=== PATIENT | female | born 1980 | race Caucasian/White ===

== ENCOUNTER 2019-12-23 09:35 | Emergency (ER) | payer OTHER, SELFPAY ==
[2019-12-23 09:49] VITALS: BP 165/101; PULSE 77; RESP 20; TEMP 36.8; O2SAT 100
--- NOTE | 2019-12-23 09:49 | ED.GENADULT ---
HPI - General Adult General Chief complaint: Neck Pain/Injury Stated complaint: neck pain Time Seen by Provider: 12/23/19 09:49 Source: patient Mode of arrival: ambulatory Limitations: no limitations History of Present Illness HPI narrative: 39-year-old female patient presents to the [facility] with complaints of lateral neck pain that started yesterday. Patient states that she was cooking dinner last night and was trying to talk to her mother on the phone and states that she went to go turn her neck and all of a sudden felt pulled to the left lateral neck. Patient states she has been taking 600 mg ibuprofen for pain and using icy hot. Patient states she feels like it is very stiff today and has limited range of motion to her neck. Denies any numbness or tingling to the legs or arms. Denies any back pain. Related Data Home Medications Medication Instructions Recorded Confirmed albuterol sulfate 04/03/19 amlodipine 04/03/19 fluticasone propion-salmeterol INHALATION 04/03/19 fluticasone propion-salmeterol INHALATION 04/03/19 [Wixela Inhub] labetalol 04/03/19 ranitidine HCl 04/03/19 sertraline mg 04/03/19 Allergies Allergy/AdvReac Type Severity Reaction Status Date / Time levofloxacin Allergy Severe hives Verified 12/23/19 09:59 latex Allergy Intermediate Rash Verified 12/23/19 09:59 THEOPHYLLINE ANHYDROUS Allergy Mild Rash Uncoded 04/03/19 17:20 Review of Systems Review of Systems: Narrative: CONSTITUTIONAL: Denies fever, chills, or sweats. EYES: Denies visual changes, redness, or discharge. ENT: Denies rhinorrhea, congestion, sore throat, or otalgia. CARDIOVASCULAR: Denies chest pain, palpitations, or edema. RESPIRATORY: Denies cough or dyspnea. GASTROINTESTINAL: Denies abdominal pain, nausea, vomiting, or diarrhea. GENITOURINARY: Denies dysuria or hematuria. SKIN: Denies rash or itching. MUSCULOSKELETAL: Denies back pain, joint pain, or myalgia. Positive left lateral neck pain NEUROLOGIC: Denies headache, numbness, or weakness. PSYCHIATRIC: Denies anxiety or depression. [facility] Past Medical History Medical History (Updated 12/23/19 @ 10:06 by SIMONE Cruz) Asthma Depression Gastrointestinal disorder Gastric bypass surgery, lap band Gestational hypertension Social History Social History Social History: Smoking status: Current every day smoker Comments At the time of my signature I agree with nursing past medical history, surgical, social, and family history. There is no relevant family history pertinent to the presenting complaint. Exam Narrative: Exam Narrative: GENERAL: Well-appearing, well-nourished, and in no acute distress. HEAD: Normocephalic, atraumatic. EYES: PERRLA and EOMI. ENT: Nares clear, no rhinorrhea or epistaxis. Mucous membranes moist. NECK: Supple, no lymphadenopathy. No surface trauma, no soft tissue, muscle tenderness spasm noted to L lateral neck. Trachea midline. No subq emphysema or crepitus. No lila tenderness, step-offs or deformity to firm Palpation at posterior midline. FROM with limitation and pain, decrease flexion, extension,Lateral bending, rotation, and axial load. CHEST: Clear to auscultation. No respiratory distress. HEART: Regular rate and rhythm. No murmur heard. Normal peripheral pulses. ABDOMEN: Soft, nontender, nondistended, normal active bowel sounds. EXTREMITIES: Normal range of motion. No edema. SKIN: Warm, dry, no rash. NEURO: No focal deficits. Alert and oriented x3. Course Vital Signs Vital signs: Vital Signs Temperature 36.8 C 12/23/19 09:49 Pulse Rate 77 12/23/19 09:49 Respiratory Rate 12/23/19 09:49 Blood Pressure 165/101 H 12/23/19 09:49 Pulse Oximetry 100 12/23/19 09:49 Temperature 36.8 C 12/23/19 09:49 Pulse Rate 77 12/23/19 09:49 Respiratory Rate 12/23/19 09:49 Blood Pressure 165/101 H 12/23/19 09:49 Pulse Oximetry
== END 2019-12-23 10:16 | disposition home or self-care (01) ==
PROVIDERS: Emergency Provider Nurse Practitioner Family; PCP Nurse Practitioner Family
DX: S16.1XXA Strain of muscle, fascia and tendon at neck level, initial encounter (principal); X50.9XXA Other and unspecified overexertion or strenuous movements or postures, initial encounter; F17.200 Nicotine dependence, unspecified, uncomplicated; J45.909 Unspecified asthma, uncomplicated; F32.9 Major depressive disorder, single episode, unspecified; Z98.84 Bariatric surgery status
CPT/HCPCS: 99213; G0463

== ENCOUNTER 2021-04-11 09:57 | Emergency (ER) | payer OTHER, SELFPAY ==
--- NOTE | 2021-04-11 10:00 | ED.URI ---
HPI - URI/Sore Throat General Chief Complaint: Upper Respiratory Infection Stated Complaint: congestion cough sinus pressure Time Seen by Provider: 04/11/21 10:01 Source: patient and RN notes reviewed History of Present Illness HPI Narrative: Patient is a 40-year-old female who presents the urgent care with complaints of sinus congestion, cough and chest congestion. Patient states that she has a history of asthma and tends to get this every year . Patient states her symptoms started yesterday. Denies of any other illness in the home. Patient has not had a Covid vaccine. Denies of fever, chills, nausea, vomiting. Patient has been using her inhalers appropriately without any other use of [id number] medications. No other complaints. No acute distress noted. Patient aware of the plan of care. Some parts of this dictation were generated by voice recognition software and may contain typographical and/or grammatical inaccuracies. Related Data Home Medications Medication Instructions Recorded Confirmed albuterol sulfate 2.5 mg INHALATION PRN PRN 04/03/19 amlodipine 10 mg PO DAILY 04/03/19 04/11/21 labetalol 04/03/19 ranitidine HCl 04/03/19 famotidine 20 mg PO DAILY 04/11/21 04/11/21 hydroxyzine HCl 25 mg PO DAILY 04/11/21 04/11/21 Allergies Allergy/AdvReac Type Severity Reaction Status Date / Time levofloxacin Allergy Severe hives Verified 04/11/21 10:13 latex Allergy Intermediate Rash Verified 04/11/21 10:13 THEOPHYLLINE ANHYDROUS Allergy Mild Rash Uncoded 04/11/21 10:13 Review of Systems Review of Systems: CONSTITUTIONAL: Denies fever, chills, or sweats. EYES: Denies visual changes, redness, or discharge. ENT: Reports of sinus congestion and rhinorrhea CARDIOVASCULAR: Denies chest pain, palpitations, or edema. RESPIRATORY: Reports of cough and intermittent dyspnea GASTROINTESTINAL: Denies abdominal pain, nausea, vomiting, or diarrhea. GENITOURINARY: Denies dysuria or hematuria. SKIN: Denies rash or itching. MUSCULOSKELETAL: Denies back pain, joint pain, or myalgia. NEUROLOGIC: Denies headache, numbness, or weakness. All other systems reviewed are negative, except as documented in HPI. [facility] Past Medical History Medical History (Updated 04/11/21 @ 10:27 by SIMONE Hallman) Asthma Depression Gastrointestinal disorder Gastric bypass surgery, lap band Gestational hypertension Social History Social History Social History: Smoking status: Current every day smoker Comments At the time of my signature, I reviewed and agree with the nursing past medical, surgical, social, and family history. There is no relevant family history pertinent to the patient complaint. Exam Narrative: GENERAL: This is a well-nourished, well-developed patient, in no apparent distress. HEAD: normocephalic, atraumatic. EYES: PERRL. Sclera clear/white. Vision is grossly intact. EARS: External ears normal, auditory canals clear and without drainage, TMs normal without perforation. Hearing grossly intact. NOSE: External nose normal with no obvious nasal discharge, nares without redness, no rhinorrhea. THROAT: Mucous membranes moist, posterior pharynx clear. NECK: Neck supple, non-tender without lymphadenopathy, masses or thyromegaly. CARDIOVASCULAR: Regular rate and rhythm without murmurs, gallops, or rubs. RESPIRATORY: Clear to auscultation. Breath sounds equal bilaterally. No wheezes, rales, or rhonchi. SKIN: warm, intact with no suspicious lesions or rash, good texture and turgor. NEURO: awake, alert, and oriented to person, place and time. There were no obvious focal neurologic abnormalities. EXTREMITIES: No clubbing, cyanosis, or edema. Course Course Level of Care: Express Care Visit Vital Signs Vital signs: Vital Signs Temperature 98.9 F 04/11/21 10:02 Pulse Rate 100 04/11/21 10:02 Respiratory Rate 18 04/11/21 10:02 Blood Pressure 17
[2021-04-11 10:02] VITALS: BP 176/112; PULSE 100; RESP 18; TEMP 37.2; O2SAT 98
[2021-04-11 10:17] VITALS: BP 176/112; PULSE 100; RESP 18; TEMP 37.2; O2SAT 98
[2021-04-11 10:30] VITALS: BP 170/98
== END 2021-04-11 10:33 | disposition home or self-care (01) ==
PROVIDERS: Emergency Provider Nurse Practitioner Family; PCP Nurse Practitioner Family
DX: J45.909 Unspecified asthma, uncomplicated (principal); Z98.84 Bariatric surgery status
CPT/HCPCS: 99213; G0463

== ENCOUNTER 2022-05-07 18:51 | Emergency (ER) | payer OTHER, SELFPAY ==
[2022-05-07 18:56] VITALS: BP 151/78; PULSE 87; RESP 20; TEMP 36.9; O2SAT 98
--- NOTE | 2022-05-07 18:57 | ED.BACK ---
HPI - Back Pain/Injury General Chief Complaint: Back Pain/Injury Stated Complaint: Middle back pain from fall Time Seen by Provider: 05/07/22 18:57 Source: patient and RN notes reviewed History of Present Illness HPI Narrative: Patient is a 41-year-old female who presents to urgent care with complaints of acute on chronic back pain. Patient states her chronic back pain is typically in the lumbar region affecting the SI joints. States that she does see pain management and takes several medications for her chronic back pain. Patient states that she has tried to get a hold for pain management regarding her new thoracic pain after falling over a dog gate a few days ago. Patient states that she has not had any relief. No other acute complaints. No acute distress noted. Patient aware of the plan of care. Some parts of this dictation were generated by voice recognition software and may contain typographical and/or grammatical inaccuracies. Related Data Home Medications Medication Instructions Recorded Confirmed albuterol sulfate 2.5 mg/3 mL 2.5 mg inhalation PRN PRN Wheezing 04/03/19 (0.083 %) solution for nebulization amlodipine 10 mg tablet 10 mg PO DAILY 04/03/19 04/11/21 labetalol 200 mg tablet 04/03/19 ranitidine HCl 150 mg tablet 04/03/19 famotidine 20 mg tablet 20 mg PO DAILY 04/11/21 04/11/21 hydroxyzine HCl 25 mg tablet 25 mg PO DAILY 04/11/21 04/11/21 budesonide-formoterol HFA 160 inhalation 05/07/22 mcg-4.5 mcg/actuation aerosol inhaler (Symbicort) cyclobenzaprine 10 mg tablet mg 05/07/22 methocarbamol 750 mg tablet mg 05/07/22 omeprazole 40 mg capsule,delayed mg 05/07/22 release pregabalin 75 mg capsule mg 05/07/22 tramadol 50 mg tablet mg 05/07/22 venlafaxine 150 mg mg PO 05/07/22 capsule,extended release 24 hr Allergies Allergy/AdvReac Type Severity Reaction Status Date / Time levofloxacin Allergy Severe hives Verified 04/11/21 10:13 latex Allergy Intermediate Rash Verified 04/11/21 10:13 THEOPHYLLINE ANHYDROUS Allergy Mild Rash Uncoded 04/11/21 10:13 Review of Systems Review of Systems: CONSTITUTIONAL: Denies fever, chills, or sweats. EYES: Denies visual changes, redness, or discharge. ENT: Denies rhinorrhea, congestion, sore throat, or otalgia. CARDIOVASCULAR: Denies chest pain, palpitations, or edema. RESPIRATORY: Denies cough or dyspnea. GASTROINTESTINAL: Denies abdominal pain, nausea, vomiting, or diarrhea. GENITOURINARY: Denies dysuria or hematuria. SKIN: Denies rash or itching. MUSCULOSKELETAL: Reports acute on chronic back pain NEUROLOGIC: Denies headache, numbness, or weakness. All other systems reviewed are negative, except as documented in HPI. [facility] Past Medical History Medical History (Updated 05/07/22 @ 19:14 by SIMONE Hallman) Asthma Depression Gastrointestinal disorder Gastric bypass surgery, lap band Gestational hypertension Social History Social History Social History: Smoking status: Current every day smoker Comments At the time of my signature, I reviewed and agree with the nursing past medical, surgical, social, and family history. There is no relevant family history pertinent to the patient complaint. Exam Narrative: GENERAL: This is a well-nourished, well-developed patient, in no apparent distress. HEAD: normocephalic, atraumatic. EYES: PERRL. Sclera clear/white. Vision is grossly intact. EARS: External ears normal NOSE: External nose normal with no obvious nasal discharge, nares without redness, no rhinorrhea. THROAT: Mucous membranes moist NECK: Neck supple SKIN: warm, intact with no suspicious lesions or rash, good texture and turgor. NEURO: awake, alert, and oriented to person, place and time. There were no obvious focal neurologic abnormalities. EXTREMITIES: No clubbing, cyanosis, or edema. BACK: Moderate tenderness to midline thoracic and lumbar diffuse tenderne
== END 2022-05-07 19:22 | disposition home or self-care (01) ==
PROVIDERS: Emergency Provider Nurse Practitioner Family; PCP Nurse Practitioner Family
DX: M54.6 Pain in thoracic spine (principal); F17.200 Nicotine dependence, unspecified, uncomplicated; J45.909 Unspecified asthma, uncomplicated; Z98.84 Bariatric surgery status; F32.A Depression, unspecified
CPT/HCPCS: 99213; G0463

== ENCOUNTER 2022-07-06 15:20 | Emergency (ER) | payer OTHER, SELFPAY ==
[2022-07-06 15:28] VITALS: BP 143/79; PULSE 87; RESP 16; TEMP 37; O2SAT 100
--- NOTE | 2022-07-06 15:44 | ED.URI ---
HPI - URI/Sore Throat General Chief Complaint: Upper Respiratory Infection Stated Complaint: throat Source: patient and RN notes reviewed History of Present Illness HPI Narrative: 41 yo F presents to urgent care with complaints of a sore throat starting today. Pt reports painful swallowing. Pt denies any fevers, chills, chest pain, SOB, N/V/D, ear pain, or vomiting. Related Data Home Medications Medication Instructions Recorded Confirmed albuterol sulfate 2.5 mg/3 mL 2.5 mg inhalation PRN PRN Wheezing 04/03/19 (0.083 %) solution for nebulization amlodipine 10 mg tablet 10 mg PO DAILY 04/03/19 04/11/21 labetalol 200 mg tablet 04/03/19 famotidine 20 mg tablet 20 mg PO DAILY 04/11/21 04/11/21 hydroxyzine HCl 25 mg tablet 25 mg PO DAILY 04/11/21 04/11/21 budesonide-formoterol HFA 160 inhalation 05/07/22 mcg-4.5 mcg/actuation aerosol inhaler (Symbicort) cyclobenzaprine 10 mg tablet mg 05/07/22 methocarbamol 750 mg tablet mg 05/07/22 omeprazole 40 mg capsule,delayed mg 05/07/22 release pregabalin 75 mg capsule mg 05/07/22 tramadol 50 mg tablet mg 05/07/22 venlafaxine 150 mg mg PO 05/07/22 capsule,extended release 24 hr Allergies Allergy/AdvReac Type Severity Reaction Status Date / Time levofloxacin Allergy Severe hives Verified 07/06/22 15:42 latex Allergy Intermediate Rash Verified 07/06/22 15:42 THEOPHYLLINE ANHYDROUS Allergy Mild Rash Uncoded 07/06/22 15:42 Review of Systems Review of Systems: Pertinent positives and pertinent negatives per HPI. [facility] Past Medical History Medical History (Updated 07/06/22 @ 16:07 by Bailey Ledesma APRN) Asthma Depression Gastrointestinal disorder Gastric bypass surgery, lap band Gestational hypertension Social History Social History Social History: 06/09pa Smoking status: Current every day smoker Comments At the time of my signature, I reviewed and agree with the nursing past medical, surgical, social, and family history. There is no relevant family history pertinent to the patient complaint. Exam Narrative: GENERAL: This is a well-nourished, well-developed patient, in no apparent distress. HEAD: normocephalic, atraumatic. EYES: PERRL. Sclera clear/white. Vision is grossly intact. EARS: External ears normal, auditory canals clear and without drainage, TMs normal without perforation. Hearing grossly intact. NOSE: External nose normal with no obvious nasal discharge, nares without redness, no rhinorrhea. THROAT: Mucous membranes moist, posterior pharynx erythremic with right tonsil 1+ with exudate. Left tonsil 1+. NECK: Neck supple, non-tender without lymphadenopathy, masses or thyromegaly. CARDIOVASCULAR: Regular rate and rhythm without murmurs, gallops, or rubs. RESPIRATORY: Clear to auscultation. Breath sounds equal bilaterally. No wheezes, rales, or rhonchi. GASTROINTESTINAL: Abdomen soft, non-tender, nondistended. Bowel sounds are active. No hepato-splenomegaly, or palpable masses. No guarding. SKIN: warm, intact with no suspicious lesions or rash, good texture and turgor. NEURO: awake, alert, and oriented to person, place and time. There were no obvious focal neurologic abnormalities. Course Course Level of Care: Express Care Visit Vital Signs Vital signs: Vital Signs Temperature 98.6 F 07/06/22 15:28 Pulse Rate 87 07/06/22 15:28 Respiratory Rate 16 07/06/22 15:28 Blood Pressure 143/79 H 07/06/22 15:28 Pulse Oximetry 100 07/06/22 15:28 Oxygen Delivery Room Air 07/06/22 15:28 Temperature 98.6 F 07/06/22 15:28 Pulse Rate 87 07/06/22 15:28 Respiratory Rate 16 07/06/22 15:28 Blood Pressure 143/79 H 07/06/22 15:28 Pulse Oximetry 100 07/06/22 15:28 Oxygen Delivery Room Air 07/06/22 15:28 reviewed. MDM - URI/Sore Throat MDM Narrative Medical decision making narrative: Rapid strep is negative in the office; however we will send to the
== END 2022-07-06 16:10 | disposition home or self-care (01) ==
PROVIDERS: Emergency Provider Nurse Practitioner Family; PCP Nurse Practitioner Family
DX: J02.9 Acute pharyngitis, unspecified (principal); J45.909 Unspecified asthma, uncomplicated; F32.A Depression, unspecified; F17.200 Nicotine dependence, unspecified, uncomplicated
CPT/HCPCS: 87081; 87880; 99213; G0463

== ENCOUNTER 2022-08-12 12:41 | Emergency (ER) | payer OTHER, SELFPAY ==
[2022-08-12 12:44] VITALS: BP 129/84; PULSE 93; RESP 20; TEMP 36.8; O2SAT 100
--- NOTE | 2022-08-12 13:22 | ED.GENADULT ---
HPI - General Adult General Chief complaint: Upper Respiratory Infection Stated complaint: sinus infection/ chest congestion Source: patient Mode of arrival: ambulatory Limitations: no limitations History of Present Illness HPI narrative: Patient presents for evaluation of sinus symptoms. She states she initially had some allergic symptoms include sinus congestion pruritis over one week ago. Since that time her symptoms have progressed into green nasal drainage and cough. She has a hx of bacterial sinusitis and this feels similar. She has an underlying history of asthma. She has been using her albuterol and Symbicort. She denies any shortness of breath that is not relieved by inhaler use. She reports a nonproductive cough. No fever, chills, nausea, vomiting. She is a former smoker, with quit date about 1.5 weeks ago. Related Data Home Medications Medication Instructions Recorded Confirmed albuterol sulfate 2.5 mg/3 mL 2.5 mg inhalation PRN PRN Wheezing 04/03/19 07/06/22 (0.083 %) solution for nebulization amlodipine 10 mg tablet 10 mg PO DAILY 04/03/19 07/06/22 labetalol 200 mg tablet 200 mg PO BID 04/03/19 07/06/22 famotidine 20 mg tablet 20 mg PO DAILY 04/11/21 07/06/22 hydroxyzine HCl 25 mg tablet 25 mg PO DAILY 04/11/21 07/06/22 budesonide-formoterol HFA 160 See Rx Instructions .Route .COMPLEX 05/07/22 07/06/22 mcg-4.5 mcg/actuation aerosol inhaler (Symbicort) cyclobenzaprine 10 mg tablet See Rx Instructions .Route .COMPLEX 05/07/22 07/06/22 methocarbamol 750 mg tablet 750 mg PO TID 05/07/22 07/06/22 omeprazole 40 mg capsule,delayed 40 mg PO DAILY 05/07/22 07/06/22 release pregabalin 75 mg capsule 75 mg PO BID 05/07/22 07/06/22 tramadol 50 mg tablet 50 mg PO BID 05/07/22 07/06/22 venlafaxine 150 mg 150 mg PO DAILY 05/07/22 07/06/22 capsule,extended release 24 hr Allergies Allergy/AdvReac Type Severity Reaction Status Date / Time levofloxacin Allergy Severe hives Verified 07/06/22 15:42 latex Allergy Intermediate Rash Verified 07/06/22 15:42 THEOPHYLLINE ANHYDROUS Allergy Mild Rash Uncoded 07/06/22 15:42 Review of Systems Review of Systems: CONSTITUTIONAL: Denies fever, chills, or sweats. EYES: Denies visual changes, redness, or discharge. ENT: Reports sinus congestion thick green drainage from her nares CARDIOVASCULAR: Denies chest pain, palpitations, or edema. RESPIRATORY: Reports nonproductive cough, mild shortness of breath and wheezing. GASTROINTESTINAL: Denies abdominal pain, nausea, vomiting, or diarrhea. GENITOURINARY: Denies dysuria or hematuria. SKIN: Denies rash or itching. MUSCULOSKELETAL: Denies back pain, joint pain, or myalgia. NEUROLOGIC: Denies headache, numbness, dizziness, or weakness. PSYCHIATRIC: Denies anxiety or depression. [facility] Past Medical History Medical History Asthma Depression Gastrointestinal disorder Gastric bypass surgery, lap band Gestational hypertension Surgical History Surgical History No pertinent past surgical history Family History Family History Mother Family history non-contributory Social History Social History Social History: 06/09pack Smoking status: Current every day smoker Substance use: never Living arrangements: with family Gender identity (if verbalized by the patient): Female Spiritual care concerns: No Exam Narrative: GENERAL: Well-appearing, well-nourished, and in no acute distress. HEAD: Normocephalic, atraumatic. EYES: PERRLA and EOMI. ENT: Bilateral nasal turbinates erythema and edema with thick mucopurulent discharge present. Mucous membranes moist. Oropharynx without tonsillar hypertrophy exudate or other lesions. Bilateral TMs pearly myles nonbulging NECK: Supple. N
== END 2022-08-12 13:03 | disposition home or self-care (01) ==
PROVIDERS: Emergency Provider Nurse Practitioner; PCP Nurse Practitioner Family
DX: J45.909 Unspecified asthma, uncomplicated (principal); J01.81 Other acute recurrent sinusitis; F32.A Depression, unspecified; Z87.891 Personal history of nicotine dependence; Z98.84 Bariatric surgery status
CPT/HCPCS: 99213; G0463

== ENCOUNTER 2022-11-03 16:10 | Emergency (ER) | payer OTHER, SELFPAY ==
--- NOTE | ~2022-11-03 | XR_ITS ---
EXAM: XR wrist RT min 3V DATE: 11/03/2022 16:49 HISTORY: DRILLING A HOLE TWISTED WRIST 11/03/22. HEARD DARYL. . COMPARISON: None available. FINDINGS: Normal mineralization. No fracture or dislocation. No lytic or blastic lesion. Joint space s are maintained. No erosion or periosteal change. Soft tissues within normal limits. IMPRESSION: No acute osseous finding in the right wrist. Reviewed, dictated and finalized at location K.
[2022-11-03 16:24] VITALS: BP 149/72; PULSE 92; RESP 20; TEMP 36.8; O2SAT 100
--- NOTE | 2022-11-03 16:35 | ED.EXTPRO ---
HPI - Extremity Problem General Chief complaint: Extremity Injury, Upper Stated complaint: Right wrist twisted drilling Time Seen by Provider: 11/03/22 16:35 History of Present Illness HPI Narrative: patient presents with right wrist pain.Patient was using a drill at home and twisted her wrist causing pain to the medial side of wrist. no deformity no swelling pain with movemnt Related Data Home Medications Medication Instructions Recorded Confirmed albuterol sulfate 2.5 mg/3 mL 2.5 mg inhalation PRN PRN Wheezing 04/03/19 11/03/22 (0.083 %) solution for nebulization amlodipine 10 mg tablet 10 mg PO DAILY 04/03/19 11/03/22 labetalol 200 mg tablet 200 mg PO BID 04/03/19 11/03/22 famotidine 20 mg tablet 20 mg PO DAILY 04/11/21 11/03/22 hydroxyzine HCl 25 mg tablet 25 mg PO DAILY 04/11/21 11/03/22 budesonide-formoterol HFA 160 See Rx Instructions .Route .COMPLEX 05/07/22 11/03/22 mcg-4.5 mcg/actuation aerosol inhaler (Symbicort) cyclobenzaprine 10 mg tablet See Rx Instructions .Route .COMPLEX 05/07/22 11/03/22 methocarbamol 750 mg tablet 750 mg PO TID 05/07/22 11/03/22 omeprazole 40 mg capsule,delayed 40 mg PO DAILY 05/07/22 11/03/22 release pregabalin 75 mg capsule 75 mg PO BID 05/07/22 11/03/22 venlafaxine 150 mg 150 mg PO DAILY 05/07/22 11/03/22 capsule,extended release 24 hr Allergies Allergy/AdvReac Type Severity Reaction Status Date / Time levofloxacin Allergy Severe hives Verified 11/03/22 16:40 latex Allergy Intermediate Rash Verified 11/03/22 16:40 THEOPHYLLINE ANHYDROUS Allergy Mild Rash Uncoded 11/03/22 16:40 Review of Systems Review of Systems: CONSTITUTIONAL: Denies fever, chills, or sweats. EYES: Denies visual changes, redness, or discharge. ENT: Denies rhinorrhea, congestion, sore throat, or otalgia. CARDIOVASCULAR: Denies chest pain, palpitations, or edema. RESPIRATORY: Denies cough or dyspnea. GASTROINTESTINAL: Denies abdominal pain, nausea, vomiting, or diarrhea. GENITOURINARY: Denies dysuria or hematuria. SKIN: Denies rash or itching. MUSCULOSKELETAL: Denies back pain, joint pain, or myalgia. NEUROLOGIC: Denies headache, numbness, or weakness. PSYCHIATRIC: Denies anxiety or depression. [facility] Past Medical History Medical History Asthma Depression Gastrointestinal disorder Gastric bypass surgery, lap band Gestational hypertension Surgical History Surgical History No pertinent past surgical history Family History Family History Mother Family history non-contributory Social History Social History Social History: 06/09pack Smoking status: Current every day smoker Substance use: never Living arrangements: with family Gender identity (if verbalized by the patient): Female Spiritual care concerns: No Comments At time of signature, agree with nursing past medical, surgical, social and family history. There is no relevant family history pertinent to the presenting complaint Exam Narrative: GENERAL: Well-appearing, well-nourished, and in no acute distress. HEAD: Normocephalic, atraumatic. EYES: PERRLA and EOMI. ENT: Nares clear, no rhinorrhea or epistaxis. Mucous membranes moist. NECK: Supple. CHEST: Clear to auscultation. No respiratory distress. HEART: Regular rate and rhythm. No murmur heard. Normal peripheral pulses. ABDOMEN: Soft, nontender, nondistended, normal active bowel sounds. EXTREMITIES: Normal range of motion. No edema. HAND EXAM - Skin intact, no laceration, no swelling, no erythema, normal digit cascade with flexion of fingers, median nerve, ulnar nerve, radial nerve is intact. Normal sensation of each side of each finger, can perform `ok? sign, `cross over finger test of index and middle fingers? and `thumbs up
== END 2022-11-03 17:00 | disposition home or self-care (01) ==
PROVIDERS: Emergency Provider Nurse Practitioner Family
DX: S63.501A Unspecified sprain of right wrist, initial encounter (principal); X50.9XXA Other and unspecified overexertion or strenuous movements or postures, initial encounter; J45.909 Unspecified asthma, uncomplicated; F32.A Depression, unspecified; F17.200 Nicotine dependence, unspecified, uncomplicated
CPT/HCPCS: 73110; 99213; G0463

== ENCOUNTER 2023-01-18 09:51 | Emergency (ER) | payer OTHER, SELFPAY ==
[2023-01-18 10:07] VITALS: BP 142/84; PULSE 95; RESP 14; TEMP 36.6; O2SAT 99
--- NOTE | 2023-01-18 10:15 | ED.URI ---
HPI - URI/Sore Throat General Chief Complaint: Upper Respiratory Infection Stated Complaint: scratchy throat History of Present Illness HPI Narrative: Patient presents with concerns for strep throat. Patient states she woke up with a sore throat this morning and several of her children tested positive for strep yesterday. No trouble swallowing no drooling no fever. Related Data Home Medications Medication Instructions Recorded Confirmed albuterol sulfate 2.5 mg/3 mL 2.5 mg inhalation PRN PRN Wheezing 04/03/19 01/18/23 (0.083 %) solution for nebulization amlodipine 10 mg tablet 10 mg PO DAILY 04/03/19 01/18/23 labetalol 200 mg tablet 200 mg PO BID 04/03/19 01/18/23 famotidine 20 mg tablet 20 mg PO DAILY 04/11/21 01/18/23 hydroxyzine HCl 25 mg tablet 25 mg PO DAILY 04/11/21 01/18/23 budesonide-formoterol HFA 160 See Rx Instructions .Route .COMPLEX 05/07/22 01/18/23 mcg-4.5 mcg/actuation aerosol inhaler (Symbicort) cyclobenzaprine 10 mg tablet See Rx Instructions .Route .COMPLEX 05/07/22 01/18/23 methocarbamol 750 mg tablet 750 mg PO TID 05/07/22 01/18/23 omeprazole 40 mg capsule,delayed 40 mg PO DAILY 05/07/22 01/18/23 release pregabalin 75 mg capsule 75 mg PO BID 05/07/22 01/18/23 venlafaxine 150 mg 150 mg PO DAILY 05/07/22 01/18/23 capsule,extended release 24 hr tramadol 50 mg tablet See Rx Instructions .Route 11/03/22 01/18/23 .COMPLEX PRN Pain Allergies Allergy/AdvReac Type Severity Reaction Status Date / Time levofloxacin Allergy Severe hives Verified 01/18/23 10:28 latex Allergy Intermediate Rash Verified 01/18/23 10:28 THEOPHYLLINE ANHYDROUS Allergy Mild Rash Uncoded 01/18/23 10:28 Review of Systems Review of Systems: CONSTITUTIONAL: Denies chills, or sweats. Reports fever and generalized body aches EYES: Denies visual changes, redness, or discharge. ENT: Denies otalgia. Reports nasal congestion runny nose and sore throat CARDIOVASCULAR: Denies chest pain, palpitations, or edema. RESPIRATORY: Denies dyspnea. Reports occasional cough GASTROINTESTINAL: Denies abdominal pain, nausea, vomiting, or diarrhea. GENITOURINARY: Denies dysuria or hematuria. SKIN: Denies rash or itching. MUSCULOSKELETAL: Denies back pain, joint pain, or myalgia. Reports generalized body aches NEUROLOGIC: Denies headache, numbness, or weakness. PSYCHIATRIC: Denies anxiety or depression. [facility] Past Medical History Medical History Asthma Depression Gastrointestinal disorder Gastric bypass surgery, lap band Gestational hypertension Surgical History Surgical History No pertinent past surgical history Family History Family History Mother Family history non-contributory Social History Social History Social History: 3pack Smoking status: Current every day smoker Substance use: never Living arrangements: with family Gender identity (if verbalized by the patient): Female Spiritual care concerns: No Comments At time of signature, agree with nursing past medical, surgical, social and family history. There is no relevant family history pertinent to the presenting complaint Exam Narrative: The patient is a well-developed, well-nourished in no acute distress. SKIN: Skin is warm and dry without erythema, swelling or exudate. There is good turgor. No tenting. HEAD: Atraumatic. Normocephalic. No temporal or scalp tenderness. EYES: Moist and bright. Sclera and conjunctivae normal. No discharge. PERRLA. Extraocular motions intact. Gross visual acuity intact. EARS: Pinna is normal shape and contour. Clear external auditory canals. TM pearly benton with good cone of light, no erythema or suppuration. Bilateral cerumen noted no gross hearing deficit. NOSE: pink, moist m
== END 2023-01-18 10:35 | disposition home or self-care (01) ==
PROVIDERS: Emergency Provider Nurse Practitioner Family; PCP Nurse Practitioner Family
DX: J02.9 Acute pharyngitis, unspecified (principal); J06.9 Acute upper respiratory infection, unspecified; F17.200 Nicotine dependence, unspecified, uncomplicated; Z79.899 Other long term (current) drug therapy
CPT/HCPCS: 87081; 87880; 99213; G0463

== ENCOUNTER 2023-02-06 10:54 | Emergency (ER) | payer OTHER, SELFPAY ==
[2023-02-06 10:59] VITALS: BP 153/93; PULSE 84; RESP 16; TEMP 36.8; O2SAT 98
--- NOTE | 2023-02-06 11:37 | ED.WOUNDLAC ---
HPI - Wound/Laceration General Chief Complaint: Wound/Laceration Stated Complaint: Laceration to Left Hand Time Seen by Provider: 02/06/23 11:17 Source: patient and RN notes reviewed Mode of arrival: ambulatory Limitations: no limitations History of Present Illness HPI narrative: Patient presents today with a left hand laceration. She cut her hand just prior to arrival while she was cutting chicken at home. Denies numbness or tingling. She is up-to-date on her tetanus vaccine. Currently rates her pain 04/17. Related Data Home Medications Medication Instructions Recorded Confirmed albuterol sulfate 2.5 mg/3 mL 2.5 mg inhalation PRN PRN Wheezing 04/03/19 02/06/23 (0.083 %) solution for nebulization amlodipine 10 mg tablet 10 mg PO DAILY 04/03/19 02/06/23 labetalol 200 mg tablet 200 mg PO BID 04/03/19 02/06/23 famotidine 20 mg tablet 20 mg PO DAILY 04/11/21 02/06/23 hydroxyzine HCl 25 mg tablet 25 mg PO DAILY 04/11/21 02/06/23 budesonide-formoterol HFA 160 See Rx Instructions .Route .COMPLEX 05/07/22 02/06/23 mcg-4.5 mcg/actuation aerosol inhaler (Symbicort) cyclobenzaprine 10 mg tablet See Rx Instructions .Route .COMPLEX 05/07/22 02/06/23 methocarbamol 750 mg tablet 750 mg PO TID 05/07/22 02/06/23 omeprazole 40 mg capsule,delayed 40 mg PO DAILY 05/07/22 02/06/23 release pregabalin 75 mg capsule 75 mg PO BID 05/07/22 02/06/23 venlafaxine 150 mg 150 mg PO DAILY 05/07/22 02/06/23 capsule,extended release 24 hr tramadol 50 mg tablet See Rx Instructions .Route 11/03/22 02/06/23 .COMPLEX PRN Pain Allergies Allergy/AdvReac Type Severity Reaction Status Date / Time levofloxacin Allergy Severe hives Verified 02/06/23 11:11 latex Allergy Intermediate Rash Verified 02/06/23 11:11 theophylline Allergy Unknown Verified 02/06/23 11:12 Review of Systems Review of Systems: CONSTITUTIONAL: Denies body aches, fever, chills, or sweats. EYES: Denies visual changes, redness, or discharge. ENT: Denies rhinorrhea, congestion, sore throat, or otalgia. CARDIOVASCULAR: Denies chest pain, palpitations, or edema. RESPIRATORY: Denies cough or dyspnea. GASTROINTESTINAL: Denies abdominal pain, nausea, vomiting, or diarrhea. GENITOURINARY: Denies dysuria or hematuria. SKIN: + left hand laceration. MUSCULOSKELETAL: Denies back pain, joint pain, or myalgia. NEUROLOGIC: Denies headache, numbness, tingling, or weakness. PSYCH: Denies depression or anxiety. [facility] Past Medical History Medical History Asthma Depression Gastrointestinal disorder Gastric bypass surgery, lap band Gestational hypertension Surgical History Surgical History No pertinent past surgical history Family History Family History Mother Family history non-contributory Social History Social History Social History: 06/09pack Smoking status: Current every day smoker Substance use: never Living arrangements: with family Gender identity (if verbalized by the patient): Female Spiritual care concerns: No Comments At time of signature, I have reviewed and agree with nursing past medical, surgical, social and family history unless otherwise noted. Please see nursing chart for further information. There is no relevant family history pertinent to the presenting complaint Exam Narrative: GENERAL: Well-appearing, well-nourished, and in no acute distress. HEAD: Normocephalic, atraumatic. EYES: EOMI. No redness or drainage. Conjunctivae normal. ENT: Mucous membranes pink and moist. NECK: Normal AROM. CHEST: No respiratory distress. EXTREMITIES: Normal range of motion. No edema. SKIN: Warm, dry, no rash. Capillary refill normal. Normal skin turgor. 0.5 cm superficial linear laceration to the dorsal as
== END 2023-02-06 11:48 | disposition home or self-care (01) ==
PROVIDERS: Emergency Provider Nurse Practitioner; PCP Nurse Practitioner Family
DX: S61.412A Laceration without foreign body of left hand, initial encounter (principal); W45.8XXA Other foreign body or object entering through skin, initial encounter; Y93.G9 Activity, other involving cooking and grilling; F17.200 Nicotine dependence, unspecified, uncomplicated; J45.909 Unspecified asthma, uncomplicated; F32.A Depression, unspecified
CPT/HCPCS: 12001; 99212; G0463

== ENCOUNTER 2023-03-09 18:22 | Emergency (ER) | payer OTHER, SELFPAY ==
--- NOTE | ~2023-03-09 | XR_ITS ---
XR foot LT min 3V 03/09/2023 18:47 INDICATION: Left foot pain PROCEDURE: 4 views left foot COMPARISON: No prior studies for comparison. FINDINGS: Fracture, dislocation or subluxation is not identified. The soft tissues appear within norm al limits. No foreign bodies are identified. IMPRESSION: 1: NO ACUTE BONE OR JOINT ABNORMALITY IDENTIFIED. Reviewed, dictated and finalized at location A. 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
[2023-03-09 18:26] VITALS: BP 156/90; PULSE 102; RESP 20; TEMP 36.7; O2SAT 100
--- NOTE | 2023-03-09 18:57 | ED.GENADULT ---
HPI - General Adult General Chief complaint: Extremity Injury, Lower Stated complaint: Left Heel Pain Source: patient Mode of arrival: ambulatory Limitations: no limitations History of Present Illness HPI narrative: Patient presents for evaluation of left foot pain since . Pain started after stepping down off a stepstool. The majority of pain starts in her left heel and radiates through the plantar aspect of the arch of her foot. She describes the pain as sharp and shooting, rated 8/10 in severity. She has a number of medications at home that she takes for pain including to exam today, Flexeril, Lyrica, tramadol, meloxicam. No loss of ROM but movement and weightbearing make her pain worse. Related Data Home Medications Medication Instructions Recorded Confirmed albuterol sulfate 2.5 mg/3 mL 2.5 mg inhalation PRN PRN Wheezing 04/03/19 02/06/23 (0.083 %) solution for nebulization amlodipine 10 mg tablet 10 mg PO DAILY 04/03/19 02/06/23 labetalol 200 mg tablet 200 mg PO BID 04/03/19 02/06/23 famotidine 20 mg tablet 20 mg PO DAILY 04/11/21 02/06/23 hydroxyzine HCl 25 mg tablet 25 mg PO DAILY 04/11/21 02/06/23 budesonide-formoterol HFA 160 See Rx Instructions .Route .COMPLEX 05/07/22 02/06/23 mcg-4.5 mcg/actuation aerosol inhaler (Symbicort) cyclobenzaprine 10 mg tablet See Rx Instructions .Route .COMPLEX 05/07/22 02/06/23 methocarbamol 750 mg tablet 750 mg PO TID 05/07/22 02/06/23 omeprazole 40 mg capsule,delayed 40 mg PO DAILY 05/07/22 02/06/23 release pregabalin 75 mg capsule 75 mg PO BID 05/07/22 02/06/23 venlafaxine 150 mg 150 mg PO DAILY 05/07/22 02/06/23 capsule,extended release 24 hr tramadol 50 mg tablet See Rx Instructions .Route 11/03/22 02/06/23 .COMPLEX PRN Pain Allergies Allergy/AdvReac Type Severity Reaction Status Date / Time levofloxacin Allergy Severe hives Verified 02/06/23 11:11 latex Allergy Intermediate Rash Verified 02/06/23 11:11 theophylline Allergy Unknown Verified 02/06/23 11:12 [facility] Past Medical History Medical History Asthma Depression Gastrointestinal disorder Gastric bypass surgery, lap band Gestational hypertension Surgical History Surgical History No pertinent past surgical history Family History Family History Mother Family history non-contributory Social History Social History Social History: 06/09pa Smoking status: Current every day smoker Substance use: never Living arrangements: with family Gender identity (if verbalized by the patient): Female Spiritual care concerns: No Course Course Emergency Course: This is a 42-year-old female who presented for evaluation of pain in left foot. X-ray negative for fracture. Exam consistent with strain. She has several agents to control her pain at home. Recommended RICE therapy. Provided with rakel wrap. Follow up with primary and podiatry. Go to the ER for intractable pain. Pt in agreement with plan of care. Level of Care: Express Care Visit Vital Signs Vital signs: Vital Signs Temperature 36.7 C 03/09/23 18:26 Pulse Rate 102 H 03/09/23 18:26 Respiratory Rate 20 03/09/23 18:26 Blood Pressure 156/90 H 03/09/23 18:26 Pulse Oximetry 100 03/09/23 18:26 Oxygen Delivery Room Air 03/09/23 18:26 Temperature 36.7 C 03/09/23 18:26 Pulse Rate 102 H 03/09/23 18:26 Respiratory Rate 20 03/09/23 18:26 Blood Pressure 156/90 H 03/09/23 18:26 Pulse Oximetry 100 03/09/23 18:26 Oxygen Delivery Room Air 03/09/23 18:26 Medical Decision Making Vital Signs Vital Signs: Vital Signs Temperature 36.7 C 03/09/23 18:26 Pulse Rate 102 H 03/09/23 18:26 Respiratory Rate 20 03/09/23 18:26 Blood Pressure 156/
== END 2023-03-09 19:10 | disposition home or self-care (01) ==
PROVIDERS: Emergency Provider Nurse Practitioner; PCP Nurse Practitioner Family
DX: S96.912A Strain of unspecified muscle and tendon at ankle and foot level, left foot, initial encounter (principal); X58.XXXA Exposure to other specified factors, initial encounter; J45.909 Unspecified asthma, uncomplicated; F32.A Depression, unspecified
CPT/HCPCS: 73630; 99213; G0463

== ENCOUNTER 2023-05-12 15:15 | Emergency (ER) | payer OTHER, SELFPAY ==
[2023-05-12 15:22] VITALS: BP 151/85; PULSE 116; RESP 20; TEMP 37.9; O2SAT 97
--- NOTE | 2023-05-12 17:03 | ED.URI ---
HPI - URI/Sore Throat General Chief Complaint: Upper Respiratory Infection Stated Complaint: Headache/Cough/Body Aches Time Seen by Provider: 05/12/23 16:50 Source: patient, RN notes reviewed and old records reviewed Mode of arrival: ambulatory Limitations: no limitations History of Present Illness HPI Narrative: 42 year old female who presents to [facility] care with complaints of headache, cough, body aches and shortness of breath which started last night. Patient reports that she has a history of asthma and anytime she gets cold symptoms she has increased respiratory problems.Patient reports that she is out of her nebulizer solution and is requesting refill. Patient reports that she is taking her tramadol for her discomfort MD elicited complaint: cough (shortness of breath) and other (body aches) Pertinent past history: asthma Onset (ago): day(s) (day 2 of symptoms) Consistency: constant Pain scale (0-10): 10 Able to tolerate fluids by mouth: Yes Treatments prior to arrival: other (nebs and uses inhalers daily and taking tramadol) Related Data Home Medications Medication Instructions Recorded Confirmed albuterol sulfate 2.5 mg/3 mL 2.5 mg inhalation PRN PRN Wheezing 04/03/19 05/12/23 (0.083 %) solution for nebulization amlodipine 10 mg tablet 10 mg PO DAILY 04/03/19 05/12/23 budesonide-formoterol HFA 160 2 puff inhalation BID 05/07/22 05/12/23 mcg-4.5 mcg/actuation aerosol inhaler (Symbicort) cyclobenzaprine 10 mg tablet See Rx Instructions .Route .COMPLEX 05/07/22 05/12/23 venlafaxine 150 mg 150 mg PO DAILY 05/07/22 05/12/23 capsule,extended release 24 hr tramadol 50 mg tablet See Rx Instructions .Route 11/03/22 05/12/23 .COMPLEX PRN Pain atomoxetine 80 mg capsule 80 mg PO DAILY 05/12/23 05/12/23 (Strattera) dulaglutide 1.5 mg/0.5 mL 1.5 mg subcut WEEKLY 05/12/23 05/12/23 subcutaneous pen injector (Trulicity) ergocalciferol (vitamin D2) 1,250 1,250 mcg PO WEEKLY 05/12/23 05/12/23 mcg (50,000 unit) capsule labetalol 100 mg tablet 100 mg PO BID 05/12/23 05/12/23 montelukast 10 mg tablet 10 mg PO DAILY 05/12/23 05/12/23 nicotine (polacrilex) 2 mg gum 2 mg PO Q2H 05/12/23 05/12/23 pregabalin 150 mg capsule 150 mg PO BID 05/12/23 05/12/23 tizanidine 2 mg tablet 2 mg PO TID PRN MUSCLE SPASMS 05/12/23 05/12/23 Allergies Allergy/AdvReac Type Severity Reaction Status Date / Time levofloxacin Allergy Severe hives Verified 02/06/23 11:11 latex Allergy Intermediate Rash Verified 02/06/23 11:11 theophylline Allergy Unknown Unknown Verified 05/12/23 15:43 Review of Systems Review of Systems: CONSTITUTIONAL: Reports malaise, chills, sweats, or fever. EYES: Denies visual changes, redness, or discharge. ENT: Reports rhinorrhea, congestion, sinus pain, no otalgia and no sore throat. CARDIOVASCULAR: Denies chest pain, palpitations, or edema. RESPIRATORY: Reports cough.? Reports increased dyspnea. GASTROINTESTINAL: Denies abdominal pain, nausea, vomiting, diarrhea SKIN: Denies rash or itching. MUSCULOSKELETAL: Reports myalgia. NEUROLOGIC: Reports headache. All systems reviewed & are unremarkable except as noted in HPI and below PMFSH Past Medical History Medical History (Updated 05/14/23 @ 20:46 by Sheri Roach NP) Asthma Depression Gastrointestinal disorder Gastric bypass surgery, lap band Gestational hypertension Hypertension Surgical History Surgical History No pertinent past surgical history Family History Family History Mother Family history non-contributory Social History Social History Social History: 3/4pack Smoking status: Current every day smoker Substance use: never Living arrangements: with family Gender identity (if verbalized by the patient): Female Spiritual care concerns: No
== END 2023-05-12 17:15 | disposition home or self-care (01) ==
PROVIDERS: Emergency Provider Registered Nurse; PCP Nurse Practitioner Family
DX: J40 Bronchitis, not specified as acute or chronic (principal); Z20.822 Contact with and (suspected) exposure to COVID-19; F17.200 Nicotine dependence, unspecified, uncomplicated; J45.909 Unspecified asthma, uncomplicated; I10 Essential (primary) hypertension; F32.A Depression, unspecified
CPT/HCPCS: 87426; 87804; 99213; G0463

== ENCOUNTER 2023-07-28 16:55 | Emergency (ER) | payer OTHER, SELFPAY ==
--- NOTE | ~2023-07-28 | XR_ITS ---
EXAMINATION: XR foot LT min 3V DATE: 07/28/2023 17:19 INDICATION: Left foot pain. TECHNIQUE: 4 views of left foot were obtained. COMPARISON: Left foot radiographs 03/09/2023 FINDINGS: Bone alignment is normal. No fracture. There is mild osteoarthritis of first metatarsophala ngeal joint. There are enthesophytes at the posterior and plantar aspects of calcaneal tuberosity. IMPRESSION: 1. Mild osteoarthritis of first metatarsophalangeal joint. Reviewed, dictated and finalized at location E.
[2023-07-28 17:00] VITALS: BP 142/83; PULSE 106; RESP 20; TEMP 36.7; O2SAT 100
--- NOTE | 2023-07-28 17:52 | ED.GENADULT ---
HPI - General Adult General Chief complaint: Extremity Injury, Lower Stated complaint: Left Foot Pain Source: patient Mode of arrival: ambulatory Limitations: no limitations History of Present Illness HPI narrative: Patient presents for evaluation of left foot pain. She indicates she has chronic left foot pain but noticed worsening symptoms yesterday. [place] This seemed to exacerbate her pain. She has variable severity of her symptoms ranging between the 3 and 9/10 in severity. Pain is primarily in the 4th and 5th metatarsals of the left foot. She reports numbness in the 5th digit of the left foot. She takes several medications for chronic pain including Flexeril, tramadol, Lyrica and tizanidine. Movement and weight-bearing make her pain worse. No loss of range of motion or swelling. Related Data Home Medications Medication Instructions Recorded Confirmed albuterol sulfate 2.5 mg/3 mL 2.5 mg inhalation PRN PRN Wheezing 04/03/19 07/28/23 (0.083 %) solution for nebulization amlodipine 10 mg tablet 10 mg PO DAILY 04/03/19 07/28/23 budesonide-formoterol HFA 160 2 puff inhalation BID 05/07/22 07/28/23 mcg-4.5 mcg/actuation aerosol inhaler (Symbicort) cyclobenzaprine 10 mg tablet See Rx Instructions .Route .COMPLEX 05/07/22 07/28/23 venlafaxine 150 mg 150 mg PO DAILY 05/07/22 07/28/23 capsule,extended release 24 hr tramadol 50 mg tablet See Rx Instructions .Route 11/03/22 07/28/23 .COMPLEX PRN Pain atomoxetine 80 mg capsule 80 mg PO DAILY 05/12/23 07/28/23 (Strattera) dulaglutide 1.5 mg/0.5 mL 1.5 mg subcut WEEKLY 05/12/23 07/28/23 subcutaneous pen injector (Trulicity) ergocalciferol (vitamin D2) 1,250 1,250 mcg PO WEEKLY 05/12/23 07/28/23 mcg (50,000 unit) capsule labetalol 100 mg tablet 100 mg PO BID 05/12/23 07/28/23 montelukast 10 mg tablet 10 mg PO DAILY 05/12/23 07/28/23 nicotine (polacrilex) 2 mg gum 2 mg PO Q2H 05/12/23 07/28/23 pregabalin 150 mg capsule 150 mg PO BID 05/12/23 07/28/23 tizanidine 2 mg tablet 2 mg PO TID PRN MUSCLE SPASMS 05/12/23 07/28/23 Allergies Allergy/AdvReac Type Severity Reaction Status Date / Time levofloxacin Allergy Severe hives Verified 07/28/23 17:11 latex Allergy Intermediate Rash Verified 07/28/23 17:11 theophylline Allergy Unknown Unknown Verified 07/28/23 17:11 Review of Systems Review of Systems: CONSTITUTIONAL: Denies fever, chills, or sweats. EYES: Denies visual changes, redness, or discharge. ENT: Denies rhinorrhea, congestion, sore throat, or otalgia. CARDIOVASCULAR: Denies chest pain, palpitations, or edema. RESPIRATORY: Denies cough or dyspnea. GASTROINTESTINAL: Denies abdominal pain, nausea, vomiting, or diarrhea. GENITOURINARY: Denies dysuria or hematuria. SKIN: Denies rash or itching. MUSCULOSKELETAL: Reports pain in the left foot. NEUROLOGIC: Reports numbness in the 5th digit of the left foot. Denies headache, dizziness, or weakness. PSYCHIATRIC: Denies anxiety or depression. [facility] Past Medical History Medical History Asthma Chronic back pain Depression Gastrointestinal disorder Gastric bypass surgery, lap band Gestational hypertension Hypertension Surgical History Surgical History No pertinent past surgical history Family History Family History Mother Family history non-contributory Social History Social History Social History: 3pack Smoking status: Current every day smoker Substance use: never Living arrangements: with family Gender identity (if verbalized by the patient): Female Spiritual care concerns: No Exam Narrative: GENERAL: Well-appearing, well-nourished, and in no acute distress. HEAD: Normocephalic, atraumatic
== END 2023-07-28 17:55 | disposition home or self-care (01) ==
PROVIDERS: Emergency Provider Nurse Practitioner; PCP Nurse Practitioner Family
DX: M25.572 Pain in left ankle and joints of left foot (principal); F17.200 Nicotine dependence, unspecified, uncomplicated; J45.909 Unspecified asthma, uncomplicated; I10 Essential (primary) hypertension; Z98.84 Bariatric surgery status
CPT/HCPCS: 73630; 99213; G0463

== ENCOUNTER 2023-11-05 17:39 | Emergency (ER) | payer OTHER, SELFPAY ==
[2023-11-05 17:43] VITALS: BP 135/81; PULSE 93; RESP 16; TEMP 37.1; O2SAT 100
[2023-11-05 17:47] VITALS: BP 135/81; PULSE 93; RESP 16; TEMP 37.1; O2SAT 100
--- NOTE | 2023-11-05 18:11 | ED.EAR ---
HPI - Ear Problem General Chief complaint: Ear Stated complaint: ear Time Seen by Provider: 11/05/23 18:00 Source: patient, RN notes reviewed and old records reviewed Mode of arrival: ambulatory Limitations: no limitations History of Present Illness HPI Narrative: 42 year old female ho presents to [facility] care with complaints of right ear pain, drainage for the past 2 days. Patient reports history of frequent ear infections over the years, reports that she has never had ear tubes. Patient reports that her right ear feels clogged and she can't hear out of her ear., denies any sore throat or any nasal congestion or drainage. MD Complaint: ear pain Location: right ear Duration: constant Severity: moderate Discharge from ear: Reports yes - clear Associated symptoms ear: decreased hearing and other (ear pain) Treatment prior to arrival: none Related Data Home Medications Medication Instructions Recorded Confirmed albuterol sulfate 2.5 mg/3 mL 2.5 mg inhalation PRN PRN Wheezing 04/03/19 07/28/23 (0.083 %) solution for nebulization amlodipine 10 mg tablet 10 mg PO DAILY 04/03/19 07/28/23 budesonide-formoterol HFA 160 2 puff inhalation BID 05/07/22 07/28/23 mcg-4.5 mcg/actuation aerosol inhaler (Symbicort) cyclobenzaprine 10 mg tablet See Rx Instructions .Route .COMPLEX 05/07/22 07/28/23 venlafaxine 150 mg 150 mg PO DAILY 05/07/22 07/28/23 capsule,extended release 24 hr tramadol 50 mg tablet See Rx Instructions .Route 11/03/22 07/28/23 .COMPLEX PRN Pain atomoxetine 80 mg capsule 80 mg PO DAILY 05/12/23 07/28/23 (Strattera) dulaglutide 1.5 mg/0.5 mL 1.5 mg subcut WEEKLY 05/12/23 07/28/23 subcutaneous pen injector (Trulicity) ergocalciferol (vitamin D2) 1,250 1,250 mcg PO WEEKLY 05/12/23 07/28/23 mcg (50,000 unit) capsule labetalol 100 mg tablet 100 mg PO BID 05/12/23 07/28/23 montelukast 10 mg tablet 10 mg PO DAILY 05/12/23 07/28/23 nicotine (polacrilex) 2 mg gum 2 mg PO Q2H 05/12/23 07/28/23 pregabalin 150 mg capsule 150 mg PO BID 05/12/23 07/28/23 tizanidine 2 mg tablet 2 mg PO TID PRN MUSCLE SPASMS 05/12/23 07/28/23 Allergies Allergy/AdvReac Type Severity Reaction Status Date / Time levofloxacin Allergy Severe hives Verified 07/28/23 17:11 latex Allergy Intermediate Rash Verified 07/28/23 17:11 theophylline Allergy Unknown Unknown Verified 07/28/23 17:11 Review of Systems Review of Systems: CONSTITUTIONAL: Denies malaise, chills, sweats, or fever. EYES: Denies visual changes, redness, or discharge. ENT: Reports no rhinorrhea, congestion, sinus pain,positive for right otalgia and no sore throat. CARDIOVASCULAR: Denies chest pain, palpitations, or edema. RESPIRATORY: Reports no cough.? Denies dyspnea. GASTROINTESTINAL: Denies abdominal pain, nausea, vomiting, diarrhea SKIN: Denies rash or itching. MUSCULOSKELETAL: Denies myalgia. NEUROLOGIC: Denies headache. All systems reviewed & are unremarkable except as noted in HPI and below PMFSH Past Medical History Medical History (Updated 11/05/23 @ 18:38 by Sheri Roach NP) Asthma Chronic back pain Depression Diabetes Gastrointestinal disorder Gastric bypass surgery, lap band Gestational hypertension Hypertension Surgical History Surgical History No pertinent past surgical history Family History Family History Mother Family history non-contributory Social History Social History Social History: 3/pack Smoking status: Current every day smoker Substance use: never Living arrangements: with family Gender identity (if verbalized by the patient): Female Spiritual care concerns: No Comments At time of signature, agree with nursing past medical, surgical, social and family history. There is no relevant family history pertinent
== END 2023-11-05 18:30 | disposition home or self-care (01) ==
PROVIDERS: Emergency Provider Registered Nurse; PCP Nurse Practitioner Family
DX: H66.001 Acute suppurative otitis media without spontaneous rupture of ear drum, right ear (principal); H60.311 Diffuse otitis externa, right ear; F17.200 Nicotine dependence, unspecified, uncomplicated; J45.909 Unspecified asthma, uncomplicated; E11.9 Type 2 diabetes mellitus without complications; I10 Essential (primary) hypertension; F32.A Depression, unspecified
CPT/HCPCS: 99213; G0463

== ENCOUNTER 2024-01-19 16:02 | Emergency (ER) | payer OTHER, SELFPAY ==
[2024-01-19 16:06] VITALS: BP 145/87; PULSE 84; RESP 18; TEMP 37.1; O2SAT 99
--- NOTE | 2024-01-19 16:25 | ED_ITS ---
HPI - General Adult General Chief complaint: Extremity Injury, Upper Stated complaint: stabbing sharp pain on rt elbow Time Seen by Provider: 01/19/24 16:12 Source: patient, RN notes reviewed and old records reviewed Mode of arrival: ambulatory Limitations: no limitations History of Present Illness HPI narrative: 43-year-old female to Express Care with complaint of right lateral elbow pain for approximately 6 days without known injury. Acutely tender with palpation. Patient history hypertension chronic back pain cubital tunnel and carpal tunnel surgery on the right arm 2 years ago, diabetes. Patient reports the pain is worse with active range of motion of elbow. Patient has not treated at home. Patient resting comfortably in exam room in no acute distress. Related Data Home Medications Medication Instructions Recorded Confirmed amlodipine 10 mg tablet 10 mg PO DAILY 04/03/19 01/19/24 budesonide-formoterol HFA 160 2 puff inhalation BID 05/07/22 01/19/24 mcg-4.5 mcg/actuation aerosol inhaler (Symbicort) atomoxetine 80 mg capsule 80 mg PO DAILY 05/12/23 01/19/24 (Strattera) dulaglutide 1.5 mg/0.5 mL 1.5 mg subcut WEEKLY 05/12/23 01/19/24 subcutaneous pen injector (Trulicity) ergocalciferol (vitamin D2) 1,250 1,250 mcg PO WEEKLY 05/12/23 01/19/24 mcg (50,000 unit) capsule labetalol 100 mg tablet 100 mg PO BID 05/12/23 01/19/24 montelukast 10 mg tablet 10 mg PO DAILY 05/12/23 01/19/24 pregabalin 150 mg capsule 150 mg PO BID 05/12/23 01/19/24 tizanidine 2 mg tablet 2 mg PO TID PRN MUSCLE SPASMS 05/12/23 01/19/24 duloxetine 30 mg capsule,delayed 30 mg PO BID 01/19/24 01/19/24 release omeprazole 40 mg capsule,delayed 40 mg PO DAILY 01/19/24 01/19/24 release tramadol 200 mg tablet,extended 200 mg PO DAILY 01/19/24 01/19/24 release 24 hr Allergies Allergy/AdvReac Type Severity Reaction Status Date / Time levofloxacin Allergy Severe hives Verified 01/19/24 16:26 latex Allergy Intermediate Rash Verified 01/19/24 16:26 theophylline Allergy Unknown Unknown Verified 01/19/24 16:26 Review of Systems Review of Systems: All systems reviewed & are unremarkable except as noted in HPI and below Constitutional: Constitutional: Reports no additional constitutional complaints Eyes: Eyes: Reports no additional eye complaints ENT: Reports system reviewed and no additional complaints, except as documented Cardiovascular: Cardiovascular: Reports no additional cardiovascular complaints, Denies chest pain and Denies dyspnea Respiratory: Respiratory: Reports no additional respiratory complaints, Denies cough and Denies dyspnea Musculoskeletal: Musculoskeletal: Reports no additional musculoskeletal complaints Neurologic: Reports system reviewed and no additional complaints, except as documented Psychiatric: Psychiatric: Reports no additional psychiatric complaints [facility] Past Medical History Medical History (Updated 01/19/24 @ 20:34 by Ayaka Morgan APRN) Asthma Chronic back pain Depression Diabetes Gastrointestinal disorder Gastric bypass surgery, lap band Gestational hypertension Hypertension Surgical History Surgical History No pertinent past surgical history Family History Family History Mother Family history non-contributory Social History Social History Social History: 06/09pack Smoking status: Current every day smoker Substance use: never Living arrangements: with family Gender identity (if verbalized by the patient): Female Spiritual care concerns: No Comments At the time of my signature, I reviewed and agree with the nursing past medical, surgical, social, and family history. There is no relevant family history pertinent to the patient complaint. Exam Const: General: cooperative, healthy appearing, comfortable, no acute distress, alert and well nourished Nutritional Appearance: well nourished Orientation/consciousness: patient oriented x3 Limitations: no limitations HENMT: Head: normal to inspection Ears: external ears normal Face/Nose/Sinus: Normal external nose present, Normal nares present, normal facial exam, No erythema and No edema Face and sinus: normal facial exam, no erythema and no edema Mouth: Yes Normal oral and palatal mucosa present Eyes: General: appearance normal, both eyes and all related structures Neck: Neck: normal visual inspection, full ROM and no meningeal signs Lymphatic: no lymphadenopathy noted and no lymphedema noted Chest: Chest palpation & inspection: normal inspection of the chest Resp: Effort & Inspection: normal respiratory effort and able to speak in complete sentences Auscultation: clear to auscultation bilaterally Cardio: Jugular venous distension: no JVD Rate: regular rate Rhythm: regular rhythm Back/Spine/Pelvis: Cervical Spine: cervical ROM normal Skin: General skin exam: normal color, no rashes or lesions noted and turgor normal Neuro: General: patient oriented x3, gait normal, moves all extremities and no meningeal signs Speech: normal speech Gait exam (Neuro): Normal gait present Extrem: General: normal to inspection, full ROM and capillary refill normal Psych: Appearance: grossly normal and well kempt Course Course Emergency Course: Some parts of this dictation were generated by voice recognition software and may contain typographical and/or grammatical inaccuracies. Level of Care: Express Care Visit Vital Signs Vital signs: Vital Signs Temperature 37.1 C 01/19/24 16:06 Pulse Rate 84 01/19/24 16:06 Respiratory Rate 18 01/19/24 16:06 Blood Pressure 145/87 H 01/19/24 16:06 Pulse Oximetry 99 01/19/24 16:06 Oxygen Delivery Room Air 01/19/24 16:06 Temperature 37.1 C 01/19/24 16:06 Pulse Rate 84 01/19/24 16:06 Respiratory Rate 18 01/19/24 16:06 Blood Pressure 145/87 H 01/19/24 16:06 Pulse Oximetry 99 01/19/24 16:06 Oxygen Delivery Room Air 01/19/24 16:06 reviewed Transfer Transfered to: [facility] Transportation: Other ( private vehicle) Transfer rationale: higher level of care, DVT rule out Accepting physician: Dr. Govea. Report called to Alysia. Transfer comments: Patient advised that US was not currently available at [facility]. Patient offered transfer to a facility witi US available. Pt declined and requested transfer to [facility]. Medical Decision Making MDM Narrative Medical decision making narrative: 43-year-old female to Express Care with complaint of right lateral elbow pain for approximately 6 days without known injury. Acutely tender with palpation. Patient history hypertension chronic back pain cubital tunnel and carpal tunnel surgery on the right arm 2 years ago, diabetes. Patient reports the pain is worse with active range of motion of elbow. Patient has not treated at home. Patient resting comfortably in exam room in no acute distress. Patient is sitting comfortably in exam room nontoxic in appearance. On exam, patient acutely tender with light palpation of lateral right elbow. Superficial vasculature right arm more pronounced than left arm. Patient appropriate for transfer to [facility] ED. Transfer instructions reviewed with patient, including strict orders to report directly to the emergency department. Patient offered EMS transport. Patient declined and prefers private vehicle. Patient verbalized understanding. Some parts of this dictation were generated by voice recognition software and may contain typographical and/or grammatical inaccuracies. Differential Diagnosis Differential Diagnosis: DVT, contusion of elbow, tendinitis Vital Signs Vital Signs: Vital Signs Temperature 37.1 C 01/19/24 16:06 Pulse Rate 84 01/19/24 16:06 Respiratory Rate 18 01/19/24 16:06 Blood Pressure 145/87 H 01/19/24 16:06 Pulse Oximetry 99 01/19/24 16:06 Oxygen Delivery Room Air 01/19/24 16:06 Temperature 37.1 C 01/19/24 16:06 Pulse Rate 84 01/19/24 16:06 Respiratory Rate 18 01/19/24 16:06 Blood Pressure 145/87 H 01/19/24 16:06 Pulse Oximetry 99 01/19/24 16:06 Oxygen Delivery Room Air 01/19/24 16:06 Discharge Plan Discharge Clinical Impression: Pain in right elbow Patient Disposition: Acute Care Hospital Condition: Stable Prescriptions: No Action tramadol 200 mg tablet extended release 24 hr 200 mg PO DAILY duloxetine 30 mg capsule,delayed release(DR/EC) 30 mg PO BID omeprazole 40 mg capsule,delayed release(DR/EC) 40 mg PO DAILY amlodipine 10 mg tablet 10 mg PO DAILY budesonide-formoterol [Symbicort] 160-4.5 mcg/actuation HFA aerosol inhaler 2 puff inhalation BID atomoxetine [Strattera] 80 mg capsule 80 mg PO DAILY Trulicity 1.5 mg/0.5 mL pen injector 1.5 mg SUBCUT WEEKLY labetalol 100 mg tablet 100 mg PO BID montelukast 10 mg tablet 10 mg PO DAILY ergocalciferol (vitamin D2) 1,250 mcg (50,000 unit) capsule 1,250 mcg PO WEEKLY pregabalin 150 mg capsule 150 mg PO BID tizanidine 2 mg tablet 2 mg PO TID PRN (Reason: MUSCLE SPASMS) albuterol sulfate 2.5 mg /3 mL (0.083 %) solution for nebulization 2.5 mg inhalation Q4H PRN (Reason: shortness of breath or wheezing) Qty: 90 0RF Follow-up/Referrals: Mcghee,Jayla Shanks APN [Primary Care Provider] -
== END 2024-01-19 16:42 | disposition short-term general hospital (02) ==
LOC: EXPBETH 16:04
PROVIDERS: Emergency Provider Nurse Practitioner Family; PCP Nurse Practitioner Family
DX: M25.521 Pain in right elbow (principal); J45.909 Unspecified asthma, uncomplicated; E11.9 Type 2 diabetes mellitus without complications; I10 Essential (primary) hypertension
CPT/HCPCS: 99212; G0463

== ENCOUNTER 2024-07-31 17:28 | Emergency (ER) | payer OTHER, SELFPAY ==
--- OUTSIDE RECORDS SUMMARY | 2024-07-31 17:31 | XMS_ITS ---
Care Plan - [facility] Created on: July 31, 2024 KIM COBURN Angelita : 1980 Sex: Female Author Organization [facility] Address [address] [place] [address] Phone Care Team Providers Care Lead Material Handler Name Role Phone ARAUJO AMANDEEP AGGARWAL, LEEANNE Primary Care Provider [phone] ANUP HARRELL, EDWARDO Loza Unavailable [phone]
--- OUTSIDE RECORDS SUMMARY | 2024-07-31 17:31 | XMS_ITS | Clinical Summary ---
Author Organization [facility] Address [address] [place] [address] Phone Care Team Providers Care Beauty Culture Teacher Name Role Phone ARAUJO AMANDEEP AGGARWAL, LEEANNE Primary Care Provider [phone] ANUP HARRELL, EDWARDO Loza Unavailable [phone] Reason for Visit and Chief Complaint [Patient Encounter] Problems Includes: Problems addressed during this encounter and other active Problems All Visits Onset Date Resolved Date Provider Condition S tatus Chronic Pain Syndrome 05/27/2023 MIRIAM DARDEN PMHNP Active Last Documented On 4 2:07PM ; [facility] Depression Unknown KATARINA G CHERRI CHUTE MAN-FPA, INJECTION MOLDING MACHINE TENDER-BC Active Last Documented On 2 8:50AM ; [facility] Anxiety Disorder Nos Unknown KATARINA G CHERRI CHUTE MAN-FPA, INJECTION MOLDING MACHINE TENDER-BC Active Last Documented On 2 8:50AM ; [facility] Asthma Unknown KATARINA G CHERRI CHUTE MAN-FPA, INJECTION MOLDING MACHINE TENDER-BC Active Last Documented On 2 8:49AM ; [facility] Gerd Unknown KATARINA G CHERRI CHUTE MAN-FPA, INJECTION MOLDING MACHINE TENDER-BC Active Last Documented On 2 8:50AM ; [facility] Essential Hypertension Unknown KATARINA G KUL P CHUTE MAN-FPA, INJECTION MOLDING MACHINE TENDER-BC Active Last Documented On 2 8:49AM ; [facility] Obesity Unknown KATARINA G CHERRI CHUTE MAN-FPA, INJECTION MOLDING MACHINE TENDER-BC Active Last Documented On 2 8:49AM ; [facility] Plan of Treatment No Plan of Treatment Recorded Assessments Includes: Assessments from this encounter No Assessments Recorded Medical Equipment - Implanted Devices Includes: Current Devices No Medical Equipment Recorded Medications Includes: Medications discussed during this encounter and other current Medications Current Medications (continue as prescribed) Meloxicam 15 MG Oral Tablet 09/09/2023 Provider: ALAN BREWSTER Diagnosis: Other spondylosi s, lumbar region TAKE 1 TABLET BY MOUTH DAILY WITH FOOD Last Documented On 4 10:37AM By KATARINA PHILLIPS ; [facility] traMADol HCl ER 200 MG Oral Tablet Extended Release 24 Hour 09/04/2023 Provider: ALAN BREWSTER Diagnosis: Other spondylosi s, lumbar region One tablet daily Last Documented On 4 11:08AM By KATARINA PHILLIPS ; [facility] Cyclobenzaprine HCl 10 MG Oral Tablet 07/22/2023 Provider: ALAN GARCIA Diagnosis: Low back pain, unspecified TAKE 1 TABLET BY MOUTH AT BEDTIME Last Documented On 4 9:43AM By KATARINA PHILLIPS ; [facility] Pregabalin 150 MG Oral Capsule 07/22/2023 Provider: ALAN BREWSTER Diagnosis: Radiculopathy, l umbar region TAKE 1 CAPSULE BY MOUTH TWICE DAILY Last Documented On 4 9:43AM By KATARINA PHILLIPS ; [facility] tiZANidine HCl 2 MG Oral Tablet 07/22/2023 Provider: ALAN GARCIA Diagnosis: Low back pain, u nspecified TAKE 1 TABLET BY MOUTH THREE TIMES DAILY NEEDED FOR LOWER BACK PAIN Last Documented On 4 9:43AM By KATARINA PHILLIPS ; [facility] traMADol HCl 50 MG Oral Tablet 06/25/2023 Provider: ALAN BREWSTER Diagnosis: Low back pain, u nspecified take 2 tablets as needed one to two times daily for severe pain Last Documented On 4 9:16AM By KATARINA PHILLIPS ; [facility] Trulicity 0.75 MG/0.5ML Subc utaneous Solution Pen-injector 04/04/2023 Provider: AMANDEEP JENKINS APN Diagnosis: 1 injection weekly. Last Documented On 4 9:00AM By KATARINA HARLEY [facility] ; [facility] Strattera 40 MG Oral Capsule 01/02/2023 Provider: ISMA ROMERO NP Diagnosis: Last Documented On 3 12:04PM By KATARINA HARLEY [facility] ; [facility] Labetalol HCl 100 MG Oral Tablet 12/08/2022 Provider : AMANDEEP JENKINS APN Diagnosis: Last Documented On 3 12:04PM [facility] Varenicline Tartrate 1 MG Oral Tablet 07/20/2022 Pro vider: Diagnosis: Last Documented On 3 10:43AM By KATARINA HARLEY [facility] ; [facility] Pepcid 20 MG Oral Tablet 10/25/2021 Provider: Diagnosis: Last Documented On 2 9:50AM By KATARINA PHILLIPS ; [facility] Symbicort 160-4.5 MCG/ACT In halation Aerosol 10/17/2021 Provider: RIA JENKINS APN Diagnosis: 2 puffs twice a day. Last Documented On 2 9:50AM [facility] ; [facility] Albuterol Sulfate HFA 108 (9 0 Base) MCG/ACT Inhalation Aerosol Solution 10/17/2021 Provider: AMANDEEP DE LEON APN Diagnosis: as needed. Last Documented On 2 9:50AM By KATARINA HARLEY INJECTION MOLDING MACHINE TENDERANI ; [facility] Omeprazole 40 MG Oral Capsul e Delayed Release 10/17/2021 Provider: RIA JENKINS APN Diagnosis: Last Documented On 2 9:50AM By KATARINA PHILLIPS ; [facility] Montelukast Sodium 10 MG Oral Tablet 10/17/2021 Prov ider: LEEANNE ARAUJO SUEDING MACHINE OPERATOR, INJECTION MOLDING MACHINE TENDER-C Diagnosis: Last Documented On 2 9:50AM By KATARINA HARLEY [facility] ; [facility] amLODIPine Besylate 5 MG Oral Tablet 10/17/2021 Prov ider: LEEANNE ARAUJO SUEDING MACHINE OPERATOR, INJECTION MOLDING MACHINE TENDER-C Diagnosis: Last Documented On 2 9:50AM [facility] Medications Administered Includes: Administered Medications from this encounter No Administered Medications Recorded Results Includes: Results discussed during this encounter No Results Recorded For Specified Dates History of Present Illness Includes: History of Present Illness from this encounter No History of Present Illness Recorded Social History No Social History Recorded - Smoking Status Unknown Medical History Includes: Medical History addressed during this encounter No Medical History Recorded Family History Includes: Family History addressed during this encounter No Family History Recorded Review of Systems Includes: Review of Systems from this encounter No Review of Systems Recorded Mental Status Includes: Mental Status from this encounter No Mental Status Recorded Functional Status Includes: Functional Status from this encounter No Functional Status Recorded Physical Exam Includes: Physical Exam from this encounter No Physical Exam Recorded Allergies Includes: Active Allergies Substance Type Reaction Onset Date Resolved Date Statu s Theophylline ER Allergy 10/25/2021 Act latonia Last Documented On 4 8:46AM ; [facility] Levaquin Allergy 10/25/2021 Active Last Documented On 4 8:46AM ; [facility] Latex Allergy 10/25/2021 Active Last Documented On 4 8:46AM ; [facility] Encounters Encounter Provider Location Date Check-In Time Check-Out Time Diagnosis [Patient Encounter] CAMRYN BOONE MD 05/29/2023 4:47PM 11:59PM Insurance Includes: Active Insurance Policies Plan Name Member ID Group # Subscriber Relationship Effect latonia Dates 1 - [facility] [id number] IKM COBURN Self Clinical Notes Includes: Clinical Notes from this encounter No Clinical Notes Recorded
--- OUTSIDE RECORDS SUMMARY | 2024-07-31 17:31 | XMS_ITS | Clinical Summary ---
Author Organization [facility] Address [address] [place] [address] Care Team Providers Care Superintendent Electric [employer] Name Role Phone Mcghee, Jayla LEUNGN-PROGRAM PROPOSALS COORDINATOR Primary Care Provider [phone] Source Comments [facility],non-owned Affiliates and Associated Physician Practices is amultiple site organization consisting of ambulatory clinics and hospital sitesin [place], [place], [place] and [place]. This disclosure is being madepursuant to the Care Everywhere program and may not contain all information available regarding this patient. Last updated 17.[facility] Allergies Active Allergy Reactions Criticality Noted Date Comments Adhesive Sensitivity Rash Medium 12/17/2019 Latex Rash Medium 11/20/2011 Levofloxacin Unknown 05/31/2014 Levofloxacin Urticaria Medium 02/03/2016 Nicotine Urticaria Medium 07/29/2018 From nicotine patch--pt believes due to adhesive Theophylline Urticaria,GI Discomfort Medium 02/03/2016 Theophyllines Nausea and/or Vomiting 2009 Medications * This document contains information received from the source organization and may not represent a complete record from that organization. * Be aware that medications may not be up to date on this document. Alwaysverify current medications with the patient. albuterol HFA (PROVENTIL;VENT MILAGRO;PROAIR) 108 (90 Base) MCG/ACT inhaler Inhale 2 puffs by mouth every 4 hours as needed for Shortness of Breath or Wheezing 1 Inhaler 1 9 Active montelukast (SINGULAIR) 10 MG tablet Take 1 tablet by mouth once daily 30 tablet 3 0 Active vitamin D3-cholecalcife rol (CHOLECALCIFERO L) 25 MCG (1000 UNITS) tablet Take 1 tablet by mouth once daily 30 tablet 1 0 Active cetirizine (ZYRTEC) 10 MG tablet Take 1 tablet by mouth once daily 30 tablet 1 0 Active albuterol (PROVENTIL;VENT MILAGRO) (2.5 MG/3ML) 0.083% nebulizer solution Inhale 2.5 (two and one-half) mg by mouth every 4 hours as needed for Shortness of Breath or Wheezing Active ferrous sulfate 325 (65 FE) MG tablet Take 1 tablet by mouth once daily 100 tablet 0 Active amLODIPine (NORVASC) 5 MG tablet Take 1 (one) tablet by mouth once daily Active labetalol (Normodyne; Trandate) 100 MG tablet Take 1 (one) tablet by mouth 2 times daily 3 Active venlafaxine XR 24hr (Effexor XR) 150 MG capsule Take 1 (one) capsule by mouth once daily 3 Active pregabalin (Lyrica) 150 MG capsule Take 1 (one) capsule by mouth 2 times daily 3 Active traMADol ER 24hr (Ultram ER) 200 MG tablet once daily 4 Active cyclobenzaprine (Flexeril) 10 MG tablet Take 1 (one) tablet by mouth once daily 3 Active tiZANidine (Zanaflex) 2 MG tablet 3 times daily 4 Active meloxicam (Mobic) 15 MG tablet once daily 3 Active Symbicort 160-4.5 MCG/ACT inhaler INHALE 2 PUFFS BY MOUTH TWICE DAILY. RINSE MOUTH WITH WATER AFTER USE. DO NOT SWALLOW 4 Active omeprazole (PriLOSEC) 40 MG capsule Take 1 (one) capsule by mouth once daily 2 Active famotidine (Pepcid) 20 MG tablet Take 1 (one) tablet by mouth 2 times daily 2 Active varenicline (Chantix) 1 MG tablet 2 times daily 3 Active Trulicity 0.75 MG/0.5ML injection every 7 days 4 Active Strattera 80 MG capsule Take 1 (one) capsule by mouth once daily As Directed. 4 Active clobetasol (Temovate) 0.05 % ointmentIndicat ions:Dyshidroti c eczema Apply to affected area on hands BID. 30 day supply. 60 g 5 4 Active Active Problems Patient Care Coordination No te Formatting of this note migh t be different from the original. Nopp/mfcc 05/2018 Ethics consult for possible BTL at time of CS if indicated for medical reasons. [employer] form completed. Diapers given 10/22/19 Problem Noted Date Diagnosed Date Onycholysis 07/30/2023 Multiple benign melanocytic nevi of upper and lower extremities and trunk 07/30/2023 Lentigo 07/30/2023 Actinic skin damage 07/30/2023 History of classical section 11/19/2019 Overview (11/19/2019): G10: Mid-transverse, G11 repeat LTCS Declined BTL High Risk NIPT, Low Fraction -- T13/T18/tr iploidy 06/17/2019 Overview (09/17/2019): Anatomy survey unremarkable Declined amniocentesis HSV (herpes simplex virus) anogenital infection 10/02/2018 Assessment & Plan (09/17/2019 7:10 PM CDT): Plan 1. Warrants HSV prophylaxis starting 4 wks prior to expected delivery Low vitamin D level 10/02/2018 Pilonidal cyst 11/06/2017 Overview (01/06/2020): Overview: Added automatically from request for surgery [id number] Last Assessment & Plan: The patient was offered ct with subsequent aspiration and drainage for culture and improvement in pain from swelling. However after a long discussion the patient wishes to instead have the area surgically opened and evaluated by the surgeon. The risks of this were discussed with the patient to which she agrees. Will schedule accordingly with for the soonest available appointment. Will continue oral antibiotics and otc pain medications until then. Last Assessment & Plan: The surgical procedure as well as post operative period were discussed with the patient in detail including the wound complications that may occur with this procedure. She was addiment about having the surgery despite the pain and wound issues. This was discussed with the doctor. Patient would like to proceed with surgical intervention. Will schedule for pilonidal cyst excision. History of stillbirth in cur rently patient, third trimester 09/07/2013 Overview (06/22/2015): Records received from [facility] Date 07/08/2011, does not indicate gestational age. Patient induced and delivered vaginally. Possibly due to abruption per notes. Received Methergine x 1 APLAS negative Assessment & Plan (10/16/2018 9:38 AM CDT): Offered patient induction of labor at 38 weeks due to comorbid history of chronic hypertension and history of prior placental abruption with demise. The patient was adamant about having a 37 week induction as she lives an hour away from the hospital and she is has had a history of 37 week deliveries in the past. We discussed the potential for respiratory morbidity from delivery prior to 39 weeks. The patient verbally accepted this potential risk. Induction was scheduled for 37 weeks. Rh negative, maternal 12/17/2011 Assessment & Plan (09/17/2019 7:09 PM CDT): Received Rhogam 08/26/19 [@ 24 wks] 1. Repeat Rhogam 1. IF significant antepartum bleed 2. OR in 1st week of November, 3. OR if delivery before November 2019 Prior with placenta abruption, antepar macey 12/11/2011 Overview (05/25/2015): Placental abruption with loss at 32w. Previous APLAS Labs: WNL Bipolar 2 disorder 12/13/2009 Assessment & Plan (10/16/2018 9:39 AM CDT): No concerns for a current episode of major depression Cigarette smoker 12/13/2009 Overview (06/22/2015): Assessment: 10 cigs/day Assessment & Plan (09/17/2019 7:02 PM CDT): Declined offer for nicotine replacement. Plan Would benefit from complete smoking cessation Assessment & Plan (10/16/2018 9:39 AM CDT): Emphasize the maternal and benefits from --resources given Chronic hypertension in obstetric context, antep artum Overview (09/17/2019): 24 hr urine 600 mg prot/24 hr Assessment & Plan (09/17/2019 7:13 PM CDT): Blood pressure less than goal. Remains at risk for preeclampsia. Plan 1. Decrease labetalol to 100 mg BID 2. Continue Norvasc 10 mg 3. Goal BP < 155/95 4. Reassess home BP logs at visits Resolved Problems Problem Noted Date Diagnosed Date Resolved Date Encounter for supervision of high risk AMA with grand multiparity 09/17/2019 020 Overview (09/17/2019): 3TM labs performed in hospital Never did GCT--reported that she could not tolerate it. Random BG checks during hospitalization wnl Assessment & Plan (09/17/2019 7:18 PM CDT): At risk for immediate hemorrhage. Plan 1. Tdap today Vaginal bleeding during 08/25/2019 09/17/2019 Vaginal bleeding during , antepartum 07/21/19 20 11/19/2019 Assessment & Plan (09/17/2019 7:01 PM CDT): Concern for partial placental abruption. Now stable. Plan 1. Start weekly BPP 2. Add weekly NST at 30 weeks GBS (group B Streptococcus c arrier), +RV culture, currently 10/18/2018 07/21/2019 screening for malf ormation using ultrasonics 10/10/2018 09/17/2019 Antepartum multigravida of a dvanced maternal age 0205/14/2018 09/17/2019 LGA (large for gestational a ge) fetus affecting management of mother 2015 9 Maternal morbid obesity, antepartum 2015 01/06/2020 Assessment & Plan (10/16/2018 9:39 AM CDT): Would benefit from and weight reduction Assessment & Plan (08/07/2018 10:40 AM CDT): Would benefit from on weight reduction Essential hypertension affec ting in third trimester 2015 05/15/2018 Asthma complicating , antepartum 2015 12/17/2015 Uncertain dates, antepartum 06/22/2015 06/22/2015 GBS (group B Streptococcus c shanna), +RV culture, currently 06/22/2015 05/15/2018 Overview (06/22/2015): GBSuria Group beta Strep positive 11/24/2014 Vaginal yeast infection 11/22/201405/09 Overview (11/22/2014): Patient notes thick white discharge with itching Will give patient Rx for diflucan empirically Morbid obesity 11/08/2014 08/07/2018 Overview (11/23/2015): Body mass index is 47.73 kg/(m^2). Hgb A1c (07/19) 5.3 repeat 11/22 was 5.3 Grand multiparity with anten atal problem in third trimester 11/01/2014 05/15/2018 Gestational diabetes mellitus, class A2 10/25/2014 05/25/2015 Overview (11/22/2014): Assessment: Abnormal GCT- 165, patient unable to complete 3-GTT Patient states that despite having risk factors for GDM, she is emphatic that she is not diabetic, and in fact has episodes of hypoglycemia w/out insulin Discussed risks of GDM, including macrosomia, shoulder dystocia and IUFD again today and has previously been extensively counseled Previously recommended to start NPH, but declined due to episodes of reported, but undocumented hypoglycemia EFW today 11/22 2482 gm- 23% A1c 5.4 Plan: Continue home glucose checks including fasting, 1 hour PP, and QHS S/p DM education/nutrition Continue twice weekly NST and weekly BPP- today 01/15 Screening for condition 08/04/201405/09 Overview (01/06/2015): NIPT done 07/26/14. The risk for trioploidy, Carvalho syndrome, or trisomies 21, 18 and 13 are extremely low. The results are consistent with a male fetus, as noted on ultrasound. Results phoned to patient. Lab report scanned into Media. Hx of laparoscopic gastric banding 06/28/2014 09/17/2019 Overview (05/15/2018): Opened under ultrasound guidance through port in 2011, never followed up to get refilled Screening for condition 06/20/201405/09 Overview (01/06/2015): 1st look on 06/14/14 Result: 1:3200 for DS and 1:10,000 for Trisomy 18 2nd blood draw ideal dates: 07/08/14-07/22/14 Letter sent 06/21/14 Final result: 1:1400 DS, 1:10,000 T18, 1:6000 ONTD Letter sent 07/26/14 Low estriol 0.70 MoM, cont q4 week growth scans Short interval between pregn ancies complicating , antepartum 05/24/201405/15 Gastric bypass for obesity c omplicating , , puerperium 12/11/2011 06/28/2014 Supervision of high-risk pre gnancy of elderly multigravida 12/11/2011 09/17/2019 Assessment & Plan (10/16/2018 9:42 AM CDT): At risk for immediate hemorrhage due to grand multiparity and previous history of hemorrhage GBS collected today History of Chronic hypertens ion with superimposed preeclampsia 12/13/2009 09/17/2019 Overview (05/15/2018): Daily ASA Baseline 24 hour urine pending Assessment & Plan (08/07/2018 10:44 AM CDT): Blood pressure acceptable today. No signs of preeclampsia at this time. Would add additional antihypertensive agent if consistently greater than 155/95 Asthma affecting , antepartum 12/13/2009 01/06/2020 Overview (06/22/2015): controlled with Advair and singulair GERD (gastroesophageal reflux disease) 12/13/2009 12/11/2011 Back pain 12/13/2009 12/11/2011 Arthropathy, multiple sites 12/13/2009 12/11/2011 Supervision of other high ri sk pregnancies, second trimester 10/12/2015 High-risk supervision 10/12/2015 History of demise, not currently 05/15/2018 History of intrauterine feta l , currently 08/07/2018 History of placenta abruption 08/07/2018 Steroid-induced hyperglycemia 05/15/2018 Vaginal delivery 05/15/2018 state 05/15/2018 Encounter for scre ening for cervical length 08/07/2018 Evaluate anatomy not seen on prior sonogram 08/07/2018 Hx of preeclampsia, prior pr egnancy, currently 01/06/2020 Placental abruption in third trimester 01/06/2020 Suspected anomaly, antepartum 01/06/2020 Immunizations Immunization Administration Dates Next Due HEP A VACCINE, ADULT 02/14/2009 HEP B VACCINE ADOL/ADULT 2 DOSE 02/14/2009 INFLUENZA VACCINE 01/07/2012 INFLUENZA VACCINE, QUADR. (F LUZONE; FLULAVAL; FLUARIX; AFLURIA QUADRIVALENT; 6MO+), 0.5 ML (IIV4) 06/26/2018,12/20/2015 MMR 11/13/2019(Deferred: See Comments - pt is rubella immune) PNEUMOCOCCAL PPSV23 06/10/2012 Rho D Immune Globulin 11/13/2019, 020,08/26/2019,2019,10/23/2018,08/21/2018,12/19/2015,0 10/12/2015,12/02/2014,09/20/2014, 014,11/05/2013,09/03/2013,06/10/2012,,04/10/2012 TDAP (7yrs+) 11/13/2019(Deferred: See Comments - pt recieved tdap this ),10/08/2019(Deferred: Patient Refused - Pt stated she just recently had this. RN verified in chart. Not administered today.),09/17/2019,08/21/2018, 6,11/01/2014,09/03/2013,04/24/2012 Family History Medical History Relation Name Comments CAD (Coronary Artery Disease) Father Diabetes Father Heart Disease Father Heart Failure Father Hypertension Father Stroke Father Arthritis Maternal Grandmother Crohn's Disease Mother Hypertension Mother Relation Name Status Comments Father Maternal Grandmother Mother Social History Tobacco Use Types Packs/Day Years Used Date Smoking Tobacco: Former Cigarettes 1 13 0 07/27/2010 - 07/28/2023 Smokeless Tobacco: Never Comments:quit smoked 0.5 pk/ day x 13 yrs Alcohol Use Standard Drinks/Week Comments No 0 (1 standard drink = 0.6 oz pur e alcohol) Comments No Sex and Gender Information Value Date Recorded Sex Assigned at Not on file Legal Sex Female 2:00 PM [employer] Gender Identity Not on file Sexual Orientation Not on file Last Filed Vital Signs Vital Sign Reading Time Taken Comments Blood Pressure 143/95 02/18/2023 3:14 PM [employer] Pulse 102 02/18/2023 3:14 PM [employer] Temperature 36.7 C (98.1 F) 02/18/2023 3:14 PM [employer] Respiratory Rate 20 11/19/2019 1:03 PM CDT Oxygen Saturation 98% 02/18/2023 3:14 PM [employer] Inhaled Oxygen Concentration 21% 11/13/2019 9 :10 AM CDT Weight 118.8 kg (262 lb) 12/29/2019 8:25 AM CDT Height 170.2 cm (5' 7 ) 12/17/2019 12:45 PM CDT Body Mass Index 41.04 12/17/2019 12:45 PM CDT Plan of Treatment Health Maintenance Due Date Last Done Comments HEPATITIS C SCREENING 11/07/1999 HEPATITIS B VACCINE (2 of 3 - 19+ 3-dose series) 03/14/2009 02/14/2009 PAP with HPV 11/12/2011 LIPID TESTING 12/14/2014 12/14/2009 COVID-19 VACCINE ( season) 2023 MAMMOGRAM 12/05/2024 12/05/2022, 12/05/2022 INFLUENZA VACCINE (Season Ended) 2024 07/06/2018, 06/26/2018, 01/10/2017, Additional history exists DTAP/TDAP/TD VACCINES (7 - Td or Tdap) 09/16/2029 09/17/2019, 08/21/2018, 11/23/2015, Additional history exists ZOSTER VACCINE (1 of 2) 11/12/2031 PNEUMOCOCCAL VACCINE Aged Out 06/10/2012 No long er eligible based on patient's age to complete this topic HIV SCREENING Completed 10/08/2019, 05/09, 08/21/2018, Additional history exists HIB VACCINE Aged Out No longer eligi ble based on patient's age to complete this topic HPV VACCINE Aged Out No longer eligi ble based on patient's age to complete this topic MENINGOCOCCAL (Group B) VACCINE SHARED DECISION-MAKING Aged Out No longer eligible based on patient's age to complete this topic MENINGOCOCCAL GROUPS A/C/Y/W VACCINE Aged Out No longer eligible based on patient's age to complete this topic Procedures Procedure Name Priority Date/Time Associated Diagnosis Comments HIV-1 HIV-2 ANTIBODY + HIV P24 AG PANEL Routine 10/08/2019 9:58 AM CDT Encounter for supervision of high risk with grand multiparity, antepartum LIPID PROFILE Routine 12/14/2009 1:35 PM CDT Morbid Obesity Hypertension Asthma GERD (Gastroesophageal Reflux Disease) Back Pain Arthropathy, Multiple Sites Bipolar 2 Disorder Cigarette Smoker from Last 3 Months or Most Recently Relevant to Health Maintenance Results * HIV-1 HIV-2 ANTIBODY + HIV P24 AG PANEL (10/08/2019 9:58 AM CDT) HIV1/2 Ab + P24 Ag Non Reactive Non Reactive 10/08/2019 10:58 AM CDT [facility] Blood BLOOD SPECIMEN / Unknown Venipuncture / Unknown 10/08/2019 9:58 AM CDT 10/08/2019 10:09 AM CDT Narrative [facility] - 10/08/2019 10:58 AM CDT No Laboratory evidence of HIV infection. Tosin España MD LAB - CHEMISTRY ORDERABLES F inal Result [facility] [address] [place] [address] * (ABNORMAL) LIPID PROFILE (12/14/2009 1:35 PM CDT) [facility] Signature Cholesterol 170 120.0 - 200.0 mg/dl [facility] Triglycerides 113 0.0 - 250.0 mg/dl [facility] HDL Cholesterol 30(L) >40 mg/dl [facility] LDL Calculated 117.4 mg/dl [facility] Chol HDL Ratio 5.7 [facility] Comment Lipid [facility] Comment: Risk Classification HDL CHOL LDL CHOL TOTAL CHOL According to NCEP (mg/dl) (mg/dL) (mg/dl) Desirable >40 <130 < 200 Borderline/High - 130-159 200-239 High - >159 > 239 The total cholesterol to HDL cholesterol ratio may be used to predict risk for coronary heart disease in untreated patients according to data reported from the [place] Study by Elian Avalos M.D. The predictive value in patients over 60 years of age is uncertain. Risk TOTAL CHOL/HDL RATIO MEN WOMEN 1/2 Average 3.43 3.27 Average 4.97 4.44 2X Average 9.55 7.05 3X Average 23.39 11.04 In Coronary Artery Disease patients, in whom nonpharmacological therapy has failed, the AHA recommends that drug therapy should be prescribed to lower LDL cholesterol to <100mg/dL. Drug therapy may be instituted in patients with HDL <35mg/dL. The reported LDL is a calculated result. For a more precise measurement, a direct LDL test is available, as necessary. BLOOD SPECIMEN / Unknown 12/14/2009 1:35 PM CDT 12/14/2009 1:59 PM CDT us Rafiq Eldridge MD LAB - CHEMISTRY ORDERABLES Fi nal Result [facility] [address] [place] [address] from Last 3 Months or Most Recently Relevant to Health Maintenance Insurance MEDICAID - [facility] Advance Directives * Full Code (Latest Code Status on File) Date Activated Date Inactivated Comments 11/12/2019 1:17 PM 11/15/2019 2:23 PM * Full Code Date Activated Date Inactivated Comments 11/06/2019 6:48 PM 11/06/2019 10:08 PM * Full Code Date Activated Date Inactivated Comments 08/25/2019 5:33 PM 09/12/2019 3:33 PM * Full Code Date Activated Date Inactivated Comments 07/21/2019 9:09 AM 07/21/2019 1:12 PM * Full Code Date Activated Date Inactivated Comments 10/22/2018 7:40 AM 10/24/2018 6:45 PM Care Teams Superintendent Electric Power Relationship Specialty Start Date End Date Jayla Mcghee APRN-SELENA [address] [place] [address] [place] [phone] PCP - General Nurse Practitioner Family 07/21/19
--- OUTSIDE RECORDS SUMMARY | 2024-07-31 17:32 | XMS_ITS | Clinical Summary ---
Author Organization [facility] Address [address] [place] [address] Phone Care Team Providers Care Chemistry Tutor Name Role Phone McgheeSebastiánJaylaleslie NARANJO CNP Primary Care Provider [phone] Allergies Active Allergy Reactions Criticality Noted Date Comments Latex Rash 06/02/2015 Levofloxacin Hives 06/02/2015 Theophyllines Vomiting 06/02/2015 Medications ALBUTEROL SULFATE HFA IN take 2 Puffs by inhalation as needed. Active montelukast (SINGULAIR) 10 MG Tablet Take 10 mg by mouth every evening. Active Aspirin 81 MG Tablet Take 81 mg by mouth daily. Active fluticasone-kierra meterol (ADVAIR) 500-50 MCG/DOSE AEROSOL POWDER, BREATH ACTIVATED take 1 Puff by inhalation 2 times daily. Active Vit-Fe Fumarate-FA ( VITAMIN PO) Take 1 Tab by mouth nightly. Active ketorolac (TORADOL) 10 MG Tablet Take 1 Tab by mouth every 6 hours as needed for Pain. 20 Tab 0 7 Active traMADol (ULTRAM) 50 MG Tablet Take 1-2 Tabs by mouth every 6 hours as needed for Pain. 20 Tab 0 7 Active flintstones complete (FLINTSTONES) 60 MG Chewable Tablet Take 1 Tab by mouth daily. Active mupirocin (BACTROBAN) 2 % Ointment Apply thin film to affected areas 3 times daily until healed. 15 g 0 7 Active NIFEdipine (PROCARDIA XL) 60 MG TABLET SR 24 HR Take 60 mg by mouth daily. Active labetalol (NORMODYNE) 100 MG Tablet Take 100 mg by mouth 2 times daily. Active naproxen (NAPROSYN) 500 MG Tablet Take 1 Tab by mouth 2 times daily (with meals). 20 Tab 7 Active HYDROcodone-rakel taminophen (NORCO) 5-325 MG Tablet Take 1 Tab by mouth every 6 hours as needed for Pain. 10 Tab 7 Active budesonide-form oterol fumarate (SYMBICORT) 80-4.5 MCG/ACT Aerosol take 2 Puffs by inhalation 2 times daily. Active HYDROcodone-rakel taminophen (NORCO) 5-325 MG Tablet Take 1-2 Tabs by mouth every 4 hours as needed for Moderate or more severe pain. 20 Tab 8 Active ketorolac (TORADOL) 10 MG Tablet Take 1 Tab by mouth every 6 hours as needed for Moderate or more severe pain. 20 Tab 8 Active ibuprofen (MOTRIN) 800 MG Tablet Take 1 Tablet by mouth every 8 hours as needed for Moderate or more severe pain. 60 Tablet 1 Active methylPREDNISol one (MEDROL DOSPACK) 4 MG Tablet Therapy Pack See product package insert for dosing schedule 21 Tablet 3 Active Encounters Date Type Department Care Team Description 07/30/2024 Transcribe Orders [facility] [address] [place] [address] Edelmira Henderson, BROMINATION EQUIPMENT OPERATOR, ASSESSMENT NURSE PRACTITIONER Right shoulder pain, unspecified chronicity (Primary Dx); Cervicalgia; Right hand weakness from Last 3 Months Immunizations Immunization Administration Dates Next Due RHO D IG FULL DOSE 300 MCG IM 06/16/2016 Family History Medical History Relation Name Comments Hypertension Brother Heart Disease Father Diabetes Maternal Grandfather Diabetes Maternal Grandmother Heart Disease Maternal Grandmother Hypertension Mother Diabetes Paternal Grandfather Diabetes Paternal Grandmother Heart Disease Paternal Grandmother No Known Problems Sister Relation Name Status Comments Brother Father Maternal Grandfather Maternal Grandmother Mother Paternal Grandfather Paternal Grandmother Sister Social History Tobacco Use Types Packs/Day Years Used Date Smoking Tobacco: Former Cigarettes Smokeless Tobacco: Never Alcohol Use Standard Drinks/Week Comments Yes 1 (1 standard drink = 0.6 oz pur e alcohol) once a month Comments No Sex and Gender Information Value Date Recorded Sex Assigned at Not on file Legal Sex Female 11:18 PM CDT Gender Identity Not on file Sexual Orientation Not on file Last Filed Vital Signs Vital Sign Reading Time Taken Comments Blood Pressure 150/84 03/20/2023 1:40 PM STRATEGIC DEBRIEFING SPECIALIST Pulse 99 03/20/2023 1:40 PM STRATEGIC DEBRIEFING SPECIALIST Temperature 37.1 C (98.8 F) 03/20/2023 1:03 PM STRATEGIC DEBRIEFING SPECIALIST Respiratory Rate 17 03/20/2023 1:40 PM STRATEGIC DEBRIEFING SPECIALIST Oxygen Saturation 100% 03/20/2023 1:40 PM STRATEGIC DEBRIEFING SPECIALIST Inhaled Oxygen Concentration - - Weight 122.5 kg (270 lb) 03/20/2023 1:03 PM STRATEGIC DEBRIEFING SPECIALIST Height 170.2 cm (5' 7 ) 03/20/2023 1:03 PM STRATEGIC DEBRIEFING SPECIALIST Body Mass Index 42.29 03/20/2023 1:03 PM STRATEGIC DEBRIEFING SPECIALIST Plan of Treatment Health Maintenance Due Date Last Done Comments Hepatitis C Virus (HCV) Screening 1981 Pap Smear 2002 Hepatitis B Immunization (2 of 3 - 19+ 3-dose series) 03/14/2009 02/14/2009 Cervical Cancer Screening (CCS) 11/12/2011 HPV/Cotest 11/12/2011 Mammogram 12/06/2023 12/05/2022 Influenza Immunization (#1) 12/08/202306/08, 06/26/2018, 01/10/2017, Additional history exists SARS-COV-2 Immunization ( season) 2023 Respiratory Syncytial Virus (RSV) Immunization (Adult) (1 - 1-dose 75+ series) 2056 Pneumococcal Immunization Combined Aged Out 06/10/2012 No longer eligible based on patient's age to complete this topic DTaP/Tdap/Td Immunization Discontinued 2020, 10/08/2019, 09/17/2019, Additional history exists TdaP Immunization Completed 10/14/2020, , 09/17/2019, Additional history exists Discussion re Starting/Frequency of Mammograms Completed 12/05/2022 Meningococcal Immunization (ACWY) Aged Out No longer eligible based on patient's age to complete this topic Rotavirus Immunization Aged Out No lo nger eligible based on patient's age to complete this topic Additional Health Concerns Infection Onset Date Last Indicated 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 PRE-ARREST: Use entire range of life support measures to stabilize the patient. Care Teams Chemistry Tutor Relationship Specialty Start Date End Date Jayla Mcghee APRN, [place] [address] [place] [address] PCP - General Family Medicine 04/03/17
--- OUTSIDE RECORDS SUMMARY | 2024-07-31 17:32 | XMS_ITS | Clinical Summary ---
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 Theophylline Nausea & Vomiting Medium Tissue Adhesive Other (See comments),Blisters High 03/30/2024 Chemical rush Medications montelukast (SINGULAIR) 10 mg tabletIndication s:Maintenance Therapy for Asthma Take 1 tablet (10 mg total) by mouth nightly 017 Active albuterol HFA (PROVENTIL HFA,VENTOLIN HFA,PROAIR HFA) 90 mcg/actuation inhalerIndicatio ns:Acute Asthma Attack Inhale 2 puffs every 6 (six) hours as needed for wheezing or shortness of breath 1 Inhaler 11 021 Active budesonide-formo teroL (SYMBICORT) 160-4.5 mcg/actuation inhaler Inhale 2 puffs 3 (three) times a day Rinse mouth with water after use. Do not swallow. 2 Inhaler 2 021 Active pregabalin (LYRICA) 150 mg capsuleIndicatio ns:pain Take 1 capsule (150 mg total) by mouth 2 (two) times a day 023 Active tiZANidine (ZANAFLEX) 2 mg tabletIndication s:Muscle Spasm Take 1 tablet (2 mg total) by mouth every 8 (eight) hours as needed for muscle spasms 023 Active clobetasoL (TEMOVATE) 0.05 % ointmentIndicati ons:eczema Apply 1 Application topically nightly as needed (eczema) Active cyanocobalamin (Vitamin B-12) 500 mcg tabletIndication s:Prevention of Vitamin B12 Deficiency Take 1 tablet (500 mcg total) by mouth daily Start post Surgery 90 tablet 3 024 2024 Active ferrous sulfate 325 mg (65 mg of elemental iron) tabletIndication s:Iron Deficiency Anemia Take 1 tablet (325 mg total) by mouth daily Start post-surgery. Take with food and avoid taking within 2 hours of calcium 90 tablet 3 024 2024 Active calcium citrate-vitamin D3 200 mg-6.25 mcg (250 unit) tabletIndication s:Hypocalcemia Prevention Take 2 tablets by mouth 3 (three) times a day Start post-surgery 540 tablet 3 024 2024 Active Additional Information Patient taking differently:2 tablet oral 3 times daily, Start post-surgery,Indications: Hypocalcemia Prevention, Prevention of Vitamin D Deficiency, Informant: Self, Reported on 04/15/2024 ondansetron (ZOFRAN) 4 mg tabletIndication s:Prevention of Post-Operative Nausea and Vomiting Take 1 tablet (4 mg total) by mouth every 8 (eight) hours as needed for nausea or vomiting Start post-surgery 20 tablet 2 Active ursodioL (ACTIGALL) 300 mg capsuleIndicatio ns:Cholelithiasi s Prevention Take 1 capsule (300 mg total) by mouth 2 (two) times a day Start post-surgery 180 capsule 1 024 2024 Active polyethylene glycol (MIRALAX) 17 gram/dose bulk powderIndication s:constipation Take 17 g by mouth 2 (two) times a day Start post-surgery 1020 g Active omeprazole (PriLOSEC) 20 mg capsule Take 1 capsule (20 mg total) by mouth 2 (two) times a day START POST SURGERY 60 capsule Active Additional Information Patient taking differently:20 mg oral 2 times daily, START POST SURGERY,Indications: Treatment of Non-Bleeding Gastric Disorder, Informant: Self, Reported on 04/15/2024 multivitamin with minerals tablet Take 2 tablets by mouth daily Start taking post surgery 60 tablet 11 024 2024 Active Additional Information Patient taking differently:2 tablet oral Daily, Start taking post surgery,Indications: Mineral Deficiency Prevention, Vitamin Deficiency Prevention, Informant: Self, Reported on 04/15/[address] (CYMBALTA) 60 mg capsuleIndicatio ns:Generalized Anxiety Disorder Take 1 capsule (60 mg total) by mouth daily with dinner TAKE 1 CAPSULE BY MOUTH EVERY DAY IN THE EVENING Active atomoxetine (STRATTERA) 40 mg capsuleIndicatio ns:Attention-Def icit Hyperactivity Disorder Take 1 capsule (40 mg total) by mouth every morning Active atomoxetine (STRATTERA) 25 mg capsuleIndicatio ns:Attention-Def icit Hyperactivity Disorder Take 1 capsule (25 mg total) by mouth daily with dinner Active pediatric multivitamin no.76 (FLINTSTONES COMPLETE ORAL)Indications :supplement Take 2 tablet/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 tab 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 Active acetaminophen 500 mg capsuleIndicatio ns:Pain Take 2 capsules (1,000 mg total) by mouth every 6 (six) hours 025 Active hydrOXYzine (ATARAX) 25 mg tablet Take 1 tablet (25 mg total) by mouth 3 (three) times a day as needed for anxiety Active Klayesta powder 025 Active cyclobenzaprine (FLEXERIL) 5 mg tablet 025 Active traMADoL (ULTRAM) 50 mg tablet TAKE 1 TABLET BY MOUTH EVERY 6 HOURS NEEDED FOR SEVERE PAIN 025 Active amLODIPine (NORVASC) 5 mg tablet Take 1 tablet (5 mg total) by mouth daily 025 Active atomoxetine (STRATTERA) 60 mg capsule Take 1 capsule (60 mg total) by mouth every morning 025 Active amLODIPine (NORVASC) 10 mg tabletIndication s:hypertension Take 1 tablet (10 mg total) 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 021 2024 Discontinued famotidine (PEPCID) 20 mg tabletIndication s:gastroesophage al reflux disease Take 1 tablet (20 mg total) by mouth 2 (two) times a day 2024 Discontinued(P atient Reported) Active Problems Problem Noted Date Diagnosed Date Abdominal pain 04/14/2024 Hiatal hernia with GERD 02/04/2024 Osteoarthritis of multiple joints 10/16/2023 Left ventricular hypertrophy 11/28/2022 Anxiety disorder 07/31/2022 07/31/2022 Depression 07/31/2022 07/31/2022 Essential hypertension 07/31/2022 Guyon syndrome, 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 Left carpal tunnel syndrome 07/30/2022 Carpal tunnel syndrome of right wrist 06/26/2022 Overview (06/26/2022): Added automatically from request for surgery [id number] Guyon syndrome, 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 Overview (06/26/2022): Added automatically from request for surgery [id number] Cubital tunnel syndrome on 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 Overview (06/26/2022): Added automatically from request for surgery [id number] GERD (gastroesophageal reflux disease) Overview (07/31/2022): Added automatically from request for surgery [id number] Kidney stone 10/31/2021 Overview (10/31/2021): Added automatically from request for surgery [id number] Cardiac risk counseling 12/27/2020 delivery delivered 12/19/2020 Overview (12/19/2020): 1. Scheduled repeat : Admit to L&D. Consents signed and placed in chart. Send CBC/T&S. Consents signed on arrival . 2. cHTN: Current regimen amlodipine 10mg daily (same pre-). Took prior to arrival. To be continued . CBC/CMP and UPC sent. Asymptomatic. 3. MP asthma: Current regimen Symbicort 2 puffs TID, singulair qD, albuterol PRN, claritin qD to be continued in labor 4. 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 H/o PreE: Reports in prior pregnancies 6. H/o placental abruption: G3 and G11 7. Gastric band: Placed in 2014, Continue vitamin supplementation 8. HSV: Diagnosed on serologies, declines suppression, BLE negative on admission 9. Tobacco use: For nicotine patches 10. Bipolar Disorder: No on meds 11. Proteinuria - Baseline UPC 0.48 on 06/07, 24 hours urine protein ?? 12. UFF: For BTL, consents signed and scanner 11/11 13. Rh negative: S/p Rhogam 10/14 14. AMA: LR NIPT 15. FWB: Continuous monitoring. tracing category I 16. ID: HIV negative. GBS negative. Membrane Status: intact. 17. Indications for UDS: none. Verbal consent obtained for UDS: Not indicated 18. MOF: Plans to formula feed. 19. MOC: Desires permanent sterilization, consents mature and signed on 11/11 (visualized in medical record) 20. Pain management: Per anesthesia. 21. Post DVT prophylaxis: The patient has the following MAJOR risk factors BMI >/= 40 and the following MINOR risk factors delivery, age >/= 35 and parity >/=3. enoxaparin 40 mg BID will be ordered for VTE prophylaxis . 22. COVID Vaccine Status: Not assessed 23. COVID Test Status: Preadmission testing negative care following delivery 12/07 Overview (12/21/2020): # ID: Afebrile. No signs/symptoms of infection. #COVID-19: Preadmission testing negative #Rash: likely reaction to adhesive postoperatively. Topical benadryl and inter-dry helps per pt. Will add hydrocortisone ointment this AM and continue to monitor. # Heme: EBL 500 mL. Hg 9.8 > 8.6 POD1. No symptoms acute blood loss anemia. #Rh negative: PP rhogam given. # CV/Pulm: Chronic hypertension - 1 mild range BP on admission. Blood pressures initially well controlled on home amlodipine 10 mg, but recently with mild range blood pressures in past 24h. Asymptomatic, denies LUNA/RUQ pain/vision changes. CBC/CMP pending, UPC 0.48 (stable compared to baseline - see below). Will add enalapril 5 mg daily 12/21. To be consented for home blood pressure monitoring. Recheck CMP in 1 week s/p addition of enalapril. #MP asthma: Current regimen Symbicort 2 puffs TID, singulair qD, albuterol PRN, claritin qD to be continued in period #Tobacco use: For nicotine patches # GI/: Tolerating PO. Adequate urine output, void trial now. #Gastric band: Placed in 2014, Continue vitamin supplementation # Proteinuria - Baseline UPC 0.48 on 06/07, 24 hours urine protein not completed. Repeat UPC stable at 0.48 on 12/19. # Pain: Controlled with above regimen. # Bipolar Disorder: Not on meds # Post DVT prophylaxis: The patient has the following MAJOR risk factors BMI >/= 40 and the following MINOR risk factors delivery, age >/= 35, tobacco use and parity >/=3. enoxaparin 40 mg BID ordered for VTE prophylaxis. # MOC: s/p BTL # MOF: Formula feeding # COVID Vaccination Status: Not vaccinated. Declines s/p counseling. # Disposition: Follow up task not sent. Continue routine care. Pt would like to discharge today if possible. Low vitamin D level 06/28/2020 Overview (06/28/2020): Supplementation started 06/28/20. Proteinuria affecting in first trimest er 06/08/2020 Overview (06/08/2020): 06/07 UPC 0.489, 24 hour protein pending Discussion re: anticoagulation 06/07/2020 Overview (12/09/2020): First Trimester: [x] Dating Criteria: L=1 [x] Labs: Rh-, antibody negative, Rub-I, HepB-, RPR-, HIV-. [x] Genetic Screening: NIPT low risk [] Hgb electrophoresis: N/a [x] GC/CT, / negative UCx: 06/07 - Insignificant growth [x] Pap: 2020 normal per patinet [x] PNBHS referral: Offered due to social stressors, declines. Mom in hospital critically ill. Declined. [x] ASA at 12 weeks: initiated 06/28/20 [x] Early GTT: 5.5% A1C 06/07. 2nd Trimester: [x] Anatomy ultrasound: 08/23/20 [x] Placenta Location: Posterior [x] CBC/RPR: H/H 11.5/34.1, RPR neg [x] 1hr gtt at 24-28wks: BG log scanned, wnl [] Flu Shot (Dec-Mar) [x] Tdap (27-36wks): given on 10/14 [x] Rhogam (if Rh neg): given on 10/14 3rd Trimester: [x] CBC/HIV/RPR- Hgb 10.5, NRx2 [x] GBS- negative [x] GC/CT (if indicated)- neg x2 Counseling [x] Method of delivery: readdress timing of delivery. Per op note, mid transverse hysterotomy with abruption in prior . rCS scheduled at 37w1d for Tuesday 12/19 at 1130A (see separate problem for further documentation re: delivery timing) [x] Method of contraception: UFF, papers signed 07/26, copy provided to patient. Resigned 2020. 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 Prior auth sent. Early A1C ordered as unable to do GTT. Lots of stress related to mom who is critically ill. Declines PNBHS/medications. History of PTSD related to cord prolapse. History of gestational diabetes 06/07/2020 Overview (2020): -Required insulin in setting of steroids per patient. No T2DM. Upon chart review, GDMA2. -Patient declines 50g GTT given history of gastric band procedure, would prefer to do 1wk POCT BGs -Early A1C 06/07 5.5%, for 1 week of BG 10/27: Patient brought BG log into clinic. Fasting and post-prandial BG all below goal, passed GDM screen Plan: [x] 1wk BG log, complete Chronic hypertension 06/07/2020 Overview (12/15/2020): - S/p counseling - Pre- regimen: Amlodipine 10 mg daily CURRENT REGIMEN: Amlodipine 10 mg daily PLAN [x] Baseline labs (06/07): CMP/CBC wnl UPC 0.489 at 9w2d [x] ASA prophylaxis 12-36wk GA: compliant [x] Baseline EKG: patient states she had baseline EKG at [facility] in 2019, declines repeat this [x] Titrate medications to BP in high normal range [x] Growth ultrasounds q4 weeks, last 12/09 [x] testing with NST/TERESA 1-2x/week at 32 weeks if requiring medical treatment of cHTN --> scheduled Asthma 06/07/2020 Overview (2020): - S/p counseling Summary of recent visits: - 08/23: Symbicort refilled given frequent albuterol use - 11/11: Well controlled, no changes Current meds: Symbicort 2 puffs TID (increased 09/23), singulair qDay, Albuterol PRN, claritin qday Plan: - Serial growth US - PF qvisit PRN, encouraged patient to check with symptoms History of placenta abruption 06/07/2020 Overview (08/23/2020): -Multiple placental abruptions in G3, G11 Bariatric surgery status 06/07/2020 Overview (2020): History of laparoscopic gastric banding 06/28/2014 Umbilicus with port connecting to band 06/07: Vitamin B12, ferritin, iron panel, CBC wnl. Vitamin D3 low. Continues supplementation. Assessment & Plan (11/21/2021 2:59 PM CDT): Needs UGI and egd Sleep apnea 06/07/2020 Overview (09/23/2020): Discuss with patient, s/p sleep apnea study at [facility] in 2009. Pt reports this was borderline and she doesn't have ALAINA, was never prescribed a CPAP Will follow up . HSV infection 06/07/2020 Overview (11/28/2020): Per chart review, to discuss with patient HSV at 36 weeks for suppression. BLE on admission. Consider initiating earlier given that patient will be delivering at 37wks 11/25: Patient reports this is only serologic diagnosis. No history of lesions vulvovaginal or other locations. Declines valtrex as has taken in prior and it makes her sick. Also declines given she will be delivering via repeat C- section. Risks for discussed. Declines s/p counseling. Tobacco abuse 06/07/2020 Overview (09/23/2020): Smokes 10-15 cig / day. Declines nicotine replacement. Encouraged cessation. -States nicotine gum makes her faint, and she is allergic to the adhesive on nicotine patches - Precontemplative at this time -08/23: Smokes 1/2- 3/4 ppd, no desire to quit Plan: - Cessation counseling qvisit AMA (advanced maternal age) multigravida 35+ 05/2020 Overview (2020): S/p counseling -s/p LR NIPT -NSTs fr cHTN Rh negative state in antepartum period Overview (10/14/2020): Denies VB. Rhogam at 28 weeks. 10/14: Rhogam given today History of delivery 06/07/2020 Overview (11/28/2020): Patient reported as history of classical, however upon chart review mid transverse hysterotomy. G10 - Cord prolapse with mid-transverse hysterotomy. G11 - Repeat CS 35w0d. Last op note Minimal to no adhesive disease present. Pt reports placental abruption at 23w5d with pelvic rest. APLS negative. Low transverse per report Patient desires repeat with bilateral tubal ligation/salpingectomy for delivery. She has had multiple extensive discussions in clinic (in August, September, October and November 2020) regarding recommendation for delivery at 38-39wks given chart review and op note from last delivery with mid-transverse hysterotomy. Patient states she was told she would need to deliver at 36-37wks by a prior provider and has always delivered this early. States she strongly desires delivery at 37wks which she understands is early term. She was able to verbalize the risks of early term infants and need for NICU stay. Discussed with Dr. Vital in clinic 11/11. Given multiple medical comorbidities and mid-transverse incision, will plan for delivery at 37w1d (Tuesday 12/19). Repeat and BTL scheduled for 12/19 at 1130. She has had extensive discussions with her regarding risks of early term delivery with multiple providers. Message to be sent to Laborist and L&D Resident Team prior to delivery. History of demise, not currently 06/07/2020 Overview (06/07/2020): - Per Care [facility] at [facility] Date 07/08/2011, does not indicate gestational age. Patient induced and delivered vaginally. Possibly due to abruption per notes. Received Methergine x 1 -Negative APLS testing Unwanted fertility 06/07/2020 Overview (2020): -The patient was appropriately counseled that the risks of bilateral tubal ligation include regret, bleeding, infection, injury to surrounding organs and risk of procedure failure. Alternative methods of contraception were discussed including LARC. The patient still desired to proceed with the procedure. -Discussed the risk of regret is highest on patients who are <30yo and who have fewer children. Counseled that the risk or regret is up to 25% in woman <25 yo. -Patient still desired to proceed with BTL, discussed different options including rings, clips, cautery, partial or total salpingectomy. Counseled that we would proceed with bilateral total salpingectomy if able because of the high success rate and the decreased risk of ovarian cancer by removing the entire fallopian tube. -Patient highly desires b/l salpingectomy. -07/26/20: [place] Medicaid papers signed in clinic -11/11/20: Papers resigned, copy provided to patient Grand multiparity 06/07/2020 Overview (06/07/2020): High risk for PPH. T&Cx2 units at delivery. Short interval between pregn ancies affecting in first trimester, antepartum 06/07/2020 Overview (06/07/2020): Counseled on SIP including increased risks of PTD, anemia, IUGR. Bipolar 2 disorder 12/13/2009 Overview (09/23/2020): Last Assessment & Plan: No concerns for a current episode of major depression Resolved Problems Problem Noted Date Diagnosed Date Resolved Date Morbid (severe) obesity due to excess calories 04/06/2024 07/07/2024 H/O laparoscopic adjustable gastric banding 02/04/2024 07/07/2024 BMI 40.0-44.9, adult 10/09/2023 025 BMI 45.0-49.9, adult 08/30/2022 024 Morbid obesity 07/31/2022 07/07/2024 Encounters Date Type Department Care Team Description 07/07/2024 10:40 AM CDT Telemedicine 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 Minimally Invasive Surgery [address] [place] [address] Medical Office Building [address] [place] [address] Bertin Santana NP Bariatric surgery status (Primary Dx); Other specified intestinal malabsorption; BMI 38.0-38.9,adult from Last 3 Months Immunizations Immunization Administration Dates Next Due Hep A, Adult 02/14/2009 Hep B, Unspecified 02/14/2009 Influenza, Quadrivalent, Spl it, Intramuscular 07/06/2018,12/18/2015 Influenza, Quadrivalent, Spl it, Preservative Free, Intramuscular 06/26/2018,01/10/2017,12/20/2015 Influenza, Trivalent, IM (MDV) 01/07/2012 Pneumococcal Polysaccharide PPV23 06/10/2012 Rho (D) Immune Globulin 11/13/2019,10/14,08/26/2019,07/20,10/23/2018,08/21/2018,01/08/2017 ,12/19/2015,10/12/2015,12/02/2014,09/06,11/14/2013,11/05/2013, 4,06/10/2012,05/28/2012,04/10/2012 Tdap 10/14/2020, 0,09/17/2019,08/21,07/06/2018,11/29/2016,12/18/2015 ,11/23/2015,11/01/2014,09/03/2013,04/08 Surgical History Surgery Date Site/Laterality Comments LAPAROSCOPIC GASTRIC BANDING PILONIDAL CYSTECTOMY 11/15/2017 Excision of Pilonidal Cyst Cavity SECTION x3 CARPAL TUNNEL RELEASE Right WISDOM TOOTH EXTRACTION Medical History Medical History Date Comments Asthma Asthma Vitamin D deficiency Miscarriage PONV (postoperative nausea and vomiting) Hypertension induce d Pilonidal abscess Sleep apnea 06/07/2020 Gastroesophageal reflux disease without esophagi tis 11/21/2021 Motion sickness Allergic rhinitis Anemia with Anxiety Bulging lumbar disc Carpal tunnel syndrome on right Cubital tunnel syndrome, right Kidney stones Arthritis 2020 Low back pain 2000 Morbid obesity (HCC) Family History Medical History Relation Name Comments Heart disease Brother Chi Flores Jr Heart failure Brother Chi Flores Jr Hypertension Brother Chi Flores Jr Clotting disorder Father Chi flores sr Diabetes Father Chi flores sr Heart attack Father Chi flores sr Heart disease Father Chi flores sr Heart failure Father Chi flores sr Hypertension Father Chi flores sr Mental illness Father Chi flores sr Obesity Father Chi flores sr Stroke Father Chi flores sr Heart disease Maternal Grandmother Narda Jett Hypertension Maternal Grandmother Narda Jett Obesity Maternal Grandmother Narda Jett Stroke Maternal Grandmother Narda Jett Anemia Mother Drisa Sandra Arthritis Mother Drisa Sandra Clotting disorder Mother Drisa Sandra Crohn's disease Mother Drisa Sandra Hypertension Mother Drisa Sandra Kidney disease Mother Drisa Sandra Bleeding Disorder Other 1 Family his tory of Bleeding disorder; Cancer Other 2 Family history of Cancer; Diabetes Other 3 Family history of Diabetes mellitus; Heart disease Other 4 Family history of Heart disease; Breast cancer Sister Josep Evangelista Cancer Sister Josep Evangelista Hypertension Sister Josep Evangelista Obesity Sister Josep Evangelista Learning disabilities Son Roosevelt Torres Anesthesia problems Neg Hx Relation Name Status Comments Brother Chi Flores Jr Father Chi flores sr Maternal Grandmother Narda Jett Mother Fariba Mcmahonwell Alive Other 1 Other 2 Other 3 Other 4 Sister Josep Evangelista Alive Son Roosevelt Torres Social History Tobacco Use Types Packs/Day Years Used Date Smoking Tobacco: Former Cigarettes 0.8 0.7 0 11/09/2022 - 08/05/2023 Smokeless Tobacco: Never Tobacco Cessation:Counseling Given: Not Answered Comments:pt declines smoking intervention/counseling Alcohol Use Standard Drinks/Week Comments No 0 (1 standard drink = 0.6 oz pur e alcohol) Social Connection and Isolat ion Panel [NHANES] Answer Date Recorded In a typical week, how many times do you talk on the phone with family, friends, or neighbors? More than three times a week 12/20/2020 How often do you get togethe r with friends or relatives? More than three times a week 12/20/2020 Attends [employer] Not on file 12/20 Active Member of Clubs or Organizations Not on f ile 12/20/2020 Attends Club or Organization Meetings Not on desiree e 12/20/2020 Are you , , di vorced, , never , or living with a partner? 12/20/2020 AUDIT-C Answer Date Recorded Q1: How often do you have a drink containing alcohol? Never 04/06/2024 Q2: How many drinks containi ng alcohol do you have on a typical day when you are drinking? Patient does not drink Q3: How often do you have si x or more drinks on one occasion? Never 04/06/2024 Overall Financial Resource Strain (CARDIA) Answe r Date Recorded How hard is it for you to pa y for the very basics like food, housing, medical care, and heating? Not hard at all 12/20/2020 Hunger Vital Sign Answer Date Recorded Within the past 12 months, y ou worried that your food would run out before you got the money to buy more. Never true 12/21/19 21 Within the past 12 months, t he food you bought just didn't last and you didn't have money to get more. Never true 12/20/2020 PRAPARE - Transportation Answer Date Re corded In the past 12 months, has l ack of transportation kept you from medical appointments or from getting medications? No 12/07 In the past 12 months, has l ack of transportation kept you from meetings, work, or from getting things needed for daily living? No 12/20/2020 [place] Depression Scale Answer Date Recorded [place] Depression Scale Total 0 10/14/2020 The thought of harming myself has occurred to me . Never 10/14/2020 Personal Safety Answer Date Recorded Have you ever been in or are you currently in a harmful physical or emotional relationship or is someone making you feel afraid or unsafe? Denies 04/14/2024 Comments No Sex and Gender Information Value Date Recorded Sex Assigned at Not on file Legal Sex Female 1:02 AM 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 Gender Identity Female 01/01/2024 11:38 AM CDT Sexual Orientation Bisexual 01/01/2024 11 :38 AM CDT Obstetrics History Para Term AB IAB SAB Ectopic Multiple Livin g Live Births 12 11 8 3 1 0 10 1 Date Outcome GA Total Labor Labor/2nd/3rd Weight Sex Type Anes PTL Derrick A1 A5 Name Clin Term Term Term Term Term Term Term AB 12/19/ 021 Term 37w 1d 0h 01m 0h 01m 3.23 kg (7 lb 1.9 oz) F CS-LT ranv Combin ed Spinal /Epidu ral N Livin g 8 8 PRIDE ,GIRL KIM Bo fritz, Bentley Roca MD Complications:None Delivery Location:[facility] Main C ampus ([facility] L AND D PROCEDURE) Comments 11 11/12/19 35w0d 2510 g (5 lb 8.5 oz) M Spinal N DERRICK 10 Term 10/22/18 37w1d 2450 g (5 lb 6.4 oz) F EPI N DERRICK Complications: Prolapse of umbilical cord, single or unspecified fetus 9 2017 11w0d U 8 Term 2016 37w0d Vag-Spont N DERRICK 7 12/18/15 36w5d 3635 g (8 lb 0.2 oz) M VAGINAL IV Narcotic, EPI DERRICK 6 Term 12/01/14 37w0d 2880 g (6 lb 5.6 oz) M VAGINAL EPI DERRICK 5 Term 11/13/13 37w1d 2780 g (6 lb 2.1 oz) M VAGINAL IV Narcotic, EPI DERRICK 4 Term 06/09/12 37w0d 3455 g (7 lb 9.9 oz) M VAGINAL EPI DERRICK 3 07/08/11 32w0d M INDUCED DEC Comments: Placental abruption, induced 2 Term 10/2007 40w0d 2722 g (6 lb) M Vag-Spont EPI N DERRICK 1 Term 08/2005 41w0d 3232 g (7 lb 2 oz) F Vag-Spont EPI N DERRICK Last Filed Vital Signs Vital Sign Reading Time Taken Comments Blood Pressure 106/64 04/15/2024 11:48 AM 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 Pulse 101 04/15/2024 11:48 AM 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 Temperature 36.4 C (97.5 F) 04/15/2024 11:48 AM 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 Respiratory Rate 16 04/15/2024 11:48 AM 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 Oxygen Saturation 99% 04/15/2024 11:48 AM 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 Inhaled Oxygen Concentration - - Weight 121.6 kg (268 lb) 04/15/2024 1:04 AM 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 Height 170.2 cm (5' 7.01 ) 04/15/2024 1:04 AM CS T Body Mass Index 41.96 04/15/2024 1:04 AM 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 Plan of Treatment Health Maintenance Due Date Last Done Comments Cervical Cancer Screening 1981 Hepatitis C Screening 1981 Varicella Vaccines (1 of 2 - 13+ 2-dose series) 1994 Regular Well Visit/Exam 18-64 11/12/1999 Pneumococcal vaccine <65 (2 of 2 - PCV) 06/10/2013 06/10/2012 Depression Screening 10/14/2021 10/14/2020 Breast Cancer Screening-Mammogram 12/06/2023 12/05/2022, 12/05/2022 Influenza Vaccine (Season Ended) 2024 07/06/2018, 06/26/2018, 01/10/2017, Additional history exists DTaP/Tdap/Td Vaccine (12 - Td or Tdap) 10/14/2030 10/14/2020, 10/08/2019, 09/17/2019, Additional history exists Hepatitis B Screening Completed 02/14/2009 HPV Vaccines Aged Out No longer eligi ble based on patient's age to complete this topic Medical Devices Implanted 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 Device 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 Shelf Expiration Date Model / Serial / Lot Spinal Cord Stimulator Spinal Cord Stimulator Back [employer] Biological Bariatric Peristrip Non Crosslinked Bovine Pericardium For Endo Amie Thin [id number] - [id number] Implanted:Qty: 1 on 04/06/2024 at [facility] N/A: Stomach [employer] 08/12/2025 [id number] ATHN / / [id number]- [id number] [employer] Biological Bariatric Peristrip Non Crosslinked Bovine Pericardium For Endo Amie Thin [id number] - [id number] Implanted:Qty: 1 on 04/06/2024 at [facility] N/A: Stomach [employer] 08/17/2025 [id number] ATHN / / [id number]- [id number] [employer] Biological Bariatric Peristrip Non Crosslinked Bovine Pericardium For Endo Amie Thin [id number] - [id number] Implanted:Qty: 1 on 04/06/2024 at [facility] N/A: Stomach [employer] [facility] 08/17/2025 [id number] ATHN / / [id number]- [id number] Procedures Procedure Name Priority Date/Time Associated Diagnosis Comments SCREENING MAMMOGRAM BILATERAL W FELIBERTO Schedule Routine, Read Routine (OP Routine) 12/05/2022 5:04 PM CDT Screening mammogram, encounter for from Last 3 Months or Most Recently Relevant to Health Maintenance Results * Screening Mammogram Bilateral W Feliberto (12/05/2022 5:04 PM CDT) Anatomical Region Laterality Modality Breast Bilateral Mammography 12/06/2022 8:11 AM CDT Impressions 12/06/2022 8:11 AM CDT There is no mammographic evidence of malignancy. A 1 year screening mammogram is recommended. BI-RADS: 1 - Negative. The patient has been or will be contacted. The patient will be entered into a reminder system with a target due date of 1 year for her next mammogram. Electronically signed by: WALE Milligan 12/06/2022 8:11 AM CDT EXAMINATION: SCREENING MAMMOGRAM BILATERAL W FELIBERTO ORDERING HEALTHCARE PROVIDER: SELF SCREENING MAMMOGRAM HISTORY: Routine screening mammography. COMPARISON: Baseline mammogram. TECHNIQUE: CC and MLO views of both breasts were obtained with digital technique using digital breast tomosynthesis with C view. Computer aided detection was utilized. FINDINGS: DENSITY: The breasts are almost entirely fatty. BREASTS: There is no suspicious finding in either breast on mammogram. us Self Screening Mammogram IMG MAMMO PROCEDURES Fi nal Result from Last 3 Months or Most Recently Relevant to Health Maintenance Insurance [facility] Advance Directives For more information, please contact: [phone] * Full Code (Latest Code Status on File) Date Activated Date Inactivated Comments 04/15/2024 12:43 AM 04/15/2024 9:42 PM * Full Code Date Activated Date Inactivated Comments 04/06/2024 12:34 PM 04/07/2024 5:44 PM * Full Code Date Activated Date Inactivated Comments 12/07/2021 10:26 AM 12/07/2021 3:58 PM * Full Code Date Activated Date Inactivated Comments 12/07/2021 10:26 AM 12/07/2021 10:26 AM * Full Code Date Activated Date Inactivated Comments 12/19/2020 1:45 PM 12/21/2020 10:11 PM Care Teams Transport Analyst Relationship Specialty Start Date End Date Jayla Mcghee NP [address] [place] [address] PCP - General Nurse Practitioner 10/11/21 Ly Albarran NP [address] [facility] [address] [place] [id number] Nurse Practitioner Psychiatry 01/09/24
--- OUTSIDE RECORDS SUMMARY | 2024-07-31 17:32 | XMS_ITS | Clinical Summary ---
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 suicide: Family history of mental illness: Review Of Systems Head: Headache associated with head congestion. Neck: Neck symptoms neck pain. Eyes: Vision problems. Otolaryngeal: Postnasal drip and hoarseness. Pulmonary: Cough. Gastrointestinal: Normal appetite. Heartburn, nausea, and vomiting. Musculoskeletal: Muscle aches. Psychological: No feelings of hopelessness. No loss of interest in activities, not feeling helpless, no decreased functioning ability, no thoughts of self-harm, no low self-esteem, and not feeling guilty. Excessive crying. Does not feel worthless. All systems were reviewed and are negative at this time unless otherwise noted. Physical Findings - Vitals taken 05/27/2023 10:22 am BP-Sitting L 124/82 mmHg BP Cuff Size Regular Pulse Rate-Sitting 99 bpm Pulse Rhythm Regular Height 67 in Weight 276 lbs Body Mass Index 43.2 kg/m2 Body Surface Area 2.3 m2 Oxygen Saturation 96 % Encounter Background Information: - Not restless or fidgety. Psychological: - Racing thoughts. - No increased energy. - No previous suicide attempt. - No compulsion. - Not hearing voices when no one is talking. - No visual hallucinations. - No paranoid ideations. - No feelings of grandeur. General Appearance: - Well-appearing. - Awake. - Alert. - Well developed. - Well nourished. - Well hydrated. - Active. - In no acute distress. - Able to follow command. - In no acute distress. Neurological: - Oriented to time, place, and person. - No hallucinations. - Memory was unimpaired. - Executive functions were not decreased. - Awareness of time was not decreased. - Sequencing skills were not impaired. - Problem-solving skills were not impaired. - Initiation skills were not impaired. - Planning skills were not impaired. - Organizational skills were not impaired. - Judgement was not impaired. Speech: - Normal. Gait And Stance: - Normal. - No ataxic gait was observed. Psychiatric: - Mood was anxious. Psychiatric: Value PHQ9 score: 3 PITA 7 score: 6 - Mood was calm. - Mood was not depressed. - Mood was not elevated. - Mood was appropriate to the affect. Appearance: - Normal. - Grooming was normal. Demonstrated Behavior: - Behavior demonstrated no psychomotor abnormalities. - Normal eye contact. Attitude: - Not distractible. - Not inattentive. - Cooperative. - Not hostile. Affect: - Normal. - Not inappropriate. - Not blunted. - Not flat. - Not restricted. - Not tearful. - Showed no irritability. - Not agitated. Thought Processes: - Not impaired. - Evaluation of connectedness showed no deficiency. - Attention demonstrated no abnormalities. Thought Content: - No obsessions. - No delusions. - No suicidal ideation. - No suicidal plans. - No suicidal intent. - No homicidal ideations. - No homicidal plans. - No homicidal intent. Neurovegetative Assessment: - Dangerousness assessment: no suicide risk. Past Medical: - No access to weapons / guns in home. Tests Educational Testing: PHQ-9: total score 3 minimal depression. PITA 7 score: 6 mild anxiety MDQ score: suggests no mood disorder ASRS v1.1 n/a Assessment - [G89.4 - Chronic pain syndrome] Chronic pain syndrome Therapy - Encouragement to exercise. - Intervention and counseling on cessation of tobacco use. - Assessment of suicide risk performed -Not suicidal - Clinical summary provided to patient. - Plan of care reviewed and agreed to by the patient. Counseling/Education - Patient education about adverse reactions to medication - Reviewed side effects and Risks/Benefits analysis Client educated on medications and diagnosis, discussed the risks, benefits and side effects of medications. We discussed that the benefits far outweigh the risks of medication plan. Plan Call [phone] or go to the nearest emergency room if suicidal/homicidal ideation or other serious concerns arise. Call office if any questions or concerns arise. Client voiced understanding and agreed to treatment plan. Follow-up appointment as needed. Practice Management Use of tobacco assessment performed Review of medications documented; Standardized depression screening: negative for symptoms and for adult impression and score three. Health Reminders - Assess Blood Pressure satisfied 05/27/2023. - Assess BMI satisfied 05/27/2023. - Assess Tobacco Use satisfied 05/27/2023. - Depression Screening satisfied 05/27/2023. - Follow Up Plan BMI Management satisfied 05/27/2023. - Follow up plan for Depression Screening satisfied 05/27/2023. - Smoking & Tobacco Cessation Intervention and Counseling satisfied 05/27/2023.
--- OUTSIDE RECORDS SUMMARY | 2024-07-31 17:32 | XMS_ITS | Clinical Summary ---
Author Organization [facility] Address [address] [place] [address] Phone Care Team Providers Care Environmental Science Technician Name Role Phone ARAUJO AMANDEEP AGGARWAL, LEEANNE Primary Care Provider [phone] ANUP HARRELL, EDWARDO Loza Unavailable [phone] Reason for Visit and Chief Complaint RX ISSUE/REFILL Problems Includes: Problems addressed during this encounter and other active Problems All Visits Onset Date Resolved Date Provider Condition S tatus Chronic Pain Syndrome 05/27/2023 MIRIAM Reese MOUSER PMHNP Active Last Documented On 4 2:07PM ; [facility] Depression Unknown KATARINA G CHERRI DIRECTOR OF CAMPUS RECREATION-FPA, PLUMBING HARDWARE ASSEMBLER-BC Active Last Documented On 2 8:50AM ; [facility] Anxiety Disorder Nos Unknown KATARINA G CHERRI DIRECTOR OF CAMPUS RECREATION-FPA, PLUMBING HARDWARE ASSEMBLER-BC Active Last Documented On 2 8:50AM ; [facility] Asthma Unknown KATARINA G CHERRI DIRECTOR OF CAMPUS RECREATION-FPA, PLUMBING HARDWARE ASSEMBLER-BC Active Last Documented On 2 8:49AM ; [facility] Gerd Unknown KATARINA G CHERRI DIRECTOR OF CAMPUS RECREATION-FPA, [employer]UM[employer]ING HARDWARE ASSEMBLER-BC Active Last Documented On 2 8:50AM ; [facility] Essential Hypertension Unknown KATARINA G KUL P DIRECTOR OF CAMPUS RECREATION-FPA, PLUMBING HARDWARE ASSEMBLER-BC Active Last Documented On 2 8:49AM ; [facility] Obesity Unknown KATARINA G CHERRI DIRECTOR OF CAMPUS RECREATION-FPA, PLUM[employer]ING HARDWARE ASSEMBLER-BC Active Last Documented On 2 8:49AM ; [facility] Plan of Treatment No Plan of Treatment Recorded Assessments Includes: Assessments from this encounter No Assessments Recorded Medical Equipment - Implanted Devices Includes: Current Devices No Medical Equipment Recorded Medications Includes: Medications discussed during this encounter and other current Medications New / Renewed during this visit ALAN GARCIA on 09/04/2023 traMADol HCl ER 200 MG Oral Tablet Extended Release 24 Hour Provider: ALAN BREWSTER 30 day supply: 30 tablet, 0 refills Diagnosis: Other spondylosis, lumbar region One tablet daily Pharmacy: [facility] - [address] , [facility], [phone] - Last Documented On 4 11:08AM By KATARINA PHILLIPS ; [facility] Current Medications (continue as prescribed) Meloxicam 15 MG Oral Tablet 09/09/2023 Provider: ALAN BREWSTER Diagnosis: Other spondylosi s, lumbar region TAKE 1 TABLET BY MOUTH DAILY WITH FOOD Last Documented On 4 10:37AM By KATARINA PHILLIPS ; [facility] Cyclobenzaprine HCl 10 MG Oral Tablet 07/22/2023 Provider: ALAN GARCIA Diagnosis: Low back pain, unspecified TAKE 1 TABLET BY MOUTH AT BEDTIME Last Documented On 4 9:43AM By KATARINA PHILLIPS ; [facility] Pregabalin 150 MG Oral Capsule 07/22/2023 Provider: ALAN BREWSTER Diagnosis: Radiculopathy, l umbar region TAKE 1 CAPSULE BY MOUTH TWICE DAILY Last Documented On 4 9:43AM By KATARINA PHILLIPS ; [facility] tiZANidine HCl 2 MG Oral Tablet 07/22/2023 Provider: ALAN GARCIA Diagnosis: Low back pain, u nspecified TAKE 1 TABLET BY MOUTH THREE TIMES DAILY NEEDED FOR LOWER BACK PAIN Last Documented On 4 9:43AM By KATARINA PHILLIPS ; [facility] traMADol HCl 50 MG Oral Tablet 06/25/2023 Provider: ALAN BREWSTER Diagnosis: Low back pain, u nspecified take 2 tablets as needed one to two times daily for severe pain Last Documented On 4 9:16AM By KATARINA PHILLIPS ; [facility] Trulicity 0.75 MG/0.5ML Subc utaneous Solution Pen-injector 04/04/2023 Provider: AMANDEEP JENKINS APN Diagnosis: 1 injection weekly. Last Documented On 4 9:00AM By KATARINA PHILLIPS ; [facility] Strattera 40 MG Oral Capsule 01/02/2023 Provider: ISMA ROMERO NP Diagnosis: Last Documented On 3 12:04PM By KATARINA PHILLIPS ; [facility] Labetalol HCl 100 MG Oral Tablet 12/08/2022 Provider : AMANDEEP JENKINS APN Diagnosis: Last Documented On 3 12:04PM By KATARINA PHILLIPS ; [facility] Varenicline Tartrate 1 MG Oral Tablet 07/20/2022 Pro vider: Diagnosis: Last Documented On 3 10:43AM By KATARINA PHILLIPS ; [facility] Pepcid 20 MG Oral Tablet 10/25/2021 Provider: Diagnosis: Last Documented On 2 9:50AM By KATARINA PHILLIPS ; [facility] Symbicort 160-4.5 MCG/ACT In halation Aerosol 10/17/2021 Provider: RIA JENKINS APN Diagnosis: 2 puffs twice a day. Last Documented On 2 9:50AM By KATARINA PHILLIPS ; [facility] Albuterol Sulfate HFA 108 (9 0 Base) MCG/ACT Inhalation Aerosol Solution 10/17/2021 Provider: AMANDEEP DE LEON APN Diagnosis: as needed. Last Documented On 2 9:50AM By KATARINA PHILLIPS ; [facility] Omeprazole 40 MG Oral Capsul e Delayed Release 10/17/2021 Provider: RIA JENKINS APN Diagnosis: Last Documented On 2 9:50AM By KATARINA PHILLIPS ; [facility] Montelukast Sodium 10 MG Oral Tablet 10/17/2021 Prov ider: SIMONE JENKINS APN-C Diagnosis: Last Documented On 2 9:50AM By KATARINA PHILLIPS ; [facility] amLODIPine Besylate 5 MG Oral Tablet 10/17/2021 Prov ider: SIMONE JENKINS APN-C Diagnosis: Last Documented On 2 9:50AM By KATARINA PHILLIPS ; [facility] Past Medications on file Venlafaxine HCl ER 75 MG Oral Capsule Extended Release 24 Hour 05/25/2022 - 06/24/2022 Provider: AMANDEEP JENKINS APN Diagnosis: 150 mg once a day. Last Documented On 3 10:00AM By KATARINA PHILLIPS ; [facility] Medications Administered Includes: Administered Medications from this encounter No Administered Medications Recorded Results Includes: Results discussed during this encounter No Results Recorded For Specified Dates History of Present Illness Includes: History of Present Illness from this encounter No History of Present Illness Recorded Social History Description Last Updated Current smoker TRYING TO QUIT 05/27/2023 Last Documented On 4 10:16AM ; [facility] No family problems 05/27/2023 Last Documented On 4 10:16AM ; [facility] No recent emotional stress 05/27/2023 Last Documented On 4 10:16AM ; [facility] Cigarette smoking: history 10 05/27/2023 Last Documented On 4 10:16AM ; [facility] Consuming 5 or more drinks per day None 05/27/2023 Last Documented On 4 10:16AM ; [facility] Currently not in school 05/27/2023 Last Documented On 4 10:16AM ; [facility] Daily coffee consumption 05/27/2023 Last Documented On 4 10:16AM ; [facility] Lives with spouse 05/27/2023 Last Documented On 4 10:16AM ; [facility] Living with and caring for family househ old member 05/27/2023 Last Documented On 4 10:16AM ; [facility] No consumption of alcohol 05/27/2023 Last Documented On 4 10:16AM ; [facility] Not recovering alcoholic 05/27/2023 Last Documented On 4 10:16AM ; [facility] Not recovering from substance abuse 05/09 Last Documented On 4 10:16AM ; [facility] Not smoking a pipe 05/27/2023 Last Documented On 4 10:16AM ; [facility] Not using drugs 05/27/2023 Last Documented On 4 10:16AM ; [facility] Number of times used recreat ional drug/ prescription drug for nonmedical reason. None 05/27/2023 Last Documented On 4 10:16AM ; [facility] Smoking packs of cigarettes per day 3/4 a pack 10/25/2021 Last Documented On 4 10:16AM ; [facility] Smoking Status Unknown Procedures and Surgical History Surgical History Last Updated No Pacemaker 10/25/2021 Last Documented On 4 10:16AM ; [facility] Medical History Includes: Medical History addressed during this encounter Description Last Updated Has had no fall in the last 12 months. 1 05/31/2021 07/22/2023 Last Documented On 4 10:16AM ; [facility] LMP: TUBES REMOVED BACK 202005/27/2023 Last Documented On 4 10:16AM ; [facility] A fall 2 05/27/2023 Last Documented On 4 10:16AM ; [facility] Denies a fear of falling. 07/20/2022 Last Documented On 4 10:16AM ; [facility] Parity ten or more 10/25/2021 Last Documented On 4 10:16AM ; [facility] No Pain Pump 10/25/2021 Last Documented On 4 10:16AM ; [facility] No Spinal cord stimulator 10/25/2021 Last Documented On 4 10:16AM ; [facility] Please list all surgeries: L apband 2010cyst removal 2017C-section 2018, 2019,202010/25/2021 Last Documented On 4 10:16AM ; [facility] Family History Includes: Family History addressed during this encounter Description Last Updated Family history of ischemic heart disease 10/25/2021 Last Documented On 4 10:16AM ; [facility] Fraternal history of reported family his tory of seizures 10/25/2021 Last Documented On 4 10:16AM ; [facility] Maternal history of Arthritis 10/25/2021 Last Documented On 4 10:16AM ; [facility] Maternal history of family history of is chemic heart disease 10/25/2021 Last Documented On 4 10:16AM ; [facility] Paternal history of family history of is chemic heart disease 10/25/2021 Last Documented On 4 10:16AM ; [facility] Paternal history of stroke/paralysis Last Documented On 4 10:16AM ; [facility] Review of Systems Includes: Review of Systems [...] [place] Last Documented On 4 8:46AM ; [facility] Levaquin Allergy 10/25/2021 Active Last Documented On 4 8:46AM ; [facility] Latex Allergy 10/25/2021 Active Last Documented On 4 8:46AM ; [facility] Encounters Encounter Provider Location Date Check-In Time Check-Out Time Diagnosis RX ISSUE/REFILL KATARINA HARLEY DIRECTOR OF CAMPUS RECREATION-FPA, PLUMBING HARDWARE ASSEMBLER-BC 09/04/2023 10:16AM 11:59PM Insurance Includes: Active Insurance Policies Plan Name Member ID Group # Subscriber Relationship Effect [place] Dates 1 - [facility] [id number] KIM Angelita COBURN Self Clinical Notes Includes: Clinical Notes from this encounter * Progress note Date Encounter Last Documented by 09/04/2023 RX ISSUE/REFILL Last documented on 09/04/2023; 11:07 AM, KATARINA HARLEY DIRECTOR OF CAMPUS RECREATION-FPA, PLUMBING HARDWARE ASSEMBLER-BC; [facility] Active Problems & Conditions - Anxiety Disorder Nos - Asthma - Chronic Pain Syndrome - Depression - Essential Hypertension - Gerd - Obesity Chief Complaint Phone Call - Chief Concern: Reason for call:RX REFILL Patient is requesting a refill on TRAMADOL ER 200 ~How is medication taken? DAILY ~How many are left?1 HAS NOT TAKEN MEDICATION YET TODAY Risk Assessment Score: LOW ~[place]MP:07/24/23 Last Office Visit: 07/22/23 ~ pt phone # for Return call: ~Last Drug Screen:12/28/22 ~Date/Initials: 09/04/23 CB. Current Medication - Albuterol Sulfate HFA 108 [...] severe pain, 30 days, 0 refills - traMADol HCl ER 200 MG Oral Tablet Extended Release 24 Hour One tablet daily, 30 days, 0 refills - Trulicity 0.75 [...] Procedural: No Pacemaker. Physical Trauma: A fall 2. Has had no fall in the last 12 months. 03/30/2022 and Denies a fear of falling. : Parity ten or more. Social History Personal: No family problems and no recent emotional stress. Caffeine use: Daily coffee consumption. Tobacco use: Current smoker TRYING TO QUIT, cigarette smoking smoking packs of cigarettes per day 3/4 a pack and 10. Not smoking a pipe. Alcohol: No [...] household member. Education: Currently not in school. Allergies - Latex - Levaquin - Theophylline ER Family History Ischemic heart disease Paternal: Stroke/paralysis Ischemic heart disease Maternal: Arthritis Ischemic heart disease Fraternal: Reported family history of seizures Plan StartCited - Other spondylosis, lumbar region traMADol HCl ER 200 MG tablet One tablet daily, 30 days, 0 refills EndCited Health Reminders - Assess Tobacco Use satisfied 09/04/2023.
--- OUTSIDE RECORDS SUMMARY | 2024-07-31 17:32 | XMS_ITS | Encounter Summary ---
Author Organization [facility] Address [address] [place] [address] Phone Care Team Providers Care Store Receiving Clerk Name Role Phone Shari Castellanos MD Primary Care Prov ider Jayla Mcghee NP Primary Care Provider Khris Rothman PT Unavailable [phone] Ly Albarran TRIMMING PRESS OPERATOR Unavailable [phone] Encounter Details Date Type Department Care Team (Late st Contact Info) Description 07/23/2017 Orders Only [facility] ProviderIsaiah MD [address] [place] [id number] Social History Tobacco Use Types Packs/Day Years Used Date Smoking Tobacco: Every Day Cigarettes Smokeless Tobacco: Never Alcohol Use Standard Drinks/Week Comments No 0 (1 standard drink = 0.6 oz pur e alcohol) Comments Unknown Sex and Gender Information Value Date Recorded Sex Assigned at Not on file Legal Sex Female 1:02 AM CHANNEL CEMENTER Gender Identity Female 01/01/2024 11:38 AM CDT Sexual Orientation Bisexual 01/01/2024 11 :38 AM CDT documented as of this encounter Plan of Treatment Not on file documented as of this encounter Procedures Procedure Name Priority Date/Time Associated Diagnosis Comments DISCHARGE LABORATORY CUMULATIVE REPORT 07/23/2017 12:00 AM CDT documented in this encounter Results * DISCHARGE LABORATORY CUMULATIVE REPORT (07/23/2017 12:00 AM CDT) Narrative 07/23/2017 12:00 AM CDT Ordered by an unspecified provider. 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 12/16/2017 11/23/2020 5:00 AM CDT COVID: Suspected 2022 2022 2022 6:22 PM CDT documented as of this encounter Care Teams Store Receiving Clerk Relationship Specialty Start Date End Date Shari Castellanos MD PCP - General 07/25/16 10/10/21 Jayla Mcghee, [place] [address] [place] [address] [place] [id number] PCP - General Nurse Practitioner 10/11/21 [place] [address] [place] [address] Physical Therapist Physical Therapy 11/01/22 11/01/22 Ly Albarran NP [address] [address] [place] [address] [place] [id number] Nurse Practitioner Psychiatry 01/09/24 documented as of this encounter
--- OUTSIDE RECORDS SUMMARY | 2024-07-31 17:32 | XMS_ITS | Referral Summary ---
Author Organization [facility] Address [address] [place] [address] Care Team Providers Care Minister Assistant Name Role Phone Litzy, Jayla Jimenez HOPPER OPERATOR Primary Care Provider [phone] Ly Albarran HOPPER OPERATOR Unavailable [phone] Encounters Date Type Department Care Team Description 07/07/2024 10:40 AM CDT Telemedicine [facility] Minimally Invasive Surgery [address] [place] [address] [address] [place] [phone] Bertin Santana NP Bariatric surgery status (Primary Dx); Other specified intestinal malabsorption; BMI 35.0-35.9,adult 05/19/2024 9:40 AM CRACKING UNIT OPERATOR Telemedicine [facility] Minimally Invasive Surgery [address] [place] [address] Medical Office Building [address] [place] [phone] Bertin Santana NP Bariatric surgery status (Primary Dx); Other specified intestinal malabsorption; BMI 38.0-38.9,adult from Last 3 Months Allergies Active Allergy Reactions Criticality Noted Date [...] :supplement Take 2 tablet/chew tab by mouth parole or probation officer before breakfast Active acetaminophen 500 mg capsuleIndicatio [...] 1 tablet (10 mg total) by mouth parole or probation officer before breakfast 021 2024 Discontinued famotidine (PEPCID) [...] (06/26/2022): Added automatically from request for surgery [id number] Guyon syndrome, 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 Overview (06/26/2022): Added automatically from request for surgery [id number] Cubital tunnel syndrome on 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 Overview (06/26/2022): Added automatically from request for surgery [id number] GERD (gastroesophageal reflux disease) 2 Overview (07/31/2022): Added automatically from request for surgery [id number] Kidney stone 10/31/2021 Overview (10/31/2021): Added automatically from request for surgery [id number] Cardiac risk counseling 12/27/2020 delivery delivered 12/19/2020 [...] risk [] Hgb electrophoresis: N/a [x] GC/CT, 06/07 negative UCx: 06/07 - Insignificant growth [x] Pap: 2019 normal per patinet [x] [facility] referral: Offered [...] 2020. [x] Method of feeding: formula [x] Spa Therapist: same as other children [x] Car seat Discussed [x] PP Depression Counseling: discussed [x] COVID vaccine: declined s/p counseling Assessment & Plan (06/07/2020 12:57 PM CRACKING UNIT OPERATOR): Counseled on IOB labs Counseled on genetic [...] with patient, s/p sleep apnea study at [facility] in 2009. Pt reports this was [...] to quit Plan: - Cessation counseling qvisit AMAj (advanced maternal age) multigravida 35+ 05/2020 Overview [...] Overview (06/07/2020): - Per Care [facility]where at [facility] Date 07/08/2011, does not indicate gestational [...] tube. -Patient highly desires b/l salpingectomy. -07/26/20: [place] Medicaid papers signed in clinic -11/11/20: Papers [...] adult 08/30/2022 024 Morbid obesity 07/31/2022 07/07/2024 Immunizations Immunization Administration Dates Next Due Hep A, Adult 02/14/2009 Hep B, Unspecified 02/14/2009 Influenza, Quadrivalent, Spl it, Intramuscular 07/06/2018,12/18/2015 Influenza, Quadrivalent, Spl it, Preservative Free, Intramuscular 06/26/2018,01/10/2017,12/20/2015 Influenza, Trivalent, IM (MDV) 01/07/2012 Pneumococcal Polysaccharide PPV23 06/10/2012 Rho (D) Immune Globulin 11/13/2019,10/14,08/26/2019,07/20,10/23/2018,08/21/2018,01/08/2017 ,12/19/2015,10/12/2015,12/02/2014,09/06,11/14/2013,11/05/2013, 4,06/10/2012,05/28/2012,04/10/2012 Tdap 10/14/2020, 0,09/17/2019,08/21,07/06/2018,11/29/2016,12/18/2015 ,11/23/2015,11/01/2014,09/03/2013,04/08 Social History Tobacco Use Types Packs/Day Years [...] than three times a week 12/20/2020 Attends Shinto Services Not on file 12/20 Active Member [...] things needed for daily living? No 12/20/2020 [place] Depression Scale Answer Date Recorded [place] Depression Scale Total 0 10/14/2020 The thought [...] on file Legal Sex Female 1:02 AM CRACKING UNIT OPERATOR Gender Identity Female 01/01/2024 11:38 AM CDT Sexual Orientation Bisexual 01/01/2024 11 :38 AM CDT Last Filed Vital Signs Vital Sign Reading Time Taken Comments Blood Pressure 106/64 04/15/2024 11:48 AM CRACKING UNIT OPERATOR Pulse 101 04/15/2024 11:48 AM CRACKING UNIT OPERATOR Temperature 36.4 C (97.5 F) 04/15/2024 11:48 AM CRACKING UNIT OPERATOR Respiratory Rate 16 04/15/2024 11:48 AM CRACKING UNIT OPERATOR Oxygen Saturation 99% 04/15/2024 11:48 AM CRACKING UNIT OPERATOR Inhaled Oxygen Concentration - - Weight 121.6 kg (268 lb) 04/15/2024 1:04 AM CRACKING UNIT OPERATOR Height 170.2 cm (5' 7.01 ) 04/15/2024 1:04 AM CS T Body Mass Index 41.96 04/15/2024 1:04 AM CRACKING UNIT OPERATOR Plan of Treatment Not on file Medical Devices Implanted Type Area Utility Tractor Operator Device Identifier Shelf Expiration Date Model / Serial / Lot Spinal Cord Stimulator Spinal Cord Stimulator Back [employer] Biological Bariatric Peristrip Non Crosslinked Bovine Pericardium For Endo Amie Thin [id number] - [id number] Implanted:Qty: 1 on 04/06/2024 at [facility] N/A: Stomach [employer] 08/12/2025 [id number] ATHN / / [id number]- [id number] [employer] Biological Bariatric Peristrip Non Crosslinked Bovine Pericardium For Endo Amie Thin [id number] - [id number] Implanted:Qty: 1 on 04/06/2024 at [facility] N/A: Stomach [employer] 08/17/2025 [id number] ATHN / / [id number]- [id number] [employer] Biological Bariatric Peristrip Non Crosslinked Bovine Pericardium For Endo Amie Thin [id number] - [id number] Implanted:Qty: 1 on 04/06/2024 at [facility] N/A: Stomach [employer] 08/17/2025 [id number] ATHN / / [id number]- [id number] Procedures Procedure Name Priority Date/Time Associated Diagnosis [...] Most Recently Relevant to Health Maintenance Insurance [facility] Advance Directives For more information, please contact: [phone] * Full Code (Latest Code Status on [...] 1:45 PM 12/21/2020 10:11 PM Care Teams Minister Assistant Relationship Specialty Start Date End Date Jayla Mcghee NP [address] [place] [address] [place] [id number] PCP - General Nurse Practitioner 10/11/21 Ly Albarran NP [address] [place] [address] [address] [place] [id number] Nurse Practitioner Psychiatry 01/09/24
--- OUTSIDE RECORDS SUMMARY | 2024-07-31 17:32 | XMS_ITS | Clinical Summary ---
Author Organization [facility] Address [address] [place] [address] Phone Care Team Providers Care Insurance Agency Owner Name Role Phone ARAUJO AMANDEEP AGGARWAL, JAYLA Primary Care Provider [phone] ANUP HARRELL, EDWARDO Loza Unavailable [phone] Reason for Visit and Chief Complaint The Chief Complaint is: 3 month follow up after missed appointment with [facility] Problems Includes: Problems addressed during this encounter and other active Problems Current Visit Onset Date Resolved Date Provider Conditio n Status Chronic Pain Syndrome 05/27/2023 MIRIAM DARDEN PMHNP Active Last Documented On 4 2:07PM ; [facility] Past Visits Onset Date Resolved Date Provider Condition Status Depression Unknown KATARINA Rock CHERRI BODY HANGER-FPA, [employer] ATTENDANT-BC Active Last Documented On 2 8:50AM ; [facility] Anxiety Disorder Nos Unknown KATARINA Rock CHERRI B[employer] HANGER-FPA, [employer] ATTENDANT-BC Active Last Documented On 2 8:50AM ; [facility] Asthma Unknown KATARINA Rock CHERRI B[employer] HANGER-FPA, [employer] ATTENDANT-BC Active Last Documented On 2 8:49AM ; [facility] Gerd Unknown KATARINA Shweta CHERRI B[employer] HANGER-FPA, [employer] ATTENDANT-BC Active Last Documented On 2 8:50AM ; [facility] Essential Hypertension Unknown KATARINA Shweta KUL P BODY HANGER-FPA, [employer] ATTENDANT-BC Active Last Documented On 2 8:49AM ; [facility] Obesity Unknown KATARINA G CHERRI BODY HANGER-FPA, [employer] ATTENDANT-BC Active Last Documented On 2 8:49AM ; [facility] Plan of Treatment Patient was seen today for 4 chronic unstable conditions of the lumbosacral spine, and central nervous system.Without treatment patient is at risk for significant functional limitations resulting in diminished quality of life and impaired age appropriate activities of daily living. Multiple documents have been reviewed in combination with today's evaluation including imaging studies, outside provider notes, laboratory data, patient self-report questionnaires, and [place] prescription monitoring database entries. Significant social barriers exist to compliance resulting in limited prognosis. Decision to proceed with interventional therapies was made at the time of today's visit. - Last Documented On 07/22/2023 9:19AM ; [facility] Instructions to patient Intervention and counseling on cessation of tobacco use : Patient recieved smoking cessation handout Last Documented On 4 8:40AM ; [facility] Education and Decision Aids were provided during visit for: Pill Count: 53 Tramadol Last Documented On 4 8:45AM ; [facility] Assessments Includes: Assessments from this encounter Findings - [M46.1 - Sacroiliitis, not elsewhere classified] Sacroiliitis - Last Documented On 07/22/2023 9:19AM ; [facility] - [M25.551 - Pain in right hip] Right hip pain - Last Documented On 07/22/2023 9:19AM ; [facility] - [M25.552 - Pain in left hip] Left Hip pain - Last Documented On 07/22/2023 9:19AM ; [facility] - [M47.896 - Other spondylosis, lumbar region] Lumbar spondylosis - Last Documented On 07/22/2023 9:19AM ; [facility] - [M54.50 - Low back pain, unspecified] Low back pain - Last Documented On 07/22/2023 9:19AM ; [facility] - [M54.16 - Radiculopathy, lumbar region] Lumbar radiculopathy - Last Documented On 07/22/2023 9:19AM ; [facility] - [G89.4 - Chronic pain syndrome] Chronic pain syndrome - Last Documented On 07/22/2023 9:19AM ; [facility] Instructions Includes: Instructions from this encounter Instructions to patient Intervention and counseling on cessation of tobacco use : Patient recieved smoking cessation handout Last Documented On 4 8:40AM ; [facility] Education and Decision Aids were provided during visit for: Pill Count: 53 Tramadol Last Documented On 4 8:45AM ; [facility] Medical Equipment - Implanted Devices Includes: Current Devices No Medical Equipment Recorded Medications Includes: Medications discussed during this encounter and other current Medications Discontinued / Stopped on this date ALAN GARCIA on 04/15/2023 Pregabalin 150 MG Oral Capsule Provider: TOMASA BREWSTERBC Diagnosis: Radiculopathy, l umbar region Last Documented On 4 9:17AM By KATARINA PHILLIPS ; [facility] New / Renewed during this visit TOMASA GARCIABC on 07/22/2023 Meloxicam 15 MG Oral Tablet Provider: ALAN BREWSTER 30 day supply: 30 tablet, 2 refills Diagnosis: Other spondylosis, lumbar region TAKE 1 TABLET BY MOUTH DAILY with food [facility]: [facility] [address] [facility], [phone] - Last Documented On 4 10:28AM By KATARINA PHILLIPS ; [facility] Cyclobenzaprine HCl 10 MG Oral Tablet Provider: ALAN GARCIA 30 day supply: 30 tablet, 2 refills Diagnosis: Low back pain, unspecified TAKE 1 TABLET BY MOUTH AT BEDTIME Pharm[facility]: [facility] [address] [facility], [id number] - Last Documented On 4 9:43AM By KATARINA PHILLIPS ; [facility] Pregabalin 150 MG Oral Capsule Provider: ALAN BREWSTER 30 day supply: 60 capsule, 2 refills Diagnosis: Radiculopathy, lumbar region TAKE 1 CAPSULE BY MOUTH TWICE DAILY [facility]: [facility] - [address] , [facility], [id number] - Last Documented On 4 9:43AM By KATARINA PHILLIPS ; [facility] tiZANidine HCl 2 MG Oral Tablet Provider: ALAN GARCIA 30 day supply: 90 tablet, 2 refills Diagnosis: Low back pain, unspecified TAKE 1 TABLET BY MOUTH THREE TIMES DAILY NEEDED FOR LOWER BACK PAIN [facility]: [facility] - [address] , [facility], [id number] - Last Documented On 4 9:43AM By KATARINA PHILLIPS ; [facility] traMADol HCl ER 200 MG Oral Tablet Extended Release 24 Hour Provider: ALAN BREWSTER 30 day supply: 30 tablet, 0 refills Diagnosis: Other spondylosis, lumbar region One tablet daily Pharmacy: [facility]) - [address] , [facility], [phone] - Last Documented On 4 11:07AM By KATARINA PHILLIPS ; [facility] Current Medications (continue as prescribed) Meloxicam 15 MG Oral Tablet 09/09/2023 Provider: ALAN BREWSTER Diagnosis: Other spondylosi s, lumbar region TAKE 1 TABLET BY MOUTH DAILY WITH FOOD Last Documented On 4 10:37AM By KATARINA PHILLIPS ; [facility] traMADol HCl ER 200 MG Oral Tablet Extended Release 24 Hour 09/04/2023 Provider: ALAN BREWSTER Diagnosis: Other spondylosi s, lumbar region One tablet daily Last Documented On 4 11:08AM By KATARINA PHILLIPS ; [facility] traMADol HCl 50 MG Oral Tablet 06/25/2023 Provider: ALAN BREWSTER Diagnosis: Low back pain, u nspecified take 2 tablets as needed one to two times daily for severe pain Last Documented On 4 9:16AM By KATARINA HARLEY [facility] ; [facility] Trulicity 0.75 MG/0.5ML Subc utaneous Solution Pen-injector 04/04/2023 Provider: AMANDEEP JENKINS APN Diagnosis: 1 injection weekly. Last Documented On 4 9:00AM By KATARINA HARLEY [facility] ; [facility] Strattera 40 MG Oral Capsule 01/02/2023 Provider: ISMA ROMERO NP Diagnosis: Last Documented On 3 12:04PM By KATARINA HARLEY [facility] ; [facility] Labetalol HCl 100 MG Oral Tablet 12/08/2022 Provider : AMANDEEP JENKINS APN Diagnosis: Last Documented On 3 12:04PM By KATARINA HARLEY [facility] ; [facility] Varenicline Tartrate 1 MG Oral Tablet 07/20/2022 Pro vider: Diagnosis: Last Documented On 3 10:43AM By KATARINA HARLEY [facility] ; [facility] Pepcid 20 MG Oral Tablet 10/25/2021 Provider: Diagnosis: Last Documented On 2 9:50AM By KATARINA HARLEY [facility] ; [facility] Symbicort 160-4.5 MCG/ACT In halation Aerosol 10/17/2021 Provider: RIA JENKINS APN Diagnosis: 2 puffs twice a day. Last Documented On 2 9:50AM By KATARINA HARLEY [facility] ; [facility] Albuterol Sulfate HFA 108 (9 0 Base) MCG/ACT Inhalation Aerosol Solution 10/17/2021 Provider: AMANDEEP DE LEON APN Diagnosis: as needed. Last Documented On 2 9:50AM By KATARINA HARLEY [facility] ; [facility] Omeprazole 40 MG Oral Capsul e Delayed Release 10/17/2021 Provider: RIA JENKINS APN Diagnosis: Last Documented On 2 9:50AM By KATARINA PHILLIPS ; [facility] Montelukast Sodium 10 MG Oral Tablet 10/17/2021 Prov ider: AMANDEEP JENKINS APN Diagnosis: Last Documented On 2 9:50AM By KATARINA PHILLIPS ; [facility] amLODIPine Besylate 5 MG Oral Tablet 10/17/2021 Prov ider: AMANDEEP JENKINS APN Diagnosis: Last Documented On 2 9:50AM By KATARINA PHILLIPS ; [facility] Past Medications on file Venlafaxine HCl ER 75 MG Oral Capsule Extended Release 24 Hour 05/25/2022 - 06/24/2022 Provider: AMANDEEP JENKINS APN Diagnosis: 150 mg once a day. Last Documented On 3 10:00AM By KATARINA PHILLIPS ; [facility] Medications Administered Includes: Administered Medications from this encounter No Administered Medications Recorded Vital Signs Includes: Vital Signs from this encounter Vital Name 07/22/2023 08:47A Blood Pressure Sitting L 128/80 BP Cuff Size Regular Pulse Rate-Sitting (bpm) 87 Temp-Temporal 96.8 Height (in) 67 Weight (lb) 274 Body Mass Index 42.9 Body Surface Area 2.3 Pain Level 5 Oxygen Saturation (%) 100 Last Documented: On 07/22/2023 8:47AM ; [facility] Results Includes: Results discussed during this encounter No Results Recorded For Specified Dates History of Present Illness Includes: History of Present Illness from this encounter HPI PHQ-9 Score: 3 Date04/15/2023 BPI Score: Date: Oswestry Score: 54 Date: 04/15/23 SOAPP-R Score: 5 LOW Date:04/15/2023 Pain Location: Lumbar Quality: Sharp, shooting. Radiation: right leg. blt hips (right worse) Severity: Timing: constant Associated Sx: upset stomach. Aggravating Factors:everything, standing, sitting, steps, sneezing, coughing. Alleviating Factors:lay, reposition Past Tx: PT Nov 2021 for 5 visits [made worse], TFESI L4-5 12/29/21 [radicular symptoms improved >50% >6months] R SI injection 02/15/2022, Bilat SI injection 04/25/2022 [>50% relief > 3months], L3-4 TFESI 09/26/22, BLT L4-5 TFESI 12/14/2022 [not helpful], bilateral SI joint injections 01/02 [only helped a few weeks] KIM COBURN is a 42 year old female. - Allergy list reviewed - Problem list reviewed - Medication reconciliation performed - Medication list reviewed - Prescription Drug Monitoring Program website checked. 07/13/2022 - How much of the medication are you taking a day? Up to 2 a day - Last dose of medication? This morning - Pain is continuous - Primary pain location Lower back down to legs and hips - Primary pain duration Its constant - Secondary pain duration When sitting standing laying - Secondary pain location Hips - Pain is throbbing - Pain is shooting - Pain is sharp - Pain is heavy - Pain is tight - Relieved by medication - Relieved by repositioning - Pain aggravated getting in/out of car - Pain aggravated going down stairs - Pain aggravated going up stairs - Pain aggravated lying down - Pain aggravated sitting - Pain aggravated standing - Pain aggravated when out of chair - Pain aggravated by walking - Pain aggrated by coughing/sneezing - Pain aggravated lifting - Pain aggravated by sex - Pain aggravated bending - Pain radiating in the right thigh - No vertigo - Last drug screen appropriate 12/28/2022 Discussion: Here for routine FU and med refills. Her Tramadol has been wearing off quickly and she is waking up at night because of pain. We discussed changing her to a long acting Tramadol for better coverage. Additionally, insurance was requiring notes within a week because of her muscle relaxers. She is on 2 different muscle relaxers for low back pain and myalgia. The Cyblobenzaprine she takes at night ONLY because it makes her too tired during the day and Tizanadine during the day. PRIOR VISIT: Here for FU after seeing the neurosurgeon for her low back pain w/ radicular symptoms. Dr Sutton also recommended SCS for her lumbar radiculopathy. She has tried and failed multiple conservative and interventional measures for her pain. Initially injections were helping but her last injection was not at all helpful. She continues to have low back pain w/ radicular symptoms mostly in the R leg and occasionally in the L leg in a L5/S1 dermatomal pattern. Patient given the brochure again to review and encouraged her to watch videos and testimonials. I will get her scheduled for a mental health eval and an appt w/ Dr Farris so she can discuss the trial in detail w/ the [employer] rep also available. She is starting PT for the shoulder pain and then likely will get a MRI of the shoulder. Ortho concerned about possible impingement. Injections have not been helpful. [under care of ortho for this as this time] PRIOR VISIT 12/28/22: Patient here for FU after L4-5 TFESI. Unfortunately, she has not had any relief this time of her low back or radicular symptoms. We discussed consulting with a surgeon since she has exhausted conservative measures for her low back pain. Our last option for consideration could be SCS. I gave her a brochure to look at today. The change from Methocarbamol to Tizanidine during the daytime has helped with her muscle spasms and stiffness in her low back. She continues to have bilateral groin pain. She has not done the SI joint or Hip x-rays yet, she lost orders. She benefited from SI joint injections 8 months ago. She had more than 50% relief for more than 3 months of the low back/buttock pain that radiates to groin. She continues a HEP for her back pain. We will get her scheduled for repeat SI joint injections. FIRST VISIT 10/25/21: Patient presents today for chronic low back pain. She was referred by her primary care provider, nurse practitioner Jayla Araujo. She has had low back pain for many years. However, she has had 12 pregnancies since 2005 so she really hasn't done anything about her back pain. The pain radiates around the lateral sides of both hips and down the back of the right leg into the foot. Very occasionally she will have symptoms down the left leg. She gets tingling in her feet when she sits for long periods of time, otherwise no numbness or tingling. No loss of bowel or bladder control. Everything seems to make the pain worse: sitting to long, walking, standing for too long, going from a sitting to a standing position, and any sort of bending or twisting. Nothing really seems to make it better. She states that she has to reposition often. Sometimes she will sit in a hot bath but this only gives her temporary relief. Currently taking Ibuprofen 600 mg three times a day, Tylenol 1000 mg three times a day, and Cyclobenzaprine as needed. She last did physical therapy over 15 years ago. It did seem to make her pain worse. She is willing to try physical therapy again. We discussed starting Lyrica to see if this helps with her chronic low back pain and radicular symptoms. We discussed transforaminal epidural steroid injection in the future if therapy is not helping. Imaging: All relevant imaging available was personally reviewed with the patient today with the following tests and results noted: MRI Lumbar Spine 07/17/2022 Multilevel mild endplate degenerative changes. Disc desiccation with height loss at L4-5 and L5- S1 at L3-4 a disc bulge eccentric to the right causes mild inferior right neural foraminal narrowing. She has marginal spur formation and bilateral facet arthropathy at this level. At L4-5 disc bulge with marginal spur formation and facet arthropathy. Mild inferior bilateral neural foraminal narrowing. At L5- S1 bilateral facet arthropathy. X-ray lumbar spine 06/30/2021 Impression: 1. Levoconvex curvature and multilevel Mild degenerative changes. 2. Increased sclerosis at the bilateral sacroiliac joints, right greater than left. CT lumbar spine 09/11/21 Impression: mild multilevel lumbar spondylosis without evidence of significant spinal canal stenosis. L3-4 circumferential disc bulge with ligamentum flavum hypertrophy causing mass effect on thecal sac without significant spinal stenosis. Facet arthropathy with mild right neural foraminal narrowing. L4-5 minimal retrolisthesis of L5 on S1. There is a circumferential disc bulge with ligamentum flavum hypertrophy causing mass effect on thecal sac without significant spinal canal stenosis. There is facet arthropathy with mild bilateral neural foraminal narrowing, which is greater on the right the left. X-ray Hips and SI joints 12/29/22 Mild bilateral hip OA. Social History Description Last Updated Current smoker TRYING TO QUIT 05/27/2023 Last Documented On 4 8:40AM ; [facility] No family problems 05/27/2023 Last Documented On 4 8:40AM ; [facility] No recent emotional stress 05/27/2023 Last Documented On 4 8:40AM ; [facility] Cigarette smoking: history 10 05/27/2023 Last Documented On 4 8:40AM ; [facility] Consuming 5 or more drinks per day None 05/27/2023 Last Documented On 4 8:40AM ; [facility] Currently not in school 05/27/2023 Last Documented On 4 8:40AM ; [facility] Daily coffee consumption 05/27/2023 Last Documented On 4 8:40AM ; [facility] Lives with spouse 05/27/2023 Last Documented On 4 8:40AM ; [facility] Living with and caring for family househ old member 05/27/2023 Last Documented On 4 8:40AM ; [facility] No consumption of alcohol 05/27/2023 Last Documented On 4 8:40AM ; [facility] Not recovering alcoholic 05/27/2023 Last Documented On 4 8:40AM ; [facility] Not recovering from substance abuse 05/09 Last Documented On 4 8:40AM ; [facility] Not smoking a pipe 05/27/2023 Last Documented On 4 8:40AM ; [facility] Not using drugs 05/27/2023 Last Documented On 4 8:40AM ; [facility] Number of times used recreat ional drug/ prescription drug for nonmedical reason. None 05/27/2023 Last Documented On 4 8:40AM ; [facility] Smoking packs of cigarettes per day 3/4 a pack 10/25/2021 Last Documented On 4 8:40AM ; [facility] Smoking Status Unknown Procedures and Surgical History Includes: Procedures from this encounter Procedures Code Diagnosis Performing Provider Service L ocation Service Date intervention and counseling on cessation of tobacco use : Patient recieved smoking cessation handout 4000F Last Documented On 4 8:40AM ; [facility] use of tobacco assessment performed 1000F Last Documented On 4 8:40AM ; [facility] patient screened for future fall risk: documentation of any fall with injury in past year 1100F Last Documented On 4 8:40AM ; [facility] standardized depression screening: negative for symptoms 3351F Last Documented On 4 8:40AM ; [facility] review of medications documented 1160F Last Documented On 4 8:40AM ; [facility] screening for adult depression: impressi on and score three Last Documented On 4 8:40AM ; [facility] screening for adult depression: impressi on and score not recorded system reason Last Documented On 4 8:40AM ; [facility] Clinical summary provided to patient Last Documented On 4 8:40AM ; [facility] SOAPP-R: total score 5 Last Documented On 4 8:40AM ; [facility] Surgical History Last Updated No Pacemaker 10/25/2021 Last Documented On 4 8:40AM ; [facility] Medical History Includes: Medical History addressed during this encounter Description Last Updated Has had no fall in the last 12 months. 1 05/31/2021 07/22/2023 Last Documented On 4 9:19AM ; [facility] LMP: TUBES REMOVED BACK 202005/27/2023 Last Documented On 4 8:40AM ; [facility] A fall 2 05/27/2023 Last Documented On 4 8:40AM ; [facility] Denies a fear of falling. 07/20/2022 Last Documented On 4 8:40AM ; [facility] Parity ten or more 10/25/2021 Last Documented On 4 8:40AM ; [facility] No Pain Pump 10/25/2021 Last Documented On 4 8:40AM ; [facility] No Spinal cord stimulator 10/25/2021 Last Documented On 4 8:40AM ; [facility] Please list all surgeries: L apband 2010cyst removal 2017C-section 2018, 10/25/2021 Last Documented On 4 8:40AM ; [facility] Family History Includes: Family History addressed during this encounter Description Last Updated Family history of ischemic heart disease 10/25/2021 Last Documented On 4 8:40AM ; [facility] Fraternal history of reported family his tory of seizures 10/25/2021 Last Documented On 4 8:40AM ; [facility] Maternal history of Arthritis 10/25/2021 Last Documented On 4 8:40AM ; [facility] Maternal history of family history of is chemic heart disease 10/25/2021 Last Documented On 4 8:40AM ; [facility] Paternal history of family history of is chemic heart disease 10/25/2021 Last Documented On 4 8:40AM ; [facility] Paternal history of stroke/paralysis Last Documented On 4 8:40AM ; [facility] Review of Systems Includes: Review of Systems from this encounter Systemic: No systemic symptoms other then noted and no recent weight loss. Head: No head symptoms other then noted. Chronic/recurring headaches. Neck: No neck pain. Otolaryngeal: No otolaryngeal symptoms other than noted. Cardiovascular: No cardiovascular symptoms other than noted. Pulmonary: No pulmonary symptoms other than noted. Gastrointestinal: No difficulty chewing and no dysphagia. Genitourinary: No genitourinary symptoms other than noted. Endocrine: No endocrine symptoms other than noted. Hematologic: No easy bleeding and no tendency for easy bruising. Musculoskeletal: No musculoskeletal symptoms other than noted. Back pain, muscle aches, and pain localized to one or more joints. Neurological: No neurological symptoms other than noted and no fainting passing out with needles or medical procedures. Psychological: No sleep apnea. Skin: No skin symptoms other than noted. Mental Status Includes: Mental Status from this encounter No Mental Status Recorded Functional Status Includes: Functional Status from this encounter No Functional Status Recorded Physical Exam Includes: Physical Exam from this encounter Allergies Includes: Active Allergies Substance Type Reaction Onset Date Resolved Date Statu s Theophylline ER Allergy 10/25/2021 Act latonia Last Documented On 4 8:46AM ; [facility] Levaquin Allergy 10/25/2021 Active Last Documented On 4 8:46AM ; [facility] Latex Allergy 10/25/2021 Active Last Documented On 4 8:46AM ; [facility] Encounters Encounter Provider Location Date Check-In Time Check-Out Time Diagnosis PAIN MANAGEMENT FOLLOW UP KATARINA Rock CHERRI NARANJO-MAHSA, [facility] ATTENDANT-ADAN [facility] 07/22/19 24 8:34AM 9:17AM Lumbar Spondylosis,C hronic Pain Syndrome,Sacr oiliitis,Lumb ar Radiculopathy ,Dorsopathy Low Back Pain,Right Hip Pain,Left Hip Pain Insurance Includes: Active Insurance Policies Plan Name Member ID Group # Subscriber Relationship Effect latonia Dates 1 - [facility] [id number] KIM COBURN Self Clinical Notes Includes: Clinical Notes from this encounter * Progress note Date Encounter Last Documented by 07/22/2023 PAIN MANAGEMENT FOLLOW UP Last d ocumented on 07/22/2023; 9:19 AM, KATARINA Rock CHERRI NARANJO-MAHSA, ALAN; [facility] Active Problems & Conditions - Anxiety Disorder Nos - Asthma - Chronic Pain Syndrome - Depression - Essential Hypertension - Gerd - Obesity Chief Complaint The Chief Complaint is: 3 month follow up after missed appointment with T. History of Present Illness PHQ-9 Score: 3 Date04/15/2023 BPI Score: Date: Oswestry Score: 54 Date: 04/15/23 SOAPP-R Score: 5 LOW Date:04/15/2023 Pain Location: Lumbar Quality: Sharp, shooting. Radiation: right leg. blt hips (right worse) Severity: Timing: constant Associated Sx: upset stomach. Aggravating Factors:everything, standing, sitting, steps, sneezing, coughing. Alleviating Factors:lay, reposition Past Tx: PT Nov 2021 for 5 visits [made worse], TFESI L4-5 12/29/21 [radicular symptoms improved >50% >6months] R SI injection 02/15/2022, Bilat SI injection 04/25/2022 [>50% relief > 3months], L3-4 TFESI 09/26/22, BLT L4-5 TFESI 12/14/2022 [not helpful], bilateral SI joint injections 01/02 [only helped a few weeks] KIM COBURN is a 42 year old female. - Allergy list reviewed - Problem list reviewed - Medication reconciliation performed - Medication list reviewed - Prescription Drug Monitoring Program website checked. 07/13/2022 - How much of the medication are you taking a day? Up to 2 a day - Last dose of medication? This morning - Pain is continuous - Primary pain location Lower back down to legs and hips - Primary pain duration Its constant - Secondary pain duration When sitting standing laying - Secondary pain location Hips - Pain is throbbing - Pain is shooting - Pain is sharp - Pain is heavy - Pain is tight - Relieved by medication - Relieved by repositioning - Pain aggravated getting in/out of car - Pain aggravated going down stairs - Pain aggravated going up stairs - Pain aggravated lying down - Pain aggravated sitting - Pain aggravated standing - Pain aggravated when out of chair - Pain aggravated by walking - Pain aggrated by coughing/sneezing - Pain aggravated lifting - Pain aggravated by sex - Pain aggravated bending - Pain radiating in the right thigh - No vertigo - Last drug screen appropriate 12/28/2022 Discussion: Here for routine FU and med refills. Her Tramadol has been wearing off quickly and she is waking up at night because of pain. We discussed changing her to a long acting Tramadol for better coverage. Additionally, insurance was requiring notes within a week because of her muscle relaxers. She is on 2 different muscle relaxers for low back pain and myalgia. The Cyblobenzaprine she takes at night ONLY because it makes her too tired during the day and Tizanadine during the day. PRIOR VISIT: Here for FU after seeing the neurosurgeon for her low back pain w/ radicular symptoms. Dr Sutton also recommended SCS for her lumbar radiculopathy. She has tried and failed multiple conservative and interventional measures for her pain. Initially injections were helping but her last injection was not at all helpful. She continues to have low back pain w/ radicular symptoms mostly in the R leg and occasionally in the L leg in a L5/S1 dermatomal pattern. Patient given the brochure again to review and encouraged her to watch videos and testimonials. I will get her scheduled for a mental health eval and an appt w/ Dr Farris so she can discuss the trial in detail w/ the [employer] rep also available. She is starting PT for the shoulder pain and then likely will get a MRI of the shoulder. Ortho concerned about possible impingement. Injections have not been helpful. [under care of ortho for this as this time] PRIOR VISIT 12/28/22: Patient here for FU after L4-5 TFESI. Unfortunately, she has not had any relief this time of her low back or radicular symptoms. We discussed consulting with a surgeon since she has exhausted conservative measures for her low back pain. Our last option for consideration could be SCS. I gave her a brochure to look at today. The change from Methocarbamol to Tizanidine during the daytime has helped with her muscle spasms and stiffness in her low back. She continues to have bilateral groin pain. She has not done the SI joint or Hip x-rays yet, she lost orders. She benefited from SI joint injections 8 months ago. She had more than 50% relief for more than 3 months of the low back/buttock pain that radiates to groin. She continues a HEP for her back pain. We will get her scheduled for repeat SI joint injections. FIRST VISIT 10/25/21: Patient presents today for chronic low back pain. She was referred by her primary care provider, nurse practitioner Jayla Araujo. She has had low back pain for many years. However, she has had 12 pregnancies since 2005 so she really hasn't done anything about her back pain. The pain radiates around the lateral sides of both hips and down the back of the right leg into the foot. Very occasionally she will have symptoms down the left leg. She gets tingling in her feet when she sits for long periods of time, otherwise no numbness or tingling. No loss of bowel or bladder control. Everything seems to make the pain worse: sitting to long, walking, standing for too long, going from a sitting to a standing position, and any sort of bending or twisting. Nothing really seems to make it better. She states that she has to reposition often. Sometimes she will sit in a hot bath but this only gives her temporary relief. Currently taking Ibuprofen 600 mg three times a day, Tylenol 1000 mg three times a day, and Cyclobenzaprine as needed. She last did physical therapy over 15 years ago. It did seem to make her pain worse. She is willing to try physical therapy again. We discussed starting Lyrica to see if this helps with her chronic low back pain and radicular symptoms. We discussed transforaminal epidural steroid injection in the future if therapy is not helping. Imaging: All relevant imaging available was personally reviewed with the patient today with the following tests and results noted: MRI Lumbar Spine 07/17/2022 Multilevel mild endplate degenerative changes. Disc desiccation with height loss at L4-5 and L5- S1 at L3-4 a disc bulge eccentric to the right causes mild inferior right neural foraminal narrowing. She has marginal spur formation and bilateral facet arthropathy at this level. At L4-5 disc bulge with marginal spur formation and facet arthropathy. Mild inferior bilateral neural foraminal narrowing. At L5- S1 bilateral facet arthropathy. X-ray lumbar spine 06/30/2021 Impression: 1. Levoconvex curvature and multilevel Mild degenerative changes. 2. Increased sclerosis at the bilateral sacroiliac joints, right greater than left. CT lumbar spine 09/11/21 Impression: mild multilevel lumbar spondylosis without evidence of significant spinal canal stenosis. L3-4 circumferential disc bulge with ligamentum flavum hypertrophy causing mass effect on thecal sac without significant spinal stenosis. Facet arthropathy with mild right neural foraminal narrowing. L4-5 minimal retrolisthesis of L5 on S1. There is a circumferential disc bulge with ligamentum flavum hypertrophy causing mass effect on thecal sac without significant spinal canal stenosis. There is facet arthropathy with mild bilateral neural foraminal narrowing, which is greater on the right the left. X-ray Hips and SI joints 12/29/22 Mild bilateral hip OA. Current Medication - Albuterol Sulfate HFA 108 [...] a day 0 days, 0 refills - Strattera 40 MG Oral Capsule [...] Please list all surgeries: Lapband 2010cyst removal -section 2019, 2019,2020. Medical: No Spinal cord stimulator [...] disease Fraternal: Reported family history of seizures Review Of Systems Systemic: No systemic symptoms other then noted and no recent weight loss. Head: No head symptoms other then noted. Chronic/recurring headaches. Neck: No neck pain. Otolaryngeal: No otolaryngeal symptoms other than noted. Cardiovascular: No cardiovascular symptoms other than noted. Pulmonary: No pulmonary symptoms other than noted. Gastrointestinal: No difficulty chewing and no dysphagia. Genitourinary: No genitourinary symptoms other than noted. Endocrine: No endocrine symptoms other than noted. Hematologic: No easy bleeding and no tendency for easy bruising. Musculoskeletal: No musculoskeletal symptoms other than noted. Back pain, muscle aches, and pain localized to one or more joints. Neurological: No neurological symptoms other than noted and no fainting passing out with needles or medical procedures. Psychological: No sleep apnea. Skin: No skin symptoms other than noted. Physical Findings - Vitals taken 07/22/2023 08:47 am BP-Sitting L 128/80 mmHg BP Cuff Size Regular Pulse Rate-Sitting 87 bpm Temp-Temporal 96.8 F Height 67 in Weight 274 lbs Body Mass Index 42.9 kg/m2 Body Surface Area 2.3 m2 Pain Level 5 Pain Level Note Lumbar Oxygen Saturation 100 % Musculoskeletal System: General/bilateral: Musculoskeletal Scales: Value Lumbar oswestry score 54 Psychiatric: Psychiatric: Value PHQ9 score: 3 Constitutional: Well developed. Well nourished, obese. No acute distress. HEENT: NC/AT. Anicteric. Clear Conjunctiva. PERRLA. M Neck supple. No thyromegally. No palpable masses. No lymphadenopathy in cervical chain bilaterally. CVS: RRR. No murmurs. No gallops. No rubs. No peripheral edema. Peripheral pulses palpable in all extremities. Pulmonary: CTA bilaterally. No wheezes. No rales. No crackles. No rubs. Spine/MSK: Tender lower R facets of lumbar spine and R SI joint. Decreased ROM lumbar spine. Positive facet loading lumbar spine bilaterally L>R. Positive straight leg test on the R. Positive laura's and thigh thrust bilaterally, R>L. Weakness noted of the R foot dorsiflexion, hamstring, and quadricep. Positive compression, distraction, and Pinckard's on the right. Tender upper lumbar spine on the R. Gait: Not antalgic. No steppage gait. No Trendelenburg gait. No circumspected gait pattern. Heel walk normal. Toe walk normal. Tandem gait normal. Neuro: Awake. Alert. Oriented x3. DTR's intact in all extremities. DTR's equal in all extremities. No focal neurologic deficit. Alnf-bo-hwhv normal bilaterally. Psych: No apparent distress. Mood normal. Affect normal. No pain behaviors. Tests Educational Testing: Questionnaires PHQ-9: Value SOAPP-R: total score 5 Assessment - [M46.1 - Sacroiliitis, not elsewhere classified] Sacroiliitis - [M25.551 - Pain in right hip] Right hip pain - [M25.552 - Pain in left hip] Left Hip pain - [M47.896 - Other spondylosis, lumbar region] Lumbar spondylosis - [M54.50 - Low back pain, unspecified] Low back pain - [M54.16 - Radiculopathy, lumbar region] Lumbar radiculopathy - [G89.4 - Chronic pain syndrome] Chronic pain syndrome Therapy - Intervention and counseling on cessation of tobacco use: Patient recieved smoking cessation handout. - Clinical summary provided to patient. Counseling/Education - Pill Count: 53 Tramadol Discussed Schedule appt w/ Dr Farris to discuss SCS trial further. Patient is on chronic opioid therapy and tolerating well with no report of adverse symptoms or side effects. Patient reports improvement in pain and functional capacity. Objective measures of pain interference and physical functioning show clinically significant benefit from therapy. Patient expresses understanding of safe and appropriate use of opioids for analgesia. and demonstrates the same. Random pill counts and urine drug screens have been appropriate. This and review of the [facility] database shows no evidence of misuse, abuse, diversion or signs of addiction/use disorder. Patient advised of risks and benefits of medication including the development of tolerance, dependence, withdrawal, addiction, constipation/obstipation, itching, allergic reactions, sedation, worsening depression/anxiety, hormonal perturbations, cognitive impairment or impairment in judgement, psychomotor slowing/impairment, intoxication, injury/accident, DWI/DUI, respiratory depression or failure, development of hyperalgesia, overdose and . Patient is aware that the combination of opioid medications in any form, whether used over the short term or chronically, with other sedative or psychoactive medication including but not limited to benzodiazepines, muscle relaxants, THC, alcohol, hypnotics/sleep medications or other illicit drugs can result in an increased risk of overdose and and is discouraged. Patient is aware that in all cases the lowest effective dose of opioids should be used and doses should be weaned as tolerated as pain improves. Opioid consent form and patient-physician agreement have been reviewed with the patient with all questions satisfactorily elicited asked and answered. These documents have been signed, witnessed and entered into the patient record with a copy provided to the patient. Patient understands that violation of this agreement could result in discontinuation of controlled substances including opioids and possible dismissal from the practice. Patient was further instructed today on taking medication correctly; storing medication securely; disposing of medication properly. Patient was warned against sharing medication and escalating doses without the prescribing provider's knowledge and instruction. Patient was instructed to call the office directly for refills of any controlled substance 4-5 days in advance to avoid unnecessary delays or disruptions in their dosing.. Plan StartCited - Low back pain, unspecified Cyclobenzaprine HCl 10 MG tablet TAKE 1 TABLET BY MOUTH AT BEDTIME, 30 days, 2 refills tiZANidine HCl 2 MG tablet TAKE 1 TABLET BY MOUTH THREE TIMES DAILY NEEDED FOR LOWER BACK PAIN, 30 days, 2 refills EndCited StartCited - Other spondylosis, lumbar region Meloxicam 15 MG tablet TAKE 1 TABLET BY MOUTH DAILY with food, 30 days, 2 refills traMADol HCl ER 200 MG tablet One tablet daily, 30 days, 0 refills EndCited StartCited - Radiculopathy, lumbar region Pregabalin 150 MG capsule TAKE 1 CAPSULE BY MOUTH TWICE DAILY, 30 days, 2 refills EndCited Patient was seen today for 4 chronic unstable conditions of the lumbosacral spine, and central nervous system.Without treatment patient is at risk for significant functional limitations resulting in diminished quality of life and impaired age appropriate activities of daily living. Multiple documents have been reviewed in combination with today's evaluation including imaging studies, outside provider notes, laboratory data, patient self-report questionnaires, and [place] prescription monitoring database entries. Significant social barriers exist to compliance resulting in limited prognosis. Decision to proceed with interventional therapies was made at the time of today's visit. Practice Management Use of tobacco assessment performed and patient screened for future fall risk documentation of any fall with injury in past year Review of medications documented; Standardized depression screening: negative for symptoms and for adult impression and score three Screening for adult depression: impression and score not recorded system reason; [20529] Established outpatient, medically appropriate H&P, moderate level decision making, 30-39 minutes. A total of 10 minutes were spent on this patient's care evaluation, as above. Results of this interaction were communicated directly to the patient's referring and/or primary care provider. All imaging studies and test results discussed in the above document were personally reviewed and evaluated by the performing provider. For all patients on acute or chronic opioids, ongoing need for opioid analgesia is assessed at each visit with consideration of discontinuation or wean to lowest effective dose when possible and appropriate. Contents of this document have been edited for correctness, but may be subject to typographical or cord splicer errors. Verify all diagnoses, medications, dosages, and patient instructions with patient and/or the originator of this document. Health Reminders - Assess Blood Pressure satisfied 07/22/2023. - Assess BMI satisfied 07/22/2023. - Assess Tobacco Use satisfied 07/22/2023. - Depression Screening satisfied 07/22/2023. - Follow up plan for Depression Screening satisfied 07/22/2023. - Smoking & Tobacco Cessation Intervention and Counseling satisfied 07/22/2023.
--- OUTSIDE RECORDS SUMMARY | 2024-07-31 17:32 | XMS_ITS | Encounter Summary ---
Author Organization [facility] Address [address] [place] [address] Phone Care Team Providers Care Board Finisher Name Role Phone Jayla Mcghee APRN, CNP Primary Care Provider [phone] Reason for Referral * PT/OT/ST (Routine) - Open Specialty Diagnoses / Procedures Referred By Liliana joiner Referred To Contact Physical Therapy Diagnoses Right shoulder pain, unspecified chronicity Cervicalgia Right hand weakness Edelmira Henderson APRN, CNP [address] [place] [address] Phone: tel: fax: [facility] at [address] [address] Phone: tel: fax: Referral ID Status Reason Start Date Expiration Date Visits Re quested Visits Authorized [id number] Open 07/30/2024 50 50 Scheduling Instructions Encounter Details Date Type Department Care Team (Latest Contact Info) Description 07/30/2024 Transcribe Orders [facility] [address] [place] [address] Edelmira Henderson APRN, CNP [address] [place] [address] Right shoulder pain, unspecified chronicity (Primary Dx); Cervicalgia; Right hand weakness Social History Tobacco Use Types Packs/Day Years [...] on file Sexual Orientation Not on file documented as of this encounter Plan of Treatment Scheduled Referrals Name Type Priority Associated Diagnoses Orde r Schedule PHYSICAL THERAPY REFERRAL Outpatient Referral Routine Right shoulder pain, unspecified chronicity Cervicalgia Right hand weakness Expected: 07/30/2024, Expires: 07/30/2025 documented as of this encounter Visit Diagnoses Diagnosis Right shoulder pain, unspecified chronicity- Primary Cervicalgia Right hand weakness Muscle weakness (generalized) documented in this encounter Additional Health Concerns Infection Onset Date Last Indicated Resolved Time 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
--- OUTSIDE RECORDS SUMMARY | 2024-07-31 17:32 | XMS_ITS | Clinical Summary ---
Author Organization [facility] Address [address] [place] [address] Phone Care Team Providers Care Broadcast Operations Director Name Role Phone ARAUJO AMANDEEP AGGARWAL, LEEANNE Primary Care Provider [phone] ANUP HARRELL, EDWARDO Loza Unavailable [phone] Reason for Visit and Chief Complaint RX ISSUE/REFILL Problems Includes: Problems addressed during this encounter and other active Problems All Visits Onset Date Resolved Date Provider Condition S tatus Chronic Pain Syndrome 05/27/2023 MIRIAM Reese MOUSER PMHNP Active Last Documented On 4 2:07PM ; [facility] Depression Unknown KATARINA G [employer]-FPA, [employer]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-BC Active Last Documented On 2 8:50AM ; [facility] Anxiety Disorder Nos Unknown KATARINA G [employer]-FPA, AD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-BC Active Last Documented On 2 8:50AM ; [facility] Asthma Unknown KATARINA G [employer]-FPA, AD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-BC Active Last Documented On 2 8:49AM ; [facility] Gerd Unknown KATARINA G [employer]-FPA, AD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-BC Active Last Documented On 2 8:50AM ; [facility] Essential Hypertension Unknown KATARINA G KUL P [employer]-FPA, AD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-BC Active Last Documented On 2 8:49AM ; [facility] Obesity Unknown KATARINA G [employer]-FPA, AD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-BC Active Last Documented On 2 8:49AM ; [facility] Plan of Treatment No Plan of Treatment Recorded Assessments Includes: Assessments from this encounter No Assessments Recorded Medical Equipment - Implanted Devices Includes: Current Devices No Medical Equipment Recorded Medications Includes: Medications discussed during this encounter and other current Medications Discontinued / Stopped on this date ALAN GARCIA on 04/15/2023 traMADol HCl 50 MG Oral Tablet Provider: ALAN BREWSTER Diagnosis: Low back pain, u nspecified Last Documented On 4 11:42AM By KATARINA PHILLIPS ; [facility] New / Renewed during this visit ALAN GARCIA on 06/25/2023 traMADol HCl 50 MG Oral Tablet Provider: ALAN BREWSTER 30 day supply: 120 tablet, 0 refills Diagnosis: Low back pain, unspecified take 2 tablets as needed one to two times daily for severe pain Pharmacy: [facility] [place], [id number] Last Documented On 4 9:16AM By KATARINA PHILLIPS ; [facility] Current Medications (continue as prescribed) Meloxicam 15 MG Oral Tablet 09/09/2023 Provider: ALAN BREWSTER Diagnosis: Other spondylosi s, lumbar region TAKE 1 TABLET BY MOUTH DAILY WITH FOOD Last Documented On 4 10:37AM By KATARINA PHILLIPS ; [facility] traMADol HCl ER 200 MG Oral Tablet Extended Release 24 Hour 09/04/2023 Provider: ALAN BREWSTER Diagnosis: Other spondylosi s, lumbar region One tablet daily Last Documented On 4 11:08AM By KATARINA PHILLIPS ; [facility] Cyclobenzaprine HCl 10 MG Oral Tablet 07/22/2023 Provider: ALAN GARCIA Diagnosis: Low back pain, unspecified TAKE 1 TABLET BY MOUTH AT BEDTIME Last Documented On 4 9:43AM By KATARINA PHILLIPS ; [facility] Pregabalin 150 MG Oral Capsule 07/22/2023 Provider: ALAN BREWSTER Diagnosis: Radiculopathy, l umbar region TAKE 1 CAPSULE BY MOUTH TWICE DAILY Last Documented On 4 9:43AM By KATARINA PHILLIPS ; [facility] tiZANidine HCl 2 MG Oral Tablet 07/22/2023 Provider: ALAN GARCIA Diagnosis: Low back pain, u nspecified TAKE 1 TABLET BY MOUTH THREE TIMES DAILY NEEDED FOR LOWER BACK PAIN Last Documented On 4 9:43AM By KATARINA PHILLIPS ; [facility] Trulicity 0.75 MG/0.5ML Subc utaneous Solution Pen-injector 04/04/2023 Provider: AMANDEEP JENKINS APN Diagnosis: 1 injection weekly. Last Documented On 4 9:00AM By KATARINA PHILLIPS ; [facility] Strattera 40 MG Oral Capsule 01/02/2023 Provider: ISMA ROMERO NP Diagnosis: Last Documented On 3 12:04PM By KATARINA PHILLIPS ; [facility] Labetalol HCl 100 MG Oral Tablet 12/08/2022 Provider : AMANDEEP JENKINS APN Diagnosis: Last Documented On 3 12:04PM By KATARINA PHILLIPS ; [facility] Varenicline Tartrate 1 MG Oral Tablet 07/20/2022 Pro vider: Diagnosis: Last Documented On 3 10:43AM By KATARINA PHILLIPS ; [facility] Pepcid 20 MG Oral Tablet 10/25/2021 Provider: Diagnosis: Last Documented On 2 9:50AM By KATARINA PHILLIPS ; [facility] Symbicort 160-4.5 MCG/ACT In halation Aerosol 10/17/2021 Provider: RIA JENKINS APN Diagnosis: 2 puffs twice a day. Last Documented On 2 9:50AM By KATARINA PHILLIPS ; [facility] Albuterol Sulfate HFA 108 (9 0 Base) MCG/ACT Inhalation Aerosol Solution 10/17/2021 Provider: AMANDEEP DE LEON APN Diagnosis: as needed. Last Documented On 2 9:50AM By KATARINA PHILLIPS ; [facility] Omeprazole 40 MG Oral Capsul e Delayed Release 10/17/2021 Provider: RIA JENKINS APN Diagnosis: Last Documented On 2 9:50AM By KATARINA PHILLIPS ; [facility] Montelukast Sodium 10 MG Oral Tablet 10/17/2021 Prov ider: AMANDEEP JENKINS APN Diagnosis: Last Documented On 2 9:50AM By KATARINA PHILLIPS ; [facility] amLODIPine Besylate 5 MG Oral Tablet 10/17/2021 Prov ider: AMANDEEP JENKINS APN Diagnosis: Last Documented On 2 9:50AM By KATARINA PHILLIPS ; [facility] Past Medications on file Venlafaxine HCl ER 75 MG Oral Capsule Extended Release 24 Hour 05/25/2022 - 06/24/2022 Provider: AMANDEEP JENKINS APN Diagnosis: 150 mg once a day. Last Documented On 3 10:00AM By KATARINA PHILLIPS ; [facility] Medications Administered Includes: Administered Medications from this encounter No Administered Medications Recorded Results Includes: Results discussed during this encounter No Results Recorded For Specified Dates History of Present Illness Includes: History of Present Illness from this encounter No History of Present Illness Recorded Social History Description Last Updated Current smoker TRYING TO QUIT 05/27/2023 Last Documented On 4 10:46AM ; [facility] No family problems 05/27/2023 Last Documented On 4 10:46AM ; [facility] No recent emotional stress 05/27/2023 Last Documented On 4 10:46AM ; [facility] Cigarette smoking: history 10 05/27/2023 Last Documented On 4 10:46AM ; [facility] Consuming 5 or more drinks per day None 05/27/2023 Last Documented On 4 10:46AM ; [facility] Currently not in school 05/27/2023 Last Documented On 4 10:46AM ; [facility] Daily coffee consumption 05/27/2023 Last Documented On 4 10:46AM ; [facility] Lives with spouse 05/27/2023 Last Documented On 4 10:46AM ; [facility] Living with and caring for family househ old member 05/27/2023 Last Documented On 4 10:46AM ; [facility] No consumption of alcohol 05/27/2023 Last Documented On 4 10:46AM ; [facility] 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 None 05/27/2023 Last Documented On 4 10:46AM ; [facility] Smoking packs of cigarettes per day 3/4 a pack 10/25/2021 Last Documented On 4 10:46AM ; [facility] Smoking Status Unknown Procedures and Surgical History Surgical History Last Updated No Pacemaker 10/25/2021 Last Documented On 4 10:46AM ; [facility] Medical History Includes: Medical History addressed during this encounter Description Last Updated Has had a fall in the last 12 months. 07/22/2023 Last Documented On 4 10:46AM ; [facility] LMP: TUBES REMOVED BACK 202005/27/2023 Last Documented On 4 10:46AM ; [facility] A fall 2 05/27/2023 Last Documented On 4 10:46AM ; [facility] Denies a fear of falling. 07/20/2022 Last Documented On 4 10:46AM ; [facility] Parity ten or more 10/25/2021 Last Documented On 4 10:46AM ; [facility] No Pain Pump 10/25/2021 Last Documented On 4 10:46AM ; [facility] No Spinal cord stimulator 10/25/2021 Last Documented On 4 10:46AM ; [facility] Please list all surgeries: L apband 2010cyst removal 2017C-section 2018, 2019,202010/25/2021 Last Documented On 4 10:46AM ; [facility] Family History Includes: Family History addressed during this encounter Description Last Updated Family history of ischemic heart disease 10/25/2021 Last Documented On 4 10:46AM ; [facility] Fraternal history of reported family his tory of seizures 10/25/2021 Last Documented On 4 10:46AM ; [facility] Maternal history of Arthritis 10/25/2021 Last Documented On 4 10:46AM ; [facility] Maternal history of family history of is chemic heart disease 10/25/2021 Last Documented On 4 10:46AM ; [facility] Paternal history of family history of is chemic heart disease 10/25/2021 Last Documented On 4 10:46AM ; [facility] Paternal history of stroke/paralysis Last Documented On 4 10:46AM ; [facility] Review of Systems Includes: Review of Systems [...] [place] Last Documented On 4 8:46AM ; [facility] Levaquin Allergy 10/25/2021 Active Last Documented On 4 8:46AM ; [facility] Latex Allergy 10/25/2021 Active Last Documented On 4 8:46AM ; [facility] Encounters Encounter Provider Location Date Check-In Time Check-Out Time Diagnosis RX ISSUE/REFILL [facility]OMASA [facility] 06/25/2023 10:47AM 11:59PM Insurance Includes: Active Insurance Policies Plan Name Member ID Group # Subscriber Relationship Effect [place] Dates 1 - [facility] [id number] KIM COBURN Self Clinical Notes Includes: Clinical Notes from this encounter * Progress note Date Encounter Last Documented by 06/25/2023 RX ISSUE/REFILL Last documented on 06/25/2023; 11:42 AM, KATARINA ESPOSITO, SIMONE-ADAN; [facility] Active Problems & Conditions - Anxiety Disorder Nos - Asthma - Chronic Pain Syndrome - Depression - Essential Hypertension - Gerd - Obesity Chief Complaint Phone Call - Chief Concern: Reason for call: Refill Patient is requesting a refill on Tramadol ~How is medication taken? 1-2 a day if needed. ~How many are left? 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 Current Medication - Albuterol Sulfate HFA 108 [...] BACK PAIN, 30 days, 2 refills - Trulicity 0.75 MG/0.5ML Subcutaneous Solution [...] family history of seizures Plan StartCited - Low back pain, unspecified traMADol HCl 50 MG tablet take 2 tablets as needed one to two times daily for severe pain, 30 days, 0 refills EndCited Health Reminders - Assess Tobacco Use satisfied 06/25/2023.
[2024-07-31 17:33] VITALS: BP 146/95; PULSE 102; RESP 18; TEMP 36.7; O2SAT 100
--- OUTSIDE RECORDS SUMMARY | 2024-07-31 17:33 | XMS_ITS ---
Author Organization [facility] Address [address] [place] [address] Phone Care Team Providers Care Wireless Development Manager Name Role Phone ARAUJO TOMASA AGGARWALC, LEEANNE Primary Care Provider + [phone] ANUP HARRELL, TC Loza Unavailable [phone] Problems Includes: Active, inactive, and resolved Problems All Visits Onset Date Resolved Date Provider Condition S tatus Chronic Pain Syndrome 05/27/2023 LALA DARDEN PMHNP Active Last Documented On 4 2:07PM ; [facility] Depression Unknown KATARINA G CHERRI PROFESSOR OF MECHANICAL ENGINEERING-FPA, DERRICK HELPER-BC Active Last Documented On 2 8:50AM ; [facility] Anxiety Disorder Nos Unknown KATARINA G CHERRI PROFESSOR OF MECHANICAL ENGINEERING-FPA, DERRICK HELPER-BC Active Last Documented On 2 8:50AM ; [facility] Asthma Unknown KATARINA G CHERRI PROFESSOR OF MECHANICAL ENGINEERING-FPA, DERRICK HELPER-BC Active Last Documented On 2 8:49AM ; [facility] Gerd Unknown KATARINA G CHERRI PROFESSOR OF MECHANICAL ENGINEERING-FPA, DERRICK HELPER-BC Active Last Documented On 2 8:50AM ; [facility] Essential Hypertension Unknown KATARINA G KUL P PROFESSOR OF MECHANICAL ENGINEERING-FPA, DERRICK HELPER-BC Active Last Documented On 2 8:49AM ; [facility] Obesity Unknown KATARINA G CHERRI PROFESSOR OF MECHANICAL ENGINEERING-FPA, DERRICK HELPER-BC Active Last Documented On 2 8:49AM ; [facility] Plan of Treatment Referrals To [facility] - [address] [place] [address] - Radiculopathy, lumbar region Note: consent for bilateral L4-5 transforaminal epidural steroid injection under fluoroscopyNo need to hold NSAIDs/ASA Last Documented On 2 2:44PM ; [facility] Pain Management [facility] - [address] [place] [address] - Sacroiliitis, not elsewhere classified Note: consent for R SI joint steroid injection under fluoroscopy Last Documented On 3 1:28PM ; [facility] Pain Management [facility] - [address] [place] [address] - Sacroiliitis, not elsewhere classified Note: consent for bilateral SI joint steroid injections under fluoroscopy Last Documented On 3 9:10AM ; [facility] Pain Management [facility] - [address] [place] [address] - Radiculopathy, lumbar region Note: consent for bilateral L3-4 transforaminal epidural steroid injection under fluoroscopy Last Documented On 3 9:39AM ; [facility] Neurosurgeon [facility] - [address] [facility] [place] [address] Radiculopathy, lumbar region Note: Neuro or Ortho Spine s urgeon Last Documented On 4 11:07AM ; [facility] Psychiatrist [facility] - [address] [place] [address] - Radiculopathy, lumbar region Note: needs eval prior to SC S trial implant berna/ Lala Last Documented On 4 4:37PM ; [facility] Instructions to patient Intervention and counseling on cessation of tobacco use : Patient recieved smoking cessation handout Last Documented On 4 8:40AM ; [facility] Intervention and counseling on cessation of tobacco use Last Documented On 4 10:20AM ; [facility] Intervention and counseling on cessation of tobacco use : Patient recieved smoking cessation handout Last Documented On 4 8:36AM ; [facility] Intervention and counseling on cessation of tobacco use : Patient recieved smoking cessation handout Last Documented On 3 10:03AM ; [facility] Intervention and counseling on cessation of tobacco use : Patient recieved smoking cessation handout Last Documented On 3 9:18AM ; [facility] Intervention and counseling on cessation of tobacco use : Patient recieved smoking cessation handout Last Documented On 3 9:15AM ; [facility] Intervention and counseling on cessation of tobacco use : Patient recieved smoking cessation handout Last Documented On 3 9:55AM ; [facility] Intervention and counseling on cessation of tobacco use : Patient recieved smoking cessation handout Last Documented On 3 9:17AM ; [facility] Intervention and counseling on cessation of tobacco use : Patient recieved smoking cessation handout Last Documented On 3 9:14AM ; [facility] Intervention and counseling on cessation of tobacco use : Patient recieved smoking cessation handout Last Documented On 3 9:11AM ; [facility] Intervention and counseling on cessation of tobacco use : Patient recieved smoking cessation handout Last Documented On 2 8:34AM ; [facility] Intervention and counseling on cessation of tobacco use : Patient recieved smoking cessation handout Last Documented On 2 3:50PM ; [facility] Education and Decision Aids were provided during visit for: Pill Count: 53 Tramadol Last Documented On 4 8:45AM ; [facility] Patient education about adve rse reactions to medication Last Documented On 4 10:13AM ; [facility] Reviewed side effects and Ri sks/Benefits analysis Last Documented On 4 10:13AM ; [facility] Pill Count: 0 Tramadol Last Documented On 4 8:36AM ; [facility] Pill Count: one Tramadol Last Documented On 3 10:17AM ; [facility] Pill Count: Patient did not bring pain medication to appointment for pill count, per policy. Advised in order to continue to safely prescribe opioids, medication must be brought to each appointment Last Documented On 3 9:22AM ; [facility] Pill Count: 0 Oxycodone : gi april post op with complications [she called office to notify us] Last Documented On 3 9:50AM ; [facility] Pill Count: one Tramadol Last Documented On 3 9:20AM ; [facility] Pill Count: Patient did not bring pain medication to appointment for pill count, per policy. Advised in order to continue to safely prescribe opioids, medication must be brought to each appointment Last Documented On 3 9:55AM ; [facility] Pill Count: Tramadol Last Documented On 3 9:19AM ; [facility] Pill Count: Patient did not bring pain medication to appointment for pill count, per policy. Advised in order to continue to safely prescribe opioids, medication must be brought to each appointment Last Documented On 3 9:23AM ; [facility] Pill Count: two Tramadol Last Documented On 3 9:21AM ; [facility] Pill Count: 45 Tramadol Last Documented On 3 9:18AM ; [facility] Assessments Includes: Assessments for all patient encounters Findings Encounter Date Chronic pain syndrome PAIN MANAGEMENT FO LLOW UP with KATARINA HARLEY PROFESSOR OF MECHANICAL ENGINEERING-FPA, DERRICK HELPER-BC 07/22/2023 Last Documented On 4 9:19AM ; [facility] Left Hip pain PAIN MANAGEMENT FOLL OW UP with KATARINA HARLEY PROFESSOR OF MECHANICAL ENGINEERING-FPA, DERRICK HELPER-BC 07/22/2023 Last Documented On 4 9:19AM ; [facility] Low back pain PAIN MANAGEMENT FOLL OW UP with KATARINABRANDY HARLEY PROFESSOR OF MECHANICAL ENGINEERING-FPA, DERRICK HELPER-BC 07/22/2023 Last Documented On 4 9:19AM ; [facility] Lumbar radiculopathy PAIN MANAGEMENT FOL LOW UP with KATARINABRANDY HARLEY PROFESSOR OF MECHANICAL ENGINEERING-FPA, DERRICK HELPER-BC 07/22/2023 Last Documented On 4 9:19AM ; [facility] Lumbar spondylosis PAIN MANAGEMENT FOLL OW UP with KATARINABRANDY HARLEY PROFESSOR OF MECHANICAL ENGINEERING-FPA, DERRICK HELPER-BC 07/22/2023 Last Documented On 4 9:19AM ; [facility] Right hip pain PAIN MANAGEMENT FOLL OW UP with KATARINA G CHERRI PROFESSOR OF MECHANICAL ENGINEERING-FPA, DERRICK HELPER-BC 07/22/2023 Last Documented On 4 9:19AM ; [facility] Sacroiliitis PAIN MANAGEMENT FOLL OW UP with KATARINA G CHERRI PROFESSOR OF MECHANICAL ENGINEERING-FPA, DERRICK HELPER-BC 07/22/2023 Last Documented On 4 9:19AM ; [facility] [G89.4 - Chronic pain syndro me] chronic pain syndrome PSYCH NEW PATIENT EXAM 19 YEARS AND OLDER with LALA DARDEN PMHNP 05/27/2023 Last Documented On 4 1:14PM ; [facility] Chronic pain syndrome PAIN MANAGEMENT FO LLOW UP with KATARINA G CHERRI PROFESSOR OF MECHANICAL ENGINEERING-FPA, DERRICK HELPER-BC 04/15/2023 Last Documented On 4 9:16AM ; [facility] Left Hip pain PAIN MANAGEMENT FOLL OW UP with KATARINA G CHERRI PROFESSOR OF MECHANICAL ENGINEERING-FPA, DERRICK HELPER-BC 04/15/2023 Last Documented On 4 9:16AM ; [facility] Low back pain PAIN MANAGEMENT FOLL OW UP with KATARINA G CHERRI PROFESSOR OF MECHANICAL ENGINEERING-FPA, DERRICK HELPER-BC 04/15/2023 Last Documented On 4 9:16AM ; [facility] Lumbar radiculopathy PAIN MANAGEMENT FOL LOW UP with KATARINA G CHERRI PROFESSOR OF MECHANICAL ENGINEERING-FPA, DERRICK HELPER-BC 04/15/2023 Last Documented On 4 9:16AM ; [facility] Lumbar spondylosis PAIN MANAGEMENT FOLL OW UP with KATARINA G CHERRI PROFESSOR OF MECHANICAL ENGINEERING-FPA, DERRICK HELPER-BC 04/15/2023 Last Documented On 4 9:16AM ; [facility] Right hip pain PAIN MANAGEMENT FOLL OW UP with KATARINA G CHERRI PROFESSOR OF MECHANICAL ENGINEERING-FPA, DERRICK HELPER-BC 04/15/2023 Last Documented On 4 9:16AM ; [facility] Sacroiliitis PAIN MANAGEMENT FOLL OW UP with KATARINA G CHERRI PROFESSOR OF MECHANICAL ENGINEERING-FPA, DERRICK HELPER-BC 04/15/2023 Last Documented On 4 9:16AM ; [facility] Chronic pain syndrome PAIN MANAGEMENT FO LLOW UP with KATARINA G CHERRI PROFESSOR OF MECHANICAL ENGINEERING-FPA, DERRICK HELPER-BC 01/28/2023 Last Documented On 3 12:04PM ; [facility] Left Hip pain PAIN MANAGEMENT FOLL OW UP with KATARINA G CHERRI PROFESSOR OF MECHANICAL ENGINEERING-FPA, DERRICK HELPER-BC 01/28/2023 Last Documented On 3 12:04PM ; [facility] Low back pain PAIN MANAGEMENT FOLL OW UP with KATARINA G CHERRI PROFESSOR OF MECHANICAL ENGINEERING-FPA, DERRICK HELPER-BC 01/28/2023 Last Documented On 3 12:04PM ; [facility] Lumbar radiculopathy PAIN MANAGEMENT FOL LOW UP with KATARINA G CHERRI PROFESSOR OF MECHANICAL ENGINEERING-FPA, DERRICK HELPER-BC 01/28/2023 Last Documented On 3 12:04PM ; [facility] Lumbar spondylosis PAIN MANAGEMENT FOLL OW UP with KATARINA G CHERRI PROFESSOR OF MECHANICAL ENGINEERING-FPA, DERRICK HELPER-BC 01/28/2023 Last Documented On 3 12:04PM ; [facility] Right hip pain PAIN MANAGEMENT FOLL OW UP with KATARINA G CHERRI PROFESSOR OF MECHANICAL ENGINEERING-FPA, DERRICK HELPER-BC 01/28/2023 Last Documented On 3 12:04PM ; [facility] Sacroiliitis PAIN MANAGEMENT FOLL OW UP with KATARINA G CHERRI PROFESSOR OF MECHANICAL ENGINEERING-FPA, DERRICK HELPER-BC 01/28/2023 Last Documented On 3 12:04PM ; [facility] Chronic pain syndrome PAIN MANAGEMENT FO LLOW UP with KATARINA G CHERRI PROFESSOR OF MECHANICAL ENGINEERING-FPA, DERRICK HELPER-BC 12/28/2022 Last Documented On 3 12:40PM ; [facility] Left Hip pain PAIN MANAGEMENT FOLL OW UP with KATARINA G CHERRI PROFESSOR OF MECHANICAL ENGINEERING-FPA, DERRICK HELPER-BC 12/28/2022 Last Documented On 3 12:40PM ; [facility] Low back pain PAIN MANAGEMENT FOLL OW UP with KATARINA G CHERRI PROFESSOR OF MECHANICAL ENGINEERING-FPA, DERRICK HELPER-BC 12/28/2022 Last Documented On 3 12:40PM ; [facility] Lumbar radiculopathy PAIN MANAGEMENT FOL LOW UP with KATARINA G CHERRI PROFESSOR OF MECHANICAL ENGINEERING-FPA, DERRICK HELPER-BC 12/28/2022 Last Documented On 3 12:40PM ; [facility] Lumbar spondylosis PAIN MANAGEMENT FOLL OW UP with AKTARINA G CHERRI PROFESSOR OF MECHANICAL ENGINEERING-FPA, DERRICK HELPER-BC 12/28/2022 Last Documented On 3 12:40PM ; [facility] Right hip pain PAIN MANAGEMENT FOLL OW UP with KATARINA G CHERRI PROFESSOR OF MECHANICAL ENGINEERING-FPA, DERRICK HELPER-BC 12/28/2022 Last Documented On 3 12:40PM ; [facility] Sacroiliitis PAIN MANAGEMENT FOLL OW UP with KATARINA G CHERRI PROFESSOR OF MECHANICAL ENGINEERING-FPA, DERRICK HELPER-BC 12/28/2022 Last Documented On 3 12:40PM ; [facility] Chronic pain syndrome PAIN MANAGEMENT FO LLOW UP with KATARINA G CHERRI PROFESSOR OF MECHANICAL ENGINEERING-FPA, DERRICK HELPER-BC 10/15/2022 Last Documented On 3 9:51AM ; [facility] Left Hip pain PAIN MANAGEMENT FOLL OW UP with KATARINA G CHERRI PROFESSOR OF MECHANICAL ENGINEERING-FPA, DERRICK HELPER-BC 10/15/2022 Last Documented On 3 9:51AM ; [facility] Low back pain PAIN MANAGEMENT FOLL OW UP with KATARINA G CHERRI PROFESSOR OF MECHANICAL ENGINEERING-FPA, DERRICK HELPER-BC 10/15/2022 Last Documented On 3 9:51AM ; [facility] Lumbar radiculopathy PAIN MANAGEMENT FOL LOW UP with KATARINA G CHERRI PROFESSOR OF MECHANICAL ENGINEERING-FPA, DERRICK HELPER-BC 10/15/2022 Last Documented On 3 9:51AM ; [facility] Lumbar spondylosis PAIN MANAGEMENT FOLL OW UP with KATARINA G CHERRI PROFESSOR OF MECHANICAL ENGINEERING-FPA, DERRICK HELPER-BC 10/15/2022 Last Documented On 3 9:51AM ; [facility] Right hip pain PAIN MANAGEMENT FOLL OW UP with KATARINA G CHERRI PROFESSOR OF MECHANICAL ENGINEERING-FPA, DERRICK HELPER-BC 10/15/2022 Last Documented On 3 9:51AM ; [facility] Sacroiliitis PAIN MANAGEMENT FOLL OW UP with KATARINA G CHERRI PROFESSOR OF MECHANICAL ENGINEERING-FPA, DERRICK HELPER-BC 10/15/2022 Last Documented On 3 9:51AM ; [facility] Chronic pain syndrome PAIN MANAGEMENT FO LLOW UP with KATARINA G CHERRI PROFESSOR OF MECHANICAL ENGINEERING-FPA, DERRICK HELPER-BC 07/20/2022 Last Documented On 3 1:35PM ; [facility] Low back pain PAIN MANAGEMENT FOLL OW UP with KATARINA G CHERRI PROFESSOR OF MECHANICAL ENGINEERING-FPA, DERRICK HELPER-BC 07/20/2022 Last Documented On 3 1:35PM ; [facility] Lumbar radiculopathy PAIN MANAGEMENT FOL LOW UP with KATARINA G CHERRI PROFESSOR OF MECHANICAL ENGINEERING-FPA, DERRICK HELPER-BC 07/20/2022 Last Documented On 3 1:35PM ; [facility] Lumbar spondylosis PAIN MANAGEMENT FOLL OW UP with KATARINA G CHERRI PROFESSOR OF MECHANICAL ENGINEERING-FPA, DERRICK HELPER-BC 07/20/2022 Last Documented On 3 1:35PM ; [facility] Sacroiliitis PAIN MANAGEMENT FOLL OW UP with KATARINA G CHERRI PROFESSOR OF MECHANICAL ENGINEERING-FPA, DERRICK HELPER-BC 07/20/2022 Last Documented On 3 1:35PM ; [facility] Chronic pain syndrome PAIN MANAGEMENT FO LLOW UP with KATARINA G CHERRI PROFESSOR OF MECHANICAL ENGINEERING-FPA, DERRICK HELPER-BC 06/15/2022 Last Documented On 3 10:00AM ; [facility] Low back pain PAIN MANAGEMENT FOLL OW UP with KATARINA G CHERRI PROFESSOR OF MECHANICAL ENGINEERING-FPA, DERRICK HELPER-BC 06/15/2022 Last Documented On 3 10:00AM ; [facility] Lumbar radiculopathy PAIN MANAGEMENT FOL LOW UP with KATARINA G CHERRI PROFESSOR OF MECHANICAL ENGINEERING-FPA, DERRICK HELPER-BC 06/15/2022 Last Documented On 3 10:00AM ; [facility] Lumbar spondylosis PAIN MANAGEMENT FOLL OW UP with KATARINA G CHERRI PROFESSOR OF MECHANICAL ENGINEERING-FPA, DERRICK HELPER-BC 06/15/2022 Last Documented On 3 10:00AM ; [facility] Sacroiliitis PAIN MANAGEMENT FOLL OW UP with KATARINA G CHERRI PROFESSOR OF MECHANICAL ENGINEERING-FPA, DERRICK HELPER-BC 06/15/2022 Last Documented On 3 10:00AM ; [facility] Chronic pain syndrome PAIN MANAGEMENT FO LLOW UP with KATARINA G CHERRI PROFESSOR OF MECHANICAL ENGINEERING-FPA, DERRICK HELPER-BC 05/25/2022 Last Documented On 3 10:07AM ; [facility] Low back pain PAIN MANAGEMENT FOLL OW UP with KATARINA G CHERRI PROFESSOR OF MECHANICAL ENGINEERING-FPA, DERRICK HELPER-BC 05/25/2022 Last Documented On 3 10:07AM ; [facility] Lumbar radiculopathy PAIN MANAGEMENT FOL LOW UP with KATARINA G CHERRI PROFESSOR OF MECHANICAL ENGINEERING-FPA, DERRICK HELPER-BC 05/25/2022 Last Documented On 3 10:07AM ; [facility] Lumbar spondylosis PAIN MANAGEMENT FOLL OW UP with KATARINA G CHERRI PROFESSOR OF MECHANICAL ENGINEERING-FPA, DERRICK HELPER-BC 05/25/2022 Last Documented On 3 10:07AM ; [facility] Sacroiliitis PAIN MANAGEMENT FOLL OW UP with KATARINA G CHERRI PROFESSOR OF MECHANICAL ENGINEERING-FPA, DERRICK HELPER-BC 05/25/2022 Last Documented On 3 10:07AM ; [facility] Chronic pain syndrome PAIN MANAGEMENT FO LLOW UP with KATARINA G CHERRI PROFESSOR OF MECHANICAL ENGINEERING-FPA, DERRICK HELPER-BC 04/16/2022 Last Documented On 3 9:46AM ; [facility] Low back pain PAIN MANAGEMENT FOLL OW UP with KATARINA G CHERRI PROFESSOR OF MECHANICAL ENGINEERING-FPA, DERRICK HELPER-BC 04/16/2022 Last Documented On 3 9:46AM ; [facility] Lumbar radiculopathy PAIN MANAGEMENT FOL LOW UP with KATARINA G CHERRI PROFESSOR OF MECHANICAL ENGINEERING-FPA, DERRICK HELPER-BC 04/16/2022 Last Documented On 3 9:46AM ; [facility] Lumbar spondylosis PAIN MANAGEMENT FOLL OW UP with KATARINA G CHERRI PROFESSOR OF MECHANICAL ENGINEERING-FPA, DERRICK HELPER-BC 04/16/2022 Last Documented On 3 9:46AM ; [facility] Sacroiliitis PAIN MANAGEMENT FOLL OW UP with KATARINA G CHERRI PROFESSOR OF MECHANICAL ENGINEERING-FPA, DERRICK HELPER-BC 04/16/2022 Last Documented On 3 9:46AM ; [facility] Chronic pain syndrome PAIN MANAGEMENT FO LLOW UP with KATARINA G CHERRI PROFESSOR OF MECHANICAL ENGINEERING-FPA, DERRICK HELPER-BC 01/19/2022 Last Documented On 2 9:52AM ; [facility] Low back pain PAIN MANAGEMENT FOLL OW UP with KATARINA G CHERRI PROFESSOR OF MECHANICAL ENGINEERING-FPA, DERRICK HELPER-BC 01/19/2022 Last Documented On 2 9:52AM ; [facility] Lumbar radiculopathy PAIN MANAGEMENT FOL LOW UP with KATARINA G CHERRI PROFESSOR OF MECHANICAL ENGINEERING-FPA, DERRICK HELPER-BC 01/19/2022 Last Documented On 2 9:52AM ; [facility] Lumbar spondylosis PAIN MANAGEMENT FOLL OW UP with KATARINA G CHERRI PROFESSOR OF MECHANICAL ENGINEERING-FPA, DERRICK HELPER-BC 01/19/2022 Last Documented On 2 9:52AM ; [facility] Sacroiliitis PAIN MANAGEMENT FOLL OW UP with KATARINA G CHERRI PROFESSOR OF MECHANICAL ENGINEERING-FPA, DERRICK HELPER-BC 01/19/2022 Last Documented On 2 9:52AM ; [facility] Chronic pain syndrome PAIN MANAGEMENT FO LLOW UP with KATARINA G CHERRI PROFESSOR OF MECHANICAL ENGINEERING-FPA, DERRICK HELPER-BC 12/12/2021 Last Documented On 2 5:10PM ; [facility] Low back pain PAIN MANAGEMENT FOLL OW UP with KATARINA G CHERRI PROFESSOR OF MECHANICAL ENGINEERING-FPA, DERRICK HELPER-BC 12/12/2021 Last Documented On 2 5:10PM ; [facility] Lumbar radiculopathy PAIN MANAGEMENT FOL LOW UP with KATARINA G CHERRI PROFESSOR OF MECHANICAL ENGINEERING-FPA, DERRICK HELPER-BC 12/12/2021 Last Documented On 2 5:10PM ; [facility] Lumbar spondylosis PAIN MANAGEMENT FOLL OW UP with KATARINA G CHERRI PROFESSOR OF MECHANICAL ENGINEERING-FPA, DERRICK HELPER-BC 12/12/2021 Last Documented On 2 5:10PM ; [facility] Sacroiliitis PAIN MANAGEMENT FOLL OW UP with KATARINA G CHERRI PROFESSOR OF MECHANICAL ENGINEERING-FPA, DERRICK HELPER-BC 12/12/2021 Last Documented On 2 5:10PM ; [facility] Chronic pain syndrome PAIN MANAGEMENT NE W CONSULT with KATARINA Rock CHERRI PROFESSOR OF MECHANICAL ENGINEERING-FPA, DERRICK HELPER-BC 10/25/2021 Last Documented On 2 10:42AM ; [facility] Low back pain PAIN MANAGEMENT NEW CONSULT with KATARINA Rock CHERRI PROFESSOR OF MECHANICAL ENGINEERING-FPA, DERRICK HELPER-BC 10/25/2021 Last Documented On 2 10:42AM ; [facility] Lumbar radiculopathy PAIN MANAGEMENT NEW CONSULT with KATARINA Rock CHERRI PROFESSOR OF MECHANICAL ENGINEERING-FPA, DERRICK HELPER-BC 10/25/2021 Last Documented On 2 10:42AM ; [facility] Lumbar spondylosis PAIN MANAGEMENT NEW CONSULT with KATARINA Rock CHERRI PROFESSOR OF MECHANICAL ENGINEERING-FPA, DERRICK HELPER-BC 10/25/2021 Last Documented On 2 10:42AM ; [facility] Sacroiliitis PAIN MANAGEMENT NEW CONSULT with KATARINA Rock CHERRI PROFESSOR OF MECHANICAL ENGINEERING-FPA, DERRICK HELPER-BC 10/25/2021 Last Documented On 2 10:42AM ; [facility] Instructions Includes: Instructions for all patient encounters Instructions to patient Intervention and counseling on cessation of tobacco use : Patient recieved smoking cessation handout Last Documented On 4 8:40AM ; [facility] Intervention and counseling on cessation of tobacco use Last Documented On 4 10:20AM ; [facility] Intervention and counseling on cessation of tobacco use : Patient recieved smoking cessation handout Last Documented On 4 8:36AM ; [facility] Intervention and counseling on cessation of tobacco use : Patient recieved smoking cessation handout Last Documented On 3 10:03AM ; [facility] Intervention and counseling on cessation of tobacco use : Patient recieved smoking cessation handout Last Documented On 3 9:18AM ; [facility] Intervention and counseling on cessation of tobacco use : Patient recieved smoking cessation handout Last Documented On 3 9:15AM ; [facility] Intervention and counseling on cessation of tobacco use : Patient recieved smoking cessation handout Last Documented On 3 9:55AM ; [facility] Intervention and counseling on cessation of tobacco use : Patient recieved smoking cessation handout Last Documented On 3 9:17AM ; [facility] Intervention and counseling on cessation of tobacco use : Patient recieved smoking cessation handout Last Documented On 3 9:14AM ; [facility] Intervention and counseling on cessation of tobacco use : Patient recieved smoking cessation handout Last Documented On 3 9:11AM ; [facility] Intervention and counseling on cessation of tobacco use : Patient recieved smoking cessation handout Last Documented On 2 8:34AM ; [facility] Intervention and counseling on cessation of tobacco use : Patient recieved smoking cessation handout Last Documented On 2 3:50PM ; [facility] Education and Decision Aids were provided during visit for: Pill Count: 53 Tramadol Last Documented On 4 8:45AM ; [facility] Patient education about adve rse reactions to medication Last Documented On 4 10:13AM ; [facility] Reviewed side effects and Ri sks/Benefits analysis Last Documented On 4 10:13AM ; [facility] Pill Count: 0 Tramadol Last Documented On 4 8:36AM ; [facility] Pill Count: one Tramadol Last Documented On 3 10:17AM ; [facility] Pill Count: Patient did not bring pain medication to appointment for pill count, per policy. Advised in order to continue to safely prescribe opioids, medication must be brought to each appointment Last Documented On 3 9:22AM ; [facility] [facility] Pill Count: 0 Oxycodone : gi april post op with complications [she called office to notify us] Last Documented On 3 9:50AM ; [facility] Pill Count: one Tramadol Last Documented On 3 9:20AM ; [facility] Pill Count: Patient did not bring pain medication to appointment for pill count, per policy. Advised in order to continue to safely prescribe opioids, medication must be brought to each appointment Last Documented On 3 9:55AM ; [facility] Pill Count: Tramadol Last Documented On 3 9:19AM ; [facility] Pill Count: Patient did not bring pain medication to appointment for pill count, per policy. Advised in order to continue to safely prescribe opioids, medication must be brought to each appointment Last Documented On 3 9:23AM ; [facility] Pill Count: two Tramadol Last Documented On 3 9:21AM ; [facility] Pill Count: 45 Tramadol Last Documented On 3 9:18AM ; [facility] Medical Equipment - Implanted Devices Includes: Current and historical Devices No Medical Equipment Recorded Medications Includes: Current and historical Medications Current Medications (continue as prescribed) Meloxicam 15 MG Oral Tablet 09/09/2023 Provider: ALAN BREWSTER Diagnosis: Other spondylosi s, lumbar region TAKE 1 TABLET BY MOUTH DAILY WITH FOOD Last Documented On 4 10:37AM By KATARINA PHILLIPS ; [facility] traMADol HCl ER 200 MG Oral Tablet Extended Release 24 Hour 09/04/2023 Provider: ALAN BREWSTER Diagnosis: Other spondylosi s, lumbar region One tablet daily Last Documented On 4 11:08AM By KATARINA PHILLIPS ; [facility] Cyclobenzaprine HCl 10 MG Oral Tablet 07/22/2023 Provider: ALAN GARCIA Diagnosis: Low back pain, unspecified TAKE 1 TABLET BY MOUTH AT BEDTIME Last Documented On 4 9:43AM By KATARINA PHILLIPS ; [facility] Pregabalin 150 MG Oral Capsule 07/22/2023 Provider: ALAN BREWSTER Diagnosis: Radiculopathy, l umbar region TAKE 1 CAPSULE BY MOUTH TWICE DAILY Last Documented On 4 9:43AM By KATARINA PHILLIPS ; [facility] tiZANidine HCl 2 MG Oral Tablet 07/22/2023 Provider: ALAN GARCIA Diagnosis: Low back pain, u nspecified TAKE 1 TABLET BY MOUTH THREE TIMES DAILY NEEDED FOR LOWER BACK PAIN Last Documented On 4 9:43AM By KATARINA PHILLIPS ; [facility] traMADol HCl 50 MG Oral Tablet 06/25/2023 Provider: ALAN BREWSTER Diagnosis: Low back pain, u nspecified take 2 tablets as needed one to two times daily for severe pain Last Documented On 4 9:16AM By KATARINA PHILLIPS ; [facility] Trulicity 0.75 MG/0.5ML Subc utaneous Solution Pen-injector 04/04/2023 Provider: AMANDEEP JENKINS APN Diagnosis: 1 injection weekly. Last Documented On 4 9:00AM By KATARINA PHILLIPS ; [facility] Strattera 40 MG Oral Capsule 01/02/2023 Provider: ISMA ROMERO NP Diagnosis: Last Documented On 3 12:04PM By KATARINA PHILLIPS ; [facility] Labetalol HCl 100 MG Oral Tablet 12/08/2022 Provider : AMANDEEP JENKINS APN Diagnosis: Last Documented On 3 12:04PM By KATARINA PHILLIPS ; [facility] Varenicline Tartrate 1 MG Oral Tablet 07/20/2022 Pro vider: Diagnosis: Last Documented On 3 10:43AM By KATARINA PHILLIPS ; [facility] Pepcid 20 MG Oral Tablet 10/25/2021 Provider: Diagnosis: Last Documented On 2 9:50AM By KATARINA PHILLIPS ; [facility] Symbicort 160-4.5 MCG/ACT In halation Aerosol 10/17/2021 Provider: RIA JENKINS APN Diagnosis: 2 puffs twice a day. Last Documented On 2 9:50AM By KATARINA PHILLIPS ; [facility] Albuterol Sulfate HFA 108 (9 0 Base) MCG/ACT Inhalation Aerosol Solution 10/17/2021 Provider: AMANDEEP DE LEON APN Diagnosis: as needed. Last Documented On 2 9:50AM By KATARINA PHILLIPS ; [facility] Omeprazole 40 MG Oral Capsul e Delayed Release 10/17/2021 Provider: RIA JENKINS APN Diagnosis: Last Documented On 2 9:50AM By KATARINA PHILLIPS ; [facility] Montelukast Sodium 10 MG Oral Tablet 10/17/2021 Prov ider: RIA JENKINS APNP-C Diagnosis: Last Documented On 2 9:50AM By KATARINA PHILLIPS ; [facility] amLODIPine Besylate 5 MG Oral Tablet 10/17/2021 Prov ider: SIMONE JENKINS APN-C Diagnosis: Last Documented On 2 9:50AM By KATARINA PHILLIPS ; [facility] Past Medications on file Meloxicam 15 MG Oral Tablet 07/22/2023 - 09/09/2023 Provider: ALAN GARCIA Diagnosis: Other spondylosi s, lumbar region TAKE 1 TABLET BY MOUTH DAILY with food Last Documented On 4 10:28AM By KATARINA PHILLIPS ; [facility] traMADol HCl ER 200 MG Oral Tablet Extended Release 24 Hour 07/22/2023 - 09/04/2023 Provider: ALAN GARCIA Diagnosis: Other spondylosi s, lumbar region One tablet daily Last Documented On 4 11:07AM By KATARINA PHILLIPS ; [facility] Pregabalin 150 MG Oral Capsule 04/15/2023 - 07/22/2023 Provider: ALAN GARCIA Diagnosis: Radiculopathy, l umbar region TAKE 1 CAPSULE BY MOUTH TWICE DAILY Last Documented On 4 9:17AM By KATARINA PHILLIPS ; [facility] traMADol HCl 50 MG Oral Tablet 04/15/2023 - 06/25/2023 Provider: ALAN GARICA Diagnosis: Low back pain, unspecified take 2 tablets as needed one to two times daily for severe pain Last Documented On 4 11:42AM By KATARINA PHILLIPS ; [facility] tiZANidine HCl 2 MG Oral Tablet 04/15/2023 - 07/22/2023 Provider: ALAN GARCIA Diagnosis: Low back pain, unspecified TAKE 1 TABLET BY MOUTH THREE TIMES DAILY NEEDED FOR LOWER BACK PAIN Last Documented On 4 9:17AM By KATARINA PHILLIPS ; [facility] Meloxicam 15 MG Oral Tablet 04/15/2023 - 07/22/2023 Provider: ALAN GARCIA Diagnosis: Other spondylosi s, lumbar region TAKE 1 TABLET BY MOUTH DAILY with food Last Documented On 4 9:17AM By KATARINA PHILLIPS ; [facility] Cyclobenzaprine HCl 10 MG Oral Tablet 04/15/2023 - 07/22/2023 Provider: ALAN GARCIA Diagnosis: Low back pain, unspecified TAKE 1 TABLET BY MOUTH AT BEDTIME Last Documented On 4 9:17AM By KATARINA PHILLIPS ; [facility] Meloxicam 15 MG Oral Tablet 04/02/2023 - 04/15/2023 Provider: ALAN GARCIA Diagnosis: Other spondylosi s, lumbar region TAKE 1 TABLET BY MOUTH DAILY Last Documented On 4 9:06AM By KATARINA PHILLIPS ; [facility] traMADol HCl 50 MG Oral Tablet 02/14/2023 - 04/15/2023 Provider: ALAN GARCIA Diagnosis: Low back pain, unspecified take 2 tablets as needed one to two times daily for severe pain Last Documented On 4 9:05AM By KATARINA PHILLIPS ; [facility] traMADol HCl 50 MG Oral Tablet 01/28/2023 - 02/14/2023 Provider: ALAN GARCIA Diagnosis: Low back pain, unspecified take 2 tablets as needed one to two times daily for severe pain Last Documented On 3 1:28PM By KATARINA PHILLIPS ; [facility] tiZANidine HCl 2 MG Oral Tablet 12/28/2022 - 04/15/2023 Provider: ALAN GARCIA Diagnosis: Low back pain, unspecified TAKE 1 TABLET BY MOUTH THREE TIMES DAILY NEEDED FOR LOWER BACK PAIN Last Documented On 4 9:06AM By KATARINA PHILLIPS ; [facility] Cyclobenzaprine HCl 10 MG Oral Tablet 12/28/2022 - 04/15/2023 Provider: ALAN GARCIA Diagnosis: Low back pain, unspecified TAKE 1 TABLET BY MOUTH AT BEDTIME Last Documented On 4 9:01AM By KATARINA PHILLIPS ; [facility] Pregabalin 150 MG Oral Capsule 12/28/2022 - 04/15/2023 Provider: ALAN GARCIA Diagnosis: Radiculopathy, l umbar region TAKE 1 CAPSULE BY MOUTH TWICE DAILY Last Documented On 4 9:05AM By KATARINA PHILLIPS ; [facility] Meloxicam 15 MG Oral Tablet 12/28/2022 - 04/02/2023 Provider: ALAN GARCIA Diagnosis: Other spondylosi s, lumbar region One tablet daily Last Documented On 3 8:20AM By KATARINA PHILLIPS ; [facility] tiZANidine HCl 2 MG Oral Tablet 12/11/2022 - 12/28/2022 Provider: ALAN GARCIA Diagnosis: Low back pain, unspecified TAKE 1 TABLET BY MOUTH THREE TIMES DAILY NEEDED FOR LOWER BACK PAIN Last Documented On 3 12:40PM By KATARINA PHILLIPS ; [facility] Celecoxib 200 MG Oral Capsule 12/06/2022 - 01/28/2023 Provider: SIMONE GARCIA-ADAN Diagnosis: Low back pain, unspecified TAKE 1 CAPSULE BY MOUTH DAILY WITH A MEAL Last Documented On 3 10:18AM By Jes DURAN ; [facility] Cyclobenzaprine HCl 10 MG Oral Tablet 12/03/2022 - 12/28/2022 Provider: ALAN GARCIA Diagnosis: Low back pain, unspecified TAKE 1 TABLET BY MOUTH AT BEDTIME Last Documented On 3 12:40PM By KATARINA PHILLIPS ; [facility] Pregabalin 150 MG Oral Capsule 12/03/2022 - 12/28/2022 Provider: SIMONE GARCIA-ADAN Diagnosis: Radiculopathy, l umbar region TAKE 1 CAPSULE BY MOUTH TWICE DAILY Last Documented On 3 9:44AM By KATARINA PHILLIPS ; [facility] traMADol HCl 50 MG Oral Tablet 12/03/2022 - 01/28/2023 Provider: SIMONE GARCIA-ADAN Diagnosis: Low back pain, unspecified take 1 tablet one to two tc es daily as needed for severe pain, max 2/day Last Documented On 3 10:56AM By KATARINA PHILLIPS ; [facility] tiZANidine HCl 2 MG Oral Tablet 11/14/2022 - 12/11/2022 Provider: SIMONE GARCIA-ADAN Diagnosis: Low back pain, unspecified TAKE 1 TABLET BY MOUTH THREE TIMES DAILY NEEDED FOR LOWER BACK PAIN Last Documented On 3 10:27AM By KATARINA PHILLIPS ; [facility] Cyclobenzaprine HCl 10 MG Oral Tablet 11/13/2022 - 12/03/2022 Provider: SIMONE GARCIA-ADAN Diagnosis: Low back pain, unspecified TAKE 1 TABLET BY MOUTH AT BEDTIME Last Documented On 3 9:24AM By KATARINA PHILLIPS ; [facility] Pregabalin 150 MG Oral Capsule 10/15/2022 - 12/03/2022 Provider: SIMONE GARCIA-ADAN Diagnosis: Radiculopathy, l umbar region TAKE 1 CAPSULE BY MOUTH TWICE DAILY Last Documented On 3 9:24AM By KATARINA NICHOLSADAN ; [facility] tiZANidine HCl 2 MG Oral Tablet 10/15/2022 - 11/14/2022 Provider: ALAN GARCIA Diagnosis: Low back pain, unspecified One tablet three times a day as needed for low back pain Last Documented On 3 4:34PM By KATARINA PHILLIPS ; [facility] Celecoxib 200 MG Oral Capsule 10/15/2022 - 12/06/2022 Provider: SIMONE GARCIA-ADAN Diagnosis: Low back pain, unspecified TAKE 1 CAPSULE BY MOUTH DAILY WITH A MEAL Last Documented On 3 3:12PM By KATARINA HARLEY [employer]ERR[employer] HELPERADAN ; [facility] traMADol HCl 50 MG Oral Tablet 10/15/2022 - 12/03/2022 Provider: SIMONE GARCIA-ADAN Diagnosis: Low back pain, unspecified take 1 tablet one to two tc es daily as needed for severe pain, max 2/day Last Documented On 3 9:22AM [facility] ; [facility] Cyclobenzaprine HCl 10 MG Oral Tablet 10/15/2022 - 11/13/2022 Provider: SIMONE GARCIA-ADAN Diagnosis: Low back pain, unspecified One tablet at bed time Last Documented On 3 10:33AM By KATARINA PHILLIPS ; [facility] Pregabalin 150 MG Oral Capsule 10/04/2022 - 10/15/2022 Provider: SIMONE GARCIA-ADAN Diagnosis: Radiculopathy, l umbar region TAKE 1 CAPSULE BY MOUTH TWICE DAILY Last Documented On 3 9:43AM By KATARINA NICHOLSADAN ; [facility] Celecoxib 200 MG Oral Capsule 10/01/2022 - 10/15/2022 Provider: RIA GARCIAP-BC Diagnosis: Low back pain, unspecified TAKE 1 CAPSULE BY MOUTH DAILY WITH A MEAL Last Documented On 3 9:43AM By KATARINA NICHOLS-BC ; [facility] Methocarbamol 750 MG Oral Tablet 07/26/2022 - 10/15/2022 Provider: ALAN GARCIA Diagnosis: One tablet three times a day as needed for muscle spasms Last Documented On 3 9:51AM By KATARINA HARLEY [facility] ; [facility] Cyclobenzaprine HCl 10 MG Oral Tablet 07/20/2022 - 10/15/2022 Provider: [facility] Diagnosis: Low back pain, unspecified TAKE 1 TABLET BY MOUTH AT BE DTIME NEEDED FOR MUSCLE SPASMS Last Documented On 3 9:41AM By [facility] ; [facility] Celecoxib 200 MG Oral Capsule 07/20/2022 - 10/01/2022 Provider: KATARINA ESPOSITO [employer] HELPERPARAM Diagnosis: Low back pain, unspecified TAKE 1 CAPSULE BY MOUTH DAILY WITH A MEAL Last Documented On 3 9:42AM By KATARINA HARLEY [facility] ; [facility] Pregabalin 150 MG Oral Capsule 07/20/2022 - 10/04/2022 Provider: KATARINA ESPOSITO DERR[employer] HELPER-ADAN Diagnosis: Radiculopathy, l umbar region TAKE 1 CAPSULE BY MOUTH TWICE DAILY Last Documented On 3 10:32AM By [facility] ; [facility] traMADol HCl 50 MG Oral Tablet 07/20/2022 - 10/15/2022 Provider: KATARINA ESPOSITO [employer]ERR[employer] HELPER-ADAN Diagnosis: Low back pain, unspecified take 1 tablet one to two tc es daily as needed for severe pain, max 2/day Last Documented On 3 9:43AM By [facility] ; [facility] Celecoxib 200 MG Oral Capsule 07/12/2022 - 07/20/2022 Provider: KATARINA AVILA [employer]ERR[employer] HELPER-ADAN Diagnosis: TAKE 1 CAPSULE BY MOUTH DAILY WITH A MEAL Last Documented On 3 10:43AM By [facility] ; [facility] Cyclobenzaprine HCl 10 MG Oral Tablet 06/13/2022 - 07/20/2022 Provider: KATARINA ESPOSITO [employer]ERR[employer] HELPER-BC Diagnosis: TAKE 1 TABLET BY MOUTH AT BE DTIME NEEDED FOR MUSCLE SPASMS Last Documented On 3 10:41AM By KATARINA PHILLIPS ; [facility] Celecoxib 200 MG Oral Capsule 06/13/2022 - 07/12/2022 Provider: KATARINA YOON-FPAj [employer] HEL[employer]-BC Diagnosis: TAKE 1 CAPSULE BY MOUTH DAILY WITH A MEAL Last Documented On 3 8:57AM By KATARINA PHILLIPS ; [facility] Pregabalin 150 MG Oral Capsule 06/13/2022 - 07/20/2022 Provider: KATARINA YOON-MAHSA [employer]ERR[employer] HELPER-BC Diagnosis: TAKE 1 CAPSULE BY MOUTH TWICE DAILY Last Documented On 3 10:43AM By KATARINA PHILLIPS ; [facility] traMADol HCl 50 MG Oral Tablet 05/25/2022 - 07/20/2022 Provider: KATARINA ESPOSITO DERRICK HELPER-ADAN Diagnosis: Low back pain, unspecified take 1 tablet one to two tc es daily as needed for severe pain, max 2/day Last Documented On 3 10:43AM By KATARINA PHILLIPS ; [facility] Venlafaxine HCl ER 75 MG Oral Capsule Extended Release 24 Hour 05/25/2022 - 06/24/2022 Provider: LEEANNE ARAUJO APN , [employer] HELPER-C Diagnosis: 150 mg once a day. Last Documented On 3 10:00AM By KATARINA PHILLISP ; [facility] Methocarbamol 750 MG Oral Tablet 05/02/2022 - 07/27/19 Provider: Diagnosis: Last Documented On 3 2:02PM By KATARINA PHILLIPS ; [facility] Pregabalin 150 MG Oral Capsule 05/01/2022 - 06/13/2022 Provider: KATARINA MALCOLMN-FPAj [employer]ERR[employer] HELPER-BC Diagnosis: TAKE 1 CAPSULE BY MOUTH TWICE DAILY Last Documented On 3 7:09PM By KATARINA PHILLIPS ; [facility] Cyclobenzaprine HCl 10 MG Oral Tablet 05/01/2022 - 06/13/2022 Provider: ALAN GARCIA Diagnosis: TAKE 1 TABLET BY MOUTH AT BE DTIME NEEDED FOR MUSCLE SPASMS Last Documented On 3 7:09PM By KATARINA PHILLIPS ; [facility] Pregabalin 150 MG Oral Capsule 03/31/2022 - 05/01/2022 Provider: GIACOMO DAMON MD Diagnosis: TAKE 1 CAPSULE BY MOUTH TWICE DAILY Last Documented On 3 9:47AM By KATARINA PHILLIPS ; [facility] CeleBREX 200 MG Oral Capsule 03/29/2022 - 06/13/2022 Juanita duffy: GIACOMO SHIN MD Diagnosis: 1 capsule daily with a meal Last Documented On 3 7:03PM By KATARINA PHILLIPS ; [facility] Methocarbamol 750 MG Oral Tablet 03/29/2022 - 06/15/2022 Provider: ALAN GARCIA Diagnosis: Low back pain, unspecified TAKE 1 TABLET BY MOUTH THREE TIMES DAILY NEEDED Last Documented On 3 9:47AM By KATARINA PHILLIPS ; [facility] traMADol HCl 50 MG Oral Tablet 03/19/2022 - 05/25/2022 Provider: ALAN GARCIA Diagnosis: Sacroiliitis, no t elsewhere classified TAKE 1 TABLET BY MOUTH TWICE DAILY NEEDED FOR SEVERE PAIN Last Documented On 3 9:59AM By KATARINA PHILLIPS ; [facility] Cyclobenzaprine HCl 10 MG Oral Tablet 02/26/2022 - 05/01/2022 Provider: ALAN GARCIA Diagnosis: TAKE 1 TABLET BY MOUTH AT BE DTIME NEEDED FOR MUSCLE SPASMS Last Documented On 3 9:48AM By KATARINA PHILLIPS ; [facility] Pregabalin 150 MG Oral Capsule 02/26/2022 - 03/31/2022 Provider: KATARINA Rocha PRN-FPA, [employer]-BC Diagnosis: TAKE 1 CAPSULE BY MOUTH TWICE DAILY Last Documented On 2 9:56AM By GIACOMO BUSCH MD ; [facility] Methocarbamol 750 MG Oral Tablet 01/19/2022 - 03/29/2022 Provider: KATARINA HARLEY APRN-FPA, [employer]-BC Diagnosis: Low back pain, unspecified One tablet three times a day as needed Last Documented On 2 10:37AM By KATARINA HARLEY [employer] HELPER-BC ; [facility] Pregabalin 150 MG Oral Capsule 01/19/2022 - 04/16/2022 Provider: KATARINA HARLEY APRN-FPA, [employer]-BC Diagnosis: Radiculopathy, l umbar region TAKE 1 CAPSULE BY MOUTH TWICE DAILY Last Documented On 3 9:17AM By Jes DURAN ; [facility] traMADol HCl 50 MG Oral Tablet 01/19/2022 - 03/19/2022 Provider: KATARINA HARLEY APRN-FPA [employer]-BC Diagnosis: Sacroiliitis, no t elsewhere classified One tablet twice a day as ne eded for SEVERE pain only Last Documented On 2 8:20AM By KATARINA HARLEY [facility] ; [facility] CeleBREX 200 MG Oral Capsule 01/12/2022 - 03/29/2022 Provider: KATARINA Rocha PRN-FPA, [employer]-BC Diagnosis: 1 capsule daily with a meal Last Documented On 03/29/2022 11:34AM By Kayla DURAN ; [facility] Pregabalin 150 MG Oral Capsule 12/29/2021 - 01/19/2022 Provider: KATARINA HARLEY PROFESSOR OF MECHANICAL ENGINEERING-FPA, [facility]-BC Diagnosis: Radiculopathy, l umbar region TAKE 1 CAPSULE BY MOUTH TWICE DAILY Last Documented On 2 9:42AM By KATARINA NICHOLSBC ; [facility] Methocarbamol 750 MG Oral Tablet 12/12/2021 - 01/19/2022 Provider: KATARINASIMONE RAMEY-ADAN Diagnosis: Low back pain, unspecified One tablet three times a day Last Documented On 2 9:43AM By KATARINA PHILLIPS ; [facility] CeleBREX 200 MG Oral Capsule 11/13/2021 - 01/12/2022 Provider: ALAN COE Diagnosis: 1 capsule daily with a meal Last Documented On 2 12:42PM By KATARINA PHILLIPS ; [facility] Pregabalin 150 MG Oral Capsule 10/25/2021 - 12/29/2021 Provider: ALAN GARCIA Diagnosis: Radiculopathy, l umbar region 1 CAPSULE TWO TIMES A DAY Last Documented On 2 4:54PM By KATARINA PHILLIPS ; [facility] Pregabalin 75 MG Oral Capsule 10/25/2021 - 11/13/2021 Provider: ALAN GARCIA Diagnosis: Radiculopathy, l umbar region 1 capsule at bedtime for 4 d ays then increase to two times daily Last Documented On 2 11:44AM By KATARINA PHILLIPS ; [facility] Venlafaxine HCl ER 75 MG Oral Capsule Extended Release 24 Hour 10/10/2021 - 05/25/2022 Provider: AMANDEEP JENKINS APN Diagnosis: Last Documented On 3 9:22AM By Jes DURAN ; [facility] Cyclobenzaprine HCl 10 MG Oral Tablet 06/20/2021 - 12/2022 Provider: Diagnosis: As needed for spasms. Last Documented On 3 9:16AM By Jes DURAN ; [facility] Medications Administered Includes: Administered Medications in patient's chart No Administered Medications Recorded Results Includes: Results from 08/01/2023 through 07/31/2024 No Results Recorded For Specified Dates History of Present Illness History of Present Illness not supported for this document type No History of Present Illness Recorded Social History Description Last Updated Current smoker TRYING TO QUIT 05/27/2023 Last Documented On 4 1:14PM ; [facility] No family problems 05/27/2023 Last Documented On 4 1:14PM ; [facility] No recent emotional stress 05/27/2023 Last Documented On 4 1:14PM ; [facility] Cigarette smoking: history 10 05/27/2023 Last Documented On 4 1:14PM ; [facility] Consuming 5 or more drinks per day None 05/27/2023 Last Documented On 4 1:14PM ; [facility] Currently not in school 05/27/2023 Last Documented On 4 1:14PM ; [facility] Daily coffee consumption 05/27/2023 Last Documented On 4 1:14PM ; [facility] Lives with spouse 05/27/2023 Last Documented On 4 1:14PM ; [facility] Living with and caring for family househ old member 05/27/2023 Last Documented On 4 1:14PM ; [facility] No consumption of alcohol 05/27/2023 Last Documented On 4 1:14PM ; [facility] 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 None 05/27/2023 Last Documented On 4 1:14PM ; [facility] Smoking packs of cigarettes per day 3/4 a pack 10/25/2021 Last Documented On 2 10:42AM ; [facility] Smoking Status Unknown Procedures and Surgical History Surgical History Last Updated No Pacemaker 10/25/2021 Last Documented On 2 10:42AM ; [facility] Medical History Includes: Medical History in patient's chart Description Last Updated Has had no fall in the last 12 months. 1 05/31/2021 07/22/2023 Last Documented On 4 9:19AM ; [facility] LMP: TUBES REMOVED BACK 202005/27/2023 Last Documented On 4 1:14PM ; [facility] A fall 2 05/27/2023 Last Documented On 4 1:14PM ; [facility] Denies a fear of falling. 07/20/2022 Last Documented On 3 1:35PM ; [facility] Parity ten or more 10/25/2021 Last Documented On 2 10:42AM ; [facility] No Pain Pump 10/25/2021 Last Documented On 2 10:42AM ; [facility] No Spinal cord stimulator 10/25/2021 Last Documented On 2 10:42AM ; [facility] Please list all surgeries: L apband 2010cyst removal 2017C-section 2018, 2019,202010/25/2021 Last Documented On 2 10:42AM ; [facility] Family History Includes: Family History in patient's chart Description Last Updated Family history of ischemic heart disease 10/25/2021 Last Documented On 2 10:42AM ; [facility] Fraternal history of reported family his tory of seizures 10/25/2021 Last Documented On 2 10:42AM ; [facility] Maternal history of Arthritis 10/25/2021 Last Documented On 2 10:42AM ; [facility] Maternal history of family history of is chemic heart disease 10/25/2021 Last Documented On 2 10:42AM ; [facility] Paternal history of family history of is chemic heart disease 10/25/2021 Last Documented On 2 10:42AM ; [facility] Paternal history of stroke/paralysis Last Documented On 2 10:42AM ; [facility] Review of Systems Review of Systems not supported for this document type No Review of Systems Recorded Mental Status No Mental Status Recorded Functional Status No Functional Status Recorded Physical Exam Physical Exam not supported for this document type No Physical Exam Recorded Allergies Includes: Active, inactive, and resolved Allergies Substance Type Reaction Onset Date Resolved Date Statu s Theophylline ER Allergy 10/25/2021 Act latonia Last Documented On 4 8:46AM ; [facility] Levaquin Allergy 10/25/2021 Active Last Documented On 4 8:46AM ; [facility] Latex Allergy 10/25/2021 Active Last Documented On 4 8:46AM ; [facility] Encounters Includes: Encounters from 08/01/2023 through 07/31/2024 Encounter Provider Location Date Check-In Time Check-Out Time Diagnosis RX ISSUE/REFILL KATARINA ESPOSITO, SIMONE-ADAN 09/04/2023 07/22/2023 10:16AM 07/22/2023 11:59PM Insurance Includes: Active Insurance Policies Plan Name Member ID Group # Subscriber Relationship Effect latonia Dates 1 - [facility] [id number] KIM COBURN Self Clinical Notes Includes: Signed Clinical Notes starting from 04/27/2022 * Progress note Date Encounter Last Documented by 09/04/2023 RX ISSUE/REFILL Last documented on 09/04/2023; 11:07 AM, KATARIAN ESPOSITO, SIMONE-ADAN; [facility] Active Problems & Conditions - Anxiety Disorder [...] all surgeries: Lapband 2010cyst removal 2017C-section 2019, 2020,2020. Medical: No Spinal cord stimulator and no [...]
--- OUTSIDE RECORDS SUMMARY | 2024-07-31 17:33 | XMS_ITS | Clinical Summary ---
Author Organization [facility] Address [address] [place] [address] Phone Care Team Providers Care Quality Assurance Representative Name Role Phone ARAUJO AMANDEEP AGGARWAL, LEEANNE Primary Care Provider [phone] ANUP HARRELL, EDWARDO Loza Unavailable [phone] Reason for Visit and Chief Complaint RX ISSUE/REFILL Problems Includes: Problems addressed during this encounter and other active Problems All Visits Onset Date Resolved Date Provider Condition S tatus Chronic Pain Syndrome 05/27/2023 MIRIAM Reese MOUSER PMHNP Active Last Documented On 4 2:07PM ; [facility] Depression Unknown KATARINA G CHERRI WORKERS COMPENSATION ADJUSTER-FPA, MILLING MACHINIST-BC Active Last Documented On 2 8:50AM ; [facility] Anxiety Disorder Nos Unknown KATARINA G CHERRI WORKERS COMPENSATION ADJUSTER-FPA, MILLING MACHINIST-BC Active Last Documented On 2 8:50AM ; [facility] Asthma Unknown KATARINA G CHERRI WORKERS COMPENSATION ADJUSTER-FPA, MILLING MACHINIST-BC Active Last Documented On 2 8:49AM ; [facility] Gerd Unknown KATARINA G CHERRI WORKERS COMPENSATION ADJUSTER-FPA, MILLING MACHINIST-BC Active Last Documented On 2 8:50AM ; [facility] Essential Hypertension Unknown KATARINA G KUL P WORKERS COMPENSATION ADJUSTER-FPA, MILLING MACHINIST-BC Active Last Documented On 2 8:49AM ; [facility] Obesity Unknown KATARINA G CHERRI WORKERS COMPENSATION ADJUSTER-FPA, MILLING MACHINIST-BC Active Last Documented On 2 8:49AM ; [facility] Plan of Treatment No Plan of Treatment [...] On 4 11:42AM By KATARINA PHILLIPS ; [facility] New / Renewed during this visit ALAN GARCIA on 06/25/2023 traMADol HCl 50 MG Oral Tablet Provider: ALAN BREWSTER 30 day supply: 120 tablet, 0 refills Diagnosis: Low back pain, unspecified take 2 tablets as needed one to two times daily for severe pain Pharmacy: [facility] [place], [id number] Last Documented On 4 9:16AM By KATARINA PHILLIPS ; [facility] Current Medications (continue as prescribed) Meloxicam 15 MG Oral Tablet 09/09/2023 Provider: ALAN BREWSTER Diagnosis: Other spondylosi s, lumbar region TAKE 1 TABLET BY MOUTH DAILY WITH FOOD Last Documented On 4 10:37AM By KATARINA PHILLIPS ; [facility] traMADol HCl ER 200 MG Oral Tablet Extended Release 24 Hour 09/04/2023 Provider: ALAN BREWSTER Diagnosis: Other spondylosi s, lumbar region One tablet daily Last Documented On 4 11:08AM By KATARINA PHILLIPS ; [facility] Cyclobenzaprine HCl 10 MG Oral Tablet 07/22/2023 Provider: ALAN GARCIA Diagnosis: Low back pain, unspecified TAKE 1 TABLET BY MOUTH AT BEDTIME Last Documented On 4 9:43AM By KATARINA PHILLIPS ; [facility] Pregabalin 150 MG Oral Capsule 07/22/2023 Provider: ALAN BREWSTER Diagnosis: Radiculopathy, l umbar region TAKE 1 CAPSULE BY MOUTH TWICE DAILY Last Documented On 4 9:43AM By KATARINA PHILLIPS ; [facility] tiZANidine HCl 2 MG Oral Tablet 07/22/2023 Provider: ALAN GARCIA Diagnosis: Low back pain, u nspecified TAKE 1 TABLET BY MOUTH THREE TIMES DAILY NEEDED FOR LOWER BACK PAIN Last Documented On 4 9:43AM By KATARINA PHILLIPS ; [facility] Trulicity 0.75 MG/0.5ML Subc utaneous Solution Pen-injector 04/04/2023 Provider: AMANDEEP JENKINS APN Diagnosis: 1 injection weekly. Last Documented On 4 9:00AM By KATARINA PHILLIPS ; [facility] Strattera 40 MG Oral Capsule 01/02/2023 Provider: ISMA ROMERO NP Diagnosis: Last Documented On 3 12:04PM By KATARINA PHILLIPS ; [facility] Labetalol HCl 100 MG Oral Tablet 12/08/2022 Provider : AMANDEEP JENKINS APN Diagnosis: Last Documented On 3 12:04PM By KATARINA PHILLIPS ; [facility] Varenicline Tartrate 1 MG Oral Tablet 07/20/2022 Pro vider: Diagnosis: Last Documented On 3 10:43AM By KATARINA PHILLIPS ; [facility] Pepcid 20 MG Oral Tablet 10/25/2021 Provider: Diagnosis: Last Documented On 2 9:50AM By KATARINA PHILLIPS ; [facility] Symbicort 160-4.5 MCG/ACT In halation Aerosol 10/17/2021 Provider: RIA JENKINS APN Diagnosis: 2 puffs twice a day. Last Documented On 2 9:50AM By KATARINA PHILLIPS ; [facility] Albuterol Sulfate HFA 108 (9 0 Base) MCG/ACT Inhalation Aerosol Solution 10/17/2021 Provider: AMANDEEP DE LEON APN Diagnosis: as needed. Last Documented On 2 9:50AM By KATARINA PHILLIPS ; [facility] Omeprazole 40 MG Oral Capsul e Delayed Release 10/17/2021 Provider: RIA JENKINS APN Diagnosis: Last Documented On 2 9:50AM By KATARINA PHILLIPS ; [facility] Montelukast Sodium 10 MG Oral Tablet 10/17/2021 Prov ider: AMANDEEP JENKINS APN Diagnosis: Last Documented On 2 9:50AM By KATARINA PHILLIPS ; [facility] amLODIPine Besylate 5 MG Oral Tablet 10/17/2021 Prov ider: AMANDEEP JENKINS APN Diagnosis: Last Documented On 2 9:50AM By KATARINA PHILLIPS ; [facility] Past Medications on file Venlafaxine HCl ER 75 MG Oral Capsule Extended Release 24 Hour 05/25/2022 - 06/24/2022 Provider: AMANDEEP JENKINS APN Diagnosis: 150 mg once a day. Last Documented On 3 10:00AM By KATARINA PHILLIPS ; [facility] Medications Administered Includes: Administered Medications from this encounter No Administered Medications Recorded Results Includes: Results discussed during this encounter No Results Recorded For Specified Dates History of Present Illness Includes: History of Present Illness from this encounter No History of Present Illness Recorded Social History Description Last Updated Current smoker TRYING TO QUIT 05/27/2023 Last Documented On 4 10:46AM ; [facility] No family problems 05/27/2023 Last Documented On 4 10:46AM ; [facility] No recent emotional stress 05/27/2023 Last Documented On 4 10:46AM ; [facility] Cigarette smoking: history 10 05/27/2023 Last Documented On 4 10:46AM ; [facility] Consuming 5 or more drinks per day None 05/27/2023 Last Documented On 4 10:46AM ; [facility] Currently not in school 05/27/2023 Last Documented On 4 10:46AM ; [facility] Daily coffee consumption 05/27/2023 Last Documented On 4 10:46AM ; [facility] Lives with spouse 05/27/2023 Last Documented On 4 10:46AM ; [facility] Living with and caring for family househ old member 05/27/2023 Last Documented On 4 10:46AM ; [facility] No consumption of alcohol 05/27/2023 Last Documented On 4 10:46AM ; [facility] Not recovering alcoholic 05/27/2023 Last Documented On 4 10:46AM ; [facility] Not recovering from substance abuse 05/09 Last Documented On 4 10:46AM ; [facility] Not smoking a pipe 05/27/2023 Last Documented On 4 10:46AM ; [facility] Not using drugs 05/27/2023 Last Documented On 4 10:46AM ; [facility] Number of times used recreat ional drug/ prescription drug for nonmedical reason. None 05/27/2023 Last Documented On 4 10:46AM ; [facility] Smoking packs of cigarettes per day 3/4 a pack 10/25/2021 Last Documented On 4 10:46AM ; [facility] Smoking Status Unknown Procedures and Surgical History Surgical History Last Updated No Pacemaker 10/25/2021 Last Documented On 4 10:46AM ; [facility] Medical History Includes: Medical History addressed during this encounter Description Last Updated Has had a fall in the last 12 months. 07/22/2023 Last Documented On 4 10:46AM ; [facility] LMP: TUBES REMOVED BACK 202005/27/2023 Last Documented On 4 10:46AM ; [facility] A fall 2 05/27/2023 Last Documented On 4 10:46AM ; [facility] Denies a fear of falling. 07/20/2022 Last Documented On 4 10:46AM ; [facility] Parity ten or more 10/25/2021 Last Documented On 4 10:46AM ; [facility] No Pain Pump 10/25/2021 Last Documented On 4 10:46AM ; [facility] No Spinal cord stimulator 10/25/2021 Last Documented On 4 10:46AM ; [facility] Please list all surgeries: L apband 2010cyst removal 2017C-section 2018, 2019,202010/25/2021 Last Documented On 4 10:46AM ; [facility] Family History Includes: Family History addressed during this encounter Description Last Updated Family history of ischemic heart disease 10/25/2021 Last Documented On 4 10:46AM ; [facility] Fraternal history of reported family his tory of seizures 10/25/2021 Last Documented On 4 10:46AM ; [facility] Maternal history of Arthritis 10/25/2021 Last Documented On 4 10:46AM ; [facility] Maternal history of family history of is chemic heart disease 10/25/2021 Last Documented On 4 10:46AM ; [facility] Paternal history of family history of is chemic heart disease 10/25/2021 Last Documented On 4 10:46AM ; [facility] Paternal history of stroke/paralysis Last Documented On 4 10:46AM ; [facility] Review of Systems Includes: Review [...] [place] Last Documented On 4 8:46AM ; [facility] Levaquin Allergy 10/25/2021 Active Last Documented On 4 8:46AM ; [facility] Latex Allergy 10/25/2021 Active Last Documented On 4 8:46AM ; [facility] Encounters Encounter Provider Location Date Check-In Time Check-Out Time Diagnosis RX ISSUE/REFILL TOMASA GARCIABC 06/25/2023 10:47AM 11:59PM Insurance Includes: Active Insurance Policies Plan Name Member ID Group # Subscriber Relationship Effect latonia Dates 1 - [facility] [id number] KIM COBURN Self Clinical Notes Includes: Clinical Notes from this encounter * Progress note Date Encounter Last Documented by 06/25/2023 RX ISSUE/REFILL Last documented on 06/25/2023; 11:42 AM, KATARINA ESPOSITO, SIMONE-ADAN; [facility] Active Problems & Conditions - [...] ~ pt phone # for Return call: [phone] ~Last Drug Screen:12/28/2022 ~Date/Initials: 06/22/2023 GLOBAL PROGRAM MANAGER. Current Medication - Albuterol Sulfate HFA 108 [...]
--- OUTSIDE RECORDS SUMMARY | 2024-07-31 17:33 | XMS_ITS | Clinical Summary ---
Author Organization [facility] Address [address] [place] [address] Phone Care Team Providers Care Pathologist Assistant Name Role Phone ARAUJO AMANDEEP AGGARWAL, JAYLA Primary Care Provider [phone] ANUP HARRELL, EDWARDO Loza Unavailable [phone] Reason for Visit and Chief Complaint The Chief Complaint is: 3 month follow up after missed appointment with [facility] Problems Includes: Problems addressed during this encounter and other active Problems Current Visit Onset Date Resolved Date Provider Conditio n Status Chronic Pain Syndrome 05/27/2023 MIRIAM DARDEN PMHNP Active Last Documented On 4 2:07PM ; [facility] Past Visits Onset Date Resolved Date Provider Condition Status Depression Unknown KATARINA Rock CHERRI CREATIVE WRITING PROFESSOR-FPA, MEDICAL RECEPTION-BC Active Last Documented On 2 8:50AM ; [facility] Anxiety Disorder Nos Unknown KTAARINA Rock CHERRI CREATIVE WRITING PROFESSOR-FPA, MEDICAL RECEPTION-BC Active Last Documented On 2 8:50AM ; [facility] Asthma Unknown KATARINA Rock CHERRI CREATIVE WRITING PROFESSOR-FPA, MEDICAL RECEPTION-BC Active Last Documented On 2 8:49AM ; [facility] Gerd Unknown KATARINA Shweta CHERRI CREATIVE WRITING PROFESSOR-FPA, MEDICAL RECEPTION-BC Active Last Documented On 2 8:50AM ; [facility] Essential Hypertension Unknown KATARINA Shweta KUL P CREATIVE WRITING PROFESSOR-FPA, MEDICAL RECEPTION-BC Active Last Documented On 2 8:49AM ; [facility] Obesity Unknown KATARINA G CHERRI CREATIVE WRITING PROFESSOR-FPA, MEDICAL RECEPTION-BC Active Last Documented On 2 8:49AM ; [facility] Plan of Treatment Patient was [...] notes, laboratory data, patient self-report questionnaires, and [place] prescription monitoring database entries. Significant social barriers exist to compliance resulting in limited prognosis. Decision to proceed with interventional therapies was made at the time of today's visit. - Last Documented On 07/22/2023 9:19AM ; [facility] Instructions to patient Intervention and counseling on cessation of tobacco use : Patient recieved smoking cessation handout Last Documented On 4 8:40AM ; [facility] Education and Decision Aids were provided during visit for: Pill Count: 53 Tramadol Last Documented On 4 8:45AM ; [facility] Assessments Includes: Assessments from this encounter Findings - [M46.1 - Sacroiliitis, not elsewhere classified] Sacroiliitis - Last Documented On 07/22/2023 9:19AM ; [facility] - [M25.551 - Pain in right hip] Right hip pain - Last Documented On 07/22/2023 9:19AM ; [facility] - [M25.552 - Pain in left hip] Left Hip pain - Last Documented On 07/22/2023 9:19AM ; [facility] - [M47.896 - Other spondylosis, lumbar region] Lumbar spondylosis - Last Documented On 07/22/2023 9:19AM ; [facility] - [M54.50 - Low back pain, unspecified] Low back pain - Last Documented On 07/22/2023 9:19AM ; [facility] - [M54.16 - Radiculopathy, lumbar region] Lumbar radiculopathy - Last Documented On 07/22/2023 9:19AM ; [facility] - [G89.4 - Chronic pain syndrome] Chronic pain syndrome - Last Documented On 07/22/2023 9:19AM ; [facility] Instructions Includes: Instructions from this encounter Instructions to patient Intervention and counseling on cessation of tobacco use : Patient recieved smoking cessation handout Last Documented On 4 8:40AM ; [facility] Education and Decision Aids were provided during visit for: Pill Count: 53 Tramadol Last Documented On 4 8:45AM ; [facility] Medical Equipment - Implanted Devices Includes: Current Devices No Medical Equipment Recorded Medications Includes: Medications discussed during this encounter and other current Medications Discontinued / Stopped on this date ALAN GARCIA on 04/15/2023 Pregabalin 150 MG Oral Capsule Provider: TOMASA BREWSTERBC Diagnosis: Radiculopathy, l umbar region Last Documented On 4 9:17AM By KATARINA PHILLIPS ; [facility] New / Renewed during this visit TOMASA GARCIABC on 07/22/2023 Meloxicam 15 MG Oral Tablet Provider: ALAN BREWSTER 30 day supply: 30 tablet, 2 refills Diagnosis: Other spondylosis, lumbar region TAKE 1 TABLET BY MOUTH DAILY with food Pharmacy: [facility] [address] [facility], [id number] - Last Documented On 4 10:28AM By KATARINA PHILLIPS ; [facility] Cyclobenzaprine HCl 10 MG Oral Tablet Provider: ALAN GARCIA 30 day supply: 30 tablet, 2 refills Diagnosis: Low back pain, unspecified TAKE 1 TABLET BY MOUTH AT BEDTIME Pharmacy: [facility] [address] [facility], [id number] - Last Documented On 4 9:43AM By KATARINA PHILLIPS ; [facility] Pregabalin 150 MG Oral Capsule Provider: ALAN BREWSTER 30 day supply: 60 capsule, 2 refills Diagnosis: Radiculopathy, lumbar region TAKE 1 CAPSULE BY MOUTH TWICE DAILY Pharmacy: [facility] - [address] , [facility], [id number] - Last Documented On 4 9:43AM By KATARINA PHILLIPS ; [facility] tiZANidine HCl 2 MG Oral Tablet Provider: ALAN GARCIA 30 day supply: 90 tablet, 2 refills Diagnosis: Low back pain, unspecified TAKE 1 TABLET BY MOUTH THREE TIMES DAILY NEEDED FOR LOWER BACK PAIN Pharmacy: [facility] - [address] , [facility], [id number] - Last Documented On 4 9:43AM By KATARINA PHILLIPS ; [facility] traMADol HCl ER 200 MG Oral Tablet Extended Release 24 Hour Provider: ALAN BREWSTER 30 day supply: 30 tablet, 0 refills Diagnosis: Other spondylosis, lumbar region One tablet daily Pharmacy: [facility] - [address] , [facility], [id number] - Last Documented On 4 11:07AM By KATARINA PHILLIPS ; [facility] Current Medications (continue as prescribed) Meloxicam 15 MG Oral Tablet 09/09/2023 Provider: ALAN BREWSTER Diagnosis: Other spondylosi s, lumbar region TAKE 1 TABLET BY MOUTH DAILY WITH FOOD Last Documented On 4 10:37AM By KATARINA PHILLIPS ; [facility] traMADol HCl ER 200 MG Oral Tablet Extended Release 24 Hour 09/04/2023 Provider: ALAN BREWSTER Diagnosis: Other spondylosi s, lumbar region One tablet daily Last Documented On 4 11:08AM By KATARINA PHILLIPS ; [facility] traMADol HCl 50 MG Oral Tablet 06/25/2023 Provider: ALAN BREWSTER Diagnosis: Low back pain, u nspecified take 2 tablets as needed one to two times daily for severe pain Last Documented On 4 9:16AM By KATARINA HAR[facility] ; [facility] Trulicity 0.75 MG/0.5ML Subc utaneous Solution Pen-injector 04/04/2023 Provider: AMANDEEP JENKINS APN Diagnosis: 1 injection weekly. Last Documented On 4 9:00AM By KATARINA HARLEY [facility] ; [facility] Strattera 40 MG Oral Capsule 01/02/2023 Provider: ISMA ROMERO NP Diagnosis: Last Documented On 3 12:04PM By KATARINA HARLEY [facility] ; [facility] Labetalol HCl 100 MG Oral Tablet 12/08/2022 Provider : AMANDEEP JENKINS APN Diagnosis: Last Documented On 3 12:04PM By KATARINA HARLEY [facility] ; [facility] Varenicline Tartrate 1 MG Oral Tablet 07/20/2022 Pro vider: Diagnosis: Last Documented On 3 10:43AM By KATARINA HARLEY [facility] ; [facility] Pepcid 20 MG Oral Tablet 10/25/2021 Provider: Diagnosis: Last Documented On 2 9:50AM By KATARINA HARLEY [facility] ; [facility] Symbicort 160-4.5 MCG/ACT In halation Aerosol 10/17/2021 Provider: RIA JENKNIS APN Diagnosis: 2 puffs twice a day. Last Documented On 2 9:50AM By KATARINA HARLEY [facility] ; [facility] Albuterol Sulfate HFA 108 (9 0 Base) MCG/ACT Inhalation Aerosol Solution 10/17/2021 Provider: AMANDEEP DE LEON APN Diagnosis: as needed. Last Documented On 2 9:50AM By KATARINA HARLEY [facility] ; [facility] Omeprazole 40 MG Oral Capsul e Delayed Release 10/17/2021 Provider: RIA JENKINS APN Diagnosis: Last Documented On 2 9:50AM By KATARINA PHILLIPS ; [facility] Montelukast Sodium 10 MG Oral Tablet 10/17/2021 Prov ider: AMANDEEP JENKINS APN Diagnosis: Last Documented On 2 9:50AM By KATARINA PHILLIPS ; [facility] amLODIPine Besylate 5 MG Oral Tablet 10/17/2021 Prov ider: AMANDEEP JENKINS APN Diagnosis: Last Documented On 2 9:50AM By KATARINA PHILLIPS ; [facility] Past Medications on file Venlafaxine HCl ER 75 MG Oral Capsule Extended Release 24 Hour 05/25/2022 - 06/24/2022 Provider: AMANDEEP JENKINS APN Diagnosis: 150 mg once a day. Last Documented On 3 10:00AM By KATARINA PHILLIPS ; [facility] Medications Administered Includes: Administered Medications from this [...] 100 Last Documented: On 07/22/2023 8:47AM ; [facility] Results Includes: Results discussed during this encounter [...] 05/27/2023 Last Documented On 4 8:40AM ; [facility] No family problems 05/27/2023 Last Documented On 4 8:40AM ; [facility] No recent emotional stress 05/27/2023 Last Documented On 4 8:40AM ; [facility] Cigarette smoking: history 10 05/27/2023 Last Documented On 4 8:40AM ; [facility] Consuming 5 or more drinks per day None 05/27/2023 Last Documented On 4 8:40AM ; [facility] Currently not in school 05/27/2023 Last Documented On 4 8:40AM ; [facility] Daily coffee consumption 05/27/2023 Last Documented On 4 8:40AM ; [facility] Lives with spouse 05/27/2023 Last Documented On 4 8:40AM ; [facility] Living with and caring for family househ old member 05/27/2023 Last Documented On 4 8:40AM ; [facility] No consumption of alcohol 05/27/2023 Last Documented On 4 8:40AM ; [facility] Not recovering alcoholic 05/27/2023 Last Documented On 4 8:40AM ; [facility] Not recovering from substance abuse 05/09 Last Documented On 4 8:40AM ; [facility] Not smoking a pipe 05/27/2023 Last Documented On 4 8:40AM ; [facility] Not using drugs 05/27/2023 Last Documented On 4 8:40AM ; [facility] Number of times used recreat ional drug/ prescription drug for nonmedical reason. None 05/27/2023 Last Documented On 4 8:40AM ; [facility] Smoking packs of cigarettes per day 3/4 a pack 10/25/2021 Last Documented On 4 8:40AM ; [facility] Smoking Status Unknown Procedures and Surgical History Includes: Procedures from this encounter Procedures Code Diagnosis Performing Provider Service L ocation Service Date intervention and counseling on cessation of tobacco use : Patient recieved smoking cessation handout 4000F Last Documented On 4 8:40AM ; [facility] use of tobacco assessment performed 1000F Last Documented On 4 8:40AM ; [facility] patient screened for future fall risk: documentation of any fall with injury in past year 1100F Last Documented On 4 8:40AM ; [facility] standardized depression screening: negative for symptoms 3351F Last Documented On 4 8:40AM ; [facility] review of medications documented 1160F Last Documented On 4 8:40AM ; [facility] screening for adult depression: impressi on and score three Last Documented On 4 8:40AM ; [facility] screening for adult depression: impressi on and score not recorded system reason Last Documented On 4 8:40AM ; [facility] Clinical summary provided to patient Last Documented On 4 8:40AM ; [facility] SOAPP-R: total score 5 Last Documented On 4 8:40AM ; [facility] Surgical History Last Updated No Pacemaker 10/25/2021 Last Documented On 4 8:40AM ; [facility] Medical History Includes: Medical History addressed during this encounter Description Last Updated Has had no fall in the last 12 months. 1 05/31/2021 07/22/2023 Last Documented On 4 9:19AM ; [facility] LMP: TUBES REMOVED BACK 202005/27/2023 Last Documented On 4 8:40AM ; [facility] A fall 2 05/27/2023 Last Documented On 4 8:40AM ; [facility] Denies a fear of falling. 07/20/2022 Last Documented On 4 8:40AM ; [facility] Parity ten or more 10/25/2021 Last Documented On 4 8:40AM ; [facility] No Pain Pump 10/25/2021 Last Documented On 4 8:40AM ; [facility] No Spinal cord stimulator 10/25/2021 Last Documented On 4 8:40AM ; [facility] Please list all surgeries: L apband 2010cyst removal 2017C-section 2018, 10/25/2021 Last Documented On 4 8:40AM ; [facility] Family History Includes: Family History addressed during this encounter Description Last Updated Family history of ischemic heart disease 10/25/2021 Last Documented On 4 8:40AM ; [facility] Fraternal history of reported family his tory of seizures 10/25/2021 Last Documented On 4 8:40AM ; [facility] Maternal history of Arthritis 10/25/2021 Last Documented On 4 8:40AM ; [facility] Maternal history of family history of is chemic heart disease 10/25/2021 Last Documented On 4 8:40AM ; [facility] Paternal history of family history of is chemic heart disease 10/25/2021 Last Documented On 4 8:40AM ; [facility] Paternal history of stroke/paralysis Last Documented On 4 8:40AM ; [facility] Review of Systems Includes: Review of Systems [...] [place] Last Documented On 4 8:46AM ; [facility] Levaquin Allergy 10/25/2021 Active Last Documented On 4 8:46AM ; [facility] Latex Allergy 10/25/2021 Active Last Documented On 4 8:46AM ; [facility] Encounters Encounter Provider Location Date Check-In Time Check-Out Time Diagnosis PAIN MANAGEMENT FOLLOW UP KATARINA Rock CHERRI NARANJO-MAHSA, MEDICAL RECEPTION-ADAN [facility] 07/22/19 24 8:34AM 9:17AM Lumbar Spondylosis,C hronic Pain Syndrome,Sacr oiliitis,Lumb ar Radiculopathy ,Dorsopathy Low Back Pain,Right Hip Pain,Left Hip Pain Insurance Includes: Active Insurance Policies Plan Name Member ID Group # Subscriber Relationship Effect [place] Dates 1 - [facility] [id number] KIM COBURN Self Clinical Notes Includes: Clinical Notes from this encounter * Progress note Date Encounter Last Documented by 07/22/2023 PAIN MANAGEMENT FOLLOW UP Last d ocumented on 07/22/2023; 9:19 AM, KATARINA Rock CHERRI NARANJO-MAHSA, ALAN; [facility] Active Problems & Conditions - [...] hamstring, and quadricep. Positive compression, distraction, and Mclean's on the right. Tender upper lumbar spine on the R. Gait: Not antalgic. No steppage gait. No Trendelenburg gait. No circumspected gait pattern. Heel walk normal. Toe walk normal. Tandem gait normal. Neuro: Awake. Alert. Oriented x3. DTR's intact in all extremities. DTR's equal in all extremities. No focal neurologic deficit. Sfvt-qi-[id number] normal bilaterally. Psych: No apparent distress. Mood [...] been appropriate. This and review of the [facility] database shows no evidence of misuse, abuse, [...] notes, laboratory data, patient self-report questionnaires, and [place] prescription monitoring database entries. Significant social barriers [...] impression and score not recorded system reason; [[id number]] Established outpatient, medically appropriate H&P, moderate level [...] but may be subject to typographical or dog hair clipper errors. Verify all diagnoses, medications, dosages, and [...]
--- OUTSIDE RECORDS SUMMARY | 2024-07-31 17:33 | XMS_ITS | Clinical Summary ---
Author Organization [facility] Address [address] [place] [address] Phone Care Team Providers Care Commissioning Agent Name Role Phone ARAUJO AMANDEEP AGGARWAL, LEEANNE Primary Care Provider [phone] ANUP HARRELL, EDWARDO Loza Unavailable [phone] Reason for Visit and Chief Complaint [Patient Encounter] Problems Includes: Problems addressed during this encounter and other active Problems All Visits Onset Date Resolved Date Provider Condition S tatus Chronic Pain Syndrome 05/27/2023 MIRIAM DARDEN PMHNP Active Last Documented On 4 2:07PM ; [facility] Depression Unknown KATARINA G CHERRI FARMWORKER-FPA, WEB PRESS OPERATOR APPRENTICE-BC Active Last Documented On 2 8:50AM ; [facility] Anxiety Disorder Nos Unknown KATARINA G CHERRI FARMWORKER-FPA, WEB PRESS OPERATOR APPRENTICE-BC Active Last Documented On 2 8:50AM ; [facility] Asthma Unknown KATARINA G CHERRI FARMWORKER-FPA, WEB PRESS OPERATOR APPRENTICE-BC Active Last Documented On 2 8:49AM ; [facility] Gerd Unknown KATARINA G CHERRI FARMWORKER-FPA, WEB PRESS OPERATOR APPRENTICE-BC Active Last Documented On 2 8:50AM ; [facility] Essential Hypertension Unknown KATARINA G KUL P FARMWORKER-FPA, WEB PRESS OPERATOR APPRENTICE-BC Active Last Documented On 2 8:49AM ; [facility] Obesity Unknown KATARINA G CHERRI FARMWORKER-FPA, WEB PRESS OPERATOR APPRENTICE-BC Active Last Documented On 2 8:49AM ; [facility] Plan of Treatment No [...] On 4 10:37AM By KATARINA PHILLIPS ; [facility] traMADol HCl ER 200 MG Oral Tablet Extended Release 24 Hour 09/04/2023 Provider: ALAN BREWSTER Diagnosis: Other spondylosi s, lumbar region One tablet daily Last Documented On 4 11:08AM By KATARINA PHILLIPS ; [facility] Cyclobenzaprine HCl 10 MG Oral Tablet 07/22/2023 Provider: ALAN GARCIA Diagnosis: Low back pain, unspecified TAKE 1 TABLET BY MOUTH AT BEDTIME Last Documented On 4 9:43AM By KATARINA PHILLIPS ; [facility] Pregabalin 150 MG Oral Capsule 07/22/2023 Provider: ALAN BREWSTER Diagnosis: Radiculopathy, l umbar region TAKE 1 CAPSULE BY MOUTH TWICE DAILY Last Documented On 4 9:43AM By KATARINA PHILLIPS ; [facility] tiZANidine HCl 2 MG Oral Tablet 07/22/2023 Provider: ALAN GARCIA Diagnosis: Low back pain, u nspecified TAKE 1 TABLET BY MOUTH THREE TIMES DAILY NEEDED FOR LOWER BACK PAIN Last Documented On 4 9:43AM By KATARINA PHILLIPS ; [facility] traMADol HCl 50 MG Oral Tablet 06/25/2023 Provider: ALAN BREWSTER Diagnosis: Low back pain, u nspecified take 2 tablets as needed one to two times daily for severe pain Last Documented On 4 9:16AM By KATARINA PHILLIPS ; [facility] Trulicity 0.75 MG/0.5ML Subc utaneous Solution Pen-injector 04/04/2023 Provider: AMANDEEP JENKINS APN Diagnosis: 1 injection weekly. Last Documented On 4 9:00AM By KATARINA HARLEY [facility] ; [facility] Strattera 40 MG Oral Capsule 01/02/2023 Provider: ISMA ROMERO NP Diagnosis: Last Documented On 3 12:04PM By KATARINA HARLEY [facility] ; [facility] Labetalol HCl 100 MG Oral Tablet 12/08/2022 Provider : AMANDEEP JENKINS APN Diagnosis: Last Documented On 3 12:04PM [facility] Varenicline Tartrate 1 MG Oral Tablet 07/20/2022 Pro vider: Diagnosis: Last Documented On 3 10:43AM By KATARINA HARLEY [facility] ; [facility] Pepcid 20 MG Oral Tablet 10/25/2021 Provider: Diagnosis: Last Documented On 2 9:50AM By KATARINA PHILLIPS ; [facility] Symbicort 160-4.5 MCG/ACT In halation Aerosol 10/17/2021 Provider: RIA JENKINS APN Diagnosis: 2 puffs twice a day. Last Documented On 2 9:50AM By [facility] ; [facility] Albuterol Sulfate HFA 108 (9 0 Base) MCG/ACT Inhalation Aerosol Solution 10/17/2021 Provider: AMANDEEP DE LEON APN Diagnosis: as needed. Last Documented On 2 9:50AM By KATARINA HARLEY WEB PRESS OPERATOR APPRENTICEANI ; [facility] Omeprazole 40 MG Oral Capsul e Delayed Release 10/17/2021 Provider: RIA JENKINS APN Diagnosis: Last Documented On 2 9:50AM By KATARINA PHILLIPS ; [facility] Montelukast Sodium 10 MG Oral Tablet 10/17/2021 Prov ider: LEEANNE ARAUJO FOREIGN CLERK, WEB PRESS OPERATOR APPRENTICE-C Diagnosis: Last Documented On 2 9:50AM By KATARINA HARLEY [facility] ; [facility] amLODIPine Besylate 5 MG Oral Tablet 10/17/2021 Prov ider: LEEANNE ARAUJO FOREIGN CLERK, WEB PRESS OPERATOR APPRENTICE-C Diagnosis: Last Documented On 2 9:50AM [facility] ; [facility] Medications Administered [...] [place] Last Documented On 4 8:46AM ; [facility] Levaquin Allergy 10/25/2021 Active Last Documented On 4 8:46AM ; [facility] Latex Allergy 10/25/2021 Active Last Documented On 4 8:46AM ; [facility] Encounters Encounter Provider Location Date Check-In Time Check-Out Time Diagnosis [Patient Encounter] CAMRYN BOONE MD 05/29/2023 4:47PM 11:59PM Insurance Includes: Active Insurance Policies Plan Name Member ID Group # Subscriber Relationship Effect [place] Dates 1 - [facility] [id number] KIM COBURN Self Clinical Notes Includes: Clinical Notes from this encounter No Clinical Notes Recorded
--- OUTSIDE RECORDS SUMMARY | 2024-07-31 17:33 | XMS_ITS ---
Care Plan - [facility] Created on: July 31, 2024 KIM COBURN Angelita : 1980 Sex: Female Author Organization [facility] Address [address] [place] [address] Phone Care Team Providers Care Customs Compliance Specialist Name Role Phone ARAUJO AMANDEEP AGGARWAL, LEEANNE Primary Care Provider [phone] ANUP HARRELL, EDWARDO Loza Unavailable [phone]
--- OUTSIDE RECORDS SUMMARY | 2024-07-31 17:34 | XMS_ITS ---
Author Organization [facility] Address [address] [place] [address] Phone Care Team Providers Care Rotary Peel Oven Tender Name Role Phone ARAUJO TOMASA AGGARWALC, LEEANNE Primary Care Provider [phone] ANUP HARRELL, TC Loza Unavailable [phone] Problems Includes: Active, inactive, and resolved Problems All Visits Onset Date Resolved Date Provider Condition S tatus Chronic Pain Syndrome 05/27/2023 LALA DARDEN PMHNP Active Last Documented On 4 2:07PM ; [facility] Depression Unknown KATARINA G CHERRI MANAGER EQUIPMENT-FPA, POOL TABLE OPERATOR-BC Active Last Documented On 2 8:50AM ; [facility] Anxiety Disorder Nos Unknown KATARINA G CHERRI MANAGER EQUIPMENT-FPA, POOL TABLE OPERATOR-BC Active Last Documented On 2 8:50AM ; [facility] Asthma Unknown KATARINA G CHERRI MANAGER EQUIPMENT-FPA, POOL TABLE OPERATOR-BC Active Last Documented On 2 8:49AM ; [facility] Gerd Unknown KATARINA G CHERRI MANAGER EQUIPMENT-FPA, POOL TABLE OPERATOR-BC Active Last Documented On 2 8:50AM ; [facility] Essential Hypertension Unknown KATARINA G KUL P MANAGER EQUIPMENT-FPA, POOL TABLE OPERATOR-BC Active Last Documented On 2 8:49AM ; [facility] Obesity Unknown KATARINA G CHERRI MANAGER EQUIPMENT-FPA, POOL TABLE OPERATOR-BC Active Last Documented On 2 8:49AM ; [facility] Plan of Treatment Referrals To [facility] [address] [place] [address] - Radiculopathy, lumbar region Note: consent for bilateral L4-5 transforaminal epidural steroid injection under fluoroscopyNo need to hold NSAIDs/ASA Last Documented On 2 2:44PM ; [facility] Pain Management [facility] - [address] [place] [address] - Sacroiliitis, not elsewhere classified Note: consent for R SI joint steroid injection under fluoroscopy Last Documented On 3 1:28PM ; [facility] Pain Management [facility] - [address] [place] [address] - Sacroiliitis, not elsewhere classified Note: consent for bilateral SI joint steroid injections under fluoroscopy Last Documented On 3 9:10AM ; [facility] Pain Management [facility] - [address] [place] [address] - Radiculopathy, lumbar region Note: consent for bilateral L3-4 transforaminal epidural steroid injection under fluoroscopy Last Documented On 3 9:39AM ; [facility] Neurosurgeon [facility] - [address] [place] [address] Radiculopathy, lumbar region Note: Neuro or Ortho Spine s urgeon Last Documented On 4 11:07AM ; [facility] Psychiatrist [facility] - [address] [place] [address] - Radiculopathy, lumbar region Note: needs eval prior to SC S trial implant berna/ Lala Last Documented On 4 4:37PM ; [facility] Instructions to patient Intervention and counseling on cessation of tobacco use : Patient recieved smoking cessation handout Last Documented On 4 8:40AM ; [facility] Intervention and counseling on cessation of tobacco use Last Documented On 4 10:20AM ; [facility] Intervention and counseling on cessation of tobacco use : Patient recieved smoking cessation handout Last Documented On 4 8:36AM ; [facility] Intervention and counseling on cessation of tobacco use : Patient recieved smoking cessation handout Last Documented On 3 10:03AM ; [facility] Intervention and counseling on cessation of tobacco use : Patient recieved smoking cessation handout Last Documented On 3 9:18AM ; [facility] Intervention and counseling on cessation of tobacco use : Patient recieved smoking cessation handout Last Documented On 3 9:15AM ; [facility] Intervention and counseling on cessation of tobacco use : Patient recieved smoking cessation handout Last Documented On 3 9:55AM ; [facility] Intervention and counseling on cessation of tobacco use : Patient recieved smoking cessation handout Last Documented On 3 9:17AM ; [facility] Intervention and counseling on cessation of tobacco use : Patient recieved smoking cessation handout Last Documented On 3 9:14AM ; [facility] Intervention and counseling on cessation of tobacco use : Patient recieved smoking cessation handout Last Documented On 3 9:11AM ; [facility] Intervention and counseling on cessation of tobacco use : Patient recieved smoking cessation handout Last Documented On 2 8:34AM ; [facility] Intervention and counseling on cessation of tobacco use : Patient recieved smoking cessation handout Last Documented On 2 3:50PM ; [facility] Education and Decision Aids were provided during visit for: Pill Count: 53 Tramadol Last Documented On 4 8:45AM ; [facility] Patient education about adve rse reactions to medication Last Documented On 4 10:13AM ; [facility] Reviewed side effects and Ri sks/Benefits analysis Last Documented On 4 10:13AM ; [facility] Pill Count: 0 Tramadol Last Documented On 4 8:36AM ; [facility] Pill Count: one Tramadol Last Documented On 3 10:17AM ; [facility] Pill Count: Patient did not bring pain medication to appointment for pill count, per policy. Advised in order to continue to safely prescribe opioids, medication must be brought to each appointment Last Documented On 3 9:22AM ; [facility] Pill Count: 0 Oxycodone : gi april post op with complications [she called office to notify us] Last Documented On 3 9:50AM ; [facility] Pill Count: one Tramadol Last Documented On 3 9:20AM ; [facility] Pill Count: Patient did not bring pain medication to appointment for pill count, per policy. Advised in order to continue to safely prescribe opioids, medication must be brought to each appointment Last Documented On 3 9:55AM ; [facility] Pill Count: Tramadol Last Documented On 3 9:19AM ; [facility] Pill Count: Patient did not bring pain medication to appointment for pill count, per policy. Advised in order to continue to safely prescribe opioids, medication must be brought to each appointment Last Documented On 3 9:23AM ; [facility] Pill Count: two Tramadol Last Documented On 3 9:21AM ; [facility] Pill Count: 45 Tramadol Last Documented On 3 9:18AM ; [facility] Assessments Includes: Assessments for all patient encounters Findings Encounter Date Chronic pain syndrome PAIN MANAGEMENT FO LLOW UP with KATARINA HARLEY MANAGER EQUIPMENT-FPA, POOL TABLE OPERATOR-BC 07/22/2023 Last Documented On 4 9:19AM ; [facility] Left Hip pain PAIN MANAGEMENT FOLL OW UP with KATARINA HARLEY MANAGER EQUIPMENT-FPA, POOL TABLE OPERATOR-BC 07/22/2023 Last Documented On 4 9:19AM ; [facility] Low back pain PAIN MANAGEMENT FOLL OW UP with KATARINABRANDY HARLEY MANAGER EQUIPMENT-FPA, POOL TABLE OPERATOR-BC 07/22/2023 Last Documented On 4 9:19AM ; [facility] Lumbar radiculopathy PAIN MANAGEMENT FOL LOW UP with KATARINABRANDY HARLEY MANAGER EQUIPMENT-FPA, POOL TABLE OPERATOR-BC 07/22/2023 Last Documented On 4 9:19AM ; [facility] Lumbar spondylosis PAIN MANAGEMENT FOLL OW UP with KATARINABRANDY HARLEY MANAGER EQUIPMENT-FPA, POOL TABLE OPERATOR-BC 07/22/2023 Last Documented On 4 9:19AM ; [facility] Right hip pain PAIN MANAGEMENT FOLL OW UP with KATARINA G CHERRI MANAGER EQUIPMENT-FPA, POOL TABLE OPERATOR-BC 07/22/2023 Last Documented On 4 9:19AM ; [facility] Sacroiliitis PAIN MANAGEMENT FOLL OW UP with KATARINA G CHERRI MANAGER EQUIPMENT-FPA, POOL TABLE OPERATOR-BC 07/22/2023 Last Documented On 4 9:19AM ; [facility] [G89.4 - Chronic pain syndro me] chronic pain syndrome PSYCH NEW PATIENT EXAM 19 YEARS AND OLDER with LALA DARDEN PMHNP 05/27/2023 Last Documented On 4 1:14PM ; [facility] Chronic pain syndrome PAIN MANAGEMENT FO LLOW UP with KATARINA G CHERRI MANAGER EQUIPMENT-FPA, POOL TABLE OPERATOR-BC 04/15/2023 Last Documented On 4 9:16AM ; [facility] Left Hip pain PAIN MANAGEMENT FOLL OW UP with KATARINA G CHERRI MANAGER EQUIPMENT-FPA, POOL TABLE OPERATOR-BC 04/15/2023 Last Documented On 4 9:16AM ; [facility] Low back pain PAIN MANAGEMENT FOLL OW UP with KATARINA G CHERRI MANAGER EQUIPMENT-FPA, POOL TABLE OPERATOR-BC 04/15/2023 Last Documented On 4 9:16AM ; [facility] Lumbar radiculopathy PAIN MANAGEMENT FOL LOW UP with KATARINA G CHERRI MANAGER EQUIPMENT-FPA, POOL TABLE OPERATOR-BC 04/15/2023 Last Documented On 4 9:16AM ; [facility] Lumbar spondylosis PAIN MANAGEMENT FOLL OW UP with KATARINA G CHERRI MANAGER EQUIPMENT-FPA, POOL TABLE OPERATOR-BC 04/15/2023 Last Documented On 4 9:16AM ; [facility] Right hip pain PAIN MANAGEMENT FOLL OW UP with KATARINA G CHERRI MANAGER EQUIPMENT-FPA, POOL TABLE OPERATOR-BC 04/15/2023 Last Documented On 4 9:16AM ; [facility] Sacroiliitis PAIN MANAGEMENT FOLL OW UP with KATARINA G CHERRI MANAGER EQUIPMENT-FPA, POOL TABLE OPERATOR-BC 04/15/2023 Last Documented On 4 9:16AM ; [facility] Chronic pain syndrome PAIN MANAGEMENT FO LLOW UP with KATARINA G CHERRI MANAGER EQUIPMENT-FPA, POOL TABLE OPERATOR-BC 01/28/2023 Last Documented On 3 12:04PM ; [facility] Left Hip pain PAIN MANAGEMENT FOLL OW UP with KATARINA G CHERRI MANAGER EQUIPMENT-FPA, POOL TABLE OPERATOR-BC 01/28/2023 Last Documented On 3 12:04PM ; [facility] Low back pain PAIN MANAGEMENT FOLL OW UP with KATARINA G CHERRI MANAGER EQUIPMENT-FPA, POOL TABLE OPERATOR-BC 01/28/2023 Last Documented On 3 12:04PM ; [facility] Lumbar radiculopathy PAIN MANAGEMENT FOL LOW UP with KATARINA G CHERRI MANAGER EQUIPMENT-FPA, POOL TABLE OPERATOR-BC 01/28/2023 Last Documented On 3 12:04PM ; [facility] Lumbar spondylosis PAIN MANAGEMENT FOLL OW UP with KATARINA G CHERRI MANAGER EQUIPMENT-FPA, POOL TABLE OPERATOR-BC 01/28/2023 Last Documented On 3 12:04PM ; [facility] Right hip pain PAIN MANAGEMENT FOLL OW UP with KATARINA G CHERRI MANAGER EQUIPMENT-FPA, POOL TABLE OPERATOR-BC 01/28/2023 Last Documented On 3 12:04PM ; [facility] Sacroiliitis PAIN MANAGEMENT FOLL OW UP with KATARINA G CHERRI MANAGER EQUIPMENT-FPA, POOL TABLE OPERATOR-BC 01/28/2023 Last Documented On 3 12:04PM ; [facility] Chronic pain syndrome PAIN MANAGEMENT FO LLOW UP with KATARINA G CHERRI MANAGER EQUIPMENT-FPA, POOL TABLE OPERATOR-BC 12/28/2022 Last Documented On 3 12:40PM ; [facility] Left Hip pain PAIN MANAGEMENT FOLL OW UP with KATARINA G CHERRI MANAGER EQUIPMENT-FPA, POOL TABLE OPERATOR-BC 12/28/2022 Last Documented On 3 12:40PM ; [facility] Low back pain PAIN MANAGEMENT FOLL OW UP with KATARINA G CHERRI MANAGER EQUIPMENT-FPA, POOL TABLE OPERATOR-BC 12/28/2022 Last Documented On 3 12:40PM ; [facility] Lumbar radiculopathy PAIN MANAGEMENT FOL LOW UP with KATARINA G CHERRI MANAGER EQUIPMENT-FPA, POOL TABLE OPERATOR-BC 12/28/2022 Last Documented On 3 12:40PM ; [facility] Lumbar spondylosis PAIN MANAGEMENT FOLL OW UP with KATARINA G CHERRI MANAGER EQUIPMENT-FPA, POOL TABLE OPERATOR-BC 12/28/2022 Last Documented On 3 12:40PM ; [facility] Right hip pain PAIN MANAGEMENT FOLL OW UP with KATARINA G CHERRI MANAGER EQUIPMENT-FPA, POOL TABLE OPERATOR-BC 12/28/2022 Last Documented On 3 12:40PM ; [facility] Sacroiliitis PAIN MANAGEMENT FOLL OW UP with KATARINA G CHERRI MANAGER EQUIPMENT-FPA, POOL TABLE OPERATOR-BC 12/28/2022 Last Documented On 3 12:40PM ; [facility] Chronic pain syndrome PAIN MANAGEMENT FO LLOW UP with KATARINA G CHERRI MANAGER EQUIPMENT-FPA, POOL TABLE OPERATOR-BC 10/15/2022 Last Documented On 3 9:51AM ; [facility] Left Hip pain PAIN MANAGEMENT FOLL OW UP with KATARINA G CHERRI MANAGER EQUIPMENT-FPA, POOL TABLE OPERATOR-BC 10/15/2022 Last Documented On 3 9:51AM ; [facility] Low back pain PAIN MANAGEMENT FOLL OW UP with KATARINA G CHERRI MANAGER EQUIPMENT-FPA, POOL TABLE OPERATOR-BC 10/15/2022 Last Documented On 3 9:51AM ; [facility] Lumbar radiculopathy PAIN MANAGEMENT FOL LOW UP with KATARINA G CHERRI MANAGER EQUIPMENT-FPA, POOL TABLE OPERATOR-BC 10/15/2022 Last Documented On 3 9:51AM ; [facility] Lumbar spondylosis PAIN MANAGEMENT FOLL OW UP with KATARINA G CHERRI MANAGER EQUIPMENT-FPA, POOL TABLE OPERATOR-BC 10/15/2022 Last Documented On 3 9:51AM ; [facility] Right hip pain PAIN MANAGEMENT FOLL OW UP with KATARINA G CHERRI MANAGER EQUIPMENT-FPA, POOL TABLE OPERATOR-BC 10/15/2022 Last Documented On 3 9:51AM ; [facility] Sacroiliitis PAIN MANAGEMENT FOLL OW UP with KATARINA G CHERRI MANAGER EQUIPMENT-FPA, POOL TABLE OPERATOR-BC 10/15/2022 Last Documented On 3 9:51AM ; [facility] Chronic pain syndrome PAIN MANAGEMENT FO LLOW UP with KATARINA G CHERRI MANAGER EQUIPMENT-FPA, POOL TABLE OPERATOR-BC 07/20/2022 Last Documented On 3 1:35PM ; [facility] Low back pain PAIN MANAGEMENT FOLL OW UP with KATARINA G CHERRI MANAGER EQUIPMENT-FPA, POOL TABLE OPERATOR-BC 07/20/2022 Last Documented On 3 1:35PM ; [facility] Lumbar radiculopathy PAIN MANAGEMENT FOL LOW UP with KATARINA G CHERRI MANAGER EQUIPMENT-FPA, POOL TABLE OPERATOR-BC 07/20/2022 Last Documented On 3 1:35PM ; [facility] Lumbar spondylosis PAIN MANAGEMENT FOLL OW UP with KATARINA G CHERRI MANAGER EQUIPMENT-FPA, POOL TABLE OPERATOR-BC 07/20/2022 Last Documented On 3 1:35PM ; [facility] Sacroiliitis PAIN MANAGEMENT FOLL OW UP with KATARINA G CHERRI MANAGER EQUIPMENT-FPA, POOL TABLE OPERATOR-BC 07/20/2022 Last Documented On 3 1:35PM ; [facility] Chronic pain syndrome PAIN MANAGEMENT FO LLOW UP with KATARINA G CHERRI MANAGER EQUIPMENT-FPA, POOL TABLE OPERATOR-BC 06/15/2022 Last Documented On 3 10:00AM ; [facility] Low back pain PAIN MANAGEMENT FOLL OW UP with KATARINA G CHERRI MANAGER EQUIPMENT-FPA, POOL TABLE OPERATOR-BC 06/15/2022 Last Documented On 3 10:00AM ; [facility] Lumbar radiculopathy PAIN MANAGEMENT FOL LOW UP with KATARINA G CHERRI MANAGER EQUIPMENT-FPA, POOL TABLE OPERATOR-BC 06/15/2022 Last Documented On 3 10:00AM ; [facility] Lumbar spondylosis PAIN MANAGEMENT FOLL OW UP with KATARINA G CHERRI MANAGER EQUIPMENT-FPA, POOL TABLE OPERATOR-BC 06/15/2022 Last Documented On 3 10:00AM ; [facility] Sacroiliitis PAIN MANAGEMENT FOLL OW UP with KATARINA G CHERRI MANAGER EQUIPMENT-FPA, POOL TABLE OPERATOR-BC 06/15/2022 Last Documented On 3 10:00AM ; [facility] Chronic pain syndrome PAIN MANAGEMENT FO LLOW UP with KATARINA G CHERRI MANAGER EQUIPMENT-FPA, POOL TABLE OPERATOR-BC 05/25/2022 Last Documented On 3 10:07AM ; [facility] Low back pain PAIN MANAGEMENT FOLL OW UP with KATARINA G CHERRI MANAGER EQUIPMENT-FPA, POOL TABLE OPERATOR-BC 05/25/2022 Last Documented On 3 10:07AM ; [facility] Lumbar radiculopathy PAIN MANAGEMENT FOL LOW UP with KATARINA G CHERRI MANAGER EQUIPMENT-FPA, POOL TABLE OPERATOR-BC 05/25/2022 Last Documented On 3 10:07AM ; [facility] Lumbar spondylosis PAIN MANAGEMENT FOLL OW UP with KATARINA G CHERRI MANAGER EQUIPMENT-FPA, POOL TABLE OPERATOR-BC 05/25/2022 Last Documented On 3 10:07AM ; [facility] Sacroiliitis PAIN MANAGEMENT FOLL OW UP with KATARINA G CHERRI MANAGER EQUIPMENT-FPA, POOL TABLE OPERATOR-BC 05/25/2022 Last Documented On 3 10:07AM ; [facility] Chronic pain syndrome PAIN MANAGEMENT FO LLOW UP with KATARINA G CHERRI MANAGER EQUIPMENT-FPA, POOL TABLE OPERATOR-BC 04/16/2022 Last Documented On 3 9:46AM ; [facility] Low back pain PAIN MANAGEMENT FOLL OW UP with KATARINA G CHERRI MANAGER EQUIPMENT-FPA, POOL TABLE OPERATOR-BC 04/16/2022 Last Documented On 3 9:46AM ; [facility] Lumbar radiculopathy PAIN MANAGEMENT FOL LOW UP with KATARINA G CHERRI MANAGER EQUIPMENT-FPA, POOL TABLE OPERATOR-BC 04/16/2022 Last Documented On 3 9:46AM ; [facility] Lumbar spondylosis PAIN MANAGEMENT FOLL OW UP with KATARINA G CHERRI MANAGER EQUIPMENT-FPA, POOL TABLE OPERATOR-BC 04/16/2022 Last Documented On 3 9:46AM ; [facility] Sacroiliitis PAIN MANAGEMENT FOLL OW UP with KATARINA G CHERRI MANAGER EQUIPMENT-FPA, POOL TABLE OPERATOR-BC 04/16/2022 Last Documented On 3 9:46AM ; [facility] Chronic pain syndrome PAIN MANAGEMENT FO LLOW UP with KATARINA G CHERRI MANAGER EQUIPMENT-FPA, POOL TABLE OPERATOR-BC 01/19/2022 Last Documented On 2 9:52AM ; [facility] Low back pain PAIN MANAGEMENT FOLL OW UP with KATARINA G CHERRI MANAGER EQUIPMENT-FPA, POOL TABLE OPERATOR-BC 01/19/2022 Last Documented On 2 9:52AM ; [facility] Lumbar radiculopathy PAIN MANAGEMENT FOL LOW UP with KATARINA G CHERRI MANAGER EQUIPMENT-FPA, POOL TABLE OPERATOR-BC 01/19/2022 Last Documented On 2 9:52AM ; [facility] Lumbar spondylosis PAIN MANAGEMENT FOLL OW UP with KATARINA G CHERRI MANAGER EQUIPMENT-FPA, POOL TABLE OPERATOR-BC 01/19/2022 Last Documented On 2 9:52AM ; [facility] Sacroiliitis PAIN MANAGEMENT FOLL OW UP with KATARINA G CHERRI MANAGER EQUIPMENT-FPA, POOL TABLE OPERATOR-BC 01/19/2022 Last Documented On 2 9:52AM ; [facility] Chronic pain syndrome PAIN MANAGEMENT FO LLOW UP with KATARINA G CHERRI MANAGER EQUIPMENT-FPA, POOL TABLE OPERATOR-BC 12/12/2021 Last Documented On 2 5:10PM ; [facility] Low back pain PAIN MANAGEMENT FOLL OW UP with KATARINA G CHERRI MANAGER EQUIPMENT-FPA, POOL TABLE OPERATOR-BC 12/12/2021 Last Documented On 2 5:10PM ; [facility] Lumbar radiculopathy PAIN MANAGEMENT FOL LOW UP with KATARINA G CHERRI MANAGER EQUIPMENT-FPA, POOL TABLE OPERATOR-BC 12/12/2021 Last Documented On 2 5:10PM ; [facility] Lumbar spondylosis PAIN MANAGEMENT FOLL OW UP with KATARINA G CHERRI MANAGER EQUIPMENT-FPA, POOL TABLE OPERATOR-BC 12/12/2021 Last Documented On 2 5:10PM ; [facility] Sacroiliitis PAIN MANAGEMENT FOLL OW UP with KATARINA G CHERRI MANAGER EQUIPMENT-FPA, POOL TABLE OPERATOR-BC 12/12/2021 Last Documented On 2 5:10PM ; [facility] Chronic pain syndrome PAIN MANAGEMENT NE W CONSULT with KATARINA Rcok CHERRI MANAGER EQUIPMENT-FPA, POOL TABLE OPERATOR-BC 10/25/2021 Last Documented On 2 10:42AM ; [facility] Low back pain PAIN MANAGEMENT NEW CONSULT with KATARINA Rock CHERRI MANAGER EQUIPMENT-FPA, POOL TABLE OPERATOR-BC 10/25/2021 Last Documented On 2 10:42AM ; [facility] Lumbar radiculopathy PAIN MANAGEMENT NEW CONSULT with KATARINA Rock CHERRI MANAGER EQUIPMENT-FPA, POOL TABLE OPERATOR-BC 10/25/2021 Last Documented On 2 10:42AM ; [facility] Lumbar spondylosis PAIN MANAGEMENT NEW CONSULT with KATARINA Rock CHERRI MANAGER EQUIPMENT-FPA, POOL TABLE OPERATOR-BC 10/25/2021 Last Documented On 2 10:42AM ; [facility] Sacroiliitis PAIN MANAGEMENT NEW CONSULT with KATARINA Rock CHERRI MANAGER EQUIPMENT-FPA, POOL TABLE OPERATOR-BC 10/25/2021 Last Documented On 2 10:42AM ; [facility] Instructions Includes: Instructions for all patient encounters Instructions to patient Intervention and counseling on cessation of tobacco use : Patient recieved smoking cessation handout Last Documented On 4 8:40AM ; [facility] Intervention and counseling on cessation of tobacco use Last Documented On 4 10:20AM ; [facility] Intervention and counseling on cessation of tobacco use : Patient recieved smoking cessation handout Last Documented On 4 8:36AM ; [facility] Intervention and counseling on cessation of tobacco use : Patient recieved smoking cessation handout Last Documented On 3 10:03AM ; [facility] Intervention and counseling on cessation of tobacco use : Patient recieved smoking cessation handout Last Documented On 3 9:18AM ; [facility] Intervention and counseling on cessation of tobacco use : Patient recieved smoking cessation handout Last Documented On 3 9:15AM ; [facility] Intervention and counseling on cessation of tobacco use : Patient recieved smoking cessation handout Last Documented On 3 9:55AM ; [facility] Intervention and counseling on cessation of tobacco use : Patient recieved smoking cessation handout Last Documented On 3 9:17AM ; [facility] Intervention and counseling on cessation of tobacco use : Patient recieved smoking cessation handout Last Documented On 3 9:14AM ; [facility] Intervention and counseling on cessation of tobacco use : Patient recieved smoking cessation handout Last Documented On 3 9:11AM ; [facility] Intervention and counseling on cessation of tobacco use : Patient recieved smoking cessation handout Last Documented On 2 8:34AM ; [facility] Intervention and counseling on cessation of tobacco use : Patient recieved smoking cessation handout Last Documented On 2 3:50PM ; [facility] Education and Decision Aids were provided during visit for: Pill Count: 53 Tramadol Last Documented On 4 8:45AM ; [facility] Patient education about adve rse reactions to medication Last Documented On 4 10:13AM ; [facility] Reviewed side effects and Ri sks/Benefits analysis Last Documented On 4 10:13AM ; [facility] Pill Count: 0 Tramadol Last Documented On 4 8:36AM ; [facility] Pill Count: one Tramadol Last Documented On 3 10:17AM ; [facility] Pill Count: Patient did not bring pain medication to appointment for pill count, per policy. Advised in order to continue to safely prescribe opioids, medication must be brought to each appointment Last Documented On 3 9:22AM ; [facility] Pill Count: 0 Oxycodone : gi april post op with complications [she called office to notify us] Last Documented On 3 9:50AM ; [facility] Pill Count: one Tramadol Last Documented On 3 9:20AM ; [facility] Pill Count: Patient did not bring pain medication to appointment for pill count, per policy. Advised in order to continue to safely prescribe opioids, medication must be brought to each appointment Last Documented On 3 9:55AM ; [facility] Pill Count: Tramadol Last Documented On 3 9:19AM ; [facility] Pill Count: Patient did not bring pain medication to appointment for pill count, per policy. Advised in order to continue to safely prescribe opioids, medication must be brought to each appointment Last Documented On 3 9:23AM ; [facility] Pill Count: two Tramadol Last Documented On 3 9:21AM ; [facility] Pill Count: 45 Tramadol Last Documented On 3 9:18AM ; [facility] Medical Equipment - Implanted Devices Includes: Current and historical Devices No Medical Equipment Recorded Medications Includes: Current and historical Medications Current Medications (continue as prescribed) Meloxicam 15 MG Oral Tablet 09/09/2023 Provider: ALAN BREWSTER Diagnosis: Other spondylosi s, lumbar region TAKE 1 TABLET BY MOUTH DAILY WITH FOOD Last Documented On 4 10:37AM By KATARINA PHILLIPS ; [facility] traMADol HCl ER 200 MG Oral Tablet Extended Release 24 Hour 09/04/2023 Provider: ALAN BREWSTER Diagnosis: Other spondylosi s, lumbar region One tablet daily Last Documented On 4 11:08AM By KATARINA PHILLIPS ; [facility] Cyclobenzaprine HCl 10 MG Oral Tablet 07/22/2023 Provider: ALAN GARCIA Diagnosis: Low back pain, unspecified TAKE 1 TABLET BY MOUTH AT BEDTIME Last Documented On 4 9:43AM By KATARINA PHILLIPS ; [facility] Pregabalin 150 MG Oral Capsule 07/22/2023 Provider: ALAN BREWSTER Diagnosis: Radiculopathy, l umbar region TAKE 1 CAPSULE BY MOUTH TWICE DAILY Last Documented On 4 9:43AM By KATARINA PHILLIPS ; [facility] tiZANidine HCl 2 MG Oral Tablet 07/22/2023 Provider: ALAN GARCIA Diagnosis: Low back pain, u nspecified TAKE 1 TABLET BY MOUTH THREE TIMES DAILY NEEDED FOR LOWER BACK PAIN Last Documented On 4 9:43AM By KATARINA PHILLIPS ; [facility] traMADol HCl 50 MG Oral Tablet 06/25/2023 Provider: ALAN BREWSTER Diagnosis: Low back pain, u nspecified take 2 tablets as needed one to two times daily for severe pain Last Documented On 4 9:16AM By KATARINA PHILLIPS ; [facility] Trulicity 0.75 MG/0.5ML Subc utaneous Solution Pen-injector 04/04/2023 Provider: AMANDEEP JENKINS APN Diagnosis: 1 injection weekly. Last Documented On 4 9:00AM By KATARINA PHILLIPS ; [facility] Strattera 40 MG Oral Capsule 01/02/2023 Provider: ISMA ROMERO NP Diagnosis: Last Documented On 3 12:04PM By KATARINA PHILLIPS ; [facility] Labetalol HCl 100 MG Oral Tablet 12/08/2022 Provider : AMANDEEP JENKINS APN Diagnosis: Last Documented On 3 12:04PM By KATARINA PHILLIPS ; [facility] Varenicline Tartrate 1 MG Oral Tablet 07/20/2022 Pro vider: Diagnosis: Last Documented On 3 10:43AM By KATARINA PHILLIPS ; [facility] Pepcid 20 MG Oral Tablet 10/25/2021 Provider: Diagnosis: Last Documented On 2 9:50AM By KATARINA PHILLIPS ; [facility] Symbicort 160-4.5 MCG/ACT In halation Aerosol 10/17/2021 Provider: RIA JENKINS APN Diagnosis: 2 puffs twice a day. Last Documented On 2 9:50AM By KATARINA PHILLIPS ; [facility] Albuterol Sulfate HFA 108 (9 0 Base) MCG/ACT Inhalation Aerosol Solution 10/17/2021 Provider: AMANDEEP DE LEON APN Diagnosis: as needed. Last Documented On 2 9:50AM By KATARINA PHILLIPS ; [facility] Omeprazole 40 MG Oral Capsul e Delayed Release 10/17/2021 Provider: RIA JENKINS APN Diagnosis: Last Documented On 2 9:50AM By KATARINA PHILLIPS ; [facility] Montelukast Sodium 10 MG Oral Tablet 10/17/2021 Prov ider: RIA JENKINS APNP-C Diagnosis: Last Documented On 2 9:50AM By KATARINA PHILLIPS ; [facility] amLODIPine Besylate 5 MG Oral Tablet 10/17/2021 Prov ider: SIMONE JENKINS APN-C Diagnosis: Last Documented On 2 9:50AM By KATARINA PHILLIPS ; [facility] Past Medications on file Meloxicam 15 MG Oral Tablet 07/22/2023 - 09/09/2023 Provider: ALAN GARCIA Diagnosis: Other spondylosi s, lumbar region TAKE 1 TABLET BY MOUTH DAILY with food Last Documented On 4 10:28AM By KATARINA PHILLIPS ; [facility] traMADol HCl ER 200 MG Oral Tablet Extended Release 24 Hour 07/22/2023 - 09/04/2023 Provider: ALAN GARCIA Diagnosis: Other spondylosi s, lumbar region One tablet daily Last Documented On 4 11:07AM By KATARINA PHILLIPS ; [facility] Pregabalin 150 MG Oral Capsule 04/15/2023 - 07/22/2023 Provider: ALAN GARCIA Diagnosis: Radiculopathy, l umbar region TAKE 1 CAPSULE BY MOUTH TWICE DAILY Last Documented On 4 9:17AM By KATARINA PHILLIPS ; [facility] traMADol HCl 50 MG Oral Tablet 04/15/2023 - 06/25/2023 Provider: ALAN GARCIA Diagnosis: Low back pain, unspecified take 2 tablets as needed one to two times daily for severe pain Last Documented On 4 11:42AM By KATARINA PHILLIPS ; [facility] tiZANidine HCl 2 MG Oral Tablet 04/15/2023 - 07/22/2023 Provider: ALAN GARCIA Diagnosis: Low back pain, unspecified TAKE 1 TABLET BY MOUTH THREE TIMES DAILY NEEDED FOR LOWER BACK PAIN Last Documented On 4 9:17AM By KATARINA PHILLIPS ; [facility] Meloxicam 15 MG Oral Tablet 04/15/2023 - 07/22/2023 Provider: ALAN GARCIA Diagnosis: Other spondylosi s, lumbar region TAKE 1 TABLET BY MOUTH DAILY with food Last Documented On 4 9:17AM By KATARINA PHILLIPS ; [facility] Cyclobenzaprine HCl 10 MG Oral Tablet 04/15/2023 - 07/22/2023 Provider: ALAN GARCIA Diagnosis: Low back pain, unspecified TAKE 1 TABLET BY MOUTH AT BEDTIME Last Documented On 4 9:17AM By KATARINA PHILLIPS ; [facility] Meloxicam 15 MG Oral Tablet 04/02/2023 - 04/15/2023 Provider: ALAN GARCIA Diagnosis: Other spondylosi s, lumbar region TAKE 1 TABLET BY MOUTH DAILY Last Documented On 4 9:06AM By KATARINA PHILLIPS ; [facility] traMADol HCl 50 MG Oral Tablet 02/14/2023 - 04/15/2023 Provider: ALAN GARCIA Diagnosis: Low back pain, unspecified take 2 tablets as needed one to two times daily for severe pain Last Documented On 4 9:05AM By KATARINA PHILLIPS ; [facility] traMADol HCl 50 MG Oral Tablet 01/28/2023 - 02/14/2023 Provider: ALAN GARCIA Diagnosis: Low back pain, unspecified take 2 tablets as needed one to two times daily for severe pain Last Documented On 3 1:28PM By KATARINA PHILLIPS ; [facility] tiZANidine HCl 2 MG Oral Tablet 12/28/2022 - 04/15/2023 Provider: ALAN GARCIA Diagnosis: Low back pain, unspecified TAKE 1 TABLET BY MOUTH THREE TIMES DAILY NEEDED FOR LOWER BACK PAIN Last Documented On 4 9:06AM By KATARINA PHILLIPS ; [facility] Cyclobenzaprine HCl 10 MG Oral Tablet 12/28/2022 - 04/15/2023 Provider: ALAN GARCIA Diagnosis: Low back pain, unspecified TAKE 1 TABLET BY MOUTH AT BEDTIME Last Documented On 4 9:01AM By KATARINA PHILLIPS ; [facility] Pregabalin 150 MG Oral Capsule 12/28/2022 - 04/15/2023 Provider: ALAN GARCIA Diagnosis: Radiculopathy, l umbar region TAKE 1 CAPSULE BY MOUTH TWICE DAILY Last Documented On 4 9:05AM By KATARINA PHILLIPS ; [facility] Meloxicam 15 MG Oral Tablet 12/28/2022 - 04/02/2023 Provider: ALAN GARCIA Diagnosis: Other spondylosi s, lumbar region One tablet daily Last Documented On 3 8:20AM By KATARINA PHILLIPS ; [facility] tiZANidine HCl 2 MG Oral Tablet 12/11/2022 - 12/28/2022 Provider: ALAN GARCIA Diagnosis: Low back pain, unspecified TAKE 1 TABLET BY MOUTH THREE TIMES DAILY NEEDED FOR LOWER BACK PAIN Last Documented On 3 12:40PM By KATARINA PHILLIPS ; [facility] Celecoxib 200 MG Oral Capsule 12/06/2022 - 01/28/2023 Provider: SIMONE GARCIA-ADAN Diagnosis: Low back pain, unspecified TAKE 1 CAPSULE BY MOUTH DAILY WITH A MEAL Last Documented On 3 10:18AM By Jes DURAN ; [facility] Cyclobenzaprine HCl 10 MG Oral Tablet 12/03/2022 - 12/28/2022 Provider: ALAN GARCIA Diagnosis: Low back pain, unspecified TAKE 1 TABLET BY MOUTH AT BEDTIME Last Documented On 3 12:40PM By KATARINA PHILLIPS ; [facility] Pregabalin 150 MG Oral Capsule 12/03/2022 - 12/28/2022 Provider: SIMONE GARCIA-ADAN Diagnosis: Radiculopathy, l umbar region TAKE 1 CAPSULE BY MOUTH TWICE DAILY Last Documented On 3 9:44AM By KATARINA PHILLIPS ; [facility] traMADol HCl 50 MG Oral Tablet 12/03/2022 - 01/28/2023 Provider: SIMONE GARCIA-ADAN Diagnosis: Low back pain, unspecified take 1 tablet one to two tc es daily as needed for severe pain, max 2/day Last Documented On 3 10:56AM By KATARINA PHILLIPS ; [facility] tiZANidine HCl 2 MG Oral Tablet 11/14/2022 - 12/11/2022 Provider: SIMONE GARCIA-ADAN Diagnosis: Low back pain, unspecified TAKE 1 TABLET BY MOUTH THREE TIMES DAILY NEEDED FOR LOWER BACK PAIN Last Documented On 3 10:27AM By KATARINA PHILLIPS ; [facility] Cyclobenzaprine HCl 10 MG Oral Tablet 11/13/2022 - 12/03/2022 Provider: SIMONE GARCIA-ADAN Diagnosis: Low back pain, unspecified TAKE 1 TABLET BY MOUTH AT BEDTIME Last Documented On 3 9:24AM By KATARINA PHILLIPS ; [facility] Pregabalin 150 MG Oral Capsule 10/15/2022 - 12/03/2022 Provider: SIMONE GARCIA-ADAN Diagnosis: Radiculopathy, l umbar region TAKE 1 CAPSULE BY MOUTH TWICE DAILY Last Documented On 3 9:24AM By KATARINA NICHOLSADAN ; [facility] tiZANidine HCl 2 MG Oral Tablet 10/15/2022 - 11/14/2022 Provider: ALAN GARCIA Diagnosis: Low back pain, unspecified One tablet three times a day as needed for low back pain Last Documented On 3 4:34PM By KATARINA PHILLIPS ; [facility] Celecoxib 200 MG Oral Capsule 10/15/2022 - 12/06/2022 Provider: SIMONE GARCIA-ADAN Diagnosis: Low back pain, unspecified TAKE 1 CAPSULE BY MOUTH DAILY WITH A MEAL Last Documented On 3 3:12PM By KATARINA HARLEY POOL TABLE OPERATORADAN ; [facility] traMADol HCl 50 MG Oral Tablet 10/15/2022 - 12/03/2022 Provider: SIMONE GARCIA-ADAN Diagnosis: Low back pain, unspecified take 1 tablet one to two tc es daily as needed for severe pain, max 2/day Last Documented On 3 9:22AM By [facility] ; [facility] Cyclobenzaprine HCl 10 MG Oral Tablet 10/15/2022 - 11/13/2022 Provider: SIMONE GARCIA-ADAN Diagnosis: Low back pain, unspecified One tablet at bed time Last Documented On 3 10:33AM By KATARINA PHILLIPS ; [facility] Pregabalin 150 MG Oral Capsule 10/04/2022 - 10/15/2022 Provider: SIMONE GARCIA-ADAN Diagnosis: Radiculopathy, l umbar region TAKE 1 CAPSULE BY MOUTH TWICE DAILY Last Documented On 3 9:43AM By KATARINA NICHOLSADAN ; [facility] Celecoxib 200 MG Oral Capsule 10/01/2022 - 10/15/2022 Provider: RIA GARCIAP-BC Diagnosis: Low back pain, unspecified TAKE 1 CAPSULE BY MOUTH DAILY WITH A MEAL Last Documented On 3 9:43AM By KATARINA NICHOLS-BC ; [facility] Methocarbamol 750 MG Oral Tablet 07/26/2022 - 10/15/2022 Provider: ALAN GARCIA Diagnosis: One tablet three times a day as needed for muscle spasms Last Documented On 3 9:51AM By KATARINA HARLEY [facility] ; [facility] Cyclobenzaprine HCl 10 MG Oral Tablet 07/20/2022 - 10/15/2022 Provider: [facility]INA [facility]ITO [facility] Diagnosis: Low back pain, unspecified TAKE 1 TABLET BY MOUTH AT BE DTIME NEEDED FOR MUSCLE SPASMS Last Documented On 3 9:41AM By KATARINA HARLEY [facility] ; [facility] Celecoxib 200 MG Oral Capsule 07/20/2022 - 10/01/2022 Provider: KATARINA ESPOSITO POOL TABLE OPERATORPARAM Diagnosis: Low back pain, unspecified TAKE 1 CAPSULE BY MOUTH DAILY WITH A MEAL Last Documented On 3 9:42AM By KATARINA HARLEY [facility] ; [facility] Pregabalin 150 MG Oral Capsule 07/20/2022 - 10/04/2022 Provider: KATARINA ESPOSITO POOL TABLE OPERATOR-ADAN Diagnosis: Radiculopathy, l umbar region TAKE 1 CAPSULE BY MOUTH TWICE DAILY Last Documented On 3 10:32AM By KATARINA HARLEY [facility] ; [facility] traMADol HCl 50 MG Oral Tablet 07/20/2022 - 10/15/2022 Provider: KATARINA ESPOSITO POOL TABLE OPERATOR-ADAN Diagnosis: Low back pain, unspecified take 1 tablet one to two tc es daily as needed for severe pain, max 2/day Last Documented On 3 9:43AM By KATARINA HARLEY [facility] ; [facility] Celecoxib 200 MG Oral Capsule 07/12/2022 - 07/20/2022 Provider: KATARINA AVILA POOL TABLE OPERATOR-ADAN Diagnosis: TAKE 1 CAPSULE BY MOUTH DAILY WITH A MEAL Last Documented On 3 10:43AM By [facility]ATARINA HARLEY [facility] ; [facility] Cyclobenzaprine HCl 10 MG Oral Tablet 06/13/2022 - 07/20/2022 Provider: KATARINA ESPOSITO POOL TABLE OPERATOR-BC Diagnosis: TAKE 1 TABLET BY MOUTH AT BE DTIME NEEDED FOR MUSCLE SPASMS Last Documented On 3 10:41AM By KATARINA PHILLIPS ; [facility] Celecoxib 200 MG Oral Capsule 06/13/2022 - 07/12/2022 Provider: KATARINA YOON-FPAj POOL TABLE OPERATOR-BC Diagnosis: TAKE 1 CAPSULE BY MOUTH DAILY WITH A MEAL Last Documented On 3 8:57AM By KATARINA PHILLIPS ; [facility] Pregabalin 150 MG Oral Capsule 06/13/2022 - 07/20/2022 Provider: KATARINA YOON-MAHSA POOL TABLE OPERATOR-BC Diagnosis: TAKE 1 CAPSULE BY MOUTH TWICE DAILY Last Documented On 3 10:43AM By KATARINA PHILLIPS ; [facility] traMADol HCl 50 MG Oral Tablet 05/25/2022 - 07/20/2022 Provider: KATARINA ESPOSITO POOL TABLE OPERATOR-ADAN Diagnosis: Low back pain, unspecified take 1 tablet one to two tc es daily as needed for severe pain, max 2/day Last Documented On 3 10:43AM By KATARINA PHILLIPS ; [facility] Venlafaxine HCl ER 75 MG Oral Capsule Extended Release 24 Hour 05/25/2022 - 06/24/2022 Provider: LEEANNE ARAUJO APN , POOL TABLE OPERATOR-C Diagnosis: 150 mg once a day. Last Documented On 3 10:00AM By KATARINA PHILLIPS ; [facility] Methocarbamol 750 MG Oral Tablet 05/02/2022 - 07/27/19 Provider: Diagnosis: Last Documented On 3 2:02PM By KATARINA PHILLIPS ; [facility] Pregabalin 150 MG Oral Capsule 05/01/2022 - 06/13/2022 Provider: KATARINA MALCOLMN-FPAj POOL TABLE OPERATOR-BC Diagnosis: TAKE 1 CAPSULE BY MOUTH TWICE DAILY Last Documented On 3 7:09PM By KATARINA PHILLIPS ; [facility] Cyclobenzaprine HCl 10 MG Oral Tablet 05/01/2022 - 06/13/2022 Provider: ALAN GARCIA Diagnosis: TAKE 1 TABLET BY MOUTH AT BE DTIME NEEDED FOR MUSCLE SPASMS Last Documented On 3 7:09PM By KATARINA PHILLIPS ; [facility] Pregabalin 150 MG Oral Capsule 03/31/2022 - 05/01/2022 Provider: GIACOMO DAMON MD Diagnosis: TAKE 1 CAPSULE BY MOUTH TWICE DAILY Last Documented On 3 9:47AM By KATARINA PHILLIPS ; [facility] CeleBREX 200 MG Oral Capsule 03/29/2022 - 06/13/2022 Juanita duffy: GIACOMO SHIN MD Diagnosis: 1 capsule daily with a meal Last Documented On 3 7:03PM By KATARIAN PHILLIPS ; [facility] Methocarbamol 750 MG Oral Tablet 03/29/2022 - 06/15/2022 Provider: ALAN GARCIA Diagnosis: Low back pain, unspecified TAKE 1 TABLET BY MOUTH THREE TIMES DAILY NEEDED Last Documented On 3 9:47AM By KATARINA PHILLIPS ; [facility] traMADol HCl 50 MG Oral Tablet 03/19/2022 - 05/25/2022 Provider: ALAN GARCIA Diagnosis: Sacroiliitis, no t elsewhere classified TAKE 1 TABLET BY MOUTH TWICE DAILY NEEDED FOR SEVERE PAIN Last Documented On 3 9:59AM By KATARINA PHILLIPS ; [facility] Cyclobenzaprine HCl 10 MG Oral Tablet 02/26/2022 - 05/01/2022 Provider: ALAN GARCIA Diagnosis: TAKE 1 TABLET BY MOUTH AT BE DTIME NEEDED FOR MUSCLE SPASMS Last Documented On 3 9:48AM By KATARINA PHILLIPS ; [facility] Pregabalin 150 MG Oral Capsule 02/26/2022 - 03/31/2022 Provider: KATARINA Rocha PRN-FPA, POOL TABLE OPERATOR-BC Diagnosis: TAKE 1 CAPSULE BY MOUTH TWICE DAILY Last Documented On 2 9:56AM By GIACOMO BUSCH MD ; [facility] Methocarbamol 750 MG Oral Tablet 01/19/2022 - 03/29/2022 Provider: KATARINA HARLEY APRN-FPA, POOL TABLE OPERATOR-BC Diagnosis: Low back pain, unspecified One tablet three times a day as needed Last Documented On 2 10:37AM By KATARINA HARLEY POOL TABLE OPERATOR-BC ; [facility] Pregabalin 150 MG Oral Capsule 01/19/2022 - 04/16/2022 Provider: KATARINA HARLEY APRN-FPA, POOL TABLE OPERATOR-BC Diagnosis: Radiculopathy, l umbar region TAKE 1 CAPSULE BY MOUTH TWICE DAILY Last Documented On 3 9:17AM By Jes DURAN ; [facility] traMADol HCl 50 MG Oral Tablet 01/19/2022 - 03/19/2022 Provider: KATARINA HARLEY APRN-FPA POOL TABLE OPERATOR-BC Diagnosis: Sacroiliitis, no t elsewhere classified One tablet twice a day as ne eded for SEVERE pain only Last Documented On 2 8:20AM By KATARINA HARLEY [facility] ; [facility] CeleBREX 200 MG Oral Capsule 01/12/2022 - 03/29/2022 Provider: KATARINA Rocha PRN-FPA, POOL TABLE OPERATOR-BC Diagnosis: 1 capsule daily with a meal Last Documented On 03/29/2022 11:34AM By Kayla DURAN ; [facility] Pregabalin 150 MG Oral Capsule 12/29/2021 - 01/19/2022 Provider: KATARINA HARLEY MANAGER EQUIPMENT-FPA, POOL TABLE OPERATOR-BC Diagnosis: Radiculopathy, l umbar region TAKE 1 CAPSULE BY MOUTH TWICE DAILY Last Documented On 2 9:42AM By KATARINA NICHOLSBC ; [facility] Methocarbamol 750 MG Oral Tablet 12/12/2021 - 01/19/2022 Provider: KATARINASIMONE RAMEY-ADAN Diagnosis: Low back pain, unspecified One tablet three times a day Last Documented On 2 9:43AM By KATARINA PHILLIPS ; [facility] CeleBREX 200 MG Oral Capsule 11/13/2021 - 01/12/2022 Provider: ALAN COE Diagnosis: 1 capsule daily with a meal Last Documented On 2 12:42PM By KATARINA PHILLIPS ; [facility] Pregabalin 150 MG Oral Capsule 10/25/2021 - 12/29/2021 Provider: ALAN GARCIA Diagnosis: Radiculopathy, l umbar region 1 CAPSULE TWO TIMES A DAY Last Documented On 2 4:54PM By KATARINA PHILLIPS ; [facility] Pregabalin 75 MG Oral Capsule 10/25/2021 - 11/13/2021 Provider: ALAN GARCIA Diagnosis: Radiculopathy, l umbar region 1 capsule at bedtime for 4 d ays then increase to two times daily Last Documented On 2 11:44AM By KATARINA PHILLIPS ; [facility] Venlafaxine HCl ER 75 MG Oral Capsule Extended Release 24 Hour 10/10/2021 - 05/25/2022 Provider: AMANDEEP JENKINS APN Diagnosis: Last Documented On 3 9:22AM By Jes DURAN ; [facility] Cyclobenzaprine HCl 10 MG Oral Tablet 06/20/2021 - 12/2022 Provider: Diagnosis: As needed for spasms. Last Documented On 3 9:16AM By Jes DURAN ; [facility] Medications Administered Includes: Administered Medications in patient's chart No Administered Medications Recorded Results Includes: Results from 08/01/2023 through 07/31/2024 No Results Recorded For Specified Dates History of Present Illness History of Present Illness not supported for this document type No History of Present Illness Recorded Social History Description Last Updated Current smoker TRYING TO QUIT 05/27/2023 Last Documented On 4 1:14PM ; [facility] No family problems 05/27/2023 Last Documented On 4 1:14PM ; [facility] No recent emotional stress 05/27/2023 Last Documented On 4 1:14PM ; [facility] Cigarette smoking: history 10 05/27/2023 Last Documented On 4 1:14PM ; [facility] Consuming 5 or more drinks per day None 05/27/2023 Last Documented On 4 1:14PM ; [facility] Currently not in school 05/27/2023 Last Documented On 4 1:14PM ; [facility] Daily coffee consumption 05/27/2023 Last Documented On 4 1:14PM ; [facility] Lives with spouse 05/27/2023 Last Documented On 4 1:14PM ; [facility] Living with and caring for family househ old member 05/27/2023 Last Documented On 4 1:14PM ; [facility] No consumption of alcohol 05/27/2023 Last Documented On 4 1:14PM ; [facility] 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 None 05/27/2023 Last Documented On 4 1:14PM ; [facility] Smoking packs of cigarettes per day 3/4 a pack 10/25/2021 Last Documented On 2 10:42AM ; [facility] Smoking Status Unknown Procedures and Surgical History Surgical History Last Updated No Pacemaker 10/25/2021 Last Documented On 2 10:42AM ; [facility] Medical History Includes: Medical History in patient's chart Description Last Updated Has had no fall in the last 12 months. 1 05/31/2021 07/22/2023 Last Documented On 4 9:19AM ; [facility] LMP: TUBES REMOVED BACK 202005/27/2023 Last Documented On 4 1:14PM ; [facility] A fall 2 05/27/2023 Last Documented On 4 1:14PM ; [facility] Denies a fear of falling. 07/20/2022 Last Documented On 3 1:35PM ; [facility] Parity ten or more 10/25/2021 Last Documented On 2 10:42AM ; [facility] No Pain Pump 10/25/2021 Last Documented On 2 10:42AM ; [facility] No Spinal cord stimulator 10/25/2021 Last Documented On 2 10:42AM ; [facility] Please list all surgeries: L apband 2010cyst removal 2017C-section 2018, 2019,202010/25/2021 Last Documented On 2 10:42AM ; [facility] Family History Includes: Family History in patient's chart Description Last Updated Family history of ischemic heart disease 10/25/2021 Last Documented On 2 10:42AM ; [facility] Fraternal history of reported family his tory of seizures 10/25/2021 Last Documented On 2 10:42AM ; [facility] Maternal history of Arthritis 10/25/2021 Last Documented On 2 10:42AM ; [facility] Maternal history of family history of is chemic heart disease 10/25/2021 Last Documented On 2 10:42AM ; [facility] Paternal history of family history of is chemic heart disease 10/25/2021 Last Documented On 2 10:42AM ; [facility] Paternal history of stroke/paralysis Last Documented On 2 10:42AM ; [facility] Review of Systems Review of [...] [place] Last Documented On 4 8:46AM ; [facility] [facility] Levaquin Allergy 10/25/2021 Active Last Documented On 4 8:46AM ; [facility] Latex Allergy 10/25/2021 Active Last Documented On 4 8:46AM ; [facility] Encounters Includes: Encounters from 08/01/2023 through 07/31/2024 Encounter Provider Location Date Check-In Time Check-Out Time Diagnosis RX ISSUE/REFILL KATARINA ESPOSITO, SIMONE-ADAN 09/04/2023 07/22/2023 10:16AM 07/22/2023 11:59PM Insurance Includes: Active Insurance Policies Plan Name Member ID Group # Subscriber Relationship Effect latonia Dates 1 - [facility] [id number] KIM COBURN Self Clinical Notes Includes: Signed Clinical Notes starting from 04/27/2022 * Progress note Date Encounter Last Documented by 09/04/2023 RX ISSUE/REFILL Last documented on 09/04/2023; 11:07 AM, KATARINA ESPOSITO, SIMONE-ADAN; [facility] Active Problems & Conditions - Anxiety [...]
--- OUTSIDE RECORDS SUMMARY | 2024-07-31 17:34 | XMS_ITS | Clinical Summary ---
Author Organization [facility] Address [address] [place] [address] Phone Care Team Providers Care Drug Safety Scientist Name Role Phone ARAUJO AMANDEEP AGGARWAL, LEEANNE Primary Care Provider [phone] ANUP HARRELL, EDWARDO Loza Unavailable [phone] Reason for Visit and Chief Complaint RX ISSUE/REFILL Problems Includes: Problems addressed during this encounter and other active Problems All Visits Onset Date Resolved Date Provider Condition S tatus Chronic Pain Syndrome 05/27/2023 MIRIAM Reese MOUSER PMHNP Active Last Documented On 4 2:07PM ; [facility] Depression Unknown KATARINA G CHERRI RUBBISH COLLECTION SUPERVISOR-FPA, PRODUCTION UTILITY WORKER-BC Active Last Documented On 2 8:50AM ; [facility] Anxiety Disorder Nos Unknown KATARINA G CHERRI RUBBISH COLLECTION SUPERVISOR-FPA, PRODUCTION UTILITY WORKER-BC Active Last Documented On 2 8:50AM ; [facility] Asthma Unknown KATARINA G CHERRI RUBBISH COLLECTION SUPERVISOR-FPA, PRODUCTION UTILITY WORKER-BC Active Last Documented On 2 8:49AM ; [facility] Gerd Unknown KATARINA G CHERRI RUBBISH COLLECTION SUPERVISOR-FPA, PRODUCTION UTILITY WORKER-BC Active Last Documented On 2 8:50AM ; [facility] Essential Hypertension Unknown KATARINA G KUL P RUBBISH COLLECTION SUPERVISOR-FPA, PRODUCTION UTILITY WORKER-BC Active Last Documented On 2 8:49AM ; [facility] Obesity Unknown KATARINA G CHERRI RUBBISH COLLECTION SUPERVISOR-FPA, PRODUCTION UTILITY WORKER-BC Active Last Documented On 2 8:49AM ; [facility] Plan of Treatment No Plan [...] Bray) - [address] , [facility], [phone] - Last Documented On 4 11:08AM By KATARINA PHILLIPS ; [facility] Current Medications (continue as prescribed) Meloxicam 15 MG Oral Tablet 09/09/2023 Provider: ALAN BREWSTER Diagnosis: Other spondylosi s, lumbar region TAKE 1 TABLET BY MOUTH DAILY WITH FOOD Last Documented On 4 10:37AM By KATARINA PHILLIPS ; [facility] Cyclobenzaprine HCl 10 MG Oral Tablet 07/22/2023 Provider: ALAN GARCIA Diagnosis: Low back pain, unspecified TAKE 1 TABLET BY MOUTH AT BEDTIME Last Documented On 4 9:43AM By KATARINA PHILLIPS ; [facility] Pregabalin 150 MG Oral Capsule 07/22/2023 Provider: ALAN BREWSTER Diagnosis: Radiculopathy, l umbar region TAKE 1 CAPSULE BY MOUTH TWICE DAILY Last Documented On 4 9:43AM By KATARINA PHILLIPS ; [facility] tiZANidine HCl 2 MG Oral Tablet 07/22/2023 Provider: ALAN GARCIA Diagnosis: Low back pain, u nspecified TAKE 1 TABLET BY MOUTH THREE TIMES DAILY NEEDED FOR LOWER BACK PAIN Last Documented On 4 9:43AM By KATARINA PHILLIPS ; [facility] traMADol HCl 50 MG Oral Tablet 06/25/2023 Provider: ALAN BREWSTER Diagnosis: Low back pain, u nspecified take 2 tablets as needed one to two times daily for severe pain Last Documented On 4 9:16AM By KATARINA PHILLIPS ; [facility] Trulicity 0.75 MG/0.5ML Subc utaneous Solution Pen-injector 04/04/2023 Provider: AMANDEEP JENKINS APN Diagnosis: 1 injection weekly. Last Documented On 4 9:00AM By KATARINA PHILLIPS ; [facility] Strattera 40 MG Oral Capsule 01/02/2023 Provider: ISMA ROMERO NP Diagnosis: Last Documented On 3 12:04PM By KATARINA PHILLIPS ; [facility] Labetalol HCl 100 MG Oral Tablet 12/08/2022 Provider : AMANDEEP JENKINS APN Diagnosis: Last Documented On 3 12:04PM By KATARINA PHILLIPS ; [facility] Varenicline Tartrate 1 MG Oral Tablet 07/20/2022 Pro vider: Diagnosis: Last Documented On 3 10:43AM By KATARINA PHILLIPS ; [facility] Pepcid 20 MG Oral Tablet 10/25/2021 Provider: Diagnosis: Last Documented On 2 9:50AM By KATARINA PHILLIPS ; [facility] Symbicort 160-4.5 MCG/ACT In halation Aerosol 10/17/2021 Provider: RIA JENKINS APN Diagnosis: 2 puffs twice a day. Last Documented On 2 9:50AM By KATARINA PHILLIPS ; [facility] Albuterol Sulfate HFA 108 (9 0 Base) MCG/ACT Inhalation Aerosol Solution 10/17/2021 Provider: AMANDEEP DE LEON APN Diagnosis: as needed. Last Documented On 2 9:50AM By KATARINA PHILLIPS ; [facility] Omeprazole 40 MG Oral Capsul e Delayed Release 10/17/2021 Provider: RIA JENKINS APN Diagnosis: Last Documented On 2 9:50AM By KATARINA PHILLIPS ; [facility] Montelukast Sodium 10 MG Oral Tablet 10/17/2021 Prov ider: SIMONE JENKINS APN-C Diagnosis: Last Documented On 2 9:50AM By KATARINA PHILLIPS ; [facility] amLODIPine Besylate 5 MG Oral Tablet 10/17/2021 Prov ider: SIMONE JENKINS APN-C Diagnosis: Last Documented On 2 9:50AM By KATARINA PHILLIPS ; [facility] Past Medications on file Venlafaxine HCl ER 75 MG Oral Capsule Extended Release 24 Hour 05/25/2022 - 06/24/2022 Provider: AMANDEEP JENKINS APN Diagnosis: 150 mg once a day. Last Documented On 3 10:00AM By KATARINA PHILLIPS ; [facility] Medications Administered Includes: Administered Medications from this encounter No Administered Medications Recorded Results Includes: Results discussed during this encounter No Results Recorded For Specified Dates History of Present Illness Includes: History of Present Illness from this encounter No History of Present Illness Recorded Social History Description Last Updated Current smoker TRYING TO QUIT 05/27/2023 Last Documented On 4 10:16AM ; [facility] No family problems 05/27/2023 Last Documented On 4 10:16AM ; [facility] No recent emotional stress 05/27/2023 Last Documented On 4 10:16AM ; [facility] Cigarette smoking: history 10 05/27/2023 Last Documented On 4 10:16AM ; [facility] Consuming 5 or more drinks per day None 05/27/2023 Last Documented On 4 10:16AM ; [facility] Currently not in school 05/27/2023 Last Documented On 4 10:16AM ; [facility] Daily coffee consumption 05/27/2023 Last Documented On 4 10:16AM ; [facility] Lives with spouse 05/27/2023 Last Documented On 4 10:16AM ; [facility] Living with and caring for family househ old member 05/27/2023 Last Documented On 4 10:16AM ; [facility] No consumption of alcohol 05/27/2023 Last Documented On 4 10:16AM ; [facility] Not recovering alcoholic 05/27/2023 Last Documented On 4 10:16AM ; [facility] Not recovering from substance abuse 05/09 Last Documented On 4 10:16AM ; [facility] Not smoking a pipe 05/27/2023 Last Documented On 4 10:16AM ; [facility] Not using drugs 05/27/2023 Last Documented On 4 10:16AM ; [facility] Number of times used recreat ional drug/ prescription drug for nonmedical reason. None 05/27/2023 Last Documented On 4 10:16AM ; [facility] Smoking packs of cigarettes per day 3/4 a pack 10/25/2021 Last Documented On 4 10:16AM ; [facility] Smoking Status Unknown Procedures and Surgical History Surgical History Last Updated No Pacemaker 10/25/2021 Last Documented On 4 10:16AM ; [facility] Medical History Includes: Medical History addressed during this encounter Description Last Updated Has had no fall in the last 12 months. 1 05/31/2021 07/22/2023 Last Documented On 4 10:16AM ; [facility] LMP: TUBES REMOVED BACK 202005/27/2023 Last Documented On 4 10:16AM ; [facility] A fall 2 05/27/2023 Last Documented On 4 10:16AM ; [facility] Denies a fear of falling. 07/20/2022 Last Documented On 4 10:16AM ; [facility] Parity ten or more 10/25/2021 Last Documented On 4 10:16AM ; [facility] No Pain Pump 10/25/2021 Last Documented On 4 10:16AM ; [facility] No Spinal cord stimulator 10/25/2021 Last Documented On 4 10:16AM ; [facility] Please list all surgeries: L apband 2010cyst removal 2017C-section 2018, 2019,202010/25/2021 Last Documented On 4 10:16AM ; [facility] Family History Includes: Family History addressed during this encounter Description Last Updated Family history of ischemic heart disease 10/25/2021 Last Documented On 4 10:16AM ; [facility] Fraternal history of reported family his tory of seizures 10/25/2021 Last Documented On 4 10:16AM ; [facility] Maternal history of Arthritis 10/25/2021 Last Documented On 4 10:16AM ; [facility] Maternal history of family history of is chemic heart disease 10/25/2021 Last Documented On 4 10:16AM ; [facility] Paternal history of family history of is chemic heart disease 10/25/2021 Last Documented On 4 10:16AM ; [facility] Paternal history of stroke/paralysis Last Documented On 4 10:16AM ; [facility] Review of Systems Includes: [...] [place] Last Documented On 4 8:46AM ; [facility] Levaquin Allergy 10/25/2021 Active Last Documented On 4 8:46AM ; [facility] Latex Allergy 10/25/2021 Active Last Documented On 4 8:46AM ; [facility] Encounters Encounter Provider Location Date Check-In Time Check-Out Time Diagnosis RX ISSUE/REFILL KATARINA HARLEY RUBB[employer] COLLECTION SUPERVISOR-FPA, PRODUCTION UTILITY WORKER-BC 09/04/2023 10:16AM 11:59PM Insurance Includes: Active Insurance Policies Plan Name Member ID Group # Subscriber Relationship Effect latonia Dates 1 - [facility] [id number] KIM Angelita COBURN Self Clinical Notes Includes: Clinical Notes from this encounter * Progress note Date Encounter Last Documented by 09/04/2023 RX ISSUE/REFILL Last documented on 09/04/2023; 11:07 AM, KATARINA HARLEY RUBBISH COLLECTION SUPERVISOR-FPA, PRODUCTION UTILITY WORKER-BC; [facility] Active Problems & Conditions [...]
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
--- NOTE | 2024-07-31 17:35 | ED_ITS ---
HPI - Wound/Laceration General Chief Complaint: Wound/Laceration Stated Complaint: LACERATION RIGHT THUMB Time Seen by Provider: 07/31/24 17:38 Source: patient Mode of arrival: ambulatory Limitations: no limitations History of Present Illness HPI narrative: Sushant is a 43-year-old female patient presenting to the clinic today with complaints of a laceration to her right thumb. She reports she was putting a grill together and got her finger caught on the handle. Last tetanus shot was in 2020. Bleeding is controlled. This occurred just prior to arrival. Related Data Home Medications ?Medication ?Instructions ?Recorded ?Confirmed ?Last Taken ?Type amlodipine 10 mg tablet 10 mg PO DAILY 04/03/19 01/19/24 Unknown History budesonide-formoterol HFA 160 2 puff inhalation BID 05/07/22 01/19/24 Unknown History mcg-4.5 mcg/actuation aerosol inhaler (Symbicort) ergocalciferol (vitamin D2) 1,250 1,250 mcg PO WEEKLY 05/12/23 01/19/24 Unknown History mcg (50,000 unit) capsule labetalol 100 mg tablet 100 mg PO BID 05/12/23 01/19/24 Unknown History montelukast 10 mg tablet 10 mg PO DAILY 05/12/23 01/19/24 Unknown History pregabalin 150 mg capsule 150 mg PO BID 05/12/23 01/19/24 Unknown History tizanidine 2 mg tablet 2 mg PO TID PRN MUSCLE SPASMS 05/12/23 01/19/24 Unknown History duloxetine 30 mg capsule,delayed 30 mg PO BID 01/19/24 01/19/24 Unknown History release omeprazole 40 mg capsule,delayed 40 mg PO DAILY 01/19/24 01/19/24 Unknown History release tramadol 200 mg tablet,extended 200 mg PO DAILY 01/19/24 01/19/24 Unknown History release 24 hr amlodipine 5 mg tablet mg 07/31/24 Unknown History atomoxetine 60 mg capsule mg PO 07/31/24 Unknown History cyclobenzaprine 10 mg tablet mg 07/31/24 Unknown History cyclobenzaprine 5 mg tablet mg 07/31/24 Unknown History duloxetine 60 mg capsule,delayed mg PO 07/31/24 Unknown History release pregabalin 100 mg capsule mg 07/31/24 Unknown History tramadol 50 mg tablet mg 07/31/24 Unknown History Allergies Allergy/AdvReac Type Severity Reaction Status Date / Time levofloxacin Allergy Severe hives Verified 07/31/24 17:41 latex Allergy Intermediate Rash Verified 07/31/24 17:41 theophylline Allergy Unknown Unknown Verified 07/31/24 17:41 Review of Systems Review of Systems: Pertinent positives per HPI. Patient denies any fever, chills, rash, headache, visual changes, dizziness, cough, runny nose, sore throat, shortness of breath, chest pain, palpitations, nausea, vomiting, diarrhea, constipation, abdominal pain, or any urinary issues. [facility] Past Medical History Medical History Diabetes Chronic back pain Hypertension Depression Gastrointestinal disorder Gastric bypass surgery, lap band Asthma Gestational hypertension Surgical History Surgical History No pertinent past surgical history Family History Family History Mother Family history non-contributory Social History Social History Social History: Smoking status: Current every day smoker Substance use: never Living arrangements: with family Gender identity (if verbalized by the patient): Female Spiritual care concerns: No Comments At the time of my signature, I reviewed and agree with the nursing past medical, surgical, social, and family history. There is no relevant family history pertinent to the patient complaint. Exam Narrative: General: Well-developed, well nourished, in no apparent distress Head: Normocephalic, atraumatic. Cardio: Regular rate and rhythm, s1 and s2 normal, no murmur appreciated. Resp: Clear to auscultation bilaterally, no rhonchi, rales, wheezing or rubs. Integumentary: [place], warm, and dry, 1.5 cm avulsion/flap like laceration to the dorsal right thumb just proximal to the thumbnail Course Course Emergency Course: Portions of this record may have been created with voice recognition software. Level of Care: Express Care Visit Vital Signs Vital signs: Vital Signs Temperature 36.7 C 07/31/24 17:33 Pulse Rate 102 H 07/31/24 17:33 Respiratory Rate 18 07/31/24 17:33 Blood Pressure 146/95 H 07/31/24 17:33 Pulse Oximetry 100 07/31/24 17:33 Oxygen Delivery Room Air 07/31/24 17:33 Temperature 36.7 C 07/31/24 17:33 Pulse Rate 102 H 07/31/24 17:33 Respiratory Rate 18 07/31/24 17:33 Blood Pressure 146/95 H 07/31/24 17:33 Pulse Oximetry 100 07/31/24 17:33 Oxygen Delivery Room Air 07/31/24 17:33 Vital signs reviewed Procedures Laceration Laceration 1: Date: 07/31/24 Site: hand (Thumb right) Side (If applicable): right Size (cm): 1.5 Description: linear and flap Depth: simple, single layer Local Anesthetic: lidocaine 1% Amount of anesthesia used (mL): 4 Pre-repair: wound explored and irrigated ====== Skin Level ====== Skin layer closed with: nylon Size (cm): 5-0 Number of sutures: 5 Technique: simple, interrupted ====== Subcutaneous Layer ====== ====== Muscle Layer ====== ====== Tendon Layer ====== Dressing: Verbal consent obtained for laceration repair. Risk and benefits explained and patient voiced understanding. Area was cleansed with Betadine and a 27 gauge needle was then used to instill (for) ml of 1% lidocaine without epi into the the medial and lateral dorsal proximal thumb to create a digital block. Area was prepped and draped using sterile technique. A 5-0 suture on a p needle was used to place (5) interrupted sutures bringing the wound edges together- well approximated. Patient tolerated procedure well. Sterile dressing applied. MDM - Wound/Laceration MDM Narrative Medical decision making narrative: At the time of visit patient is resting comfortably on the exam table. Patient appears to be nontoxic. Procedures: Laceration repair was performed in the clinic today. Five int errupted sutures were placed bringing the wound edges well approximate. Patient tolerated procedure well. Triple antibiotic ointment and Band-Aid was applied Plan: Patient has a right thumb laceration. Laceration repair was performed. Sutures out in 7 days. Supportive measures were discussed with the patient and they voiced understanding discharge instructions and agrees to treatment plan. Return precautions reviewed Differential Diagnosis Differential diagnosis: Likely laceration, abscess, abrasion and avulsion of skin Discharge Plan Discharge Clinical Impression: Laceration of thumb Qualifiers: Encounter type: initial encounter Damage to nail status: without damage Foreign body presence: without foreign body Laterality: right Qualified Code(s): S61.011A - Laceration without foreign body of right thumb without damage to nail, initial encounter Patient Disposition: Home Condition: Stable Instructions: Antibiotic Form, Finger Laceration (ED) Additional Instructions: Leave bandage on for 24 hours then may remove and apply band aide covering as needed. Keep wound clean and dry Skin sutures out in 7 days. Watch for signs and symptoms of infection- redness, streaking, swelling, purulent discharge, or increase in pain. Follow up with your PCP for suture removal or return to the Express care. Patient Language: Ivorian Prescriptions: No Action tramadol 200 mg tablet extended release 24 hr 200 mg PO DAILY duloxetine 30 mg capsule,delayed release(DR/EC) 30 mg PO BID omeprazole 40 mg capsule,delayed release(DR/EC) 40 mg PO DAILY cyclobenzaprine 10 mg tablet amlodipine 5 mg tablet tramadol 50 mg tablet atomoxetine 60 mg capsule PO cyclobenzaprine 5 mg tablet duloxetine 60 mg capsule,delayed release(DR/EC) PO pregabalin 100 mg capsule amlodipine 10 mg tablet 10 mg PO DAILY budesonide-formoterol [Symbicort] 160-4.5 mcg/actuation HFA aerosol inhaler 2 puff inhalation BID labetalol 100 mg tablet 100 mg PO BID montelukast 10 mg tablet 10 mg PO DAILY ergocalciferol (vitamin D2) 1,250 mcg (50,000 unit) capsule 1,250 mcg PO WEEKLY pregabalin 150 mg capsule 150 mg PO BID tizanidine 2 mg tablet 2 mg PO TID PRN (Reason: MUSCLE SPASMS) Follow-up/Referrals: Litzy,Jayla Shanks APN [Primary Care Provider] - Time of Disposition: 18:23 Quality NIHSS Nursing Documentation ED NIHSS nursing documentation: reviewed/agree
[2024-07-31] MEDS: LIDOCAINE 1% LOCAL INJ 2 ML AMPUL 4 ML INFILTRATE (17:46)
== END 2024-07-31 18:27 | disposition home or self-care (01) ==
PROVIDERS: Emergency Provider Nurse Practitioner Family; PCP Nurse Practitioner Family
DX: S61.011A Laceration without foreign body of right thumb without damage to nail, initial encounter (principal); E11.9 Type 2 diabetes mellitus without complications; I10 Essential (primary) hypertension; F17.210 Nicotine dependence, cigarettes, uncomplicated; Z79.891 Long term (current) use of opiate analgesic; Z79.899 Other long term (current) drug therapy; W45.8XXA Other foreign body or object entering through skin, initial encounter
CPT/HCPCS: 12001; 99212; G0463; J2003

== ENCOUNTER 2025-01-30 14:57 | Emergency (ER) | payer OTHER, SELFPAY ==
--- OUTSIDE RECORDS SUMMARY | 2025-01-30 15:00 | XMS_ITS | Clinical Summary ---
Author Organization [facility] Address [address] [place] [address] Phone Care Team Providers Care Environmental Construction Engineer Name Role Phone McgheeSebastiánJaylaleslie NARANJO CNP Primary Care Provider [phone] Allergies Active Allergy Reactions Criticality Noted Date [...] for dosing schedule 21 Tablet 3 Active Immunizations Immunization Administration Dates Next Due RHO [...] Comments Blood Pressure 150/84 03/20/2023 1:40 PM WRAPPER SIZER Pulse 99 03/20/2023 1:40 PM WRAPPER SIZER Temperature 37.1 C (98.8 F) 03/20/2023 1:03 PM WRAPPER SIZER Respiratory Rate 17 03/20/2023 1:40 PM WRAPPER SIZER Oxygen Saturation 100% 03/20/2023 1:40 PM WRAPPER SIZER Inhaled Oxygen Concentration - - Weight 122.5 kg (270 lb) 03/20/2023 1:03 PM WRAPPER SIZER Height 170.2 cm (5' 7) 03/20/2023 1:03 PM WRAPPER SIZER Body Mass Index 42.29 03/20/2023 1:03 PM WRAPPER SIZER Plan of Treatment Health Maintenance Due Date Last Done Comments Hepatitis C Virus (HCV) Screening 1981 Pap Smear 2002 Human Papillomavirus (HPV) Immunization (1 - 3-dose SCDM series) 2008 Hepatitis B Immunization (2 of 3 - 19+ 3-dose series) 03/14/2009 02/14/2009 Cervical Cancer Screening (CCS) 11/12/2011 HPV/Cotest 11/12/2011 Mammogram 12/06/2023 12/05/2022 Influenza Immunization (#1) 12/07/202406/08, 06/26/2018, 01/10/2017, Additional history exists SARS-COV-2 Immunization ( season) 2024 Respiratory Syncytial Virus (RSV) Immunization (Adult) (1 [...] Last Indicated MRSA 10/26/2017 10/26/2017 Insurance MEDICAID [employer] Advance Directives * Full Code (Latest Code Status on File) Date Activated Date Inactivated Comments 09/02/2015 1:54 PM 09/02/2015 4:06 PM CPR-Full Prabhakar atment: FULL ARREST: Attempt Resuscitation/CPR wit intubation and mechanical ventilation. PRE-ARREST: Use entire range of life support measures to stabilize the patient. Care Teams Environmental Construction Engineer Relationship Specialty Start Date End Date Jayla Mcghee APRN, SELENA PCP - General Family Medicine 04/03/17
--- OUTSIDE RECORDS SUMMARY | 2025-01-30 15:00 | XMS_ITS | Clinical Summary ---
Author Organization [facility] Address [address] [place] [address] Care Team Providers Care Entry Examiner Name Role Phone Litzy, Jayla Jimenez GROUP CAPTAIN Primary Care Provider [phone] Ly Albarran GROUP CAPTAIN Unavailable Allergies Active Allergy Reactions Criticality Noted Date [...] tablet (10 mg total) by mouth nightly 7 Active albuterol HFA (PROVENTIL HFA,VENTOLIN HFA,PROAIR HFA) 90 mcg/actuation inhalerIndicatio ns:Acute Asthma Attack Inhale 2 puffs every 6 (six) hours as needed for wheezing or shortness of breath 1 Inhaler 11 1 Active budesonide-formo teroL (SYMBICORT) 160-4.5 mcg/actuation inhaler Inhale 2 puffs 3 (three) times a day Rinse mouth with water after use. Do not swallow. 2 Inhaler 2 1 Active pregabalin (LYRICA) 150 mg capsuleIndicatio ns:pain Take 1 capsule (150 mg total) by mouth 2 (two) times a day 3 Active cyanocobalamin (Vitamin B-12) 500 mcg tabletIndication s:Prevention of Vitamin B12 Deficiency Take 1 tablet (500 mcg total) by mouth daily Start post Surgery 90 tablet 3 4 025 Active ferrous sulfate 325 mg (65 mg of elemental iron) tabletIndication s:Iron Deficiency Anemia Take 1 tablet (325 mg total) by mouth daily Start post-surgery. Take with food and avoid taking within 2 hours of calcium 90 tablet 3 4 025 Active calcium citrate-vitamin D3 200 mg-6.25 mcg (250 unit) tabletIndication s:Hypocalcemia Prevention Take 2 tablets by mouth 3 (three) times a day Start post-surgery 540 tablet 3 4 025 Active Additional Information Patient taking differently:2 tablet oral 3 times daily, Start post-surgery,Indications: Hypocalcemia Prevention, Prevention of Vitamin D Deficiency, Informant: Self, Reported on 10/06/2024 polyethylene glycol (MIRALAX) 17 gram/dose bulk powderIndication s:constipation Take 17 g by mouth 2 (two) times a day Start post-surgery 1020 g 4 Active omeprazole (PriLOSEC) 20 mg capsule Take 1 capsule (20 mg total) by mouth 2 (two) times a day START POST SURGERY 60 capsule 4 Active pediatric multivitamin no.76 (FLINTSTONES COMPLETE ORAL)Indications :supplement Take 2 tablet/chew tab by mouth 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 mill 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 before breakfast Active hydrOXYzine (ATARAX) 25 mg tablet Take 1 tablet (25 mg total) by mouth 3 (three) times a day as needed for anxiety Active Klayesta powder 5 Active cyclobenzaprine (FLEXERIL) 5 mg tablet 5 Active traMADoL (ULTRAM) 50 mg tablet TAKE 1 TABLET BY MOUTH EVERY 6 HOURS NEEDED FOR SEVERE PAIN 5 Active amLODIPine (NORVASC) 5 mg tablet Take 1 tablet (5 mg total) by mouth daily 5 Active Vyvanse 30 mg capsule Take 1 capsule (30 mg total) by mouth every morning 5 Active FLUoxetine (PROzac) 20 mg capsule 5 Active Active Problems Problem Noted Date Diagnosed Date Abdominal pain 04/14/2024 Hiatal hernia with GERD 02/04/2024 Osteoarthritis of multiple joints 10/16/2023 Left ventricular hypertrophy 11/28/2022 Anxiety disorder 07/31/2022 07/31/2022 Depression 07/31/2022 07/31/2022 Essential hypertension 07/31/2022 Guyon syndrome, 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 Left carpal tunnel syndrome 07/30/2022 Carpal tunnel syndrome of right wrist 06/26/2022 Overview (06/26/2022): Added automatically from request for surgery [id number] Guyon syndrome, 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 Overview (06/26/2022): Added automatically from request for surgery [id number] Cubital tunnel syndrome on 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 Overview (06/26/2022): Added automatically from request for surgery [id number] GERD (gastroesophageal reflux disease) 2 Overview (07/31/2022): Added automatically from request for surgery [id number] Kidney stone 10/31/2021 Overview (10/31/2021): Added automatically from request for surgery [id number] Cardiac risk counseling 12/27/2020 delivery delivered 12/19/2020 [...] 2020. [x] Method of feeding: formula [x] Aerologist: same as other children [x] Car seat Discussed [x] PP Depression Counseling: discussed [x] COVID vaccine: declined s/p counseling Assessment & Plan (06/07/2020 12:57 PM QUANTITATIVE CONSULTANT): Counseled on IOB labs Counseled on genetic [...] with patient, s/p sleep apnea study at [facility] in 2009. Pt reports this was borderline [...] Overview (06/07/2020): - Per Care [facility] at [facility] Date 07/08/2011, does not indicate gestational age. [...] tube. -Patient highly desires b/l salpingectomy. -07/26/20: [place] Medicaid papers signed in clinic -11/11/20: Papers [...] Encounters Date Type Department Care Team Description 01/14/2025 10:03 AM CDT - 01/14/2025 10:14 AM CDT Emergency [facility] Emergency Department [address] [place] [address] Other sprain of right shoulder joint, initial encounter (Primary Dx) Discharge Disposition: Discharge to home or self care from Last 3 Months Immunizations Immunization Administration [...] Brother Chi Flores Jr Hypertension Brother Chi Ray Sandra Jr Clotting disorder Father Chi sandra sr Diabetes Father Chi sandra sr Heart attack Father Chi sandra sr Heart disease Father Chi sandra sr Heart failure Father Chi sandra sr Hypertension Father Chi sandra sr Mental illness Father Chi sandra sr Obesity Father Chi sandra sr Stroke Father Chi sandra sr Heart disease Maternal Grandmother Narda Jett Hypertension Maternal Grandmother Narda Jett Obesity Maternal Grandmother Narda Jett Stroke Maternal Grandmother Narda Jett Anemia Mother Drshaylee Sandra Arthritis Mother Fariba Flores Clotting disorder Mother Fariba Flores Crohn's disease Mother Drisa Sandra Hypertension Mother Drisa Sandra Kidney disease Mother Drshaylee Sandra Bleeding Disorder Other 1 Family his [...] sr Maternal Grandmother Narda Jett Mother Fariba Flores Alive Other 1 Other 2 Other 3 [...] oz pur e alcohol) Social Connection and Isolation Panel Answer Date Recorded In a typical week, how many times do you talk on the phone with family, friends, or neighbors? More than three times a week 12/20/2020 How often do you get togethe r with friends or relatives? More than three times a week 12/20/2020 Attends Religion Services Not on file 12/20 Active Member [...] things needed for daily living? No 12/20/2020 Alexander Depression Scale Answer Date Recorded Alexander Depression Scale Total 0 10/14/2020 The thought of harming myself has occurred to me . Never 10/14/2020 Personal Safety Answer Date Recorded Have you ever been in or are you currently in a harmful physical or emotional relationship or is someone making you feel afraid or unsafe? Denies 01/14/2025 Comments No Sex and Gender Information Value Date Recorded Sex Assigned at Not on file Legal Sex Female 1:02 AM QUANTITATIVE CONSULTANT Gender Identity Female 01/01/2024 11:38 AM CDT Sexual Orientation Bisexual 01/01/2024 11 :38 AM CDT Obstetrics History Para Term AB IAB SAB Ectopic Multiple Livin g Live Births 12 11 8 3 1 0 10 1 Date Outcome GA Total Labor Labor/2nd/3rd Weight Sex Type Anes PTL Derrick A1 A5 Name Clin Term Term Term Term Term Term Term AB 021 Term 37w 1d 0h 01m 0h 01m 3.23 kg (7 lb 1.9 oz) F CS-LT ranv Combin ed Spinal /Epidu ral N Livin g 8 8 PRIDE ,GIRL KIM fritz, Bentley Roca MD Complications:None Delivery Location:[facility] Main C ampus ([facility] L AND D PROCEDURE) Comments 11 11/12/19 35w0d 2510 g (5 lb 8.5 oz) M Spinal N DERRICK 10 Term 10/22/18 37w1d 2450 g (5 lb 6.4 oz) F EPI N DERRICK Complications: Prolapse of umbilical cord, single or unspecified fetus 9 SAB 2018 11w0d U 8 Term 2016 37w0d Vag-Spont [...] Sign Reading Time Taken Comments Blood Pressure 157/74 01/14/2025 10:13 AM CDT Pulse 84 01/14/2025 10:13 AM CDT Temperature 36.1 C (97 F) 01/14/2025 8:43 AM CDT Respiratory Rate 18 01/14/2025 10:13 AM CDT Oxygen Saturation 98% 01/14/2025 10:13 AM CDT Inhaled Oxygen Concentration - - Weight 95.3 kg (210 lb) 10/06/2024 9:18 AM CDT Height 170.2 cm (5' 7) 10/06/2024 9:18 AM CDT Body Mass Index 32.89 10/06/2024 9:18 AM CDT Plan of Treatment Health Maintenance Due Date Last Done Comments Cervical Cancer Screening 1981 Hepatitis C Screening 1981 Varicella Vaccines (1 of 2 - 13+ 2-dose series) 1994 Regular Well Visit/Exam 18-64 11/12/1999 HPV Vaccines (1 - 3-dose SCD M series) 2008 Pneumococcal vaccine <65 (2 of 2 - PCV) 06/10/2013 06/10/2012 Depression Screening 10/14/2021 10/14/2020 Breast Cancer Screening-Mammogram 12/06/2023 023 Influenza Vaccine (#1) 2024 9, 06/26/2018, 01/10/2017, Additional history exists DTaP/Tdap/Td Vaccine (12 - T d or Tdap) 10/14/2030 10/14/2020, 10/08/2019, 09/17/2019, Additional history exists Hepatitis B Screening Completed 02/14/2009 Medical Devices Implanted Type Area Corporate Librarian Device Identifier Shelf Expiration Date Model / Serial / Lot Spinal Cord Stimulator Spinal Cord Stimulator Back [employer] Biological Bariatric Peristrip Non Crosslinked Bovine Pericardium For Endo Amie Thin [id number] - [id number] Implanted:Qty: 1 on 04/06/2024 at [facility] N/A: [facility] [employer] 08/12/2025 [id number] ATHN / / [id number]- [id number] [employer] Biological Bariatric Peristrip Non Crosslinked Bovine Pericardium For Endo Amie Thin [id number] - [id number] Implanted:Qty: 1 on 04/06/2024 at [facility] N/A: [facility] [employer] 08/17/2025 [id number] ATHN / / [id number]- [id number] [employer] Biological Bariatric Peristrip Non Crosslinked Bovine Pericardium For Endo Amie Thin [id number] - [id number] Implanted:Qty: 1 on 04/06/2024 at [facility]: [facility] [employer] 08/17/2025 [id number] ATHN / / [id number]- [id number] Procedures Procedure Name Priority Date/Time Associated Diagnosis Comments XR SHOULDER RIGHT 2 OR MORE VIEWS ED 01/14/2025 9:00 AM CDT SCREENING MAMMOGRAM BILATERAL W FELIBERTO Schedule Routine, Read Routine (OP Routine) 12/05/2022 5:04 PM CDT Screening mammogram, encounter for from Last 3 Months or Most Recently Relevant to Health Maintenance Results * XR Shoulder Right 2 or More Views (01/14/2025 9:00 AM CDT) Anatomical Region Laterality Modality Upper Extremities, Shoulder Right Comp uted Radiography 01/14/2025 9:26 AM CDT Narrative 01/14/2025 9:28 AM CDT EXAM DESCRIPTION: XR SHOULDER RIGHT 2 OR MORE VIEWS REASON FOR STUDY: pain, pain Pt to ED via POV. Per Pt she was pulling something out of her washing machine when she felt a pop in her right shoulder. Pt reports difficulty lifting her right arm. TECHNIQUE: 4 radiographic view(s) of the right shoulder . COMPARISON: 02/14/2023 and 12/28/2022 FINDINGS: BONES/JOINTS: There is no acute fracture or dislocation. There is moderate osteoarthritis of the acromioclavicular joint and mild osteoarthritis of the glenohumeral joint. No destructive osseous lesion. SOFT TISSUES: Within normal limits. Other: Spinal stimulator leads project over the midthoracic spine. IMPRESSION: Osteoarthritis. No acute osseous abnormality. THIS IS AN ELECTRONICALLY VERIFIED FINAL REPORT 01/14/2025 9:28 AM - Electronically signed by Muriel Shah M.D. TW: LETICIA Report ID: [id number] Reading Location: [id number] Procedure Note Muriel Shah MD - 01/14/2025 EXAM DESCRIPTION: XR SHOULDER RIGHT 2 OR MORE VIEWS REASON FOR STUDY: pain, pain Pt to ED via POV. Per Pt she was pulling something out of her washingmachine when she felt a pop in her right shoulder. Pt reports difficulty liftingher right arm. TECHNIQUE: 4 radiographic view(s) of the right shoulder . COMPARISON: 02/14/2023 and 12/28/2022 FINDINGS: BONES/JOINTS: There is no acute fracture or dislocation. There ismoderate osteoarthritis of the acromioclavicular joint and mild osteoarthritis ofthe glenohumeral joint. No destructive osseous lesion. SOFT TISSUES: Within normal limits. Other: Spinal stimulator leads project over the midthoracic spine. IMPRESSION: Osteoarthritis. No acute osseous abnormality. THIS IS AN ELECTRONICALLY VERIFIED FINAL REPORT 01/14/2025 9:28 AM - Electronically signed by Muriel Shah M.D. TW: LETICIA Report ID: [id number] Reading Location: [id number] Yen Aquino NP IMG XR PROCEDURES Final Result * Screening Mammogram Bilateral W Feliberto (12/05/2022 [...] suspicious finding in either breast on mammogram. Self Screening Mammogram IMG MAMMO PROCEDURES Fi nal Result from Last 3 Months or Most Recently Relevant to Health Maintenance Insurance [facility] Advance Directives For more information, please contact: [phone] * Full Code (Latest Code Status on [...] 1:45 PM 12/21/2020 10:11 PM Care Teams Entry Examiner Relationship Specialty Start Date End Date Jayla Mcghee NP [address] [place] [address] PCP - General Nurse Practitioner 10/11/21 Ly Albarran NP [address] [facility] [address] [place] [id number] Nurse Practitioner Psychiatry 01/09/24
--- OUTSIDE RECORDS SUMMARY | 2025-01-30 15:00 | XMS_ITS | Encounter Summary ---
Author Organization [facility] Address [address] [address] Phone Care Team Providers Care Veneer Repairer Machine Name Role Phone Jayla Mcghee APRN, CNP Primary Care Provider [phone] Reason for Referral * PT/OT/ST (Routine) - Open Specialty Diagnoses / Procedures Referred By Liliana joiner Referred To Contact Physical Therapy Diagnoses Right shoulder pain, unspecified chronicity Cervicalgia Right hand weakness Edelmira Henderson APRN, CNP [address] [place] [address] Phone: tel: fax: [facility] at [address] [address] Phone: tel: fax: Referral ID Status Reason Start Date Expiration Date Visits Re quested Visits Authorized [id number] Open 07/30/2024 50 50 Scheduling Instructions Encounter Details Date Type Department Care Team (Latest Contact Info) Description 07/30/2024 Transcribe Orders [facility] [address] [place] [address] Edelmira Henderson APRN, CNP [address] [place] [address] Right shoulder pain, unspecified chronicity (Primary Dx); [...] documented as of this encounter Care Teams Veneer Repairer Machine Relationship Specialty Start Date End Date Jayla Mcghee APRN, SELENA PCP - General Family Medicine 04/03/17 documented as of this encounter
--- OUTSIDE RECORDS SUMMARY | 2025-01-30 15:00 | XMS_ITS | Encounter Summary ---
Author Organization [facility] Address [address] [place] [address] Phone Care Team Providers Care Ballet Professor Name Role Phone Shari Castellanos MD Primary Care Prov ider Jayla Mcghee NP Primary Care Provider Khris Rothman PT Unavailable [phone] Ly Albarran RESIDENCE DIRECTOR Unavailable [phone] Encounter Details Date Type Department Care Team (Late st Contact Info) Description 07/23/2017 Orders Only 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 Gender Identity Female 01/01/2024 11:38 AM CDT [...] documented as of this encounter Care Teams Ballet Professor Relationship Specialty Start Date End Date Shari Castellanos MD PCP - General 07/25/16 10/10/21 Jayla Mcghee, TAQUERIA [address] [place] [id number] PCP - General Nurse Practitioner 10/11/21 [place] [address] [place] [address] Physical Therapist Physical Therapy 11/01/22 11/01/22 Ly Albarran NP [address] [facility] [address] [place] [address] Nurse Practitioner Psychiatry 01/09/24 documented as of this encounter
--- OUTSIDE RECORDS SUMMARY | 2025-01-30 15:03 | XMS_ITS | Clinical Summary ---
Author Organization [facility] Address [address] [place] [address] Care Team Providers Care Online Advertising Analyst Name Role Phone McgheeSebastiánJaylaleslie WAITE Primary Care Provider [phone] Source Comments [facility],non-owned Affiliates and Associated Physician Practices is amultiple site organization consisting of ambulatory clinics and hospital sitesin [place], [place], [place] and [place]. This disclosure is being madepursuant to the Care Everywhere program and may not contain all information available regarding this patient. Last updated 17.[facility] [employer] Allergies Active Allergy Reactions Criticality Noted Date [...] of CS if indicated for medical reasons. [employer] form completed. Diapers given 10/22/19 [...] Overview: Added automatically from request for surgery [id number] Last Assessment & Plan: The patient was [...] trimester 09/07/2013 Overview (06/22/2015): Records received from [facility] Date 07/08/2011, does not indicate gestational age. 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 Gender Identity Not on file Sexual Orientation Not on file Last Filed Vital Signs Vital Sign Reading Time Taken Comments Blood Pressure 143/95 02/18/2023 3:14 PM JAVA LEAD DEVELOPER Pulse 102 02/18/2023 3:14 PM JAVA LEAD DEVELOPER Temperature 36.7 C (98.1 F) 02/18/2023 3:14 PM JAVA LEAD DEVELOPER Respiratory Rate 20 11/19/2019 1:03 PM CDT Oxygen Saturation 98% 02/18/2023 3:14 PM JAVA LEAD DEVELOPER Inhaled Oxygen Concentration 21% 11/13/2019 9 :10 AM CDT Weight 118.8 kg (262 lb) 12/29/2019 8:25 AM CDT Height 170.2 cm (5' 7) 12/17/2019 12:45 PM CDT Body Mass Index 41.04 12/17/2019 12:45 PM CDT Plan of Treatment Health Maintenance Due Date Last Done Comments HEPATITIS C SCREENING 11/07/1999 HPV VACCINE (1 - 3-dose SCDM series) 2008 HEPATITIS B VACCINE (2 of 3 - 19+ 3-dose series) 03/14/2009 02/14/2009 PAP with HPV 11/12/2011 LIPID TESTING 12/14/2014 12/14/2009 MAMMOGRAM 12/05/2024 12/05/2022, 12/05/2022 COVID-19 VACCINE ( season) 2024 INFLUENZA VACCINE (#1) 2024 9, 06/26/2018, 01/10/2017, Additional history exists DTAP/TDAP/TD VACCINES [...] Reactive Non Reactive 10/08/2019 10:58 AM CDT [facility] Blood BLOOD SPECIMEN / Unknown Venipuncture / Unknown 10/08/2019 9:58 AM CDT 10/08/2019 10:09 AM CDT Narrative [facility] - 10/08/2019 10:58 AM CDT No Laboratory evidence of HIV infection. Tosin España MD LAB - CHEMISTRY ORDERABLES F inal Result Performing Organization Address City/State/[facility] Co de Phone Number [facility] [address] [place] [address] * (ABNORMAL) LIPID PROFILE (12/14/2009 1:35 PM CDT) [facility] Signature Cholesterol 170 120.0 - 200.0 mg/dl [facility] Triglycerides 113 0.0 - 250.0 mg/dl [facility] HDL Cholesterol 30(L) >40 mg/dl [facility] LDL Calculated 117.4 mg/dl [facility] Chol HDL Ratio 5.7 [facility] Comment Lipid [facility] Comment: Risk Classification HDL CHOL LDL CHOL TOTAL CHOL According to NCEP (mg/dl) (mg/dL) (mg/dl) Desirable >40 <130 < 200 Borderline/High - 130-159 200-239 High - >159 > 239 The total cholesterol to HDL cholesterol ratio may be used to predict risk for coronary heart disease in untreated patients according to data reported from the [place] Study by Elian Avalos M.D. The predictive [...] LAB - CHEMISTRY ORDERABLES Fi nal Result Performing Organization Address City/[facility]/ZIP Co de Phone Number [facility] [address] [place] [address] from Last 3 Months or Most Recently Relevant to Health Maintenance Insurance MEDICAID - [place] [facility] Advance Directives * Full Code (Latest [...] 7:40 AM 10/24/2018 6:45 PM Care Teams Online Advertising Analyst Relationship Specialty Start Date End Date Jayla Mcghee APRN-SELENA [address] [place] [id number] PCP - General Nurse Practitioner Family 07/21/19
--- NOTE | 2025-01-30 15:08 | ED.WOUNDLAC ---
HPI - Wound/Laceration General Chief Complaint: Wound/Laceration Stated Complaint: Laceration to Left Thumb Time Seen by Provider: 01/30/25 15:08 Source: patient Mode of arrival: ambulatory Limitations: no limitations History of Present Illness HPI narrative: 44 yo F presents with laceration to L thumb. Cut herself with kitchen knife while slicing onions. Bleeding controlled on arrival. ROM and distal NV intact. All systems reviewed and negative except as noted above. Related Data Home Medications ?Medication ?Instructions ?Recorded ?Confirmed ?Last Taken ?Type amlodipine 10 mg tablet 10 mg PO DAILY 04/03/19 01/30/25 Unknown History budesonide-formoterol HFA 160 2 puff inhalation BID 05/07/22 01/19/24 Unknown History mcg-4.5 mcg/actuation aerosol inhaler (Symbicort) ergocalciferol (vitamin D2) 1,250 1,250 mcg PO WEEKLY 05/12/23 01/19/24 Unknown History mcg (50,000 unit) capsule montelukast 10 mg tablet 10 mg PO DAILY 05/12/23 01/19/24 Unknown History pregabalin 150 mg capsule 150 mg PO BID 05/12/23 01/30/25 Unknown History amlodipine 5 mg tablet mg 07/31/24 Unknown History cyclobenzaprine 10 mg tablet mg 07/31/24 Unknown History cyclobenzaprine 5 mg tablet mg 07/31/24 Unknown History pregabalin 100 mg capsule mg 07/31/24 Unknown History tramadol 50 mg tablet mg 07/31/24 Unknown History albuterol sulfate 90 mcg/actuation inhalation 01/30/25 Unknown History aerosol inhaler fluoxetine 40 mg capsule mg 01/30/25 Unknown History lisdexamfetamine 40 mg capsule mg 01/30/25 Unknown History (Vyvanse) Allergies Allergy/AdvReac Type Severity Reaction Status Date / Time levofloxacin Allergy Severe hives Verified 07/31/24 17:41 latex Allergy Intermediate Rash Verified 07/31/24 17:41 theophylline Allergy Unknown Unknown Verified 07/31/24 17:41 [facility] Past Medical History Medical History Diabetes Chronic back pain Hypertension Depression Gastrointestinal disorder Gastric bypass surgery, lap band Asthma Gestational hypertension Surgical History Surgical History No pertinent past surgical history Family History Family History Mother Family history non-contributory Social History Social History Social History: 3pack Smoking status: Current every day smoker Substance use: never Living arrangements: with family Gender identity (if verbalized by the patient): Female Spiritual care concerns: No Comments At time of signature, agree with nursing past medical, surgical, social and family history. There is no relevant family history pertinent to the presenting complaint. Exam Narrative: GENERAL: This is a well-nourished, well-developed patient, in no apparent distress. HEAD: normocephalic, atraumatic. EYES: PERRL. Sclera clear/white. Vision is grossly intact. EARS: External ears normal NOSE: External nose normal NECK: Neck supple, non-tender without lymphadenopathy, masses or thyromegaly. CARDIOVASCULAR: Regular rate and rhythm without murmurs, gallops, or rubs. RESPIRATORY: Clear to auscultation. Breath sounds equal bilaterally. No wheezes, rales, or rhonchi. SKIN: warm, Dry, no suspicious lesions or rash, good texture and turgor. 1cm laceration to lateral aspect L thumb. bleeding controlled. ROM and distal NV intact. NEURO: awake, alert, and oriented to person, place and time. There were no obvious focal neurologic abnormalities. EXTREMITIES: No joint tenderness, effusion, or edema noted. Course Course Level of Care: Express Care Visit Vital Signs Vital signs: Vital Signs Temperature 36.4 C 01/30/25 15:12 Pulse Rate 92 01/30/25 15:12 Respiratory Rate 18 01/30/25 15:12 Blood Pressure 143/82 H 01/30/25 15:12 Pulse Oximetry 100 01/30/25 15:12 Oxygen Delivery Room Air 01/30/25 15:12 Temperature 36.4 C 01/30/25 15:12 Pulse Rate 92 01/30/25 15:12 Respiratory Rate 18 01/30/25 15:12 Blood Pressure 143/82 H 01/30/25 15:12 Pulse Oximetry 100 01/30/25 15:12 Oxygen Delivery Room Air 01/30/25 15:12 At time of signature, agree with nursing past medical, surgical, social and family history. There is no relevant family history pertinent to the presenting complaint. Procedures Laceration Laceration 1: Date: 01/30/25 Time: 15:15 Site: hand ( Thumb) Side (If applicable): left Size (cm): 1 Description: linear Depth: simple, single layer Local Anesthetic: lidocaine 1% Amount of anesthesia used (mL): 1 Pre-repair: wound explored and irrigated ====== Skin Level ====== Skin layer closed with: nylon Size (cm): 4-0 Number of sutures: 3 Technique: simple, interrupted ====== Subcutaneous Layer ====== ====== Muscle Layer ====== ====== Tendon Layer ====== MDM - Wound/Laceration MDM Narrative Medical decision making narrative: laceration repaired with sutures. Patient tolerated well. Wound edges approximate. Differential Diagnosis Differential diagnosis: Likely laceration Discharge Plan Discharge Clinical Impression: Laceration of left thumb Qualifiers: Encounter type: initial encounter Damage to nail status: without damage Foreign body presence: without foreign body Qualified Code(s): S61.012A - Laceration without foreign body of left thumb without damage to nail, initial encounter Patient Disposition: Home Condition: Stable Instructions: Finger Laceration (ED) Additional Instructions: Three sutures were placed to laceration today. Follow-up in 7-10 days for suture removal. Keep wound clean and dry. Patient Language: Ukrainian Prescriptions: No Action cyclobenzaprine 10 mg tablet amlodipine 5 mg tablet tramadol 50 mg tablet cyclobenzaprine 5 mg tablet pregabalin 100 mg capsule amlodipine 10 mg tablet 10 mg PO DAILY budesonide-formoterol [Symbicort] 160-4.5 mcg/actuation HFA aerosol inhaler 2 puff inhalation BID montelukast 10 mg tablet 10 mg PO DAILY ergocalciferol (vitamin D2) 1,250 mcg (50,000 unit) capsule 1,250 mcg PO WEEKLY pregabalin 150 mg capsule 150 mg PO BID fluoxetine 40 mg capsule albuterol sulfate 90 mcg/actuation HFA aerosol inhaler INHALATION lisdexamfetamine [Vyvanse] 40 mg capsule Follow-up/Referrals: Mcghee,Jayla Shanks APN [Primary Care Provider, Unknown] Time of Disposition: 15:26
[2025-01-30 15:12] VITALS: BP 143/82; PULSE 92; RESP 18; TEMP 36.4; O2SAT 100
[2025-01-30] MEDS: LIDOCAINE 1% LOCAL INJ 2 ML AMPUL INFILTRATE (16:30)
== END 2025-01-30 15:30 | disposition home or self-care (01) ==
PROVIDERS: Emergency Provider Nurse Practitioner Family; PCP Nurse Practitioner Family
DX: S61.012A Laceration without foreign body of left thumb without damage to nail, initial encounter (principal); W26.0XXA Contact with knife, initial encounter; F17.200 Nicotine dependence, unspecified, uncomplicated; E11.9 Type 2 diabetes mellitus without complications; I10 Essential (primary) hypertension; J45.909 Unspecified asthma, uncomplicated; F32.A Depression, unspecified
CPT/HCPCS: 12001; 99212; G0463; J2003